=== PATIENT | male | born 1945 | race Caucasian/White ===

== ENCOUNTER → 2016-07-04 | Outpatient (CLI) | payer MEDICARE ==
[~2016-07-04] MED LIST: ACET325T PO; ASPI1TAB69 PO; CEPA5.4L2 BUCCAL; CLON0.1T PO; CLON0.5T PO; COLA100C3 PO; CYCL1TAB29 PO; DILA100C PO; DOCU100C PO; FENT50T T-DERMAL; FINA5TAB2 PO; GAVISUS PO; IPRASOL INH; LEVE500 PO; LORA2INJ2 IV; LYRI100C PO; MILKSUS PO; MORP1TAB24 PO; ONDA4INJ2 IV PUSH; OXYC-395 PO; OXYC1CAP8 PO; OXYC1TAB63 PO; OXYC5 PO; PANT40TA3 PO; PHEN100C PO; PHENO100 PO; POLY17S PO; SODI0.9I29 IV FLUSH; TERA10CA3 PO; TERA5CAP3 PO; TRAZ50TA12 PO; VENTAER INH; ZOLP5TAB3 PO
[2016-07-04 13:56] LABS: AUTOMATED NEUTROPHIL # 6.1 TH/MM3 (1.8-7.7); BASOPHIL % 0.4 % (0.0-2.0); EOSINOPHIL # 0.1 TH/MM3 (0-0.4); EOSINOPHIL % 1.1 % (0.0-4.0); HEMATOCRIT 39.9 % (39.0-51.0); HEMO FLAGS DIFF FINAL; LYMPH % 18.8 % (9.0-44.0); LYMPHOCYTE # 1.6 TH/MM3 (1.0-4.8); MEAN CELL VOLUME 90.5 FL (80.0-100.0); MEAN CORPUSCULAR HEMOGLOBIN 31.4 PG (27.0-34.0); MEAN CORPUSCULAR HGB CONC 34.7 % (32.0-36.0); MONO % 7.9 % (0.0-8.0); NEUT % 71.8 % (16.0-70.0); PLATELET COUNT 228 TH/MM3 (150-450); RED CELL DISTRIBUTION WIDTH 13.7 % (11.6-17.2); WHITE BLOOD COUNT 8.5 TH/MM3 (4.0-11.0)
[2016-07-04 14:05] LABS: PROTHROMBIN TIME - PATIENT 10.6 SEC (9.8-11.6)
[2016-07-04 14:10] LABS: BLOOD, URINE MOD (NEG); COMMENT (UR) CULT NOT INDICATED; CULTURE IF INDICATED CULT NOT INDICATED; GLUCOSE,URINE NEG (NEG); KETONE, URINE NEG (NEG); MUCUS URINE FEW /lpf (OCC); NITRITE,URINE NEG (NEG); SQUAMOUS EPITHELIAL CELL URINE <1 /hpf (0-5); URINE COLOR YELLOW (YELLW/STRAW)
[2016-07-04 14:20] LABS: ANION GAP 8 MEQ/L (5-15); AST (GOT) 24 U/L (15-37); BICARBONATE 27.4 MEQ/L (21.0-32.0); BLOOD UREA NITROGEN 16 MG/DL (7-18); CHLORIDE 109 MEQ/L (98-107); GLOMERULAR FILTRATION RATE 109 ML/MIN (>89); GLUCOSE,FASTING 94 MG/DL (74-99); POTASSIUM 4.6 MEQ/L (3.5-5.1); SODIUM (NA) 144 MEQ/L (136-145)
[2016-07-04 14:23] LABS: ALKALINE PHOSPHATASE 143 U/L (45-117); ALT (GPT) 29 U/L (12-78); TOTAL BILIRUBIN ADULT 0.8 MG/DL (0.2-1.0)
--- NOTE | 2016-07-04 14:41 | RADRPT ---
EXAM DATE/TIME: 07/04/2016 14:19 [facility] COMPARISON: No previous studies available for comparison. INDICATIONS : Evaluate pneumonia, pneumothorax, or communicable disease. Pre op back surgery MEDICAL HISTORY : None. SURGICAL HISTORY : None. ENCOUNTER: Initial ACUITY: 1 day PAIN SCORE: 0/10 LOCATION: Bilateral chest FINDINGS: The lungs are clear without infiltrate, nodule, or mass. There is no appreciable pleural effusion fo r technique. Heart and mediastinum are unremarkable. There are degenerative changes in the thoracic spine with hypertrophic changes. IMPRESSION: No acute cardiopulmonary disease. Kalen Leigh MD on July 04, 2016 at 14:38 Board Certified Radiologist. This report was verified electronically.
--- NOTE | 2016-07-04 15:57 | EKG ---
Date Performed: 07/04/2016 Time Performed: 13:17:24 PTAGE: 71 years EKG: BASELINE ARTIFACT PRESENT. SINUS BRADYCARDIA BORDERLINE ECG NO PREVIOUS TRACING DOCTOR: Jc Mclaughlin Interpretating Date/Time 07/04/2016 15:55:56
== END ==
LOC: CPRE 12:43
PROVIDERS: ATTEND Neurological Surgery
DX: Z01.810 Encounter for preprocedural cardiovascular examination (principal); Z01.812 Encounter for preprocedural laboratory examination; D42.9 Neoplasm of uncertain behavior of meninges, unspecified; M48.02 Spinal stenosis, cervical region; M50.30 Other cervical disc degeneration, unspecified cervical region; M25.552 Pain in left hip; M25.551 Pain in right hip; R00.1 Bradycardia, unspecified
CPT/HCPCS: 36415; 71020; 80053; 81001; 85025; 85610; 85730; 93005

== ENCOUNTER 2016-07-07 06:12 | Inpatient (IN) | payer MEDICARE ==
--- NOTE | 2016-07-06 13:03 | MH ---
cc: WON RUBIN M.D. DATE OF ADMISSION 07/07/2016 DATE OF 1945 ADMITTING DIAGNOSIS Cervical myelopathy HISTORY OF PRESENT ILLNESS This is a 71-year-old male who is known to our office. He has previously undergone an L4 kyphoplasty, L5 kyphoplasty and bilateral sacroplasty on 03/04/[address] Rubin. He has subsequently improved after surgery, although has chronic low back pain and he presented to our office on 02/17/2016 for an evaluation of low back pain, as well as signs and symptoms of cervical myelopathy. He states that his entire left leg more than right has pain. He states his feet are always cold. He gets spasms in his legs. If he stretches, his legs get numb. He has previously been referred to pain management for his lumbar spine. He also has chronic neck pain. He has numbness in his hands all of time. He has incoordination of his hands and cannot tie his shoes. He denies any radiculopathy in the upper extremities. He cannot get to the bathroom fast enough when he has the urge to have a bowel movement or urinate. He ambulates with a very kyphotic neck and lumbar posture. He has had physical therapy and also uses a wellness gym. He also complains of severe pain on the right side of his head and headaches across his forehead. He denies any nausea or vomiting. He also has decreased strength in his hands along with paresthesias and numbness in the upper extremities. He cannot extend his neck or maintained a neutral position with his neck. He has a previous history of a right frontal craniotomy for meningioma resection when he was in his 20s when he presented with seizures. He has also had an anterior and posterior cervical spine surgery with laminectomy from C3-C7, an anterior cervical C3/C4 and C4/C5 interbody fusion. He has also had a previous multilevel lumbar laminectomy undertaken by a different surgeon. He has had multiple followup visits with us to discuss his MRI scans of his brain, cervical and lumbar spine. He has also had follow-up evaluations with his brother present. The patient has postponed surgical intervention on his neck while he tried to coordinate a surgical date with his brother. An MRI scan of his brain from November 18, 2015 with contrast was reviewed which reveals a large area of right frontal encephalomalacia from his previous craniotomy with postoperative changes. He also has a 3.5 left posterior frontal parietal parafalcine mass which extends into the sagittal sinus wall and intensely enhances. We also reviewed an MRI of the cervical spine from November 18, 2015 which shows a kyphotic alignment with a C3/C4 and C4/C5 interbody fusion in the C3-C7 laminectomy with some myelomalacia and thinning of the spinal cord. There is also significant C1-C3 spinal stenosis with the spinal canal reduced down to 6 mm. MRI of the lumbar spine from January 15, 2016 shows kyphoplasty cement at the L4 and L5 and S1 levels with laminectomy from L3-S1 with no significant stenosis. There are multilevel degenerative changes noted. Again, the patient states that he is unsteady with ambulation and he is having weakness that is progressing in his arms and legs. PAST MEDICAL HISTORY Significant for: 1. Chronic low back pain 2. Seizures 3. Chronic anemia 4. Benign prostatic hypertrophy PAST SURGICAL HISTORY 1. Anterior and posterior cervical spine surgery with laminectomy from C3-C7 and anterior cervical fusion at the C3-C4 and C4-C5. 2. Multilevel lumbar laminectomy 3. L4-S1 kyphoplasty CURRENT MEDICATIONS He is takin. Keppra 1500 mg b.i.d. 2. Dilantin 100 mg b.i.d. 3. Terazosin 10 mg daily 4. Oxycodone 50 mg p.o. q.6 h p.r.n. pain. 5. Finasteride 5 mg p.o. daily PHYSICAL EXAMINATION HEAD: Normocephalic, atraumatic. He has a well-healed right craniotomy incision. NECK: Supple. No carotid bruits heard. LUNGS: Auscultation of the lungs, clear to auscultation bilaterally. HEART: Regular rate and rhythm, normal S1 and S2. ABDOMEN: Soft and nontender with positive bowel sounds. SKIN: Reveals no cyanosis or erythema. MUSCULOSKELETAL: The patient has a very kyphotic neck and lumbar posture. He ambulates with a walker. He has 2/5 hand intrinsic strength with hand atrophy bilaterally, 3/5 biceps, triceps and deltoid strength. He has 4-/5 EHL and dorsiflexion strength on the right and 4/5 on the left. He has 3/5 iliopsoas in knee extension bilaterally. NEUROLOGIC: He is awake, alert, and oriented. Cranial nerves appear grossly intact. His speech is fluent. Comprehension is good. He has a positive Fan's on the right side. Negative Babinski. He has decreased sensation in the right hand and foot on exam, although has subjective complaints of numbness in his upper extremities and lower extremities. IMPRESSION A 71-year-old male with a fairly complicated neurologic history followed by Dr. Escalona from neurology and was referred to us for evaluation of his meningioma and cervical stenosis with significant myelopathy. The patient has a history of seizures and right craniotomy for meningioma resection 40-50 years ago. He now has a left frontal parietal 3.5 cm meningioma involving the falx along with convexity and possibly the sagittal sinus lateral wall. He also has significant C1-C3 stenosis for progressive loss of lordosis and kyphosis and associated myelopathy. He has significant cervical myelopathy related to his significant C1-C3 stenosis and progressive loss of lordosis and kyphosis. He also has chronic low back pain with multilevel degenerative disk disease and no significant lumbar stenosis has been found. PLAN We have discussed in detail the findings of his cervical and brain MRI scans and discussed the treatment recommendation with the patient and his brother. We have recommended a posterior C1-C3 decompressive laminectomy and once he has recuperated from this, proceed with a left craniotomy for meningioma resection. The patient has elected to postpone surgical intervention for several months and has now decided to proceed with surgery although he continues to have progressive weakness from his myelopathy. We have discussed the procedure, as well as the risks, benefits, alternatives and recovery time in great detail. We have discussed the risks of surgery to include but not limited to bleeding, infection, muscle weakness, voice hoarseness, difficulty swallowing, heart attack, stroke blood clots, scar tissue formation among others. We have discussed with the patient the goal of surgery is to decompress the cervical canal at C1-C3 to help reduce the risk of paralysis that can result with a whiplash type motion especially given his unsteadiness. Given his progressive weakness and unsteady gait, the patient will likely need inpatient rehab after surgery. The patient understands the procedure, as well as the goals of surgery. He understands that he has had previous cervical myelopathy and some of his symptoms could be related to this and no guarantees were made to the patient as to the results of surgery or improvement in some of his chronic findings. The patient states that he understands this and the patient's brother who is with him also agrees and understands the goal of surgery is to decompress the spinal canal and he will subsequently require rehabilitation to see if she gets improvement in his strength which was been a chronic finding and he understands that this sometimes can take several months to even a year to see improvement if it does improve. The patient was therefore scheduled for surgery accordingly. Dictated by: Austen Mtz PA-C MD CELINE Talamantes/JULIANA /12:03 PM /12:36 PM
[~2016-07-07] VITALS: Ht 182.9 cm; Wt 80.6 kg
[~2016-07-07 06:12] MED LIST changes: -ACET325T PO; -ASPI1TAB69 PO; -CEPA5.4L2 BUCCAL; -CLON0.1T PO; -CLON0.5T PO; -COLA100C3 PO; -CYCL1TAB29 PO; -DOCU100C PO; -FENT50T T-DERMAL; -FINA5TAB2 PO; -GAVISUS PO; -IPRASOL INH; -LORA2INJ2 IV; -LYRI100C PO; -MILKSUS PO; -MORP1TAB24 PO; -ONDA4INJ2 IV PUSH; -OXYC1CAP8 PO; -OXYC1TAB63 PO; -OXYC5 PO; -PANT40TA3 PO; -PHEN100C PO; -PHENO100 PO; -POLY17S PO; -SODI0.9I29 IV FLUSH; -TERA10CA3 PO; -TERA5CAP3 PO; -TRAZ50TA12 PO; -VENTAER INH; -ZOLP5TAB3 PO
[2016-07-07] MEDS ORDERED: CHLORHEXIDINE GLUCONATE 2 % 1 PACK (2 CLOTHS) TOPICAL PRN (07:00)
[2016-07-07] MEDS ORDERED: VANCOMYCIN 1,000 MG/NS 250 ML IV SCH ×2 (07:00)
[2016-07-07] MEDS ORDERED: INSULIN HUMAN REGULAR 1,000 UNITS/10 ML VIAL SQ PRN (07:00)
[2016-07-07] MEDS ORDERED: LACTATED RINGER'S 1000 ML IV PRN (07:00)
[2016-07-07] MEDS ORDERED: METOPROLOL TARTRATE 25 MG TAB PO PRN (07:00)
[2016-07-07] MEDS ORDERED: SODIUM CHLORID 0.9% 500 ML IV PRN (07:00)
[2016-07-07] MEDS ORDERED: POVIDONE IODINE 5% (ANTISEPSIS KIT) 4 APPLICATIONS EACH NARE PRN (07:00)
[2016-07-07] MEDS ORDERED: FINA5TAB2 PO (07:07)
[2016-07-07] MEDS ORDERED: TERA10CA3 PO (07:07)
[2016-07-07] MEDS ORDERED: LIDOCAINE 1%/EPINEPHrine 1:100,000 SOLN 20 ML VIAL ONE (07:16)
[2016-07-07 07:23] VITALS: BP 104/56; PULSE 73; RESP 20; TEMP 97.6; O2SAT 95
[2016-07-07] MEDS ORDERED: THROMBIN (TOPICAL) 5,000 UNIT VIAL ONE (08:22)
[2016-07-07] MEDS ORDERED: BUPIVACAINE/EPINEPHRINE 0.5% PF 30 ML VIAL ONE (08:22)
[2016-07-07] MEDS ORDERED: VANCOMYCIN HCL 1000 MG VIAL ONE (08:22)
[2016-07-07] MEDS ORDERED: GELFOAM SIZE 100 ONE (08:22)
[2016-07-07] MEDS ORDERED: fentaNYL CITRATE 250 MCG/5 ML AMP ONE (08:43)
[2016-07-07] MEDS ORDERED: levETIRAcetam 500 MG/5 ML VIAL IV ONE (08:51)
[2016-07-07] MEDS ORDERED: DO NOT ADM ANY ANTICOAGULANT DRUGS PRN (12:00)
[2016-07-07] MEDS ORDERED: NEOSTIGMINE 3 MG/3 ML SYR IV ONE (12:00)
[2016-07-07] MEDS ORDERED: ONDANSETRON HCL 4 MG/2 ML VIAL IV PUSH ONE (12:00)
[2016-07-07] MEDS ORDERED: LACTATED RINGER'S 1000 ML INJ 2,000 ML IV ONE (12:00)
[2016-07-07] MEDS ORDERED: SODIUM CHLOR 0.9% 250 ML INJ 250 ML IV ONE (12:00)
[2016-07-07] MEDS ORDERED: ePHEDrine/NS 25 MG/5 ML SYR IV ONE ×2 (12:00→13:45)
[2016-07-07] MEDS ORDERED: PROPOFOL 200 MG/20 ML AMP IV ONE (12:00)
[2016-07-07] MEDS ORDERED: PHENYLEPH/NS 1000 MCG/10 ML SYR IV ONE (12:00)
--- NOTE | 2016-07-07 12:04 | RADRPT ---
EXAM DATE/TIME: 07/07/2016 09:06 [facility] COMPARISON: No previous studies available for comparison. INDICATIONS : C1-C2-C3 posterior laminectomies. Level localization. MEDICAL HISTORY : None. SURGICAL HISTORY : None. ENCOUNTER: Initial ACUITY: 1 day PAIN SCORE: Non-responsive. LOCATION: neck FINDINGS: Intraoperative examination demonstrates a localizing probe pointing towards C1 and the second one tow ards the inferior margin of C3 spinous process. CONCLUSION: Intraoperative changes as above. Kalen Leigh MD on July 07, 2016 at 12:01 Board Certified Radiologist. This report was verified electronically.
[2016-07-07] MEDS ORDERED: NS + KCL 20 MEQ INJ 1,000 ML IV SCH (12:14)
[2016-07-07] MEDS ORDERED: MENTHOL LOZENGE BUCCAL PRN (12:15)
[2016-07-07] MEDS ORDERED: MAGNESIUM HYDROXIDE SUSP 30 ML CUP PO PRN (12:15)
[2016-07-07] MEDS ORDERED: ONDANSETRON HCL 4 MG/2 ML VIAL IV PRN (12:15)
[2016-07-07] MEDS ORDERED: POTASSIUM CHLOR 20 MEQ PREMIX 100 ML IV PRN (12:15)
[2016-07-07] MEDS ORDERED: cloNIDine HCL 0.1 MG TAB PO PRN (12:15)
[2016-07-07] MEDS ORDERED: RESP: ALBUTEROL 2.5 MG/3 ML NEB (PRN) NEB (12:15)
[2016-07-07] MEDS ORDERED: oxyCODONE/ACETAMINOPHEN 10 MG/325 MG TAB PO PRN (12:15)
[2016-07-07] MEDS ORDERED: MAGNESIUM SULFATE INJ 2 GM in SODIUM CHLORIDE 0.9% INJ 100 ML IV PRN (12:15)
[2016-07-07] MEDS ORDERED: ALUMINUM/MAGNESIUM/SIMETH 30 ML CUP PO PRN (12:15)
[2016-07-07] MEDS ORDERED: LORazepam 2 MG/ML VIAL IVP PRN (12:15)
[2016-07-07] MEDS ORDERED: SODIUM CHLORIDE 0.9% FLUSH 10 ML FLUSH IV FLUSH PRN (12:15)
[2016-07-07] MEDS ORDERED: ACETAMINOPHEN 325 MG TAB PO PRN (12:15)
[2016-07-07] MEDS ORDERED: CALCIUM GLUCONATE INJ 1 GM in SODIUM CHLORIDE 0.9% INJ 100 ML IV PRN (12:15)
[2016-07-07] MEDS ORDERED: *morphine SULFATE 8 MG/ML PERIprocedure ONLY ONE (12:17)
--- NOTE | 2016-07-07 12:30 | PD.OP ---
cc: Peyman Escalona PhD MD; Evangelista Maldonado DO Operative Report Date of Surgery: Jul 07, 2016 Preoperative Diagnosis: Severe cervical myelopathy with C1, C2 and C3 stenosis and spinal cord compression Postoperative Diagnosis: Same Procedure: Posterior C1, C2 and C3 decompressive laminectomies; microsurgical technique Anesthesia: Gen. endotracheal by Rigoberto Carr Surgeon: Mayur Brasher M.D. Fire Lookout(s): Ruthie Curry Operation and Findings: Following administration of general endotracheal anesthesia with the neck maintained in neutral position in a Te-Moak J collar, patient had a Abdullahi catheter placed with sequential compression devices. A gram of vancomycin was administered intravenously along with 10 mg of Decadron and a gram of Keppra. He was then turned on a prone position on a Robert table and the head secured in a horseshoe headrest and all pressure points adequately padded. Posterior occipital cervical region was then shaved and prepped with Betadine solution and ChloraPrep. Sterile draping undertaken along with Ioban and a midline incision extending from the C1 to the C3 incorporating the previous incision site was then made after infiltrating the skin was 0.5% Marcaine with epinephrine solution. Intraoperative fluoroscopy used for level confirmation. Retractors were used for exposure after the fascia incised and the muscular attachments to the posterior arch of C1 and spinous process of C2 and C3 lamina remnant bilaterally. Further dissection was undertaken using microtechnique with microscope magnification. I drilled out the posterior arch of C1 to decompress the spinal canal which was significantly stenosed. There was also epidural adhesions at the C2-3 level adherent to the ligamentum flavum which were dissected out after C2 laminectomy undertaken as well as remnant of the C3 lamina as he also had a previous laminectomy at this level. canal. The ligamentum flavum were also resected with Kerrisons. The spinal canal was adequately decompressed at this point. The area was then copiously irrigated with antibody solution laminectomy edges and hemostasis achieved with bone wax along with Gelfoam and thrombin. Retractors removed and the muscle and fascia using 2-0 Vicryl interrupted sutures and 3-0 Vicryl subcuticular stitch also placed in an interrupted fashion and final skin closure was with sravanthi. A sterile dressing was applied and the neck immobilized in a Te-Moak J collar. He was then turned in supine position and extubated and taken to recovery room. There were no intraoperative complications and all sponge and needle count was correct at the end the procedure. Estimated blood loss about 100 cc. Patient did undergo intraoperative neurologic monitoring which remained stable throughout surgery. Mayur Brasher MD Jul 07, 2016 12:30
[2016-07-07] MEDS ORDERED: ceFAZolin INJ 1,000 MG VIAL ONE (12:39)
[2016-07-07] MEDS ORDERED: ePHEDrine/NS 25 MG/5 ML SYR ONE (12:46)
[2016-07-07] MEDS ORDERED: *RESP: ALBUTEROL 2.5 MG/3 ML NEB (PRN) PERIprocedural Use ONLY NEB ONE (12:48)
[2016-07-07 12:56] LABS: AUTOMATED NEUTROPHIL # 2.6 TH/MM3 (1.8-7.7); BASOPHIL % 0.2 % (0.0-2.0); EOSINOPHIL % 0.1 % (0.0-4.0); HEMATOCRIT 31.6 % (39.0-51.0); HEMO FLAGS DIFF FINAL; LYMPH % 13.1 % (9.0-44.0); LYMPHOCYTE # 0.4 TH/MM3 (1.0-4.8); MEAN CELL VOLUME 90.3 FL (80.0-100.0); MEAN CORPUSCULAR HEMOGLOBIN 31.3 PG (27.0-34.0); MEAN CORPUSCULAR HGB CONC 34.6 % (32.0-36.0); MONO % 2.1 % (0.0-8.0); NEUT % 84.5 % (16.0-70.0); PLATELET COUNT 164 TH/MM3 (150-450); RED CELL DISTRIBUTION WIDTH 13.5 % (11.6-17.2); WHITE BLOOD COUNT 3.1 TH/MM3 (4.0-11.0)
[2016-07-07] MEDS ORDERED: NOREPINEPHRINE 4 MG/4 ML AMP ONE (12:57)
[2016-07-07] MEDS ORDERED: PHENYTOIN INJ 250 MG/5 ML VIAL IV ONE (13:00)
[2016-07-07 13:31] LABS: BLOOD GAS BASE EXCESS -4.7 mmol/L (-2-2); BLOOD GAS CARBOXYHEMOGLOBIN 1.6 % (0-4); BLOOD GAS HCO3 20 mmol/L (22-26); BLOOD GAS METHEMOGLOBIN 1.3 % (0-2); BLOOD GAS O2 HGB SATURATION 95 % (90-100); BLOOD GAS OXYGEN CONTENT 15.1 Vol % (12.0-20.0); BLOOD GAS PCO2 38 mmHg (38-42); BLOOD GAS PO2 92 mmHg (61-120); BLOOD GAS TOTAL HGB 11.3 G/DL (12.0-16.0); CRITICAL VALUE NO; DRAW SITE ART LINE; LITER FLOW 9 L/M; OXYGEN DEVICE SIMPLE MASK; STAT YES; TEMP CORR TO 98.6
[2016-07-07 13:32] LABS: BICARBONATE 24.4 MEQ/L (21.0-32.0); MAGNESIUM 1.8 MG/DL (1.5-2.5); POTASSIUM 3.7 MEQ/L (3.5-5.1)
[2016-07-07] MEDS ORDERED: LACTATED RINGER'S 1000 ML INJ 1,000 ML IV ONE (13:45)
[2016-07-07] MEDS ORDERED: NOREPINEPHRINE 4 MG/D5W 250 ML IV SCH (13:45)
--- NOTE | 2016-07-07 13:45 | RADRPT ---
EXAM DATE/TIME: 07/07/2016 14:13 [facility] COMPARISON: CHEST SINGLE AP, April 12, 2014, 13:55. INDICATIONS : Shortness of breath. MEDICAL HISTORY : None. SURGICAL HISTORY : None. ENCOUNTER: Initial ACUITY: 1 day PAIN SCORE: Non-responsive. LOCATION: chest FINDINGS: The heart is stable. The pulmonary vascular pattern is normal. Minimal patchiness is noted within t he left lung base consistent with atelectasis and/or minimal developing infiltrate. CONCLUSION: 1. Minimal patchiness within the left lung base consistent with atelectasis and/or minimal developin g infiltrate. Clinical correlation is recommended. Brandon Strickland MD on July 07, 2016 at 13:39 Board Certified Radiologist. This report was verified electronically.
[2016-07-07] MEDS ORDERED: HYDROCORTISONE SOD SUCCINATE 100 MG VIAL ONE (14:04)
[2016-07-07] MEDS ORDERED: *diphenhydrAMINE HCL 50 MG/ML VIAL PERIprocedural Use ONLY ONE (14:10)
[2016-07-07 14:37] LABS: CREATINE KINASE 131 U/L (39-308)
[2016-07-07 14:50] LABS: CKMB 4.1 NG/ML (0.5-3.6)
[2016-07-07] MEDS: DEXAMETHASONE SOD PHOS 4 MG/ML VIAL IV SCH ×2 (15:00→20:49)
--- NOTE | 2016-07-07 15:20 | PD.CONS ---
[facility] Service Critical Care Medicine Consult Requested By Dr. Gore Reason for Consult Hypotension Primary Care Physician Evangelista Maldonado, DO History of Present Illness 71-year-old male with C1-C3 stenosis with myelopathy status post C1-C3 laminectomy under GETA by Dr. Brasher, EBL 100 cc, received 1500 cc crystalloid intraoperatively, was extubated postoperatively and transferred to PACU. He was hypotensive following extubation received 4 L of crystalloid and was started on Levophed for pressor support which is increased to 16 mics per minute. Patient is complaining of itching almost immediately on waking up from anesthesia. He had received Ancef 1 g around 1 PM and had received vancomycin just prior to starting the case. Critical care consult was requested by anesthesiology-Dr. Gore for hypotension. I evaluated the patient immediately on being notified of the consult in PACU. At the time of my evaluation he was laying in a stretcher complaining of itching all over however denied any chest pain or shortness of breath. Her O2 sats were borderline on nasal cannula and she was placed on a Ventimask 50% O2. EKG did not reveal any significant changes compared to his preop EKG. He did have a generalized maculopapular erythematous rash over his extremities and trunk as well as back which look like an allergic reaction. He was on Levophed at 16 mics per minute at the time of my evaluation having received 4 L of normal saline. I did order a stat dose of hydrocortisone 100 mg IV as well as Benadryl 25 mg IV stat. History was obtained by reviewing records and discussion with PACU nursing staff and Dr. Gore. Review of Systems ROS Limitations: Clinical Condition ROS Postanesthesia hence review of systems Limited. As per HPI. Past Family Social History Allergies: Coded Allergies: Ancef (Verified Allergy, Intermediate, Rash, 07/07/16) Past Medical History 1. Chronic low back pain 2. Seizures 3. Chronic anemia 4. Benign prostatic hypertrophy 5. CAD status post previous stenting 6. Cervical myelopathy 7. DVT following hip surgery in 2014 8. Depression 9. Meningioma left posterior frontal parietal parafalcine region Past Surgical History PAST SURGICAL HISTORY 1. Anterior and posterior cervical spine surgery with laminectomy from C3-C7 and anterior cervical fusion at the C3-C4 and C4-C5. 2. Multilevel lumbar laminectomy 3. L4-S1 kyphoplasty Reported Medications 1. Keppra 1500 mg b.i.d. 2. Dilantin 100 mg b.i.d. 3. Terazosin 10 mg daily 4. Oxycodone 50 mg p.o. q.6 h p.r.n. pain. 5. Finasteride 5 mg p.o. daily Active Ordered Medications Active Medications Acetaminophen (Tylenol) 650 mg Q4H PRN PO; Start 07/07/16 at 12:15 Al Hydrox/Mg Hydrox/Simethicone (Mag-Al Plus Susp Liq) 30 ml Q6H PRN PO; Start 07/07/16 at 12:15 Albuterol Sulfate (*ALBUTEROL NEB PERIprocedure ONLY) 2.5 mg STK-MED ONCE NEB; Start 07/07/16 at 12:48; Stop 07/07/16 at 12:49; Status DC Bupivacaine HCl/ Epinephrine Bitart (Sensorcaine-Epinephrine Pf 0.5% Inj) 30 ml STK-MED ONCE .ROUTE Last administered on 07/07/16t 09:59; Admin Dose 12 ML; Start 07/07/16 at 08:22; Stop 07/07/16 at 08:23; Status DC Calcium Gluconate 1 gm/Sodium Chloride 110 ml @ 110 mls/hr UNSCH PRN IV; Start 07/07/16 at 12:15 Cefazolin Sodium (Ancef Inj) 1,000 mg STK-MED ONCE .ROUTE; Start 07/07/16 at 12: 39; Stop 07/07/16 at 12:40; Status DC Cefazolin Sodium/ Sodium Chloride (Ancef Inj/NS Inj) 100 ml @ 200 mls/hr Q8H IV ; Start 07/07/16 at 13:00; Stop 07/07/16 at 14:22; Status DC Clonidine (Catapres) 0.1 mg Q6H PRN PO; Start 07/07/16 at 12:15 Cyclobenzaprine HCl (Flexeril) 10 mg Q8H PRN PO; Start 07/07/16 at 12:15 Dexamethasone Sodium Phosphate (Decadron Inj) 4 mg Q6H IV; Start 07/07/16 at 15: 00; Stop 07/08/16 at 03:01 Diphenhydramine HCl (*BENADRYL INJ PERIprocedural ONLY) 50 mg STK-MED ONCE .ROUTE; Start 07/07/16 at 14:10; Stop 07/07/16 at 14:11; Status DC Docusate Sodium (Colace) 100 mg BID PO; Start 07/07/16 at 21:00 Ephedrine Sulfate (ePHEDrine/NS 25 MG/5 ML SYR) 25 mg STK-MED ONCE .ROUTE; Start 07/07/16 at 12:46; Stop 07/07/16 at 12:47; Status DC Ephedrine Sulfate 20 mg 20 mg ONCE ONCE IV; Start 07/07/16 at 13:45; Stop 07/07 at 13:46; Status DC Fentanyl Citrate (fentaNYL INJ) 500 mcg STK-MED ONCE .ROUTE; Start 07/07/16 at 08:43; Stop 07/07/16 at 08:44; Status DC Finasteride (Proscar) 5 mg HS PO; Start 07/07/16 at 21:00 Gelatin (Gelfoam 100 Top) 1 foam STK-MED ONCE .ROUTE Last administered on 10:10; Admin Dose 1 FOAM; Start 07/07/16 at 08:22; Stop 07/07/16 at 08:23; Status DC Hydrocortisone Sodium Succinate (SoluCORTEF INJ) 100 mg STK-MED ONCE .ROUTE; Start 07/07/16 at 14:04; Stop 07/07/16 at 14:05; Status DC Lactated Ringer's 1,000 ml @ 30 mls/hr Q24H PRN IV Last administered on 07:10; Admin Dose 30 MLS/HR; Start 07/07/16 at 07:00; Stop 07/07/16 at 12: 38; Status DC Lactated Ringer's (Lr 1000 ml Inj) 1,000 ml @ 999 mls/hr ONCE ONCE IV; Start 07/07/16 at 13:45; Stop 07/07/16 at 14:45 Levetriacetam (Keppra Inj) 1,000 mg STK-MED ONCE IV Last administered on 09:50; Admin Dose 1,000 MG; Start 07/07/16 at 08:51; Stop 07/07/16 at 08:53 ; Status DC Levetriacetam (Keppra) 1,500 mg BID PO; Start 07/07/16 at 21:00 Lidocaine/ Epinephrine (Xylocaine-Epi 1%-1:100,000 Inj) 40 ml STK-MED ONCE .ROUTE; Start 07/07/16 at 07:16; Stop 07/07/16 at 07:17; Status DC Lorazepam (Ativan Inj) 1 mg Q1H PRN IVP; Start 07/07/16 at 12:15 Magnesium Hydroxide (Milk Of Magnesia Liq) 30 ml DAILY PRN PO; Start 07/07/16 at 12:15 Magnesium Sulfate/ Sodium Chloride (Magnesium Sulfate Inj/NS Inj) 104 ml @ 100 mls/hr UNSCH PRN IV; Start 07/07/16 at 12:15 Menthol ([place] Almita) 1 lozenge UNSCH PRN BUCCAL; Start 07/07/16 at 12:15 Miscellaneous Information ALL NURSING DEPARTME... UNSCH PRN .XX; Start at 12:00; Stop 07/08/16 at 11:59 Morphine Sulfate (Morphine Inj) 4 mg Q2H PRN IV; Start 07/07/16 at 12:15 Morphine Sulfate 8 mg 8 mg STK-MED ONCE .ROUTE; Start 07/07/16 at 12:17; Stop at 12:18; Status DC Norepinephrine Bitartrate (Levophed-Dextrose Drip) 250 ml @ 0 mls/hr TITRATE IV ; Start 07/07/16 at 13:45 Norepinephrine Bitartrate 4 mg 4 mg STK-MED ONCE .ROUTE; Start 07/07/16 at 12:57 ; Stop 07/07/16 at 12:58; Status DC Ondansetron HCl 4 mg 4 mg Q6H PRN IV; Start 07/07/16 at 12:15 Oxycodone/ Acetaminophen (Percocet 10-325 Mg) 1 tab Q4H PRN PO; Start 07/07/16 at 12:15 Oxycodone/ Acetaminophen (Percocet 10-325 Mg) 2 tab Q4H PRN PO; Start 07/07/16 at 12:15 Pantoprazole Sodium (Protonix) 40 mg DAILY PO; Start 07/08/16 at 09:00 Phenytoin (Dilantin) 200 mg BID PO; Start 07/07/16 at 21:00 Phenytoin Sodium (Dilantin Inj) 250 mg ONCE ONCE IV; Start 07/07/16 at 13:00; Stop 07/07/16 at 13:01; Status DC Polyethylene Glycol (Miralax) 17 gm DAILY PO; Start 07/08/16 at 09:00 Potassium Chloride/Sodium Chloride (NS + KCl 20 Meq Inj) 1,000 ml @ 80 mls/hr [id number] IV; Start 07/07/16 at 12:14; Stop 07/08/16 at 12:13 Potassium Chloride 100 ml @ 50 mls/hr UNSCH PRN IV; Start 07/07/16 at 12:15 Sodium Chloride (NS 500 ml Inj) 500 ml @ 30 mls/hr [id number] PRN IV; Start at 07:00; Stop 07/07/16 at 12:38; Status DC Sodium Chloride (NS Flush) 2 ml UNSCH PRN IV FLUSH; Start 07/07/16 at 12:15 Sodium Chloride 2 ml 2 ml BID IV FLUSH; Start 07/07/16 at 21:00 Terazosin HCl (Hytrin) 10 mg DAILY PO; Start 07/08/16 at 09:00 Thrombin (Thrombin Top Soln) 10,000 units STK-MED ONCE .ROUTE Last administered on 07/07/16 10:10; Admin Dose 10,000 UNITS; Start 07/07/16 at 08:22; Stop 07/07 at 08:23; Status DC Vancomycin HCl (Vancomycin Inj) 1,000 mg STK-MED ONCE .ROUTE Last administered on 07/07/16 10:28; Admin Dose 1,000 MG; Start 07/07/16 at 08:22; Stop 07/07/16 at 08:23; Status DC Zolpidem Tartrate (Ambien) 5 mg HS PRN PO; Start 07/07/16 at 12:15 Family History Noncontributory at this time Social History History of smoking 2 packs per day for 30 years Physical Exam Vital Signs Vital Signs Date Time Temp Pulse Resp B/P Pulse Ox O2 Delivery O2 Flow Rate FiO2 07/07/16 07:23 97.6 73 20 104/56 95 Physical Exam PHYSICAL EXAMINATION HEAD: Normocephalic, atraumatic. He has a well-healed right craniotomy incision. NECK: [place] J collar in place, dressing over surgical site LUNGS: Auscultation of the lungs, clear to auscultation bilaterally. No wheezing or crackles HEART: Regular rate and rhythm, normal S1 and S2. ABDOMEN: Soft and nontender with positive bowel sounds. SKIN: Diffuse erythematous rash noted over trunk and extremities including back MUSCULOSKELETAL: No edema peripherally. NEUROLOGIC: He is awake, alert, and oriented. Cranial nerves appear grossly intact. His speech is fluent. Comprehension is good. Moves all 4 extremities. Wasting of intrinsic hand muscles bilaterally with grade 3 power bilaterally in upper and lower extremities. Laboratory Laboratory Tests Test 07/07/16 07/07/16 12:39 13:15 White Blood Count 3.1 Red Blood Count 3.50 Hemoglobin 10.9 Hematocrit 31.6 Mean Corpuscular Volume 90.3 Mean Corpuscular Hemoglobin 31.3 Mean Corpuscular Hemoglobin 34.6 Concent Red Cell Distribution Width 13.5 Platelet Count 164 Mean Platelet Volume 7.4 Neutrophils (%) (Auto) 84.5 Lymphocytes (%) (Auto) 13.1 Monocytes (%) (Auto) 2.1 Eosinophils (%) (Auto) 0.1 Basophils (%) (Auto) 0.2 Neutrophils # (Auto) 2.6 Lymphocytes # (Auto) 0.4 Monocytes # (Auto) 0.1 Eosinophils # (Auto) 0.0 Basophils # (Auto) 0.0 CBC Comment DIFF FINAL Differential Comment Sodium Level 143 Potassium Level 3.7 Chloride Level 110 Carbon Dioxide Level 24.4 Anion Gap 9 Blood Urea Nitrogen 15 Creatinine 0.81 Estimat Glomerular Filtration 94 Rate Random Glucose 143 Calcium Level 8.1 Magnesium Level 1.8 Phenytoin (Dilantin) Level 17.2 Blood Gas Puncture Site ART LINE Blood Gas Patient Temperature 98.6 Blood Gas HCO3 20 Blood Gas Base Excess -4.7 Blood Gas Oxygen Saturation 95 Arterial Blood pH 7.35 Arterial Blood Partial 38 Pressure CO2 Arterial Blood Partial 92 Pressure O2 Arterial Blood Oxygen Content 15.1 Arterial Blood 1.6 Carboxyhemoglobin Arterial Blood Methemoglobin 1.3 Blood Gas Hemoglobin 11.3 Oxygen Delivery Device SIMPLE MASK Blood Gas Liter Flow 9 Result Diagram: 07/07/16 1239 07/07/16 1239 Imaging Last 24 hours Impressions Cervical Spine X-Ray 07/07/16 0000 Signed Impressions: Service Date/Time: June 09:06 - CONCLUSION: Intraoperative changes as above. Kalen Leigh MD Assessment and Plan Assessment and Plan 71-year-old male with: C1-C3 laminectomy Postop hypotension probably secondary to hypersensitivity reaction(suspect secondary to Ancef) Acute respiratory failure from early pulmonary edema Coronary artery disease Cervical myelopathy Meningioma History of seizures Plan: Neuro: Continue neuro checks. Status post cervical laminectomy, neurosurgery follow-up. [place] J collar in place. Continue decadron IV. Benadryl when necessary for rash. Received 1 dose of hydrocortisone 100 mg IV in PACU. Continue Keppra/ dilantin PO. Cardiovascular: Status post 4 L normal saline bolus. Off Levophed since this morning. Saline lock IV fluids. May require diuresis if respiratory status deteriorates for fluid overload. Suspect hypotension secondary to allergic reaction with rash and vasodilation. Should respond to steroids and Benadryl. EKG unchanged. Cardiac enzymes negative. Pulmonary: Continue supplemental O2 as needed. ABG satisfactory. Bronchodilators as needed. Currently on room air GI/liver: Continue by mouth diet Renal/: Status post multiple fluid boluses. Continue maintenance IV fluids. Strict intake output, monitor and replete electro lites, follow BUN/creatinine. May require diuresis if respiratory status worsens. ID: Received Ancef postoperatively which will be held as suspect allergic reaction due to Ancef. Did receive vancomycin and start of case. I have discussed with Dr. Brasher and he is okay with stopping Ancef at this time. Heme: Follow CBC Endocrine: Watch for hyperglycemia, SSI for glycemic control if needed Prophylaxis: Protonix, SCDs, subcutaneous heparin when okay with neurosurgery. Further recommendations per neurosurgery. May move out of ICU from critical care standpoint. Code Status full code Evans Griggs MD Jul 07, 2016 15:20 Code Status full code Evans Griggs MD Jul 07, 2016 15:20
[2016-07-07] MEDS ORDERED: RESP: ALBUTEROL 2.5 MG/IPRATROPIUM 0.5 MG NEB (PRN) NEB (15:30)
[2016-07-07 16:00] VITALS: BP 124/58; PULSE 91; PULSE 96; RESP 16; TEMP 97.7; O2SAT 97
[2016-07-07 18:00] VITALS: PULSE 87
[2016-07-07 20:00] VITALS: BP 94/50; PULSE 71; PULSE 75; RESP 12; TEMP 98.7; O2SAT 96
[2016-07-07] MEDS: RESP: ALBUTEROL 2.5 MG/IPRATROPIUM 0.5 MG NEB (SCH) NEB (20:00)
[2016-07-07] MEDS: PHENYTOIN SODIUM 100 MG CAP PO SCH (20:48)
[2016-07-07] MEDS: levETIRAcetam 500 MG TAB PO SCH (20:48)
[2016-07-07] MEDS: DOCUSATE SODIUM 100 MG CAP PO SCH (20:48)
[2016-07-07] MEDS: FINASTERIDE 5 MG TAB PO SCH (20:49)
[2016-07-07] MEDS: SODIUM CHLORIDE 0.9% FLUSH 10 ML FLUSH IV FLUSH SCH (20:50)
[2016-07-07 22:00] VITALS: PULSE 68
[2016-07-07] MEDS: oxyCODONE/ACETAMINOPHEN 10 MG/325 MG TAB PO PRN (22:31)
[2016-07-07] MEDS: CYCLOBENZAPRINE HCL 10 MG TAB PO PRN (22:31)
[2016-07-08] VITALS (12 sets, daily range): BP systolic 100–120; BP diastolic 56–71; PULSE 62–85; RESP 12–30; TEMP 97.3–98.7; O2SAT 92–97
[2016-07-08] MEDS: ZOLPIDEM TARTRATE 5 MG TAB PO PRN ×2 (01:04→23:36)
[2016-07-08] MEDS: MORPHINE SULFATE 4 MG/ML INJ IV PRN ×3 (03:26→13:11)
[2016-07-08] MEDS: DEXAMETHASONE SOD PHOS 4 MG/ML VIAL IV SCH (03:26)
[2016-07-08] MEDS: SODIUM CHLORIDE 0.9% FLUSH 10 ML FLUSH IV FLUSH SCH ×2 (07:42→20:57)
[2016-07-08] MEDS: RESP: ALBUTEROL 2.5 MG/IPRATROPIUM 0.5 MG NEB (SCH) NEB ×2 (08:14→19:44)
[2016-07-08] MEDS: DOCUSATE SODIUM 100 MG CAP PO SCH ×2 (08:24→20:57)
[2016-07-08] MEDS: POLYETHYLENE GLYCOL 17 GM PKG PO SCH (08:24)
[2016-07-08] MEDS: PHENYTOIN SODIUM 100 MG CAP PO SCH ×2 (08:24→20:58)
[2016-07-08] MEDS: CYCLOBENZAPRINE HCL 10 MG TAB PO PRN (08:24)
[2016-07-08] MEDS: TERAZOSIN HCL 5 MG CAP PO SCH (08:24)
[2016-07-08] MEDS: levETIRAcetam 500 MG TAB PO SCH ×2 (08:24→20:58)
[2016-07-08] MEDS: PANTOPRAZOLE SOD 40 MG DELAYED RELEASE TAB PO SCH (08:25)
--- NOTE | 2016-07-08 09:05 | HHI.NSPN ---
(Austen Mtz) History Chief Complaint: Neck discomfort s/p posterior cervical lami. (Austen Mtz) Interval History This is a 71-year-old male who is known to our office. He has previously undergone an L4 kyphoplasty, L5 kyphoplasty and bilateral sacroplasty on 03/04/[address] Brasher. He has subsequently improved after surgery, although has chronic low back pain and he presented to our office on 02/17/2016 for an evaluation of low back pain, as well as signs and symptoms of cervical myelopathy. He states that his entire left leg more than right has pain. He states his feet are always cold. He gets spasms in his legs. If he stretches, his legs get numb. He has previously been referred to pain management for his lumbar spine. He also has chronic neck pain. He has numbness in his hands all of time. He has incoordination of his hands and cannot tie his shoes. He denies any radiculopathy in the upper extremities. He cannot get to the bathroom fast enough when he has the urge to have a bowel movement or urinate. He ambulates with a very kyphotic neck and lumbar posture. He has had physical therapy and also uses a wellness gym. He also complains of severe pain on the right side of his head and headaches across his forehead. He denies any nausea or vomiting. He also has decreased strength in his hands along with paresthesias and numbness in the upper extremities. He cannot extend his neck or maintained a neutral position with his neck. He has a previous history of a right frontal craniotomy for meningioma resection when he was in his 20s when he presented with seizures. He has also had an anterior and posterior cervical spine surgery with laminectomy from C3-C7, an anterior cervical C3/C4 and C4/C5 interbody fusion. He has also had a previous multilevel lumbar laminectomy undertaken by a different surgeon. He has had multiple followup visits with us to discuss his MRI scans of his brain, cervical and lumbar spine. He has also had follow-up evaluations with his brother present. The patient has postponed surgical intervention on his neck while he tried to coordinate a surgical date with his brother. An MRI scan of his brain from November 18, 2015 with contrast was reviewed which reveals a large area of right frontal encephalomalacia from his previous craniotomy with postoperative changes. He also has a 3.5 left posterior frontal parietal parafalcine mass which extends into the sagittal sinus wall and intensely enhances. We also reviewed an MRI of the cervical spine from November 18, 2015 which shows a kyphotic alignment with a C3/C4 and C4/C5 interbody fusion in the C3-C7 laminectomy with some myelomalacia and thinning of the spinal cord. There is also significant C1-C3 spinal stenosis with the spinal canal reduced down to 6 mm. MRI of the lumbar spine from January 15, 2016 shows kyphoplasty cement at the L4 and L5 and S1 levels with laminectomy from L3-S1 with no significant stenosis. There are multilevel degenerative changes noted. Again, the patient states that he is unsteady with ambulation and he is having weakness that is progressing in his arms and legs. 07/08/16: Pt awake and alert. Complains of neck discomfort. He states his paresthesias in his hands feel better. No radiculopathy in UEs. (Austen Mtz) Review of Systems General: Negative for: fever, chills, insomnia Respiratory: Negative for: shortness of breath, cough, sputum Cardiovascular: Negative for: chest pain Gastrointestinal: Negative for: nausea, vomitting, diarrhea, constipation ( Austen Mtz SAmanda CARRENO) Exam Results Vital Signs Date Time Temp Pulse Resp B/P Pulse Ox O2 Delivery O2 Flow Rate FiO2 07/08/16 08:24 93 21 07/08/16 06:00 62 07/08/16 04:00 97.8 12 107/56 07/07/16 19:00 Nasal Cannula 3.00 Intake and Output 07/07/16 07/07/16 07/08/16 08:00 16:00 00:00 Intake Total 3698 ml 730 ml Output Total 700 ml 600 ml Balance 2998 ml 130 ml (Austen Mtz S. PA) Physical Examination Resp: CTA bilaterally Heart: NSR no murmurs Abd: Soft positive bs Skin: Incision clean and dry. [place] in place. New bandage placed. Muscle: Pt has 4/5 strength in UEs. He has hand intrinsic atrophy. He is sitting up in bed and PT is here and going to try to get pt oob. Neuro: Pt awake awake and alert. Follows commands well. Speech clear and appropriate. Pt states paresthesias in hands improving. (Austen Mtz) Lab, Micro, Other Results Laboratory Tests Test 07/07/16 07/07/16 07/07/16 12:39 13:15 16:00 White Blood Count 3.1 TH/MM3 Red Blood Count 3.50 MIL/MM3 Hemoglobin 10.9 GM/DL Hematocrit 31.6 % Mean Corpuscular Volume 90.3 FL Mean Corpuscular Hemoglobin 31.3 PG Mean Corpuscular Hemoglobin 34.6 % Concent Red Cell Distribution Width 13.5 % Platelet Count 164 TH/MM3 Mean Platelet Volume 7.4 FL Neutrophils (%) (Auto) 84.5 % Lymphocytes (%) (Auto) 13.1 % Monocytes (%) (Auto) 2.1 % Eosinophils (%) (Auto) 0.1 % Basophils (%) (Auto) 0.2 % Neutrophils # (Auto) 2.6 TH/MM3 Lymphocytes # (Auto) 0.4 TH/MM3 Monocytes # (Auto) 0.1 TH/MM3 Eosinophils # (Auto) 0.0 TH/MM3 Basophils # (Auto) 0.0 TH/MM3 CBC Comment DIFF FINAL Differential Comment Sodium Level 143 MEQ/L Potassium Level 3.7 MEQ/L Chloride Level 110 MEQ/L Carbon Dioxide Level 24.4 MEQ/L Anion Gap 9 MEQ/L Blood Urea Nitrogen 15 MG/DL Creatinine 0.81 MG/DL Estimat Glomerular Filtration 94 ML/MIN Rate Random Glucose 143 MG/DL Calcium Level 8.1 MG/DL Magnesium Level 1.8 MG/DL Total Creatine Kinase 131 U/L Creatine Kinase MB 4.1 NG/ML Troponin I LESS THAN 0.02 NG/ML Phenytoin (Dilantin) Level 17.2 MCG/ML Blood Gas Puncture Site ART LINE Blood Gas Patient Temperature 98.6 Blood Gas HCO3 20 mmol/L Blood Gas Base Excess -4.7 mmol/L Blood Gas Oxygen Saturation 95 % Arterial Blood pH 7.35 Arterial Blood Partial 38 mmHg Pressure CO2 Arterial Blood Partial 92 mmHg Pressure O2 Arterial Blood Oxygen Content 15.1 Vol % Arterial Blood 1.6 % Carboxyhemoglobin Arterial Blood Methemoglobin 1.3 % Blood Gas Hemoglobin 11.3 G/DL Oxygen Delivery Device SIMPLE MASK Blood Gas Liter Flow 9 L/M Nasal Screen MRSA (PCR) NEGATIVE 07/07/16 07/07/16 07/08/16 15:00 23:00 07:00 Intake Total 1000 ml 3428 ml 420 ml Output Total 250 ml 1050 ml 700 ml Balance 750 ml 2378 ml -280 ml Intake Oral 620 ml 420 ml IV Total 2808 ml Other 1000 ml Output Urine Total 150 ml 950 ml 700 ml Stool Total 0 ml 0 ml Estimated Blood Loss 100 ml 100 ml (Austen Mtz) Medical Decision Making Impression and Plan A: 71 y/o M s/p posterior C1-C3 laminectomy. P: Continue with PT Continue with current care (Austen Mtz) Attending Statement The exam, history, and the medical decision-making described in the above note were completed with the assistance of the mid-level provider. I reviewed and agree with the findings presented. I attest that I had a [id number] encounter with the patient on the same day, and personally performed and documented my assessment and findings in the medical record. Overall doing well postoperatively today. Complains of incisional pain will adjust his pain medications for better control. Plan on [place] inpatient rehabilitation placement tomorrow. (Mayur Brasher MD) Austen Mtz Jul 08, 2016 09:05 Mayur Brasher MD Jul 08, 2016 17:22
--- NOTE | 2016-07-08 12:00 | HHI.CCPN ---
Subjective Remarks/Hospital Course 07/07: 71-year-old male with C1-C3 stenosis with myelopathy status post C1-C3 laminectomy under GETA by Dr. Brasher, EBL 100 cc, received 1500 cc crystalloid intraoperatively, was extubated postoperatively and transferred to PACU. He was hypotensive following extubation received 4 L of crystalloid and was started on Levophed for pressor support which is increased to 16 mics per minute. Patient is complaining of itching almost immediately on waking up from anesthesia. He had received Ancef 1 g around 1 PM and had received vancomycin just prior to starting the case. Critical care consult was requested by anesthesiology-Dr. Gore for hypotension. I evaluated the patient immediately on being notified of the consult in PACU. At the time of my evaluation he was laying in a stretcher complaining of itching all over however denied any chest pain or shortness of breath. Her O2 sats were borderline on nasal cannula and she was placed on a Ventimask 50% O2. EKG did not reveal any significant changes compared to his preop EKG. He did have a generalized maculopapular erythematous rash over his extremities and trunk as well as back which look like an allergic reaction. He was on Levophed at 16 mics per minute at the time of my evaluation having received 4 L of normal saline. I did order a stat dose of hydrocortisone 100 mg IV as well as Benadryl 25 mg IV stat. History was obtained by reviewing records and discussion with PACU nursing staff and Dr. Gore. 07/08: Rash and itching resolved. O2 titrated off and currently on room air. Levophed titrated off this morning. Tolerating PO diet. Objective Vital Signs Date Time Temp Pulse Resp B/P Pulse Ox O2 Delivery O2 Flow Rate FiO2 07/08/16 10:00 80 07/08/16 08:24 93 21 07/08/16 08:00 98.7 30 112/60 07/08/16 07:00 Room Air 07/07/16 19:00 3.00 Intake and Output 07/07/16 07/07/16 07/08/16 08:00 16:00 00:00 Intake Total 3698 ml 730 ml Output Total 700 ml 600 ml Balance 2998 ml 130 ml Result Diagram: 07/07/16 1239 07/07/16 1239 Other Results Laboratory Tests Test 07/07/16 07/07/16 07/07/16 12:39 13:15 16:00 White Blood Count 3.1 TH/MM3 Red Blood Count 3.50 MIL/MM3 Hemoglobin 10.9 GM/DL Hematocrit 31.6 % Mean Corpuscular Volume 90.3 FL Mean Corpuscular Hemoglobin 31.3 PG Mean Corpuscular Hemoglobin 34.6 % Concent Red Cell Distribution Width 13.5 % Platelet Count 164 TH/MM3 Mean Platelet Volume 7.4 FL Neutrophils (%) (Auto) 84.5 % Lymphocytes (%) (Auto) 13.1 % Monocytes (%) (Auto) 2.1 % Eosinophils (%) (Auto) 0.1 % Basophils (%) (Auto) 0.2 % Neutrophils # (Auto) 2.6 TH/MM3 Lymphocytes # (Auto) 0.4 TH/MM3 Monocytes # (Auto) 0.1 TH/MM3 Eosinophils # (Auto) 0.0 TH/MM3 Basophils # (Auto) 0.0 TH/MM3 CBC Comment DIFF FINAL Differential Comment Sodium Level 143 MEQ/L Potassium Level 3.7 MEQ/L Chloride Level 110 MEQ/L Carbon Dioxide Level 24.4 MEQ/L Anion Gap 9 MEQ/L Blood Urea Nitrogen 15 MG/DL Creatinine 0.81 MG/DL Estimat Glomerular Filtration 94 ML/MIN Rate Random Glucose 143 MG/DL Calcium Level 8.1 MG/DL Magnesium Level 1.8 MG/DL Total Creatine Kinase 131 U/L Creatine Kinase MB 4.1 NG/ML Troponin I LESS THAN 0.02 NG/ML Phenytoin (Dilantin) Level 17.2 MCG/ML Blood Gas Puncture Site ART LINE Blood Gas Patient Temperature 98.6 Blood Gas HCO3 20 mmol/L Blood Gas Base Excess -4.7 mmol/L Blood Gas Oxygen Saturation 95 % Arterial Blood pH 7.35 Arterial Blood Partial 38 mmHg Pressure CO2 Arterial Blood Partial 92 mmHg Pressure O2 Arterial Blood Oxygen Content 15.1 Vol % Arterial Blood 1.6 % Carboxyhemoglobin Arterial Blood Methemoglobin 1.3 % Blood Gas Hemoglobin 11.3 G/DL Oxygen Delivery Device SIMPLE MASK Blood Gas Liter Flow 9 L/M Nasal Screen MRSA (PCR) NEGATIVE Imaging Last 24 hours Impressions Cervical Spine X-Ray 07/07/16 0000 Signed Impressions: Service Date/Time: June 09:06 - CONCLUSION: Intraoperative changes as above. Kalen Leigh MD Objective Remarks PHYSICAL EXAMINATION HEAD: Normocephalic, atraumatic. He has a well-healed right craniotomy incision. NECK: Dickson J collar in place, dressing over surgical site LUNGS: Auscultation of the lungs, clear to auscultation bilaterally. No wheezing or crackles HEART: Regular rate and rhythm, normal S1 and S2. ABDOMEN: Soft and nontender with positive bowel sounds. SKIN: Rash which was noted on 07/07 is currently completely resolved MUSCULOSKELETAL: No edema peripherally. NEUROLOGIC: He is awake, alert, and oriented. Cranial nerves appear grossly intact. His speech is fluent. Comprehension is good. Moves all 4 extremities. Wasting of intrinsic hand muscles bilaterally with grade 3 power bilaterally in upper and lower extremities. A/P Assessment and Plan 71-year-old male with: C1-C3 laminectomy Postop hypotension probably secondary to hypersensitivity reaction(suspect secondary to Ancef) Acute respiratory failure from early pulmonary edema Coronary artery disease Cervical myelopathy Meningioma History of seizures Plan: Neuro: Continue neuro checks. Status post cervical laminectomy, neurosurgery follow-up. Dickson J collar in place. Decadron IV per neurosurgery. Benadryl when necessary for rash. Received 1 dose of hydrocortisone 100 mg IV in PACU. Continue Keppra/ dilantin PO. Cardiovascular: Status post 4 L normal saline bolus in PACU. Off Levophed since this morning. Saline lock IV fluids. May require diuresis if respiratory status deteriorates for fluid overload. Suspect hypotension secondary to allergic reaction with rash and vasodilation. Should respond to steroids and Benadryl. EKG unchanged. Cardiac enzymes negative. Pulmonary: Continue supplemental O2 as needed. ABG satisfactory. Bronchodilators as needed. Currently on room air GI/liver: Continue by mouth diet Renal/: Status post multiple fluid boluses. Saline lock IV fluids. Strict intake output, monitor and replete electro lites, follow BUN/creatinine. May require diuresis if respiratory status worsens. ID: Received Ancef postoperatively which will be held as suspect allergic reaction due to Ancef. Did receive vancomycin and start of case. I have discussed with Dr. Brasher and he is okay with stopping Ancef at this time. Heme: Follow CBC Endocrine: Watch for hyperglycemia, SSI for glycemic control if needed Prophylaxis: Protonix, SCDs, subcutaneous heparin when okay with neurosurgery. Further recommendations per neurosurgery. May move out of ICU from critical care standpoint. Evans Griggs MD Jul 08, 2016 12:00
[2016-07-08] MEDS: oxyCODONE/ACETAMINOPHEN 10 MG/325 MG TAB PO PRN ×3 (12:10→23:36)
[2016-07-08] MEDS ORDERED: MORPHINE SULFATE 4 MG/ML INJ IV PUSH ONE (14:45)
[2016-07-08] MEDS ORDERED: OXYC-395 PO (16:51)
--- NOTE | 2016-07-08 19:11 | EKG ---
Date Performed: 07/07/2016 Time Performed: 14:12:58 PTAGE: 71 years EKG: Sinus rhythm Nonspecific ST abnormality new from the prior tracing BORDERLINE ECG PREVIOUS TRACING : 07/04/2016 13.17 DOCTOR: Yossi Caldwell Interpretating Date/Time 07/08/2016 19:09:26
[2016-07-08] MEDS: FINASTERIDE 5 MG TAB PO SCH (20:58)
[2016-07-09 01:04] VITALS: BP 145/71; PULSE 84; RESP 17; TEMP 97.7; O2SAT 96
[2016-07-09 04:58] VITALS: BP 140/76; PULSE 76; RESP 17; TEMP 97.6; O2SAT 96
[2016-07-09 08:04] VITALS: BP 136/72; PULSE 78; RESP 18; TEMP 98.7; O2SAT 94
[2016-07-09] MEDS: TERAZOSIN HCL 5 MG CAP PO SCH (08:04)
[2016-07-09] MEDS: oxyCODONE/ACETAMINOPHEN 10 MG/325 MG TAB PO PRN (08:04)
[2016-07-09] MEDS: PHENYTOIN SODIUM 100 MG CAP PO SCH (08:05)
[2016-07-09] MEDS: DOCUSATE SODIUM 100 MG CAP PO SCH (08:05)
[2016-07-09] MEDS: PANTOPRAZOLE SOD 40 MG DELAYED RELEASE TAB PO SCH (08:05)
[2016-07-09] MEDS: POLYETHYLENE GLYCOL 17 GM PKG PO SCH (08:05)
[2016-07-09] MEDS: levETIRAcetam 500 MG TAB PO SCH (08:05)
[2016-07-09] MEDS: SODIUM CHLORIDE 0.9% FLUSH 10 ML FLUSH IV FLUSH SCH (08:09)
[2016-07-09] MEDS ORDERED: DOCU100C PO (12:40)
[2016-07-09] MEDS ORDERED: CLON0.1T PO (12:41)
[2016-07-09] MEDS ORDERED: SODI0.9I29 IV FLUSH (12:41)
[2016-07-09] MEDS ORDERED: CYCL1TAB29 PO (12:41)
[2016-07-09] MEDS ORDERED: PANT40TA3 PO (12:41)
[2016-07-09] MEDS ORDERED: ZOLP5TAB3 PO (12:41)
[2016-07-09] MEDS ORDERED: POLY17S PO (12:41)
[2016-07-09] MEDS ORDERED: OXYC1CAP8 PO (12:41)
[2016-07-09] MEDS ORDERED: IPRASOL INH (12:41)
[2016-07-09] MEDS ORDERED: GAVISUS PO (12:41)
[2016-07-09] MEDS ORDERED: ACET325T PO (12:41)
[2016-07-09] MEDS ORDERED: MILKSUS PO (12:41)
[2016-07-09] MEDS ORDERED: ONDA4INJ2 IV PUSH (12:59)
[2016-07-09] MEDS ORDERED: CEPA5.4L2 BUCCAL (12:59)
[2016-07-09] MEDS ORDERED: OXYC1TAB63 PO (12:59)
[2016-07-09] MEDS ORDERED: LORA2INJ2 IV (12:59)
[2016-07-28] MEDS ORDERED: ZOLP5TAB3 PO (11:37)
[2016-07-28] MEDS ORDERED: DILA100C PO (11:37)
[2016-07-28] MEDS ORDERED: FINA5TAB2 PO (11:37)
[2016-07-28] MEDS ORDERED: TERA5CAP3 PO (11:37)
[2016-07-28] MEDS ORDERED: LEVE500 PO (11:37)
[2016-07-28] MEDS ORDERED: FENT50T T-DERMAL (11:37)
[2016-07-28] MEDS ORDERED: PANT40TA3 PO (11:37)
[2016-07-28] MEDS ORDERED: LYRI100C PO (11:38)
[2016-07-28] MEDS ORDERED: TRAZ50TA12 PO (11:38)
[2016-07-28] MEDS ORDERED: OXYC-395 PO (11:38)
[2016-08-18] MEDS ORDERED: LYRI100C PO (14:29)
== END 2016-07-09 11:58 | DRG 30 ==
LOC: HSDC 06:12 → N03A 12:21 → OBSVTOIN 16:53 → N05A 07-08 15:32
PROVIDERS: ADMIT Neurological Surgery; ATTEND Neurological Surgery
PROC: 00NW0ZZ Release Cervical Spinal Cord, Open Approach (ICD-10-PCS; principal; 2016-07-07 08:44)
DX: G95.29 Other cord compression (principal); G93.89 Other specified disorders of brain; R00.1 Bradycardia, unspecified; G40.909 Epilepsy, unspecified, not intractable, without status epilepticus; M48.02 Spinal stenosis, cervical region; G95.89 Other specified diseases of spinal cord; I95.81 Postprocedural hypotension; T36.1X5A Adverse effect of cephalosporins and other beta-lactam antibiotics, initial encounter; Y92.239 Unspecified place in hospital as the place of occurrence of the external cause; L27.0 Generalized skin eruption due to drugs and medicaments taken internally; G89.29 Other chronic pain; M54.5 Low back pain; N40.0 Benign prostatic hyperplasia without lower urinary tract symptoms; I25.10 Atherosclerotic heart disease of native coronary artery without angina pectoris; Z95.5 Presence of coronary angioplasty implant and graft; F32.9 Major depressive disorder, single episode, unspecified; Z86.011 Personal history of benign neoplasm of the brain; Z87.891 Personal history of nicotine dependence; R27.9 Unspecified lack of coordination; M25.552 Pain in left hip; M25.551 Pain in right hip
CPT/HCPCS: 36415; 71010; 71020; 72020; 76000; 80048; 80053; 80185; 81001; 82550; 82552; 82805; 83735; 84484; 85025; 85610; 85730; 87641; 93005; 94150; 94640; 94664; C1713; J0690; J1100; J1165; J1200; J1720; J1953; J2270; J2370; J2405; J2710; J3010; J3370; J3480; J7050; J7120; J7613

== ENCOUNTER 2016-10-10 17:48 | Inpatient (IN) | payer MEDICARE ==
[~2016-10-10] VITALS: Ht 182.9 cm; Wt 75.6 kg
[~2016-10-10 17:48] MED LIST changes: +ACET325T PO; +FENT50T T-DERMAL; +FINA5TAB2 PO; +GAVISUS PO; +LYRI100C PO; +PANT40TA3 PO; +TERA5CAP3 PO; +TRAZ50TA12 PO; +ZOLP5TAB3 PO
[2016-10-10 17:54] VITALS: BP 176/83; PULSE 62; RESP 14; TEMP 98.5; O2SAT 98
--- NOTE | 2016-10-10 17:55 | PD ---
HPI Chief Complaint: Seizure Time Seen by Provider: 17:55 Travel History International Travel<30 days: No Contact w/Intl Traveler<30days: No History of Present Illness HPI 71-year-old male with known brain tumor as of 2 weeks ago presents to emergency department with reported signs of seizure activity while being transported by [employer] to his neurologist Dr. Escalona. Patient is currently on Dilantin and Keppra for his seizures. Dr. Escalona requests the patient was transported to emergency department for further evaluation and treatment and probable admission. Patient currently does not recall any seizure, he only is complaining of headache which he has chronically, and states is a 4 out of 10. He denies any bodily injury at this time. Patient does have a history of chronic neck pain with cervical fusion in the past. He is allergic to Ancef. PFSH Past Medical History Arthritis: No Asthma: No Autoimmune Disease: No Anxiety: Yes Depression: Yes (Currently on medication ) Heart Rhythm Problems: No Cancer: Yes (basal skin on right eyelid removal, BRAIN TUMOR) Cardiovascular Problems: Yes (stent) High Cholesterol: No Chemotherapy: No Chest Pain: No Congestive Heart Failure: No COPD: No Cerebrovascular Accident: No Diabetes: No Endocrine: No Gastrointestinal Disorders: Yes (Irritable bowel syndrome ) GERD: Yes Genitourinary: Yes (Urgency ) Hepatitis: No Hiatal Hernia: No Immune Disorder: No Kidney Stones: No Musculoskeletal: Yes (neck pain and previous surgery) Neurologic: Yes (epilepsy, 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, NECK PAIN, SEIZURES, HEAD PAIN) Psychiatric: Yes (DEPRESSION) Reproductive: No Respiratory: No Immunizations Current: Yes Migraines: No Radiation Therapy: No Renal Failure: No Seizures: Yes (R/T BRAIN SURGERY) Sickle Cell Disease: No Sleep Apnea: No Thyroid Disease: No Ulcer: No Past Surgical History Abdominal Surgery: Yes (RIGHT TESTICLE DECENDING SURGERY) AICD: No Arteriovenous Shunt: No Body Medical Devices: CARDIAC STENT Cardiac Surgery: Yes (STENT) Ear Surgery: No Endocrine Surgery: No Eye Surgery: Yes (tumor removed from R eyelid) Genitourinary Surgery: No Gynecologic Surgery: No Insulin Pump: No Joint Replacement: No Neurologic Surgery: Yes (CARPAL TUNNEL SURGERY) Oral Surgery: Yes (for dentures) Pacemaker: No Thoracic Surgery: No Other Surgery: Yes (MENINGIOMA REMOVED WITH PIECE OF SKULL REMOVED) Social History Alcohol Use: Yes (WITH DINNER) Tobacco Use: No Substance Use: No Allergies-Medications (Allergen,Severity, Reaction): Coded Allergies: Ancef (Verified Allergy, Intermediate, Rash, 10/10/16) Reported Meds & Prescriptions Reported Meds & Active Scripts Active Lyrica (Pregabalin) 100 Mg Cap 150 Mg PO Q12HR 30 Days Trazodone (Trazodone HCl) 50 Mg Tab 200 Mg PO HS 30 Days Oxycodone (Oxycodone HCl) 10 Mg Tab 20 Mg PO Q6H PRN Oxycodone (Oxycodone HCl) 10 Mg Tab 10 Mg PO Q6H PRN Duragesic Patch 72 HR (Fentanyl) 50 Mcg/Hr Patch 1 Patch T-DERMAL Q3D Terazosin (Terazosin HCl) 5 Mg Cap 5 Mg PO HS Zolpidem (Zolpidem Tartrate) 5 Mg Tab 5 Mg PO HS PRN Pantoprazole (Pantoprazole Sodium) 40 Mg Tab 40 Mg PO DAILY Finasteride 5 Mg Tab 5 Mg PO HS Do not crush. Dilantin (Phenytoin Extended) 100 Mg Cap 200 Mg PO BID 30 Days Keppra (Levetiracetam) 500 Mg Tab 1,500 Mg PO BID 30 Days Reported Phenytoin Extended 100 Mg Cap 100 Mg PO BID Folic Acid 400 Mcg Tab 400 Mcg PO DAILY Fioricet (Ofcqubomau-Ozlcehtinzcxr-Zgszpdph) 50-300-40 Mg Cap 1 Cap PO Q4H PRN Alprazolam 0.5 Mg Tab 0.5 Mg PO Q6H PRN Mirtazapine 15 Mg Tab 15 Mg PO HS Gaviscon Liq (Aluminum Hydroxide-Mag Carb Liq) 95-358 Mg/15 Ml Susp 30 Ml PO Q6HR PRN Maximum 120 mL/24 hrs. Review of Systems Except as stated in HPI: all other systems reviewed are Neg General / Constitutional: No: Fever Eyes: No: Visual changes HENT: Positive: Headaches, Neck Stiffness, Neck Pain (chronic), No: Vertigo, Lightheadedness, Sore Throat, Rhinitis, Rhinorrhea Cardiovascular: No: Chest Pain or Discomfort Respiratory: No: Shortness of Breath Gastrointestinal: No: Nausea, Vomiting, Abdominal Pain Genitourinary: No: Dysuria Musculoskeletal: No: Pain Skin: No Rash Neurologic: Positive: Headache, Seizures (see history of present illness), No : Weakness, Dizziness, Syncope, Focal Abnormalities, Coordination Problem, Tremor, Ataxia, Change in Mentation, Slurred Speech, Paresthesia, Incontinence, Sensory Disturbance Psychiatric: No: Depression Endocrine: No: Polydipsia Hematologic/Lymphatic: No: Easy Bruising Physical Exam Narrative GENERAL: Patient appears in mild to moderate distress. SKIN: Warm and dry. Normal color. Normal turgor. Patient has multiple old hematomas without signs of acute injury. HEAD: Atraumatic. Normocephalic. Nontender with palpation. EYES: Pupils equal and round. No scleral icterus. No injection or drainage. ENT: No nasal bleeding or discharge. Mucous membranes pink and moist. Pharynx is clear. Airway is patent. NECK: Trachea midline. No JVD. Patient has chronic decreased range of motion secondary to cervical stenosis and fusion. Patient does not feel he is acutely different from his baseline. CARDIOVASCULAR: Regular rate and rhythm. RESPIRATORY: No accessory muscle use. Clear to auscultation. Breath sounds equal bilaterally. GASTROINTESTINAL: Abdomen soft, non-tender, nondistended. Hepatic and splenic margins not palpable. MUSCULOSKELETAL: Extremities without clubbing, cyanosis, or edema. No obvious deformities. NEUROLOGICAL: Awake and alert. No obvious cranial nerve deficits. Motor grossly within normal limits. Five out of 5 muscle strength in the arms and legs. Normal speech. PSYCHIATRIC: Appropriate mood and affect; insight and judgment normal. Data Data Last Documented VS Vital Signs Date Time Temp Pulse Resp B/P Pulse Ox O2 Delivery O2 Flow Rate FiO2 10/10/16 18:05 100 Room Air 10/10/16 17:54 98.5 62 14 176/83 Orders Complete Blood Count With Diff (10/10/16 17:59) Phenytoin (Dilantin) (10/10/16 17:59) Electrocardiogram (10/10/16 ) Blood Glucose (10/10/16 17:59) Ecg Monitoring (10/10/16 17:59) Iv Access Insert/Monitor (10/10/16 17:59) Oximetry (10/10/16 17:59) Comprehensive Metabolic Panel (10/10/16 17:59) Sodium Chloride 0.9% Flush (Ns Flush) (10/10/16 18:00) Lorazepam Inj (Ativan Inj) (10/10/16 18:00) Morphine Inj (Morphine Inj) (10/10/16 18:00) Mri Brain W&W/O Contrast (10/10/16 18:39) Dexamethasone Inj (Decadron Inj) (10/10/16 18:45) Fosphenytoin Inj (Cerebyx Inj) (10/10/16 20:00) Levetiracetam 1000 Mg Inj (Keppra 1000 M (10/10/16 22:00) ^ Seizure Precautions (10/10/16 19:06) Lorazepam Inj (Ativan Inj) (10/10/16 19:15) Phenytoin (Dilantin) (10/11/16 08:00) Eeg Study (10/10/16 ) Consult Neurosurgery (10/10/16 ) (Hub Use Only)Inp Phy Cons/Ref (10/10/16 ) Labs Laboratory Tests Test 10/10/16 18:15 White Blood Count 7.0 TH/MM3 Red Blood Count 4.10 MIL/MM3 Hemoglobin 13.0 GM/DL Hematocrit 36.0 % Mean Corpuscular Volume 87.8 FL Mean Corpuscular Hemoglobin 31.8 PG Mean Corpuscular Hemoglobin 36.2 % Concent Red Cell Distribution Width 13.9 % Platelet Count 220 TH/MM3 Mean Platelet Volume 7.0 FL Neutrophils (%) (Auto) 60.8 % Lymphocytes (%) (Auto) 27.0 % Monocytes (%) (Auto) 8.6 % Eosinophils (%) (Auto) 2.9 % Basophils (%) (Auto) 0.7 % Neutrophils # (Auto) 4.3 TH/MM3 Lymphocytes # (Auto) 1.9 TH/MM3 Monocytes # (Auto) 0.6 TH/MM3 Eosinophils # (Auto) 0.2 TH/MM3 Basophils # (Auto) 0.1 TH/MM3 CBC Comment AUTO DIFF Differential Comment AUTO DIFF CONFIRMED Platelet Estimate NORMAL Platelet Morphology Comment NORMAL Sodium Level 140 MEQ/L Potassium Level 3.5 MEQ/L Chloride Level 105 MEQ/L Carbon Dioxide Level 30.2 MEQ/L Anion Gap 5 MEQ/L Blood Urea Nitrogen 15 MG/DL Creatinine 0.68 MG/DL Estimat Glomerular Filtration 115 ML/MIN Rate Random Glucose 91 MG/DL Calcium Level 9.0 MG/DL Total Bilirubin 0.6 MG/DL Aspartate Amino Transf 11 U/L (AST/SGOT) Alanine Aminotransferase 13 U/L (ALT/SGPT) Alkaline Phosphatase 122 U/L Total Protein 6.4 GM/DL Albumin 3.4 GM/DL Phenytoin (Dilantin) Level 17.7 MCG/ML MDM Medical Decision Making Medical Screen Exam Complete: Yes Emergency Medical Condition: Yes Medical Record Reviewed: Yes Differential Diagnosis Headache. History of brain tumor. Seizure. Narrative Course Patient appears medically stable at time of exam. Call was placed to Dr. Escalona, the patient's neurologist to discuss the patient. IV access is obtained and labs are obtained including CBC, CMP, and Dilantin level. Patient is given 1 mg IV lorazepam as well as 2 mg morphine IV. EKG shows sinus bradycardia, this is unchanged from previous. Patient was discussed with Dr. Escalona who recommended MRI with and without contrast, 4 mg Decadron every 6 hours, and neurosurgery consult. He mentions that Dr. Brasher knows this patient from his previous cervical spine surgery. Patient was discussed with Dr. Caldwell who feels the patient could possibly be admitted prior to MRI results, as the brain tumor is known. Phenytoin level is 17.7. CBC shows no acute findings. 1934 hrs. call was placed to Dr. Maldonado, the patient's PCP for admission. 1944 hrs. patient was discussed with Dr. Maldonado, who agreed to admit the patient prior to MRI results. Diagnosis Primary Impression: Brain tumor Additional Impressions: Seizure disorder Head ache Qualified Code: R51 - Chronic nonintractable headache, unspecified headache type Admitting Information Admitting Physician Requests: Admit Condition: Stable Iván Garrett Oct 10, 2016 17:55
[2016-10-10] MEDS ORDERED: LORazepam 2 MG/ML VIAL IVS ONE (18:00)
[2016-10-10] MEDS ORDERED: MORPHINE SULFATE 4 MG/ML INJ IV PUSH ONE (18:00)
[2016-10-10] MEDS ORDERED: SODIUM CHLORIDE 0.9% FLUSH 10 ML FLUSH IVF PRN (18:00)
[2016-10-10 18:03] LABS: MEAN CORPUSCULAR HGB CONC 36.2 % (32.0-36.0)
[2016-10-10 18:05] VITALS: O2SAT 100
[2016-10-10 18:38] LABS: AUTOMATED NEUTROPHIL # 4.3 TH/MM3 (1.8-7.7); BASOPHIL # 0.1 TH/MM3 (0-0.2); BASOPHIL % 0.7 % (0.0-2.0); EOSINOPHIL # 0.2 TH/MM3 (0-0.4); EOSINOPHIL % 2.9 % (0.0-4.0); LYMPHOCYTE # 1.9 TH/MM3 (1.0-4.8); MEAN CELL VOLUME 87.8 FL (80.0-100.0); MEAN CORPUSCULAR HEMOGLOBIN 31.8 PG (27.0-34.0); MONO % 8.6 % (0.0-8.0); NEUT % 60.8 % (16.0-70.0); PLATELET COUNT 220 TH/MM3 (150-450); RED CELL DISTRIBUTION WIDTH 13.9 % (11.6-17.2)
[2016-10-10 18:43] LABS: HEMO FLAGS AUTO DIFF
[2016-10-10] MEDS ORDERED: FOLI400T PO (18:46)
[2016-10-10] MEDS ORDERED: PHEN100C PO (18:46)
[2016-10-10] MEDS ORDERED: MIRTA15 PO (18:46)
[2016-10-10] MEDS ORDERED: ALPR0.5T3 PO (18:46)
[2016-10-10] MEDS ORDERED: BUTA1CAP PO (18:46)
[2016-10-10] MEDS: DEXAMETHASONE SOD PHOS 4 MG/ML VIAL IV PUSH SCH (18:53)
[2016-10-10 19:05] LABS: ALT (GPT) 13 U/L (12-78); ANION GAP 5 MEQ/L (5-15); AST (GOT) 11 U/L (15-37); BICARBONATE 30.2 MEQ/L (21.0-32.0); BLOOD UREA NITROGEN 15 MG/DL (7-18); CHLORIDE 105 MEQ/L (98-107); GLOMERULAR FILTRATION RATE 115 ML/MIN (>89); POTASSIUM 3.5 MEQ/L (3.5-5.1); SODIUM (NA) 140 MEQ/L (136-145)
[2016-10-10 19:09] LABS: ALKALINE PHOSPHATASE 122 U/L (45-117); TOTAL BILIRUBIN ADULT 0.6 MG/DL (0.2-1.0)
[2016-10-10] MEDS ORDERED: LORazepam 2 MG/ML VIAL IV PUSH PRN (19:15)
[2016-10-10 19:28] LABS: SCAN/DIFF AUTO DIFF CONFIRMED
[2016-10-10 19:29] LABS: PLATELET ESTIMATE SMEAR NORMAL (NORMAL); PLATELET MORPHOLOGY NORMAL (NORMAL)
[2016-10-10] MEDS ORDERED: FOSPHENYTOIN SODIUM 100 MG PE/2 ML VIAL IV SCH (20:00)
[2016-10-10] MEDS ORDERED: LACTULOSE SYRUP 20 GM/30 ML CUP PO PRN (20:30)
[2016-10-10] MEDS ORDERED: ACETAMIN 325 MG/BUTALBITAL 50 MG/CAFFEINE 40 MG TAB PO PRN (20:30)
[2016-10-10] MEDS ORDERED: MAGNESIUM HYDROXIDE SUSP 30 ML CUP PO PRN (20:30)
[2016-10-10] MEDS ORDERED: ONDANSETRON HCL 4 MG/2 ML VIAL IVP PRN (20:30)
[2016-10-10] MEDS ORDERED: SENNOSIDES 8.6 MG TAB PO PRN (20:30)
[2016-10-10] MEDS ORDERED: ZOLPIDEM TARTRATE 5 MG TAB PO PRN (20:30)
[2016-10-10] MEDS ORDERED: NALOXONE HCL 0.4 MG/ML AMP IV PRN (20:30)
[2016-10-10] MEDS ORDERED: BISACODYL 10 MG SUPP RECTAL PRN (20:30)
[2016-10-10] MEDS ORDERED: ACETAMINOPHEN 325 MG TAB PO PRN (20:30)
[2016-10-10] MEDS ORDERED: SODIUM CHLORIDE 0.9% FLUSH 10 ML FLUSH IV FLUSH PRN (20:30)
[2016-10-10] MEDS ORDERED: ALUMINUM/MAGNESIUM/SIMETH 30 ML CUP PO PRN (20:30)
[2016-10-10] MEDS ORDERED: levETIRAcetam 500 MG TAB PO SCH (21:00)
[2016-10-10] MEDS ORDERED: PHENYTOIN SODIUM 100 MG CAP PO SCH ×2 (21:00)
[2016-10-10] MEDS ORDERED: FOSPHENYTOIN INJ 100 MGPE in SODIUM CHLORIDE 0.9% INJ 50 ML IV SCH (21:00)
[2016-10-10] MEDS ORDERED: GADODIAMIDE PF 287 MG/ML 5 ML VIAL (for RAD MRI) IV ONE (21:06)
[2016-10-10] MEDS ORDERED: levETIRAcetam 1000 MG INJ 100 ML IV SCH (22:00)
--- NOTE | 2016-10-10 22:01 | RADRPT ---
EXAM DATE/TIME: 10/10/2016 20:45 [facility] COMPARISON: No previous studies available for comparison. INDICATIONS : Mass. Seizures. CONTRAST: 15 cc Omniscan (gadodiamide) IV MEDICAL HISTORY : Seizures. SURGICAL HISTORY : Brain tumor resection. Right hip. Cardiac stent. ENCOUNTER: Initial ACUITY: 1 day PAIN SCORE: Nonresponsive. LOCATION: TECHNIQUE: Multiplanar, multisequence MRI of the brain was performed both prior to and following the administrat ion of paramagnetic contrast. FINDINGS: CEREBRUM: Large mass along the high convexity left parietal lobe in the extra-axial space extends in the parafa lcine region. There is some vasogenic edema and coaa-[id number] midline shift of 8 mm. This is likely a meningioma and enhances with contrast. This measures 5.7 x 3.6 x 4.4 cm. Large area of encephalomala hyun right frontal lobe likely old infarct. Scattered air is low attenuation throughout the white tavo er. The ventricles are normal for age. No evidence of hemorrhage or acute infarction. No extraaxial fluid collections are seen. The pituitary gland and suprasellar cistern are normal in configuration . WHITE MATTER: No significant signal abnormalities are seen in the white matter. POSTERIOR FOSSA: The cerebellum and brainstem are intact. The 4th ventricle is midline. The cerebellopontine angle is unremarkable. The cerebellar tonsils are normal in position. DIFFUSION IMAGING: No focal areas of restricted diffusion are seen. No evidence of acute infarction. EXTRACRANIAL: The visualized portions of the orbits and paranasal sinuses are unremarkable. CONCLUSION: 1. Large extra-axial mass along the high left parietal convexity in the extra-axial space measuring 5 .7 x 3.6 x 4.4 cm possibly representing a meningioma versus less likely metastatic disease. No old st udies for comparison. There is some minimal vasogenic edema in left parietal lobe. There is slight le ft to right midline shift of 8 mm. 2. 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 Austen Yates MD on October 10, 2016 at 21:55 Board Certified Radiologist. This report was verified electronically.
[2016-10-10] MEDS: MIRTAZAPINE 15 MG TAB PO SCH (22:13)
[2016-10-10] MEDS: TERAZOSIN HCL 5 MG CAP PO SCH (22:15)
[2016-10-10] MEDS: FINASTERIDE 5 MG TAB PO SCH (22:16)
[2016-10-10] MEDS: DOCUSATE SODIUM 50 MG/SENNA 8.6 MG TAB PO SCH (22:16)
[2016-10-10] MEDS: traZODone HCL 50 MG TAB PO SCH (22:17)
[2016-10-10] MEDS: PREGABALIN 100 MG CAP PO SCH (22:19)
[2016-10-10] MEDS: FOSPHENYTOIN INJ 100 MGPE in SODIUM CHLORIDE 0.9% INJ 50 ML IV SCH (22:24)
[2016-10-10 22:25] VITALS: BP 153/88; PULSE 58; RESP 12; O2SAT 100
[2016-10-10] MEDS: SODIUM CHLORIDE 0.9% FLUSH 10 ML FLUSH IV FLUSH SCH (22:25)
[2016-10-10] MEDS: levETIRAcetam 1000 MG INJ 100 ML IV SCH (23:40)
[2016-10-10] MEDS: fentaNYL 50 MCG/HR PATCH T-DERMAL SCH (23:56)
[2016-10-11] VITALS (15 sets, daily range): BP systolic 120–172; BP diastolic 60–69; PULSE 53–82; RESP 16–24; TEMP 97.7–99.2; O2SAT 96–99
[2016-10-11] MEDS: DEXAMETHASONE SOD PHOS 4 MG/ML VIAL IV PUSH SCH ×4 (01:17→17:04)
[2016-10-11] MEDS: FOSPHENYTOIN INJ 100 MGPE in SODIUM CHLORIDE 0.9% INJ 50 ML IV SCH ×5 (04:36→22:00)
[2016-10-11] MEDS: levETIRAcetam 1000 MG INJ 100 ML IV SCH ×3 (05:04→23:03)
[2016-10-11 05:20] LABS: AUTOMATED NEUTROPHIL # 3.1 TH/MM3 (1.8-7.7); BASOPHIL % 0.7 % (0.0-2.0); EOSINOPHIL # 0.1 TH/MM3 (0-0.4); EOSINOPHIL % 1.7 % (0.0-4.0); HEMO FLAGS DIFF FINAL; LYMPH % 34.5 % (9.0-44.0); MEAN CELL VOLUME 88.3 FL (80.0-100.0); MEAN CORPUSCULAR HEMOGLOBIN 30.5 PG (27.0-34.0); MEAN CORPUSCULAR HGB CONC 34.6 % (32.0-36.0); MONO % 8.1 % (0.0-8.0); PLATELET COUNT 218 TH/MM3 (150-450); RED BLOOD COUNT 4.41 MIL/MM3 (4.50-5.90); WHITE BLOOD COUNT 5.7 TH/MM3 (4.0-11.0)
[2016-10-11 05:37] LABS: ALT (GPT) 14 U/L (12-78); ANION GAP 8 MEQ/L (5-15); AST (GOT) 10 U/L (15-37); BICARBONATE 27.2 MEQ/L (21.0-32.0); BLOOD UREA NITROGEN 12 MG/DL (7-18); CHLORIDE 109 MEQ/L (98-107); GLOMERULAR FILTRATION RATE 125 ML/MIN (>89); SODIUM (NA) 144 MEQ/L (136-145)
[2016-10-11 05:39] LABS: ALKALINE PHOSPHATASE 118 U/L (45-117); TOTAL BILIRUBIN ADULT 0.6 MG/DL (0.2-1.0)
--- NOTE | 2016-10-11 08:05 | MB ---
cc: RODRIGO DOAN M.D. DATE OF CONSULTATION 10/10/2016 REASON FOR CONSULTATION Seizures HISTORY OF PRESENT ILLNESS Mr. Hazel is a 71-year-old man who has a history of a left hemisphere meningioma who now presents with frequent seizures. He states he has had several episodes where he loses consciousness. Her has jerking on the right side as well. He has a history of known left hemisphere meningioma. He was complaining of increasing right-sided weakness. He had an MRI of the brain done in August which revealed increased size of the left hemisphere meningioma with surrounding edema. He has a history about 20 years ago of a right hemisphere meningioma at that was resected PAST MEDICAL HISTORY 1. History of left history of meningioma as noted above. 2. History of right hemisphere meningioma resected 20 years ago. 3. History of cervical spondylosis with recent cervical spine surgery. MEDICATIONS He takes: 1. Dilantin 200 mg b.i.d. 2. He is on Keppra 1500 mg b.i.d. for his seizures. 3. He is on other medications as noted in the EMR. NEUROLOGIC EXAMINATION Blood pressure 176/83, pulse 62, respirations 14, temperature 98 degrees. Higher cortical function, he is alert and oriented. Speech is fluent. Cranial nerves intact. Motor exam, he is weak in the right arm rated at 3/5, right leg is 3/5 proximal and distal, left arm is 4/5, left leg 4/5. LABORATORY DATA White count is 7000, hemoglobin 13, hematocrit 36%, platelet count is 220,000. Sodium is pending. Electrolytes pending. Dilantin level pending. IMPRESSION 1. Left hemisphere meningioma now with increasing size. 2. Secondary seizures increasing RECOMMENDATIONS Follow-up on the phenytoin level. If this is in the low therapeutic range or subtherapeutic would recommend additional phenytoin. Continue Keppra. Also use Ativan p.r.n. seizures. Would recommend Decadron as well. Would repeat the MRI of the brain and also recommend neurosurgical consultation. MD SATYA Barba/JULIANA /7:10 PM /8:02 AM
--- NOTE | 2016-10-11 08:55 | PD.CONS ---
[facility] Service Neurosurg Consult Requested By Dr Escalona Reason for Consult Groing symptomatic brain mass Primary Care Physician Evangelista Maldonado, DO History of Present Illness Mr. Hazel is a 71-year-old male who has a history of a left hemisphere meningioma. Apparently the mass was small and asymotimatic but he now presents with frequent seizures and right side hemiplegia. He states he has had several episodes where he loses consciousness. Her has jerking on the right side as well. He denies tongue bitting. He denies incontinence of stool or urine. He has a history of known left hemisphere meningioma. He was complaining of increasing right-sided weakness. He had an MRI of the brain done in August which revealed increased size of the left hemisphere meningioma with surrounding edema. He has a history about 20 years ago of a right hemisphere meningioma at that was resected. He had severe cervical spinal stenosis and he underwent a cervical laminectomy with Dr Brasher. Neurosurgical consultation was requested. Review of Systems Constitutional: DENIES: Diaphoretic episodes, Fatigue, Fever, Weight gain, Weight loss, Chills, Dizziness, Change in appetite, Night Sweats Endocrine: DENIES: Heat/cold intolerance, Polydipsia, Polyuria, Polyphagia Eyes: COMPLAINS OF: Blurred vision, DENIES: Diplopia, Eye inflammation, Eye pain, Vision loss, Photosensitivity, Double Vision Ears, nose, mouth, throat: DENIES: Tinnitus, Hearing loss, Vertigo, Nasal discharge, Oral lesions, Throat pain, Hoarseness, Ear Pain, Running Nose, Epistaxis, Sinus Pain, Toothache, Odynophagia Respiratory: DENIES: Apneas, Cough, Snoring, Wheezing, Hemoptysis, Sputum production, Shortness of breath Cardiovascular: DENIES: Chest pain, Palpitations, Syncope, Dyspnea on Exertion , PND, Lower Extremity Edema, Orthopnea, Claudication Gastrointestinal: DENIES: Abdominal pain, Black stools, Bloody stools, Constipation, Diarrhea, Nausea, Vomiting, Difficulty Swallowing, Anorexia Genitourinary: DENIES: Sexual dysfunction, Urinary frequency, Urinary incontinence, Urgency, Hematuria, Dysuria, Nocturia, Penile Discharge, Testicular Pain, Testicular Swelling Musculoskeletal: DENIES: Joint pain, Muscle aches, Stiffness, Joint Swelling, Back pain, Neck pain Integumentary: DENIES: Abnormal pigmentation, Nail changes, Pruritus, Rash Hematologic/lymphatic: DENIES: Bruising, Lymphadenopathy Immunologic/allergic: DENIES: Eczema, Urticaria Neurologic: COMPLAINS OF: Abnormal gait, Headache, Localized weakness, Seizures , DENIES: Paresthesias, Speech Problems, Tremor, Poor Balance Psychiatric: DENIES: Anxiety, Confusion, Mood changes, Depression, Hallucinations, Agitation, Suicidal Ideation, Homicidal Ideation, Delusions Past Family Social History Allergies: Coded Allergies: Ancef (Verified Allergy, Intermediate, Rash, 10/10/16) Past Medical History History of left history of meningioma Coronary artery disease Seizures Past Surgical History History of right hemisphere meningioma resected 20 years ago. History of cervical spondylosis with recent cervical laminectomy Coronary artery stent Reported Medications Reviewed in EMR Active Ordered Medications Current Medications Sodium Chloride (NS Flush) 2 ml UNSCH PRN IVF FLUSH AFTER USING IV ACCESS; Start 10/10/16 at 18:00; Stop 10/10/16 at 21:15; Status DC Lorazepam (Ativan Inj) 1 mg ONCE ONCE IVS Last administered on 10/10/16t 18:54 ; Start 10/10/16 at 18:00; Stop 10/10/16 at 18:04; Status DC Morphine Sulfate (Morphine Inj) 2 mg ONCE ONCE IV PUSH ; Start 10/10/16 at 18: 00; Stop 10/10/16 at 18:04; Status DC Dexamethasone Sodium Phosphate (Decadron Inj) 4 mg Q6HR IV PUSH Last administered on 10/11/16t 11:41; Start 10/10/16 at 18:45 Fosphenytoin Sodium 100 mgpe 100 mgpe Q6H IV ; Start 10/10/16 at 20:00; Stop at 21:08; Status DC Levetriacetam (Keppra 1000 Mg Inj) 100 ml @ 400 mls/hr Q8HR IV ; Start at 22:00; Stop 10/10/16 at 22:00; Status DC Lorazepam (Ativan Inj) 1 mg Q4H PRN IV PUSH SEIZURES; Start 10/10/16 at 19:15 Sodium Chloride (NS Flush) 2 ml UNSCH PRN IV FLUSH FLUSH AFTER USING IV ACCESS ; Start 10/10/16 at 20:30 Sodium Chloride (NS Flush) 2 ml BID IV FLUSH Last administered on 10/11/16 09: 34; Start 10/10/16 at 21:00 Acetaminophen (Tylenol) 650 mg Q4H PRN PO TEMP > 100.4; Start 10/10/16 at 20:30 Ondansetron HCl (Zofran Inj) 4 mg Q6H PRN IVP NAUSEA OR VOMITING; Start at 20:30 Naloxone HCl (Narcan Inj) 0.4 mg UNSCH PRN IV SEE LABEL COMMENTS; Start at 20:30 Senna/Docusate Sodium (Janie-Colace) 1 tab BID PO Last administered on 09:24; Start 10/10/16 at 21:00 Magnesium Hydroxide (Milk Of Magnesia Liq) 30 ml Q12H PRN PO MILD - MODERATE CONSTIPATION; Start 10/10/16 at 20:30 Sennosides (Senokot) 17.2 mg Q12H PRN PO MODERATE - SEVERE CONSTIPATION Last administered on 10/11/16 04:44; Start 10/10/16 at 20:30 Bisacodyl (Dulcolax Supp) 10 mg DAILY PRN RECTAL SEVERE CONSITIPATION; Start at 20:30 Lactulose (Lactulose Liq) 30 ml DAILY PRN PO SEVERE CONSITIPATION; Start at 20:30 Alprazolam (Xanax) 0.5 mg Q6H PRN PO ANXIETY; Start 10/10/16 at 20:30 Fentanyl (Duragesic 50 Mcg Patch.72 Hr) 1 patch Q3D T-DERMAL Last administered on 10/10/16 23:56; Start 10/10/16 at 22:00 Finasteride (Proscar) 5 mg HS PO Last administered on 10/10/16 22:16; Start at 21:00 Folic Acid (Folate) 0.4 mg DAILY PO Last administered on 10/11/16 09:24; Start 10/11/16 at 09:00 Levetriacetam (Keppra) 1,500 mg BID PO ; Start 10/10/16 at 21:00; Stop 10/10/16 at 21:41; Status DC Mirtazapine (Remeron) 15 mg HS PO Last administered on 10/10/16 22:13; Start 10/10/16 at 21:00 Oxycodone HCl (Roxicodone) 10 mg Q6H PRN PO Pain 1-6; Start 10/10/16 at 20:30 Oxycodone HCl (Roxicodone) 20 mg Q6H PRN PO PAIN SCALE 7 TO 10; Start 10/10/16 at 20:30 Pantoprazole Sodium (Protonix) 40 mg DAILY PO Last administered on 10/11/16 09 :24; Start 10/11/16 at 09:00 Phenytoin (Dilantin) 100 mg BID PO ; Start 10/10/16 at 21:00; Stop 10/10/16 at 21:41; Status DC Phenytoin (Dilantin) 200 mg BID PO ; Start 10/10/16 at 21:00; Stop 10/10/16 at 21:41; Status DC Pregabalin (Lyrica) 150 mg Q12HR PO Last administered on 10/11/16 11:40; Start 10/10/16 at 21:00 Terazosin HCl (Hytrin) 5 mg HS PO Last administered on 10/10/16 22:15; Start 10/10/16 at 21:00 Trazodone HCl (Desyrel) 200 mg HS PO Last administered on 10/10/16 22:17; Start 10/10/16 at 21:00 Zolpidem Tartrate (Ambien) 5 mg HS PRN PO INSOMNIA; Start 10/10/16 at 20:30 Al Hydrox/Mg Hydrox/Simethicone (Mag-Al Plus Susp Liq) 30 ml Q6HR PRN PO HEARTBURN; Start 10/10/16 at 20:30 Acetaminophen/ Butalbital/ Caffeine 1 tab 1 tab Q4H PRN PO HEADACHE; Start at 20:30 Fosphenytoin Sodium/Sodium Chloride (Cerebyx Inj/NS Inj) 52 ml @ 208 mls/hr Q6H IV ; Start 10/10/16 at 21:00; Stop 10/10/16 at 21:15; Status DC Gadodiamide 15 ml 15 ml STK-MED ONCE IV Last administered on 10/10/16 21:06; Start 10/10/16 at 21:06; Stop 10/10/16 at 21:07; Status DC Fosphenytoin Sodium 100 mgpe/ Sodium Chloride 52 ml @ 208 mls/hr Q6H IV Last administered on 10/11/16 04:36; Start 10/10/16 at 22:00 Levetriacetam (Keppra 1000 Mg Inj) 100 ml @ 400 mls/hr Q8H IV Last administered on 10/11/16 05:04; Start 10/10/16 at 23:00 Family History Non contributory Social History No tobbacco, alcohol or illicit drug abuse Physical Exam Vital Signs Vital Signs Date Time Temp Pulse Resp B/P Pulse Ox O2 Delivery O2 Flow Rate FiO2 10/11/16 08:13 96 Nasal Cannula 2.00 10/11/16 08:00 57 10/11/16 07:00 98 Nasal Cannula 2.00 10/11/16 06:00 53 10/11/16 05:00 98 Nasal Cannula 2.00 10/11/16 04:00 97.7 63 22 172/63 96 10/11/16 01:51 58 16 154/69 98 Room Air 10/11/16 01:39 57 16 97 Room Air 10/10/16 22:25 58 12 153/88 100 Room Air 10/10/16 18:05 100 Room Air 10/10/16 17:54 98.5 62 14 176/83 98 Physical Exam The patient is alert, awake and oriented to time, place and person. Speech is fluent. Cranial nerve examination: pupils to be equal, round and reactive to light. Extra-ocular movements are intact. Right supranuclear facial drop. and sensory function are normal and symmetrical. Gross hearing appears intact. Sternocleidomastoid and trapezius muscles are symmetrical. Other cranial nerves are intact. Neck is soft and supple with a good range of motion without pain. Muscle strength is normal in all muscle groups of left upper and lower extremities with 1/5 on the right. Sensory examination is intact to light touch and pin prick in both left upper and lower extremities and decreased on the right. Deep tendon reflexes are trace in both upper and lower extremities. There is a left plantar flexion response, right Babinsky reflex. Cerebellar examination is unremarkable on the left side, unable to assess on the right. Laboratory Laboratory Tests Test 10/10/16 10/11/16 10/11/16 18:15 04:45 05:08 White Blood Count 7.0 5.7 Red Blood Count 4.10 4.41 Hemoglobin 13.0 13.5 Hematocrit 36.0 39.0 Mean Corpuscular Volume 87.8 88.3 Mean Corpuscular Hemoglobin 31.8 30.5 Mean Corpuscular Hemoglobin 36.2 34.6 Concent Red Cell Distribution Width 13.9 14.0 Platelet Count 220 218 Mean Platelet Volume 7.0 6.7 Neutrophils (%) (Auto) 60.8 55.0 Lymphocytes (%) (Auto) 27.0 34.5 Monocytes (%) (Auto) 8.6 8.1 Eosinophils (%) (Auto) 2.9 1.7 Basophils (%) (Auto) 0.7 0.7 Neutrophils # (Auto) 4.3 3.1 Lymphocytes # (Auto) 1.9 2.0 Monocytes # (Auto) 0.6 0.5 Eosinophils # (Auto) 0.2 0.1 Basophils # (Auto) 0.1 0.0 CBC Comment AUTO DIFF DIFF FINAL Differential Comment AUTO DIFF CONFIRMED Platelet Estimate NORMAL Platelet Morphology Comment NORMAL Sodium Level 140 144 Potassium Level 3.5 4.0 Chloride Level 105 109 Carbon Dioxide Level 30.2 27.2 Anion Gap 5 8 Blood Urea Nitrogen 15 12 Creatinine 0.68 0.63 Estimat Glomerular Filtration 115 125 Rate Random Glucose 91 89 Calcium Level 9.0 9.1 Total Bilirubin 0.6 0.6 Aspartate Amino Transf 11 10 (AST/SGOT) Alanine Aminotransferase 13 14 (ALT/SGPT) Alkaline Phosphatase 122 118 Total Protein 6.4 6.5 Albumin 3.4 3.3 Phenytoin (Dilantin) Level 17.7 27.7 Nasal Screen MRSA (PCR) MRSA NOT DETECTED Result Diagram: 10/11/16 0508 10/11/16 0508 Imaging Last Impressions Brain MRI 10/10/16 1839 Signed Impressions: Service Date/Time: Monday, October 10, 2016 20:45 - CONCLUSION: 1. Large extra-axial mass along the high left parietal convexity in the extra-axial space measuring 5.7 x 3.6 x 4.4 cm possibly representing a meningioma versus less likely metastatic disease. No old studies for comparison. There is some minimal vasogenic edema in left parietal lobe. There is slight left to right midline shift of 8 mm. 2. 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 Austen Yates MD Attending Statement Neuro. neuro checks in a serial fashion. Discussed with him alternatives of treatment. The mass is groing and severe mass effect, edema and midline shift Recommend consideration to a surgical decompression. I have discussed the details including the [id number] details of the surgical procedure, its indications, alternatives, risks, and potential complications. Risks and potential complications include, but are not limited to, infection, blood loss, CSF leak, partial or complete loss of sight in one or both eyes, paresis, paralysis, permanent pain or difficulty swallowing, loss of bowel or bladder function, complications from anesthesia, blood clot, stroke, myocardial infarction, or even . Pulmonary. aggressive pulmonary toilette, nasotracheal suction, and breathing treatments with nebulizers. PT and OT evaluation Nutrition. Oral diet Renal. monitor closely urine output, BUN and creatinine Endocrine. Monitor serial Acu checks and SSI as needed in detail ID monitor for signs of infection Protonix for stress ulcer prophylaxis Patrick vazquez and SCD's for DVT prophylaxis En Damico MD Oct 11, 2016 08:55
[2016-10-11] MEDS: DOCUSATE SODIUM 50 MG/SENNA 8.6 MG TAB PO SCH ×2 (09:24→21:00)
[2016-10-11] MEDS: FOLIC ACID 1 MG TAB PO SCH (09:24)
[2016-10-11] MEDS: PANTOPRAZOLE SOD 40 MG DELAYED RELEASE TAB PO SCH (09:24)
[2016-10-11] MEDS: SODIUM CHLORIDE 0.9% FLUSH 10 ML FLUSH IV FLUSH SCH ×2 (09:34→21:00)
--- NOTE | 2016-10-11 10:10 | HHI.HP ---
History of Present Illness Service Family medicine Primary Care Physician Evangelista Maldonado, DO Admission Diagnosis Brain Tumor/Seizure/[facility]BRIDE Diagnoses: (1) Brain tumor Diagnosis: Principal (2) Seizure disorder Diagnosis: Principal (3) GERD (gastroesophageal reflux disease) Diagnosis: Secondary (4) DVT prophylaxis Diagnosis: Secondary (5) Chronic pain Diagnosis: Principal History of Present Illness Mr. Hazel is a 71-year-old male who presented to the Emergency room with reported seizure activity while being transported by [facility]. Patient neurologist is Dr. Escalona. On Sylvester and Gino. He has a history of known left hemisphere meningioma. Per notes MRI of brain done in August which revealed increased size with surrounding edema. He is also found to have right weakness with edema present in right lower extremity. US ordered with results pending. He has been patient of [facility]. Patient has history of chronic pain with recent cervical fusion, IBS, GERD, anxiety, and depression. Review of Systems Constitutional: COMPLAINS OF: Fatigue Respiratory: DENIES: Sputum production, Shortness of breath Cardiovascular: COMPLAINS OF: Lower Extremity Edema, DENIES: Chest pain, Palpitations Gastrointestinal: DENIES: Abdominal pain, Constipation, Diarrhea Musculoskeletal: COMPLAINS OF: Neck pain Neurologic: COMPLAINS OF: Headache, Localized weakness, Seizures, Speech Problems, Poor Balance Psychiatric: COMPLAINS OF: Anxiety, Depression Past Family Social History Allergies: Coded Allergies: Ancef (Verified Allergy, Intermediate, Rash, 10/10/16) Past Medical History Anxiety Depression basal skin on right eyelid CAD IBS GERD seizures meningioma Past Surgical History cardiac stent eye surgery carpal tunnel surgery meningioma removed Cervical fusion Active Ordered Medications Current Medications Medications (Trade) Dose Ordered Sig/Hussein Route Start Time Stop Time Status Last Admin (Decadron Inj) 4 mg Q6HR IV PUSH 10/10/16 18:45 10/11/16 11:41 (Ativan Inj) 1 mg Q4H PRN IV PUSH 10/10/16 19:15 (NS Flush) 2 ml UNSCH PRN IV FLUSH 10/10/16 20:30 (NS Flush) 2 ml BID IV FLUSH 10/10/16 21:00 10/11/16 09:34 (Tylenol) 650 mg Q4H PRN PO 10/10/16 20:30 (Zofran Inj) 4 mg Q6H PRN IVP 10/10/16 20:30 (Narcan Inj) 0.4 mg UNSCH PRN IV 10/10/16 20:30 (Janie-Colace) 1 tab BID PO 10/10/16 21:00 10/11/16 09:24 (Milk Of Magnesia Liq) 30 ml Q12H PRN PO 10/10/16 20:30 (Senokot) 17.2 mg Q12H PRN PO 10/10/16 20:30 10/11/16 04:44 (Dulcolax Supp) 10 mg DAILY PRN RECTAL 10/10/16 20:30 (Lactulose Liq) 30 ml DAILY PRN PO 10/10/16 20:30 (Xanax) 0.5 mg Q6H PRN PO 10/10/16 20:30 (Duragesic 50 Mcg Patch.72 Hr) 1 patch Q3D T-DERMAL 10/10/16 22:00 10/10/16 23:56 (Proscar) 5 mg HS PO 10/10/16 21:00 10/10/16 22:16 (Folate) 0.4 mg DAILY PO 10/11/16 09:00 10/11/16 09:24 (Remeron) 15 mg HS PO 10/10/16 21:00 10/10/16 22:13 (Roxicodone) 10 mg Q6H PRN PO 10/10/16 20:30 (Roxicodone) 20 mg Q6H PRN PO 10/10/16 20:30 (Protonix) 40 mg DAILY PO 10/11/16 09:00 10/11/16 09:24 (Hytrin) 5 mg HS PO 10/10/16 21:00 10/10/16 22:15 (Desyrel) 200 mg HS PO 10/10/16 21:00 10/10/16 22:17 (Ambien) 5 mg HS PRN PO 10/10/16 20:30 (Mag-Al Plus Susp Liq) 30 ml Q6HR PRN PO 10/10/16 20:30 Acetaminophen/ Butalbital/ Caffeine 1 tab 1 tab Q4H PRN PO 10/10/16 20:30 Fosphenytoin Sodium 100 mgpe/ Sodium Chloride 52 ml @ 208 mls/hr Q6H IV 10/10/16 22:00 10/11/16 04:36 (Keppra 1000 Mg Inj) 100 ml @ 400 mls/hr Q8H IV 10/10/16 23:00 10/11/16 14:20 (Lyrica) 150 mg Q12HR PO 10/11/16 21:00 Social History Current resident of [facility] No tobacco or ETOH use Physical Exam Vital Signs Vital Signs Date Time Temp Pulse Resp B/P Pulse Ox O2 Delivery O2 Flow Rate FiO2 10/11/16 08:13 96 Nasal Cannula 2.00 10/11/16 08:00 57 10/11/16 07:00 98 Nasal Cannula 2.00 10/11/16 06:00 53 10/11/16 05:00 98 Nasal Cannula 2.00 10/11/16 04:00 97.7 63 22 172/63 96 10/11/16 01:51 58 16 154/69 98 Room Air 10/11/16 01:39 57 16 97 Room Air 10/10/16 22:25 58 12 153/88 100 Room Air 10/10/16 18:05 100 Room Air 10/10/16 17:54 98.5 62 14 176/83 98 Physical Exam GENERAL: Patient alert and cooperative SKIN: Warm and dry. Normal color. Normal turgor. HEAD: Atraumatic. Normocephalic. Nontender with palpation. EYES: Pupils equal and round. No scleral icterus. No injection or drainage. CARDIOVASCULAR: Regular rate and rhythm. Edema in right lower extremity RESPIRATORY: No accessory muscle use. Clear to auscultation. Breath sounds equal bilaterally. GASTROINTESTINAL: Abdomen soft, non-tender, nondistended. MUSCULOSKELETAL: Extremities without clubbing, cyanosis, or edema. No obvious deformities. NEUROLOGICAL: Awake and alert. Right sided weakness noted. Speech delays PSYCHIATRIC: Appropriate mood and affect; insight and judgment normal. Laboratory Laboratory Tests Test 10/10/16 10/11/16 10/11/16 18:15 04:45 05:08 White Blood Count 7.0 5.7 Red Blood Count 4.10 4.41 Hemoglobin 13.0 13.5 Hematocrit 36.0 39.0 Mean Corpuscular Volume 87.8 88.3 Mean Corpuscular Hemoglobin 31.8 30.5 Mean Corpuscular Hemoglobin 36.2 34.6 Concent Red Cell Distribution Width 13.9 14.0 Platelet Count 220 218 Mean Platelet Volume 7.0 6.7 Neutrophils (%) (Auto) 60.8 55.0 Lymphocytes (%) (Auto) 27.0 34.5 Monocytes (%) (Auto) 8.6 8.1 Eosinophils (%) (Auto) 2.9 1.7 Basophils (%) (Auto) 0.7 0.7 Neutrophils # (Auto) 4.3 3.1 Lymphocytes # (Auto) 1.9 2.0 Monocytes # (Auto) 0.6 0.5 Eosinophils # (Auto) 0.2 0.1 Basophils # (Auto) 0.1 0.0 CBC Comment AUTO DIFF DIFF FINAL Differential Comment AUTO DIFF CONFIRMED Platelet Estimate NORMAL Platelet Morphology Comment NORMAL Sodium Level 140 144 Potassium Level 3.5 4.0 Chloride Level 105 109 Carbon Dioxide Level 30.2 27.2 Anion Gap 5 8 Blood Urea Nitrogen 15 12 Creatinine 0.68 0.63 Estimat Glomerular Filtration 115 125 Rate Random Glucose 91 89 Calcium Level 9.0 9.1 Total Bilirubin 0.6 0.6 Aspartate Amino Transf 11 10 (AST/SGOT) Alanine Aminotransferase 13 14 (ALT/SGPT) Alkaline Phosphatase 122 118 Total Protein 6.4 6.5 Albumin 3.4 3.3 Phenytoin (Dilantin) Level 17.7 27.7 Nasal Screen MRSA (PCR) MRSA NOT DETECTED Result Diagram: 10/11/16 0508 10/11/16 0508 Imaging Last 72 hours Impressions Brain MRI 10/10/16 1839 Signed Impressions: Service Date/Time: Monday, October 10, 2016 20:45 - CONCLUSION: 1. Large extra-axial mass along the high left parietal convexity in the extra-axial space measuring 5.7 x 3.6 x 4.4 cm possibly representing a meningioma versus less likely metastatic disease. No old studies for comparison. There is some minimal vasogenic edema in left parietal lobe. There is slight left to right midline shift of 8 mm. 2. 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 Austen Yates MD Assessment and Plan Problem List: (1) Seizure disorder Status: Acute Plan: Neurology consulted and managing. EEG ordered. On fosphenytoin and Keppra. (2) Brain tumor Status: Acute Plan: Neurosurgeon consulted. On Decadron. PT and OT consulted. Right sided weakness noted ECHO done (3) GERD (gastroesophageal reflux disease) Status: Acute Plan: Continue PPI patient is asymptomatic (4) Chronic pain Status: Chronic Plan: Continue current regimen pain well controlled (5) Leg edema, right Status: Acute Plan: US ordered. History of non occlusive DVT in 2014. Assessment and Plan Assessment and plan discussed with Dr. Erica BUCKNER Discussed Condition With Nursing Discharge Planning [facility] Physician Attestation I and the [employer] INTERN have both examined this patient and reviewed this note and I agree with these findings and plan of care. Estelle Rincon. [facility] Oct 11, 2016 10:10
[2016-10-11] MEDS: PREGABALIN 100 MG CAP PO SCH (11:40)
--- NOTE | 2016-10-11 13:52 | EKG ---
Date Performed: 10/10/2016 Time Performed: 18:15:25 PTAGE: 71 years EKG: SINUS BRADYCARDIA Nondiagnostic Q waves inferior leads ST abnormalities have resolved since prior tracing BORDERLINE ECG PREVIOUS TRACING : 07/07/2016 14.12 DOCTOR: Yossi Caldwell Interpretating Date/Time 10/11/2016 13:51:50
--- NOTE | 2016-10-11 14:07 | ECHRPT ---
Indication: EF CHF CONCLUSIONS Normal left ventricular size. Wall thickness is normal. The left ventricular systolic function is normal with an estimated ejection fraction in the range of 55-60%. Doppler parameters are consistent with impaired left ventricular relaxtion (grade 1 diastolic dysfun ction). BP: / HR: Rhythm: MEASUREMENTS (Male / Female) Normal Values Technical Quality:Fair 2D ECHO LV Diastolic Diameter PLAX 4.0 cm 4.2 - 5.9 / 3.9 - 5.3 cm LV Systolic Diameter PLAX 3.1 cm IVS Diastolic Thickness 0.8 cm 0.6 - 1.0 / 0.6 - 0.9 cm LVPW Diastolic Thickness 0.8 cm 0.6 - 1.0 / 0.6 - 0.9 cm LV Relative Wall Thickness 0.4 RV Internal Dim ED PLAX 1.9 cm LA Systolic Diameter LX 3.1 cm 3.0 - 4.0 / 2.7 - 3.8 cm DOPPLER Mitral E Point Velocity 50.3 cm/s Mitral A Point Velocity 65.6 cm/s Mitral E to A Ratio 0.8 TR Peak Velocity 134.0 cm/s TR Peak Gradient 7.2 mmHg FINDINGS LEFT VENTRICLE Normal left ventricular size. Wall thickness is normal. The left ventricular systolic function is normal with an estimated ejection fraction in the range of 55-60%. Doppler parameters are consistent with impaired left ventricular relaxtion (grade 1 diastolic dysfun ction). RIGHT VENTRICLE Normal right ventricular size and systolic function. LEFT ATRIUM The left atrial size is normal. RIGHT ATRIUM The right atrial size is normal. ATRIAL SEPTUM Normal atrial septal thickness without atrial level shunting by limited color doppler interrogation. AORTA The aortic root and proximal ascending aorta are normal in size on limited imaging. MITRAL VALVE Structurally normal mitral valve. No mitral valve stenosis or regurgitation. AORTIC VALVE Trileaflet aortic valve. No aortic valve stenosis or regurgitation. TRICUSPID VALVE Structurally normal tricuspid valve. No tricuspid valve stenosis or regurgitation. PULMONARY VALVE The pulmonary valve is not well visualized. VESSELS The inferior vena cava is normal in size. PERICARDIUM No pericardial effusion. Bonifacio Donaldson MD, FACC (Electronically Signed) Final Date:11 October 2016 14:07
--- NOTE | 2016-10-11 15:31 | RADRPT ---
EXAM DATE/TIME: 10/11/2016 14:13 [place] COMPARISON: No previous studies available for comparison. INDICATIONS : Bilateral leg swelling. MEDICAL HISTORY : Epilepsy. 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 Numbness, bilateral hands. GERD. Basal cell carcinoma. Chornic back pain . Depression. Anxiety. SURGICAL HISTORY : Right eyelid tumor removal. Brain surgery, benign tumor removal. Cardiac stent. Right testicle decend ing surgery. Left carpel tunnel release. Right hip fracture repair. Meningioma removed with piece of skull removed. Cervical and lumbar surgeries. ENCOUNTER: Initial ACUITY: 1 day PAIN SCORE: 0/10 LOCATION: Bilateral leg. TECHNIQUE: Venous ultrasound of the left and right leg was performed from the inguinal ligament to the proximal calf. Real-time, color Doppler and spectral tracing, compression and augmentation techniques were us ed. FINDINGS: RIGHT LEG: There is normal compressibility of the deep venous system from the inguinal region to the proximal ca lf. No echogenic clot is seen in the lumen of the common femoral, femoral, popliteal, and posterior tibial veins. There is a normal response of the venous system to proximal and distal augmentation an d respiration. LEFT LEG: There is normal compressibility of the deep venous system from the inguinal region to the proximal ca lf. No echogenic clot is seen in the lumen of the common femoral, femoral, popliteal, and posterior tibial veins. There is a normal response of the venous system to proximal and distal augmentation an d respiration. CONCLUSION: Negative exam. No sonographic or Doppler findings of deep venous thrombosis bilaterally. Pola Jones MD on October 11, 2016 at 15:28 Board Certified Radiologist. This report was verified electronically.
--- NOTE | 2016-10-11 20:08 | HHI.PR ---
Review/Management Diagnosis left hemisphere tumor focal sz. highphenytoin level Plan hold cerebyx and recheck level in am will review eeg continue thomas and ethan Diagnosis/Plan: Subjective Subjective Comments Pt states he has ad 2 or 3 "seizures" where he repeats words but there is no loc , no tonic clonic activity. He had one during EEG and EEG reading is pending Active Medications Current Medications Medications (Trade) Dose Ordered Sig/Hussein Route Start Time Stop Time Status Last Admin (Decadron Inj) 4 mg Q6HR IV PUSH 10/10/16 18:45 10/11/16 17:04 (Ativan Inj) 1 mg Q4H PRN IV PUSH 10/10/16 19:15 (NS Flush) 2 ml UNSCH PRN IV FLUSH 10/10/16 20:30 (NS Flush) 2 ml BID IV FLUSH 10/10/16 21:00 10/11/16 09:34 (Tylenol) 650 mg Q4H PRN PO 10/10/16 20:30 (Zofran Inj) 4 mg Q6H PRN IVP 10/10/16 20:30 (Narcan Inj) 0.4 mg UNSCH PRN IV 10/10/16 20:30 (Janie-Colace) 1 tab BID PO 10/10/16 21:00 10/11/16 09:24 (Milk Of Magnesia Liq) 30 ml Q12H PRN PO 10/10/16 20:30 (Senokot) 17.2 mg Q12H PRN PO 10/10/16 20:30 10/11/16 04:44 (Dulcolax Supp) 10 mg DAILY PRN RECTAL 10/10/16 20:30 (Lactulose Liq) 30 ml DAILY PRN PO 10/10/16 20:30 (Xanax) 0.5 mg Q6H PRN PO 10/10/16 20:30 (Duragesic 50 Mcg Patch.72 Hr) 1 patch Q3D T-DERMAL 10/10/16 22:00 10/10/16 23:56 (Proscar) 5 mg HS PO 10/10/16 21:00 10/10/16 22:16 (Folate) 0.4 mg DAILY PO 10/11/16 09:00 10/11/16 09:24 (Remeron) 15 mg HS PO 10/10/16 21:00 10/10/16 22:13 (Roxicodone) 10 mg Q6H PRN PO 10/10/16 20:30 (Roxicodone) 20 mg Q6H PRN PO 10/10/16 20:30 (Protonix) 40 mg DAILY PO 10/11/16 09:00 10/11/16 09:24 (Hytrin) 5 mg HS PO 10/10/16 21:00 10/10/16 22:15 (Desyrel) 200 mg HS PO 10/10/16 21:00 10/10/16 22:17 (Ambien) 5 mg HS PRN PO 10/10/16 20:30 (Mag-Al Plus Susp Liq) 30 ml Q6HR PRN PO 10/10/16 20:30 Acetaminophen/ Butalbital/ Caffeine 1 tab 1 tab Q4H PRN PO 10/10/16 20:30 Fosphenytoin Sodium 100 mgpe/ Sodium Chloride 52 ml @ 208 mls/hr Q6H IV 10/10/16 22:00 10/11/16 04:36 (Keppra 1000 Mg Inj) 100 ml @ 400 mls/hr Q8H IV 10/10/16 23:00 10/11/16 14:20 (Lyrica) 150 mg Q12HR PO 10/11/16 21:00 Allergies Allergies Coded Allergies Ancef (Verified Allergy, Intermediate, Rash, 10/10/16) Exam I&O / VS 10/10/16 10/10/16 10/11/16 15:00 23:00 07:00 Intake Total 225 ml Output Total 400 ml Balance -175 ml Intake Oral 60 ml IV Total 165 ml Output Urine Total 400 ml # Voids 1 Vital Signs Date Time Temp Pulse Resp B/P Pulse Ox O2 Delivery O2 Flow Rate FiO2 10/11/16 18:00 71 10/11/16 16:00 67 10/11/16 16:00 98.8 67 24 133/65 98 10/11/16 14:00 67 10/11/16 12:00 68 10/11/16 12:00 98.0 68 22 120/64 99 10/11/16 11:34 98 Nasal Cannula 2.00 10/11/16 10:00 72 10/11/16 08:13 96 Nasal Cannula 2.00 10/11/16 08:00 98.0 82 20 121/60 99 10/11/16 08:00 82 10/11/16 07:00 98 Nasal Cannula 2.00 10/11/16 06:00 53 10/11/16 05:00 98 Nasal Cannula 2.00 10/11/16 04:00 97.7 63 22 172/63 96 10/11/16 01:51 58 16 154/69 98 Room Air 10/11/16 01:39 57 16 97 Room Air 10/10/16 22:25 58 12 153/88 100 Room Air Respiratory: Lungs CTA, Non-labored respirations Cardiology: Normal rate Musculoskeletal: Other Exam Comments alert, speech is normal CN normal MOTOR 3/5 RUE and 2/5 RLE 5/5 LUE and LLE Objective Radiology Results MRI brain --large tumor left hemisphere with edema and mass effect. Micro and Labs Laboratory Tests Test 10/11/16 10/11/16 04:45 05:08 Nasal Screen MRSA (PCR) MRSA NOT DETECTED White Blood Count 5.7 Red Blood Count 4.41 Hemoglobin 13.5 Hematocrit 39.0 Mean Corpuscular Volume 88.3 Mean Corpuscular Hemoglobin 30.5 Mean Corpuscular Hemoglobin 34.6 Concent Red Cell Distribution Width 14.0 Platelet Count 218 Mean Platelet Volume 6.7 Neutrophils (%) (Auto) 55.0 Lymphocytes (%) (Auto) 34.5 Monocytes (%) (Auto) 8.1 Eosinophils (%) (Auto) 1.7 Basophils (%) (Auto) 0.7 Neutrophils # (Auto) 3.1 Lymphocytes # (Auto) 2.0 Monocytes # (Auto) 0.5 Eosinophils # (Auto) 0.1 Basophils # (Auto) 0.0 CBC Comment DIFF FINAL Differential Comment Sodium Level 144 Potassium Level 4.0 Chloride Level 109 Carbon Dioxide Level 27.2 Anion Gap 8 Blood Urea Nitrogen 12 Creatinine 0.63 Estimat Glomerular Filtration 125 Rate Random Glucose 89 Calcium Level 9.1 Total Bilirubin 0.6 Aspartate Amino Transf 10 (AST/SGOT) Alanine Aminotransferase 14 (ALT/SGPT) Alkaline Phosphatase 118 Total Protein 6.5 Albumin 3.3 Phenytoin (Dilantin) Level 27.7 Diagnostic Tests EEG--report pending Peyman Escalona PhD Oct 11, 2016 20:08
[2016-10-11] MEDS: MIRTAZAPINE 15 MG TAB PO SCH (21:23)
[2016-10-11] MEDS: FINASTERIDE 5 MG TAB PO SCH (21:23)
[2016-10-11] MEDS: TERAZOSIN HCL 5 MG CAP PO SCH (21:23)
[2016-10-11] MEDS: PREGABALIN 75 MG CAP PO SCH (21:23)
[2016-10-11] MEDS: traZODone HCL 50 MG TAB PO SCH (22:28)
[2016-10-12] VITALS (14 sets, daily range): BP systolic 104–134; BP diastolic 56–99; PULSE 56–82; RESP 10–21; TEMP 97.2–98.8; O2SAT 93–99
[2016-10-12] MEDS: DEXAMETHASONE SOD PHOS 4 MG/ML VIAL IV PUSH SCH ×5 (00:55→23:11)
[2016-10-12] MEDS: fentaNYL 50 MCG/HR PATCH T-DERMAL SCH (04:17)
[2016-10-12 05:39] LABS: AUTOMATED NEUTROPHIL # 6.1 TH/MM3 (1.8-7.7); BASOPHIL % 0.3 % (0.0-2.0); EOSINOPHIL % 0.3 % (0.0-4.0); HEMATOCRIT 39.2 % (39.0-51.0); HEMO FLAGS DIFF FINAL; LYMPH % 15.9 % (9.0-44.0); LYMPHOCYTE # 1.2 TH/MM3 (1.0-4.8); MEAN CELL VOLUME 88.5 FL (80.0-100.0); MEAN CORPUSCULAR HEMOGLOBIN 30.5 PG (27.0-34.0); MEAN CORPUSCULAR HGB CONC 34.4 % (32.0-36.0); MONO % 4.2 % (0.0-8.0); NEUT % 79.3 % (16.0-70.0); PLATELET COUNT 229 TH/MM3 (150-450); RED BLOOD COUNT 4.43 MIL/MM3 (4.50-5.90); RED CELL DISTRIBUTION WIDTH 13.7 % (11.6-17.2); WHITE BLOOD COUNT 7.7 TH/MM3 (4.0-11.0)
[2016-10-12 05:52] LABS: BICARBONATE 29.4 MEQ/L (21.0-32.0); POTASSIUM 4.1 MEQ/L (3.5-5.1)
[2016-10-12] MEDS: FOSPHENYTOIN INJ 100 MGPE in SODIUM CHLORIDE 0.9% INJ 50 ML IV SCH ×4 (06:08→20:45)
[2016-10-12] MEDS: levETIRAcetam 1000 MG INJ 100 ML IV SCH ×3 (06:41→23:11)
--- NOTE | 2016-10-12 08:13 | MG ---
cc: JUSTYNA MANN MD Lab No: [id number] Date: 10/11/2016 Age: 78 Sex: M Race: ___ DATE OF 1945 INDICATIONS History of jerking type movements. DESCRIPTION 4-6 Hz posterior rhythm, 20-40 microvolts with frontal theta and delta frequencies having mild tremor followed by jerking with a lot of fast frequency artifact in the frontal channels. Posterior rhythm continued to show theta and delta frequencies. At epoch 58 had some leg shaking and body twitching without any clear epileptic correlation, persistent delta theta frequencies. At epoch 85 the tech asked the patient how many seizures did he have and the patient responded two. Reduced driving with photic stimulation. Right arm movements, slow eye movement artifact noted as well. Single EKG showing sinus rhythm. INTERPRETATION Mild encephalopathy, episodes of jerking in the various extremities. Did not appear to have any clear electrographic seizure, although at one portion had a lot of frontal EEG artifact, however, the posterior rhythm with unchanged. Overall moderate not very convincing for true electrographic seizures, however, can consider repeat EEG or extended EEG if clinically indicated. MD JOSE Brown/JULIANA /7:39 AM /8:04 AM
[2016-10-12] MEDS: SODIUM CHLORIDE 0.9% FLUSH 10 ML FLUSH IV FLUSH SCH ×2 (09:00→20:44)
--- NOTE | 2016-10-12 09:27 | HHI.NSPN ---
(Destini Otero) Note Status Status: Progress Note (Destini Otero) Interval History Interval History Mr. Hazel is a 71-year-old male who has a history of a left hemisphere meningioma. Apparently the mass was small and asymotimatic but he now presents with frequent seizures and right side hemiplegia. He states he has had several episodes where he loses consciousness. Her has jerking on the right side as well. He denies tongue bitting. He denies incontinence of stool or urine. He has a history of known left hemisphere meningioma. He was complaining of increasing right-sided weakness. He had an MRI of the brain done in August which revealed increased size of the left hemisphere meningioma with surrounding edema. He has a history about 20 years ago of a right hemisphere meningioma at that was resected. He had severe cervical spinal stenosis and he underwent a cervical laminectomy with Dr Brasher. Neurosurgical consultation was requested. 10/12: doing well, no new complaints, neuro sx unchanged. (Destini Otero) Labs, Micro, & Vital Signs Results Date Time Temp Pulse Resp B/P Pulse Ox O2 Delivery O2 Flow Rate FiO2 10/12/16 07:41 96 Nasal Cannula 1.00 10/12/16 06:00 60 10/12/16 05:17 18 10/12/16 04:00 97.2 56 13 133/99 99 10/12/16 04:00 56 10/12/16 02:42 15 10/12/16 02:00 56 10/12/16 00:00 58 10/12/16 00:00 97.9 58 11 107/58 98 10/11/16 23:16 98 Nasal Cannula 1.00 10/11/16 22:28 13 10/11/16 22:00 60 10/11/16 20:00 99.2 61 17 124/62 98 10/11/16 20:00 61 10/11/16 19:00 99 Nasal Cannula 2.00 10/11/16 18:00 71 10/11/16 18:00 99 Nasal Cannula 2.00 10/11/16 16:00 67 10/11/16 16:00 98.8 67 24 133/65 98 10/11/16 14:00 67 10/11/16 12:00 68 10/11/16 12:00 98.0 68 22 120/64 99 10/11/16 11:34 98 Nasal Cannula 2.00 10/11/16 10:00 72 10/12/16 06:59 Intake Total 2064 ml Output Total 2180 ml Balance -116 ml Constitutional Vital Signs Date Time Temp Pulse Resp B/P Pulse Ox O2 Delivery O2 Flow Rate FiO2 10/12/16 07:41 96 Nasal Cannula 1.00 10/12/16 06:00 60 10/12/16 05:17 18 10/12/16 04:00 97.2 56 13 133/99 99 10/12/16 04:00 56 10/12/16 02:42 15 10/12/16 02:00 56 10/12/16 00:00 58 10/12/16 00:00 97.9 58 11 107/58 98 10/11/16 23:16 98 Nasal Cannula 1.00 10/11/16 22:28 13 10/11/16 22:00 60 10/11/16 20:00 99.2 61 17 124/62 98 10/11/16 20:00 61 10/11/16 19:00 99 Nasal Cannula 2.00 10/11/16 18:00 71 10/11/16 18:00 99 Nasal Cannula 2.00 10/11/16 16:00 67 10/11/16 16:00 98.8 67 24 133/65 98 10/11/16 14:00 67 10/11/16 12:00 68 10/11/16 12:00 98.0 68 22 120/64 99 10/11/16 11:34 98 Nasal Cannula 2.00 10/11/16 10:00 72 10/12/16 06:59 Intake Total 2064 ml Output Total 2180 ml Balance -116 ml (Destini Otero) Review of Systems/Exam Exam Mr. Hazel is awake and oriented to time, place and person. Speech is fluent. Follows commands well. Cranial nerve examination: pupils to be equal, round, and reactive to light. EOMs are intact. Mild decrease right NLF Neck: limited range of motion due to chronic degenerative spondylosis Motor: generalized weakness, 4/5 left upper and left lower extremity, 3/5 right hemiparesis Generalized edema, right worse than left in LE's Sensory examination reports intact to light touch x 4 Bilateral Babinski response Cerebellar examination grossly intact to left finger to nose, difficulty with right due to focal weakness (Destini Otero) Exam Mr. Hazel is awake and oriented to time, place and person. Speech is fluent. Right hemiparesis improved Cranial nerve examination: pupils to be equal, round, and reactive to light. EOMs are intact. Mild decrease right NLF Neck: limited range of motion due to chronic degenerative spondylosis Motor: generalized weakness, 4/5 left upper and left lower extremity, 3/5 right hemiparesis Generalized edema, right worse than left in LE's Sensory examination reports intact to light touch x 4 Bilateral Babinski response Cerebellar examination grossly intact to left finger to nose, difficulty with right due to focal weakness (En Damico MD) Medications Current Medications Current Medications Medications (Trade) Dose Ordered Sig/Hussein Route PRN Reason Start Time Stop Time Status Last Admin Dose Admin Dexamethasone Sodium Phosphate (Decadron Inj) 4 mg Q6HR IV PUSH 10/10/16 18:45 10/12/16 05:12 Lorazepam (Ativan Inj) 1 mg Q4H PRN IV PUSH SEIZURES 10/10/16 19:15 Sodium Chloride (NS Flush) 2 ml UNSCH PRN IV FLUSH FLUSH AFTER USING IV ACCESS 10/10/16 20:30 Sodium Chloride (NS Flush) 2 ml BID IV FLUSH 10/10/16 21:00 10/11/16 21:00 Acetaminophen (Tylenol) 650 mg Q4H PRN PO TEMP > 100.4 10/10/16 20:30 Ondansetron HCl (Zofran Inj) 4 mg Q6H PRN IVP NAUSEA OR VOMITING 10/10/16 20:30 Naloxone HCl (Narcan Inj) 0.4 mg UNSCH PRN IV SEE LABEL COMMENTS 10/10/16 20:30 Senna/Docusate Sodium (Janie-Colace) 1 tab BID PO 10/10/16 21:00 10/11/16 09:24 Magnesium Hydroxide (Milk Of Magnesia Liq) 30 ml Q12H PRN PO MILD - MODERATE CONSTIPATION 10/10/16 20:30 Sennosides (Senokot) 17.2 mg Q12H PRN PO MODERATE - SEVERE CONSTIPATION 10/10/16 20:30 10/11/16 04:44 Bisacodyl (Dulcolax Supp) 10 mg DAILY PRN RECTAL SEVERE CONSITIPATION 10/10/16 20:30 Lactulose (Lactulose Liq) 30 ml DAILY PRN PO SEVERE CONSITIPATION 10/10/16 20:30 Alprazolam (Xanax) 0.5 mg Q6H PRN PO ANXIETY 10/10/16 20:30 Fentanyl (Duragesic 50 Mcg Patch.72 Hr) 1 patch Q3D T-DERMAL 10/10/16 22:00 10/12/16 04:17 Finasteride (Proscar) 5 mg HS PO 10/10/16 21:00 10/11/16 21:23 Folic Acid (Folate) 0.4 mg DAILY PO 10/11/16 09:00 10/11/16 09:24 Mirtazapine (Remeron) 15 mg HS PO 10/10/16 21:00 10/11/16 21:23 Oxycodone HCl (Roxicodone) 10 mg Q6H PRN PO Pain 1-6 10/10/16 20:30 10/12/16 01:42 Oxycodone HCl (Roxicodone) 20 mg Q6H PRN PO PAIN SCALE 7 TO 10 10/10/16 20:30 Pantoprazole Sodium (Protonix) 40 mg DAILY PO 10/11/16 09:00 10/11/16 09:24 Terazosin HCl (Hytrin) 5 mg HS PO 10/10/16 21:00 10/11/16 21:23 Trazodone HCl (Desyrel) 200 mg HS PO 10/10/16 21:00 10/11/16 22:28 Zolpidem Tartrate (Ambien) 5 mg HS PRN PO INSOMNIA 10/10/16 20:30 Al Hydrox/Mg Hydrox/Simethicone (Mag-Al Plus Susp Liq) 30 ml Q6HR PRN PO HEARTBURN 10/10/16 20:30 Acetaminophen/ Butalbital/ Caffeine 1 tab 1 tab Q4H PRN PO HEADACHE 10/10/16 20:30 Fosphenytoin Sodium 100 mgpe/ Sodium Chloride 52 ml @ 208 mls/hr Q6H IV 10/10/16 22:00 10/12/16 06:08 Levetriacetam (Keppra 1000 Mg Inj) 100 ml @ 400 mls/hr Q8H IV 10/10/16 23:00 10/12/16 06:41 Pregabalin (Lyrica) 150 mg Q12HR PO 10/11/16 21:00 10/11/16 21:23 (Destini Otero) Medical Decision Making MDM Remarks 71 y/o male with enlarging left frontal parietal meningioma causing significant mass effect with right hemiparesis and recurrent seizures history of previous resection of right meningioma b/l LE swelling, negative for DVTs on u/s (Destini Otero) Plan Plan Remarks plan for resection of meningoma this monday, recommend clearance with Cardiology due to history of CAD, f/u PFTs dw patient in detail, requests for us to also dw his Brother cont neuro checks in [facility], PT, OT, ST cont AEDs, Dr. Escalona following for mgt of seizures (Destini Otero) Attending Statement Improved on IV steroids. Continue neuro checks. He is at high surgical risk. Discussed with dr Escalona. recommend a surgical resection as his tumor is growing. I discussed with him and his brother the details including the step-by- step details of the surgical procedure, its indications, alternatives, risks, and potential complications. Risks and potential complications include, but are not limited to, infection, blood loss, CSF leak, partial or complete loss of sight in one or both eyes, paresis, paralysis, permanent pain or difficulty swallowing, loss of bowel or bladder function, complications from anesthesia, blood clot, stroke, myocardial infarction, or even . Pulmonary. aggressive pulmonary toilette, nasotracheal suction, and breathing treatments with nebulizers. Daily PT and OT Nutrition. Oral diet Renal. monitor closely urine output, BUN and creatinine Endocrine. Monitor serial Acu checks and SSI as needed in detail ID monitor for signs of infection Protonix for stress ulcer prophylaxis Patrick hose and SCD's for DVT prophylaxis The exam, history, and the medical decision-making described in the above note were completed with the assistance of the mid-level provider. I reviewed and agree with the findings presented. I attest that I had a [id number] encounter with the patient on the same day, and personally performed and documented my assessment and findings in the medical record. (En Damico MD) Destini Otero Oct 12, 2016 09:27 En Damico MD Oct 12, 2016 15:46
[2016-10-12] MEDS: DOCUSATE SODIUM 50 MG/SENNA 8.6 MG TAB PO SCH ×2 (09:38→20:44)
[2016-10-12] MEDS: FOLIC ACID 1 MG TAB PO SCH (09:39)
[2016-10-12] MEDS: PREGABALIN 75 MG CAP PO SCH ×2 (09:39→20:44)
[2016-10-12] MEDS: PANTOPRAZOLE SOD 40 MG DELAYED RELEASE TAB PO SCH (09:39)
--- NOTE | 2016-10-12 09:51 | HHI.PR ---
Subjective Remarks Patient seen at bedside. Denies any CP or SOB. Neurosurgical plan for surgery for Monday Objective Vital Signs Date Time Temp Pulse Resp B/P Pulse Ox O2 Delivery O2 Flow Rate FiO2 10/12/16 07:41 96 Nasal Cannula 1.00 10/12/16 06:00 60 10/12/16 05:17 18 10/12/16 04:00 97.2 56 13 133/99 99 10/12/16 04:00 56 10/12/16 02:42 15 10/12/16 02:00 56 10/12/16 00:00 58 10/12/16 00:00 97.9 58 11 107/58 98 10/11/16 23:16 98 Nasal Cannula 1.00 10/11/16 22:28 13 10/11/16 22:00 60 10/11/16 20:00 99.2 61 17 124/62 98 10/11/16 20:00 61 10/11/16 19:00 99 Nasal Cannula 2.00 10/11/16 18:00 71 10/11/16 18:00 99 Nasal Cannula 2.00 10/11/16 16:00 67 10/11/16 16:00 98.8 67 24 133/65 98 10/11/16 14:00 67 10/11/16 12:00 68 10/11/16 12:00 98.0 68 22 120/64 99 10/11/16 11:34 98 Nasal Cannula 2.00 10/11/16 10:00 72 I/O 10/11/16 10/11/16 10/11/16 10/12/16 10/12/16 10/12/16 07:00 15:00 23:00 07:00 15:00 23:00 Intake Total 225 ml 801 ml 597 ml 666 ml Output Total 400 ml 450 ml 450 ml 1280 ml Balance -175 ml 351 ml 147 ml -614 ml Intake Oral 60 ml 720 ml 480 ml 540 ml IV Total 165 ml 81 ml 117 ml 126 ml Output Urine Total 400 ml 450 ml 450 ml 1280 ml # Voids 1 # Bowel Movements 1 Result Diagram: 10/12/16 0458 10/12/16 0458 Imaging Last 72 hours Impressions Chest X-Ray 10/12/16 0000 Signed Impressions: Service Date/Time: Wednesday, October 12, 2016 11:01 - CONCLUSION: No acute disease. Ricardo G. Miles, MD FACR Lower Extremity Ultrasound 10/11/16 0000 Signed Impressions: Service Date/Time: Tuesday, October 11, 2016 14:13 - CONCLUSION: Negative exam. No sonographic or Doppler findings of deep venous thrombosis bilaterally. Pola Jones MD Brain MRI 10/10/16 1839 Signed Impressions: Service Date/Time: Monday, October 10, 2016 20:45 - CONCLUSION: 1. Large extra-axial mass along the high left parietal convexity in the extra-axial space measuring 5.7 x 3.6 x 4.4 cm possibly representing a meningioma versus less likely metastatic disease. No old studies for comparison. There is some minimal vasogenic edema in left parietal lobe. There is slight left to right midline shift of 8 mm. 2. 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 Austen Yates MD Objective Remarks GENERAL: Alert and cooperative. Right sided weakness SKIN: Warm and dry. HEAD: Normocephalic. EYES: No scleral icterus. No injection or drainage. NECK: Supple, trachea midline. No JVD or lymphadenopathy. CARDIOVASCULAR: Regular rate and rhythm without murmurs, gallops, or rubs. Right lower leg edema RESPIRATORY: Breath sounds equal bilaterally. No accessory muscle use. GASTROINTESTINAL: Abdomen soft, non-tender, nondistended. MUSCULOSKELETAL: No cyanosis, or edema. BACK: Nontender without obvious deformity. No CVA tenderness. Medications and IVs Current Medications Medications (Trade) Dose Ordered Sig/Hussein Route Start Time Stop Time Status Last Admin (Decadron Inj) 4 mg Q6HR IV PUSH 10/10/16 18:45 10/12/16 12:13 (Ativan Inj) 1 mg Q4H PRN IV PUSH 10/10/16 19:15 (NS Flush) 2 ml UNSCH PRN IV FLUSH 10/10/16 20:30 (NS Flush) 2 ml BID IV FLUSH 10/10/16 21:00 10/12/16 09:00 (Tylenol) 650 mg Q4H PRN PO 10/10/16 20:30 (Zofran Inj) 4 mg Q6H PRN IVP 10/10/16 20:30 (Narcan Inj) 0.4 mg UNSCH PRN IV 10/10/16 20:30 (Janie-Colace) 1 tab BID PO 10/10/16 21:00 10/12/16 09:38 (Milk Of Magnesia Liq) 30 ml Q12H PRN PO 10/10/16 20:30 (Senokot) 17.2 mg Q12H PRN PO 10/10/16 20:30 10/11/16 04:44 (Dulcolax Supp) 10 mg DAILY PRN RECTAL 10/10/16 20:30 (Lactulose Liq) 30 ml DAILY PRN PO 10/10/16 20:30 (Xanax) 0.5 mg Q6H PRN PO 10/10/16 20:30 (Duragesic 50 Mcg Patch.72 Hr) 1 patch Q3D T-DERMAL 10/10/16 22:00 10/12/16 04:17 (Proscar) 5 mg HS PO 10/10/16 21:00 10/11/16 21:23 (Folate) 0.4 mg DAILY PO 10/11/16 09:00 10/12/16 09:39 (Remeron) 15 mg HS PO 10/10/16 21:00 10/11/16 21:23 (Roxicodone) 10 mg Q6H PRN PO 10/10/16 20:30 10/12/16 01:42 (Roxicodone) 20 mg Q6H PRN PO 10/10/16 20:30 (Protonix) 40 mg DAILY PO 10/11/16 09:00 10/12/16 09:39 (Hytrin) 5 mg HS PO 10/10/16 21:00 10/11/16 21:23 (Desyrel) 200 mg HS PO 10/10/16 21:00 10/11/16 22:28 (Ambien) 5 mg HS PRN PO 10/10/16 20:30 (Mag-Al Plus Susp Liq) 30 ml Q6HR PRN PO 10/10/16 20:30 Acetaminophen/ Butalbital/ Caffeine 1 tab 1 tab Q4H PRN PO 10/10/16 20:30 Fosphenytoin Sodium 100 mgpe/ Sodium Chloride 52 ml @ 208 mls/hr Q6H IV 10/10/16 22:00 10/12/16 09:37 (Keppra 1000 Mg Inj) 100 ml @ 400 mls/hr Q8H IV 10/10/16 23:00 10/12/16 06:41 (Lyrica) 150 mg Q12HR PO 10/11/16 21:00 10/12/16 09:39 Assessment and Plan Problem List: (1) Seizure disorder Status: Acute Plan: Neurology consulted and managing. EEG ordered. On fosphenytoin and Keppra. Reported 3-4 seizures yesterday lasting up to 15 minutes (2) Brain tumor Status: Acute Plan: Neurosurgeon consulted. On Decadron. PT and OT consulted. Right sided weakness noted ECHO done Surgery planned for Monday Cardiology consulted for surgery clearance Chest Xray and EKG ordered. (3) GERD (gastroesophageal reflux disease) Status: Acute Plan: Continue PPI patient is asymptomatic (4) Chronic pain Status: Chronic Plan: Continue current regimen pain well controlled (5) Leg edema, right Status: Acute Plan: US ordered negative for DVT. History of non occlusive DVT in 2014. Assessment and Plan Assessment and plan discussed with Dr. Erica BUCKNER Discussed Condition With Nursing Discharge Planning [facility] Physician Attestation I and the PHYSICAL THERAPIST TECHNICIAN have both examined the patient and reviewed this note and I agree with these findings and plan of care. Estelle Rincon. PHYSICAL THERAPIST TECHNICIAN Oct 12, 2016 09:51
--- NOTE | 2016-10-12 11:39 | RADRPT ---
EXAM DATE/TIME: 10/12/2016 11:01 [place] COMPARISON: CHEST PA & LAT, July 04, 2016, 14:19. INDICATIONS : Patient has been short of breath since this morning. MEDICAL HISTORY : Seizures. SURGICAL HISTORY : Brain tumor resection. Right hip. Cardiac stent ENCOUNTER: Subsequent ACUITY: 2 days PAIN SCORE: 0/10 LOCATION: Bilateral chest FINDINGS: PA and lateral views of the chest demonstrate the lungs to be symmetrically aerated without evidence of mass, infiltrate or effusion. The cardiomediastinal contours are unremarkable. Osseous structure s are intact. CONCLUSION: No acute disease. Ricardo Fishman MD FACR on October 12, 2016 at 11:38 Board Certified Radiologist. This report was verified electronically.
[2016-10-12] MEDS: FINASTERIDE 5 MG TAB PO SCH (20:44)
[2016-10-12] MEDS: traZODone HCL 50 MG TAB PO SCH (20:44)
[2016-10-12] MEDS: TERAZOSIN HCL 5 MG CAP PO SCH (20:44)
[2016-10-12] MEDS: MIRTAZAPINE 15 MG TAB PO SCH (20:44)
--- NOTE | 2016-10-12 22:53 | MB ---
cc: MADELAINE GEE DATE OF CONSULTATION 10/12/16 HISTORY OF PRESENT ILLNESS Mr. Hazel is a very pleasant 71-year-old white male with history of left hemisphere meningioma. He has had a right lower extremity weakness. He scheduled for resection of the meningioma in the near future. He has not had any chest pain or shortness of breath. He has previous history of cardiac stent at the [place]. He had angina prior to the stent placement. PAST MEDICAL HISTORY Positive for coronary artery disease, coronary stenting at the [place]. Anxiety, depression, right eyelid surgery, IBS, gastroesophageal reflux disease, seizures. Meningioma causing right hemiparesis. Laminectomy, cervical fusion, carpal tunnel surgery, eye surgery. MEDICATIONS Medications include 1. Lyrica. 2. Folate. 3. Protonix. 4. Levetiracetam. 5. Fentanyl. 6. Fosphenytoin. 7. Janie-Colace. 8. Proscar. 9. Remeron. 10. Hytrin. 11. Desyrel. 12. Dexamethasone. ALLERGIES ANCEF. SOCIAL HISTORY The patient does not smoke. He does not drink alcohol. He lives at [facility]. FAMILY HISTORY Negative for heart disease. REVIEW OF SYSTEMS The review of systems otherwise negative. PHYSICAL EXAMINATION VITAL SIGNS: Blood pressure 104/61, pulse 82 and regular. HEENT: Negative. 2+ carotid upstrokes. No bruits. LUNGS: Clear. HEART: Regular with no murmur, gallop or rub. ABDOMEN: Soft. No bruits. EXTREMITIES: 1-2+ distal pulses. NEURO: Mild right hemiparesis. CARDIOLOGY STUDIES EKG was reviewed and showed normal sinus rhythm with small inferior Q-waves and normal axis and intervals, no acute changes. Echocardiogram showed preserved left ventricular systolic function with an ejection fraction of 55-60% with no segmental wall motion abnormalities. LABORATORY DATA Hemoglobin 13.5, potassium 4.1, creatinine 0.6. AST and ALT normal. DIAGNOSIS 1. Left hemisphere meningioma resulting in right hemiparesis. 2. Coronary artery disease, history of coronary stenting. 3. Gastroesophageal reflux disease. 4. Anxiety and depression. DISPOSITION Mr. Hazel has had no recent angina or heart failure symptoms. His echocardiogram showed well-preserved left ventricular systolic function. His risk of cardiac complications with planned surgery is not significantly increased. I recommend to proceed with his meningioma resection as planned. I will follow him for cardiology during his hospitalization. MD WILL Arias /7:09 PM /10:30 PM [facility]
[2016-10-13] VITALS (14 sets, daily range): BP systolic 117–142; BP diastolic 57–95; PULSE 58–90; RESP 10–20; TEMP 97.6–98.7; O2SAT 95–98
[2016-10-13] MEDS: FOSPHENYTOIN INJ 100 MGPE in SODIUM CHLORIDE 0.9% INJ 50 ML IV SCH ×4 (04:34→21:33)
[2016-10-13 04:57] LABS: AUTOMATED NEUTROPHIL # 5.2 TH/MM3 (1.8-7.7); BASOPHIL % 0.2 % (0.0-2.0); EOSINOPHIL % 0.2 % (0.0-4.0); HEMATOCRIT 37.7 % (39.0-51.0); HEMO FLAGS DIFF FINAL; LYMPH % 20.1 % (9.0-44.0); LYMPHOCYTE # 1.4 TH/MM3 (1.0-4.8); MEAN CELL VOLUME 88.5 FL (80.0-100.0); MONO % 5.7 % (0.0-8.0); NEUT % 73.8 % (16.0-70.0); PLATELET COUNT 248 TH/MM3 (150-450); RED BLOOD COUNT 4.26 MIL/MM3 (4.50-5.90); RED CELL DISTRIBUTION WIDTH 14.3 % (11.6-17.2)
[2016-10-13 05:11] LABS: POTASSIUM 4.4 MEQ/L (3.5-5.1)
[2016-10-13] MEDS: DEXAMETHASONE SOD PHOS 4 MG/ML VIAL IV PUSH SCH ×3 (05:12→17:36)
[2016-10-13] MEDS: levETIRAcetam 1000 MG INJ 100 ML IV SCH ×2 (05:26→15:22)
[2016-10-13] MEDS: SODIUM CHLORIDE 0.9% FLUSH 10 ML FLUSH IV FLUSH SCH ×2 (09:00→21:34)
[2016-10-13] MEDS: PANTOPRAZOLE SOD 40 MG DELAYED RELEASE TAB PO SCH (09:00)
[2016-10-13] MEDS: DOCUSATE SODIUM 50 MG/SENNA 8.6 MG TAB PO SCH ×2 (09:00→21:34)
[2016-10-13] MEDS: FOLIC ACID 1 MG TAB PO SCH (09:00)
[2016-10-13] MEDS: PREGABALIN 75 MG CAP PO SCH ×2 (09:00→21:33)
--- NOTE | 2016-10-13 09:04 | HHI.PR ---
Subjective Remarks Denies any CP or SOB. Patient reports he had several seizures yesterday. Neurosurgical plan for surgery for Monday Objective Vital Signs Date Time Temp Pulse Resp B/P Pulse Ox O2 Delivery O2 Flow Rate FiO2 10/13/16 07:53 98 10/13/16 06:00 59 10/13/16 04:00 62 10/13/16 04:00 98.7 62 10 117/57 97 10/13/16 02:00 74 10/13/16 00:00 67 10/13/16 00:00 98.7 62 10 132/63 97 10/12/16 22:00 61 10/12/16 20:00 98.4 68 18 113/57 96 10/12/16 20:00 68 10/12/16 19:00 95 Room Air 10/12/16 18:00 82 10/12/16 16:18 96 Nasal Cannula 1.00 10/12/16 16:00 71 10/12/16 16:00 98.8 68 10 104/61 99 10/12/16 14:00 71 10/12/16 12:00 98.8 80 21 134/56 93 10/12/16 12:00 76 10/12/16 10:00 76 I/O 10/12/16 10/12/16 10/12/16 10/13/16 10/13/16 10/13/16 06:59 14:59 22:59 06:59 14:59 22:59 Intake Total 666 ml 1044 ml 849 ml 703 ml Output Total 1280 ml 600 ml 400 ml 1000 ml Balance -614 ml 444 ml 449 ml -297 ml Intake Oral 540 ml 850 ml 480 ml 240 ml IV Total 126 ml 194 ml 369 ml 463 ml Output Urine Total 1280 ml 600 ml 400 ml 1000 ml # Bowel Movements 0 1 Result Diagram: 10/13/16 0406 10/13/16 0406 Imaging Last 72 hours Impressions Chest X-Ray 10/12/16 0000 Signed Impressions: Service Date/Time: Wednesday, October 12, 2016 11:01 - CONCLUSION: No acute disease. Ricardo Fishman MD FACR Lower Extremity Ultrasound 10/11/16 0000 Signed Impressions: Service Date/Time: Tuesday, October 11, 2016 14:13 - CONCLUSION: Negative exam. No sonographic or Doppler findings of deep venous thrombosis bilaterally. Pola Jones MD Brain MRI 10/10/16 8875 Signed Impressions: Service Date/Time: Monday, October 10, 2016 20:45 - CONCLUSION: 1. Large extra-axial mass along the high left parietal convexity in the extra-axial space measuring 5.7 x 3.6 x 4.4 cm possibly representing a meningioma versus less likely metastatic disease. No old studies for comparison. There is some minimal vasogenic edema in left parietal lobe. There is slight left to right midline shift of 8 mm. 2. 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 Austen Yates MD Objective Remarks GENERAL: Alert and cooperative. Right sided weakness SKIN: Warm and dry. HEAD: Normocephalic. EYES: No scleral icterus. No injection or drainage. NECK: Supple, trachea midline. No JVD or lymphadenopathy. CARDIOVASCULAR: Regular rate and rhythm without murmurs, gallops, or rubs. Right lower leg edema RESPIRATORY: Breath sounds equal bilaterally. No accessory muscle use. GASTROINTESTINAL: Abdomen soft, non-tender, nondistended. MUSCULOSKELETAL: No cyanosis, or edema. BACK: Nontender without obvious deformity. No CVA tenderness. Medications and IVs Current Medications Medications (Trade) Dose Ordered Sig/Hussein Route Start Time Stop Time Status Last Admin (Decadron Inj) 4 mg Q6HR IV PUSH 10/10/16 18:45 10/13/16 05:12 (Ativan Inj) 1 mg Q4H PRN IV PUSH 10/10/16 19:15 (NS Flush) 2 ml UNSCH PRN IV FLUSH 10/10/16 20:30 (NS Flush) 2 ml BID IV FLUSH 10/10/16 21:00 10/12/16 20:44 (Tylenol) 650 mg Q4H PRN PO 10/10/16 20:30 (Zofran Inj) 4 mg Q6H PRN IVP 10/10/16 20:30 (Narcan Inj) 0.4 mg UNSCH PRN IV 10/10/16 20:30 (Janie-Colace) 1 tab BID PO 10/10/16 21:00 10/12/16 20:44 (Milk Of Magnesia Liq) 30 ml Q12H PRN PO 10/10/16 20:30 (Senokot) 17.2 mg Q12H PRN PO 10/10/16 20:30 10/11/16 04:44 (Dulcolax Supp) 10 mg DAILY PRN RECTAL 10/10/16 20:30 (Lactulose Liq) 30 ml DAILY PRN PO 10/10/16 20:30 (Xanax) 0.5 mg Q6H PRN PO 10/10/16 20:30 (Duragesic 50 Mcg Patch.72 Hr) 1 patch Q3D T-DERMAL 10/10/16 22:00 10/12/16 04:17 (Proscar) 5 mg HS PO 10/10/16 21:00 10/12/16 20:44 (Folate) 0.4 mg DAILY PO 10/11/16 09:00 10/13/16 09:00 (Remeron) 15 mg HS PO 10/10/16 21:00 10/12/16 20:44 (Roxicodone) 10 mg Q6H PRN PO 10/10/16 20:30 10/13/16 00:16 (Roxicodone) 20 mg Q6H PRN PO 10/10/16 20:30 (Protonix) 40 mg DAILY PO 10/11/16 09:00 10/13/16 09:00 (Hytrin) 5 mg HS PO 10/10/16 21:00 10/12/16 20:44 (Desyrel) 200 mg HS PO 10/10/16 21:00 10/12/16 20:44 (Ambien) 5 mg HS PRN PO 10/10/16 20:30 (Mag-Al Plus Susp Liq) 30 ml Q6HR PRN PO 10/10/16 20:30 Acetaminophen/ Butalbital/ Caffeine 1 tab 1 tab Q4H PRN PO 10/10/16 20:30 Fosphenytoin Sodium 100 mgpe/ Sodium Chloride 52 ml @ 208 mls/hr Q6H IV 10/10/16 22:00 10/13/16 09:01 (Keppra 1000 Mg Inj) 100 ml @ 400 mls/hr Q8H IV 10/10/16 23:00 10/13/16 05:26 (Lyrica) 150 mg Q12HR PO 10/11/16 21:00 10/13/16 09:00 Assessment and Plan Problem List: (1) Seizure disorder Status: Acute Plan: Neurology consulted and managing. EEG ordered. On fosphenytoin and Keppra. Reported seizures yesterday (2) Brain tumor Status: Acute Plan: Neurosurgeon consulted and managing. On Decadron. PT and OT consulted. Right sided weakness noted ECHO done Surgery planned for Monday Cardiology consulted for surgery clearance- cleared Chest Xray with no acute findings (3) GERD (gastroesophageal reflux disease) Status: Acute Plan: Continue PPI patient is asymptomatic (4) Chronic pain Status: Chronic Plan: Continue current regimen pain well controlled (5) Leg edema, right Status: Acute Plan: US ordered negative for DVT. History of non occlusive DVT in 2015. Assessment and Plan Assessment and plan discussed with Dr. Erica BUCKNER Discussed Condition With Nursing Discharge Planning SNF Physician Attestation I and the RECEIVABLE MANAGER have both examined this patient and reviewed this note and I agree with these findings and plan of care. Estelle Rincon [facility] Oct 13, 2016 09:04
--- NOTE | 2016-10-13 13:01 | EKG ---
Date Performed: 10/12/2016 Time Performed: 13:28:56 PTAGE: 71 years EKG: Sinus rhythm POSSIBLE INFERIOR MYOCARDIAL INFARCTION , PROBABLY OLD WITH POSTERIOR EXTENSION BORDERLINE ECG PREVIOUS TRACING : 10/10/2016 18.15 DOCTOR: Mateo Steel Interpretating Date/Time 10/13/2016 12:54:32
[2016-10-13] MEDS: ALPRAZolam 0.5 MG TAB PO PRN (15:39)
--- NOTE | 2016-10-13 15:48 | HHI.NSPN ---
Note Status Status: Progress Note Interval History Interval History Mr. Hazel is a 71-year-old male who has a history of a left hemisphere meningioma. Apparently the mass was small and asymotimatic but he now presents with frequent seizures and right side hemiplegia. He states he has had several episodes where he loses consciousness. Her has jerking on the right side as well. He denies tongue bitting. He denies incontinence of stool or urine. He has a history of known left hemisphere meningioma. He was complaining of increasing right-sided weakness. He had an MRI of the brain done in August which revealed increased size of the left hemisphere meningioma with surrounding edema. He has a history about 20 years ago of a right hemisphere meningioma at that was resected. He had severe cervical spinal stenosis and he underwent a cervical laminectomy with Dr Brasher. Neurosurgical consultation was requested. 10/12: doing well, no new complaints, neuro sx unchanged. 10/13: stable overnight, to OR tomorrow for mass resection Labs, Micro, & Vital Signs Results Date Time Temp Pulse Resp B/P Pulse Ox O2 Delivery O2 Flow Rate FiO2 10/13/16 12:00 74 10/13/16 12:00 98.4 74 14 120/69 95 10/13/16 11:20 97 10/13/16 10:00 87 10/13/16 08:00 97.6 58 11 142/95 96 10/13/16 08:00 58 10/13/16 07:53 98 10/13/16 07:00 96 Room Air 10/13/16 06:00 59 10/13/16 04:00 62 10/13/16 04:00 98.7 62 10 117/57 97 10/13/16 02:00 74 10/13/16 00:00 67 10/13/16 00:00 98.7 62 10 132/63 97 10/12/16 22:00 61 10/12/16 20:00 98.4 68 18 113/57 96 10/12/16 20:00 68 10/12/16 19:00 95 Room Air 10/12/16 18:00 82 10/12/16 16:18 96 Nasal Cannula 1.00 10/12/16 16:00 71 10/12/16 16:00 98.8 68 10 104/61 99 10/13/16 07:00 Intake Total 2596 ml Output Total 2000 ml Balance 596 ml Constitutional Vital Signs Date Time Temp Pulse Resp B/P Pulse Ox O2 Delivery O2 Flow Rate FiO2 10/13/16 12:00 74 10/13/16 12:00 98.4 74 14 120/69 95 10/13/16 11:20 97 10/13/16 10:00 87 10/13/16 08:00 97.6 58 11 142/95 96 10/13/16 08:00 58 10/13/16 07:53 98 10/13/16 07:00 96 Room Air 10/13/16 06:00 59 10/13/16 04:00 62 10/13/16 04:00 98.7 62 10 117/57 97 10/13/16 02:00 74 10/13/16 00:00 67 10/13/16 00:00 98.7 62 10 132/63 97 10/12/16 22:00 61 10/12/16 20:00 98.4 68 18 113/57 96 10/12/16 20:00 68 10/12/16 19:00 95 Room Air 10/12/16 18:00 82 10/12/16 16:18 96 Nasal Cannula 1.00 10/12/16 16:00 71 10/12/16 16:00 98.8 68 10 104/61 99 10/13/16 07:00 Intake Total 2596 ml Output Total 2000 ml Balance 596 ml Review of Systems/Exam Exam Mr. Hazel is awake and oriented to time, place and person. Speech is fluent. Follows commands well. Cranial nerve examination: pupils to be equal, round, and reactive to light. EOMs are intact. Mild decrease right NLF Neck: limited range of motion due to chronic degenerative spondylosis Motor: generalized weakness, 4/5 Left upper and lower extremity, right 3/5 hemiparesis Generalized edema, right worse than left in LE's Sensory examination reports intact to light touch x 4 Bilateral Babinski response Cerebellar examination grossly intact to left finger to nose, difficulty with right due to focal weakness Medications Current Medications Current Medications Medications (Trade) Dose Ordered Sig/Hussein Route PRN Reason Start Time Stop Time Status Last Admin Dose Admin Dexamethasone Sodium Phosphate (Decadron Inj) 4 mg Q6HR IV PUSH 10/10/16 18:45 10/13/16 11:40 Lorazepam (Ativan Inj) 1 mg Q4H PRN IV PUSH SEIZURES 10/10/16 19:15 Sodium Chloride (NS Flush) 2 ml UNSCH PRN IV FLUSH FLUSH AFTER USING IV ACCESS 10/10/16 20:30 Sodium Chloride (NS Flush) 2 ml BID IV FLUSH 10/10/16 21:00 10/13/16 09:00 Acetaminophen (Tylenol) 650 mg Q4H PRN PO TEMP > 100.4 10/10/16 20:30 Ondansetron HCl (Zofran Inj) 4 mg Q6H PRN IVP NAUSEA OR VOMITING 10/10/16 20:30 Naloxone HCl (Narcan Inj) 0.4 mg UNSCH PRN IV SEE LABEL COMMENTS 10/10/16 20:30 Senna/Docusate Sodium (Janie-Colace) 1 tab BID PO 10/10/16 21:00 10/12/16 20:44 Magnesium Hydroxide (Milk Of Magnesia Liq) 30 ml Q12H PRN PO MILD - MODERATE CONSTIPATION 10/10/16 20:30 Sennosides (Senokot) 17.2 mg Q12H PRN PO MODERATE - SEVERE CONSTIPATION 10/10/16 20:30 10/11/16 04:44 Bisacodyl (Dulcolax Supp) 10 mg DAILY PRN RECTAL SEVERE CONSITIPATION 10/10/16 20:30 Lactulose (Lactulose Liq) 30 ml DAILY PRN PO SEVERE CONSITIPATION 10/10/16 20:30 Alprazolam (Xanax) 0.5 mg Q6H PRN PO ANXIETY 10/10/16 20:30 Fentanyl (Duragesic 50 Mcg Patch.72 Hr) 1 patch Q3D T-DERMAL 10/10/16 22:00 10/12/16 04:17 Finasteride (Proscar) 5 mg HS PO 10/10/16 21:00 10/12/16 20:44 Folic Acid (Folate) 0.4 mg DAILY PO 10/11/16 09:00 10/13/16 09:00 Mirtazapine (Remeron) 15 mg HS PO 10/10/16 21:00 10/12/16 20:44 Oxycodone HCl (Roxicodone) 10 mg Q6H PRN PO Pain 1-6 10/10/16 20:30 10/13/16 00:16 Oxycodone HCl (Roxicodone) 20 mg Q6H PRN PO PAIN SCALE 7 TO 10 10/10/16 20:30 Pantoprazole Sodium (Protonix) 40 mg DAILY PO 10/11/16 09:00 10/13/16 09:00 Terazosin HCl (Hytrin) 5 mg HS PO 10/10/16 21:00 10/12/16 20:44 Trazodone HCl (Desyrel) 200 mg HS PO 10/10/16 21:00 10/12/16 20:44 Zolpidem Tartrate (Ambien) 5 mg HS PRN PO INSOMNIA 10/10/16 20:30 Al Hydrox/Mg Hydrox/Simethicone (Mag-Al Plus Susp Liq) 30 ml Q6HR PRN PO HEARTBURN 10/10/16 20:30 Acetaminophen/ Butalbital/ Caffeine 1 tab 1 tab Q4H PRN PO HEADACHE 10/10/16 20:30 Fosphenytoin Sodium 100 mgpe/ Sodium Chloride 52 ml @ 208 mls/hr Q6H IV 10/10/16 22:00 10/13/16 15:22 Levetriacetam (Keppra 1000 Mg Inj) 100 ml @ 400 mls/hr Q8H IV 10/10/16 23:00 10/13/16 15:22 Pregabalin (Lyrica) 150 mg Q12HR PO 10/11/16 21:00 10/13/16 09:00 Medical Decision Making MDM Remarks 71 y/o male with enlarging left frontal parietal meningioma causing significant mass effect with right hemiparesis and recurrent seizures history of previous resection of right meningioma b/l LE swelling, negative for DVTs on u/s Plan Plan Remarks OR tomorrow for left craniotomy for resection of meningioma NPO after midnight cont neuro checks in [facility], PT, OT, ST cont AEDs, Dr. Escalona following for mgt of seizures Destini Otero Oct 13, 2016 15:48 Destini Otero Oct 13, 2016 15:48
[2016-10-13] MEDS ORDERED: ceFAZolin 2 GM PREMIX 50 ML IV ONE (17:15)
[2016-10-13] MEDS ORDERED: VANCOMYCIN INJ 1,000 MG in SODIUM CHLOR 0.9% 250 ML INJ 250 ML IV ONE (17:15)
--- NOTE | 2016-10-13 18:44 | PD.CARD.PN ---
Subjective Subjective Remarks No CP or SOB, feels fine Objective Medications Current Medications Medications (Trade) Dose Ordered Sig/Hussein Route Start Time Stop Time Status Last Admin (Decadron Inj) 4 mg Q6HR IV PUSH 10/10/16 18:45 10/13/16 17:36 (Ativan Inj) 1 mg Q4H PRN IV PUSH 10/10/16 19:15 (NS Flush) 2 ml UNSCH PRN IV FLUSH 10/10/16 20:30 (NS Flush) 2 ml BID IV FLUSH 10/10/16 21:00 10/13/16 09:00 (Tylenol) 650 mg Q4H PRN PO 10/10/16 20:30 (Zofran Inj) 4 mg Q6H PRN IVP 10/10/16 20:30 (Narcan Inj) 0.4 mg UNSCH PRN IV 10/10/16 20:30 (Janie-Colace) 1 tab BID PO 10/10/16 21:00 10/12/16 20:44 (Milk Of Magnesia Liq) 30 ml Q12H PRN PO 10/10/16 20:30 (Senokot) 17.2 mg Q12H PRN PO 10/10/16 20:30 10/11/16 04:44 (Dulcolax Supp) 10 mg DAILY PRN RECTAL 10/10/16 20:30 (Lactulose Liq) 30 ml DAILY PRN PO 10/10/16 20:30 (Xanax) 0.5 mg Q6H PRN PO 10/10/16 20:30 10/13/16 15:39 (Duragesic 50 Mcg Patch.72 Hr) 1 patch Q3D T-DERMAL 10/10/16 22:00 10/12/16 04:17 (Proscar) 5 mg HS PO 10/10/16 21:00 10/12/16 20:44 (Folate) 0.4 mg DAILY PO 10/11/16 09:00 10/13/16 09:00 (Remeron) 15 mg HS PO 10/10/16 21:00 10/12/16 20:44 (Roxicodone) 10 mg Q6H PRN PO 10/10/16 20:30 10/13/16 15:39 (Roxicodone) 20 mg Q6H PRN PO 10/10/16 20:30 (Protonix) 40 mg DAILY PO 10/11/16 09:00 10/13/16 09:00 (Hytrin) 5 mg HS PO 10/10/16 21:00 10/12/16 20:44 (Desyrel) 200 mg HS PO 10/10/16 21:00 10/12/16 20:44 (Ambien) 5 mg HS PRN PO 10/10/16 20:30 (Mag-Al Plus Susp Liq) 30 ml Q6HR PRN PO 10/10/16 20:30 Acetaminophen/ Butalbital/ Caffeine 1 tab 1 tab Q4H PRN PO 10/10/16 20:30 Fosphenytoin Sodium 100 mgpe/ Sodium Chloride 52 ml @ 208 mls/hr Q6H IV 10/10/16 22:00 10/13/16 15:22 (Keppra 1000 Mg Inj) 100 ml @ 400 mls/hr Q8H IV 10/10/16 23:00 10/13/16 15:22 Pregabalin 150 mg 150 mg Q12HR PO 10/11/16 21:00 10/13/16 09:00 (NS 1000 ml Inj) 1,000 ml @ 100 mls/hr Q10H IV 10/13/16 17:01 (Hibiclens 4% Top Soln) 1 applic HS TOP 10/13/16 21:00 10/14/16 21:01 Vital Signs / I&O Vital Signs Date Time Temp Pulse Resp B/P Pulse Ox O2 Delivery O2 Flow Rate FiO2 10/13/16 18:00 74 10/13/16 16:00 97.7 74 14 123/59 97 10/13/16 16:00 74 10/13/16 14:00 72 10/13/16 12:00 74 10/13/16 12:00 98.4 74 14 120/69 95 10/13/16 11:20 97 10/13/16 10:00 87 10/13/16 08:00 97.6 58 11 142/95 96 10/13/16 08:00 58 10/13/16 07:53 98 10/13/16 07:00 96 Room Air 10/13/16 06:00 59 10/13/16 04:00 62 10/13/16 04:00 98.7 62 10 117/57 97 10/13/16 02:00 74 10/13/16 00:00 67 10/13/16 00:00 98.7 62 10 132/63 97 10/12/16 22:00 61 10/12/16 20:00 98.4 68 18 113/57 96 10/12/16 20:00 68 10/12/16 19:00 95 Room Air I/O 10/12/16 10/12/16 10/12/16 10/13/16 10/13/16 10/13/16 06:59 14:59 22:59 06:59 14:59 22:59 Intake Total 666 ml 1044 ml 849 ml 703 ml 1204 ml Output Total 1280 ml 600 ml 400 ml 1000 ml 1000 ml Balance -614 ml 444 ml 449 ml -297 ml 204 ml Intake Oral 540 ml 850 ml 480 ml 240 ml 800 ml IV Total 126 ml 194 ml 369 ml 463 ml 404 ml Output Urine Total 1280 ml 600 ml 400 ml 1000 ml 1000 ml # Bowel Movements 0 1 0 Physical Exam GENERAL: In NAD SKIN: Warm and dry. HEAD: Normocephalic. EYES: No scleral icterus. No injection or drainage. NECK: Supple, trachea midline. No JVD or lymphadenopathy. CARDIOVASCULAR: Regular rate and rhythm without murmurs, gallops, or rubs. RESPIRATORY: Breath sounds equal bilaterally. No accessory muscle use. GASTROINTESTINAL: Abdomen soft, non-tender, nondistended. MUSCULOSKELETAL: No cyanosis, or edema. Laboratory Laboratory Tests Test 10/13/16 04:06 White Blood Count 7.0 TH/MM3 Red Blood Count 4.26 MIL/MM3 Hemoglobin 13.2 GM/DL Hematocrit 37.7 % Mean Corpuscular Volume 88.5 FL Mean Corpuscular Hemoglobin 31.0 PG Mean Corpuscular Hemoglobin 35.0 % Concent Red Cell Distribution Width 14.3 % Platelet Count 248 TH/MM3 Mean Platelet Volume 6.8 FL Neutrophils (%) (Auto) 73.8 % Lymphocytes (%) (Auto) 20.1 % Monocytes (%) (Auto) 5.7 % Eosinophils (%) (Auto) 0.2 % Basophils (%) (Auto) 0.2 % Neutrophils # (Auto) 5.2 TH/MM3 Lymphocytes # (Auto) 1.4 TH/MM3 Monocytes # (Auto) 0.4 TH/MM3 Eosinophils # (Auto) 0.0 TH/MM3 Basophils # (Auto) 0.0 TH/MM3 CBC Comment DIFF FINAL Differential Comment Sodium Level 141 MEQ/L Potassium Level 4.4 MEQ/L Chloride Level 107 MEQ/L Carbon Dioxide Level 28.0 MEQ/L Anion Gap 6 MEQ/L Blood Urea Nitrogen 16 MG/DL Creatinine 0.71 MG/DL Estimat Glomerular Filtration 109 ML/MIN Rate Random Glucose 105 MG/DL Calcium Level 8.9 MG/DL Imaging Last Impressions Chest X-Ray 10/12/16 0000 Signed Impressions: Service Date/Time: Wednesday, October 12, 2016 11:01 - CONCLUSION: No acute disease. Ricardo Fishman MD FACR Lower Extremity Ultrasound 10/11/16 0000 Signed Impressions: Service Date/Time: Tuesday, October 11, 2016 14:13 - CONCLUSION: Negative exam. No sonographic or Doppler findings of deep venous thrombosis bilaterally. Pola Jones MD Brain MRI 10/10/16 1839 Signed Impressions: Service Date/Time: Monday, October 10, 2016 20:45 - CONCLUSION: 1. Large extra-axial mass along the high left parietal convexity in the extra-axial space measuring 5.7 x 3.6 x 4.4 cm possibly representing a meningioma versus less likely metastatic disease. No old studies for comparison. There is some minimal vasogenic edema in left parietal lobe. There is slight left to right midline shift of 8 mm. 2. 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 Austen Yates MD Assessment and Plan Problem List: (1) Meningioma (2) CAD (coronary artery disease) (3) Preoperative cardiovascular examination Assessment and Plan No angina or CHF symptoms. The patient remains stable from cardiac standpoint. Proceed with surgery as planned. The risk of cardiac perioperative complications is not significantly elevated. Jaqui Stanton MD Oct 13, 2016 18:44
[2016-10-13] MEDS: MIRTAZAPINE 15 MG TAB PO SCH (21:33)
[2016-10-13] MEDS: FINASTERIDE 5 MG TAB PO SCH (21:33)
[2016-10-13] MEDS: TERAZOSIN HCL 5 MG CAP PO SCH (21:33)
[2016-10-13] MEDS: traZODone HCL 50 MG TAB PO SCH (21:33)
[2016-10-13] MEDS: fentaNYL 50 MCG/HR PATCH T-DERMAL SCH (21:35)
[2016-10-14] VITALS (12 sets, daily range): BP systolic 113–146; BP diastolic 48–71; PULSE 60–88; RESP 12–17; TEMP 98.2–98.7; O2SAT 92–100
[2016-10-14] MEDS: CHLORHEXIDINE GLUCONATE 4% SOLN 120 ML BTL TOP SCH ×2 (00:19→20:28)
[2016-10-14] MEDS: SODIUM CHLOR 0.9% 1000 ML INJ 1,000 ML IV SCH ×2 (00:19→03:01)
[2016-10-14] MEDS: levETIRAcetam 1000 MG INJ 100 ML IV SCH ×4 (00:20→23:45)
[2016-10-14] MEDS: DEXAMETHASONE SOD PHOS 4 MG/ML VIAL IV PUSH SCH ×5 (00:20→23:45)
[2016-10-14 04:44] LABS: AUTOMATED NEUTROPHIL # 7.2 TH/MM3 (1.8-7.7); BASOPHIL % 0.2 % (0.0-2.0); EOSINOPHIL % 0.3 % (0.0-4.0); HEMATOCRIT 36.7 % (39.0-51.0); HEMO FLAGS DIFF FINAL; LYMPHOCYTE # 1.2 TH/MM3 (1.0-4.8); MEAN CELL VOLUME 89.6 FL (80.0-100.0); MEAN CORPUSCULAR HEMOGLOBIN 30.7 PG (27.0-34.0); MEAN CORPUSCULAR HGB CONC 34.3 % (32.0-36.0); MONO % 5.7 % (0.0-8.0); NEUT % 80.8 % (16.0-70.0); PLATELET COUNT 221 TH/MM3 (150-450); RED CELL DISTRIBUTION WIDTH 14.2 % (11.6-17.2); WHITE BLOOD COUNT 8.9 TH/MM3 (4.0-11.0)
[2016-10-14 04:56] LABS: INTERNATIONAL NORMALIZED RATIO 0.9 RATIO; PROTHROMBIN TIME - PATIENT 10.4 SEC (9.8-11.6)
[2016-10-14 05:03] LABS: BICARBONATE 25.4 MEQ/L (21.0-32.0); POTASSIUM 4.1 MEQ/L (3.5-5.1)
[2016-10-14] MEDS: FOSPHENYTOIN INJ 100 MGPE in SODIUM CHLORIDE 0.9% INJ 50 ML IV SCH ×4 (05:06→23:45)
[2016-10-14] MEDS: ALPRAZolam 0.5 MG TAB PO PRN (06:34)
[2016-10-14] MEDS ORDERED: VANCOMYCIN INJ 1,000 MG in SODIUM CHLOR 0.9% 250 ML INJ 250 ML IV ONE (08:30)
[2016-10-14] MEDS ORDERED: MICROFIBRILLAR COLLAGEN HEMOSTAT 70 X 35 MM BANDAGE ONE (08:55)
[2016-10-14] MEDS ORDERED: THROMBIN (TOPICAL) 5,000 UNIT VIAL ONE (08:55)
[2016-10-14] MEDS ORDERED: GELFOAM SIZE 100 ONE (08:55)
[2016-10-14] MEDS ORDERED: BACITRACIN OPHT OINT 3.5 GM TUBO ONE (08:55)
[2016-10-14] MEDS ORDERED: MANNITOL INJ 50 ML ONE (08:56)
[2016-10-14] MEDS ORDERED: FUROSEMIDE 40 MG/4 ML VIAL ONE (08:56)
[2016-10-14] MEDS ORDERED: GENTAMICIN SULFATE 80 MG/2 ML VIAL ONE (08:56)
[2016-10-14] MEDS ORDERED: LIDOCAINE 1%/EPINEPHrine 1:100,000 SOLN 20 ML VIAL ONE (08:56)
[2016-10-14] MEDS ORDERED: levETIRAcetam 500 MG/5 ML VIAL IV ONE (08:56)
[2016-10-14] MEDS ORDERED: BACITRACIN TOP OINT 15 GM TUBE ONE (08:58)
[2016-10-14] MEDS: PANTOPRAZOLE SOD 40 MG DELAYED RELEASE TAB PO SCH (09:00)
[2016-10-14] MEDS: PREGABALIN 75 MG CAP PO SCH ×2 (09:00→20:29)
[2016-10-14] MEDS: FOLIC ACID 1 MG TAB PO SCH (09:00)
[2016-10-14] MEDS: SODIUM CHLORIDE 0.9% FLUSH 10 ML FLUSH IV FLUSH SCH (09:00)
[2016-10-14] MEDS: DOCUSATE SODIUM 50 MG/SENNA 8.6 MG TAB PO SCH (09:00)
[2016-10-14] MEDS ORDERED: MIDAZOLAM HCL 2 MG/2 ML VIAL ONE ×2 (09:18→16:23)
[2016-10-14] MEDS ORDERED: ACETAMINOPHEN 1000 MG/100 ML VIAL IV ONE (09:18)
[2016-10-14] MEDS ORDERED: fentaNYL CITRATE 250 MCG/5 ML AMP ONE (09:18)
[2016-10-14] MEDS ORDERED: FAMOTIDINE 20 MG/2 ML VIAL ONE (09:19)
--- NOTE | 2016-10-14 10:02 | HHI.PR ---
Subjective Remarks Denies any CP or SOB. Very emotional about surgery scheduled for today Objective Vital Signs Date Time Temp Pulse Resp B/P Pulse Ox O2 Delivery O2 Flow Rate FiO2 10/14/16 08:00 98.4 69 15 146/69 96 10/14/16 08:00 74 10/14/16 07:49 93 10/14/16 07:00 96 Room Air 10/14/16 06:00 62 10/14/16 04:00 69 10/14/16 04:00 98.7 69 17 136/71 92 10/14/16 02:00 60 10/14/16 00:00 64 10/14/16 00:00 98.4 64 12 113/55 94 10/13/16 22:00 86 10/13/16 20:00 97.8 78 20 130/67 96 10/13/16 20:00 90 10/13/16 19:00 96 Room Air 10/13/16 18:00 74 10/13/16 16:00 97.7 74 14 123/59 97 10/13/16 16:00 74 10/13/16 14:00 72 10/13/16 12:00 74 10/13/16 12:00 98.4 74 14 120/69 95 10/13/16 11:20 97 10/13/16 10:00 87 I/O 10/13/16 10/13/16 10/13/16 10/14/16 10/14/16 10/14/16 07:00 15:00 23:00 07:00 15:00 23:00 Intake Total 703 ml 1204 ml 838 ml 759 ml Output Total 1000 ml 1000 ml 500 ml 1350 ml Balance -297 ml 204 ml 338 ml -591 ml Intake Oral 240 ml 800 ml 480 ml 20 ml IV Total 463 ml 404 ml 358 ml 739 ml Output Urine Total 1000 ml 1000 ml 500 ml 1350 ml # Bowel Movements 1 0 0 0 Result Diagram: 10/14/16 0359 10/14/16 0359 Imaging Last 72 hours Impressions Chest X-Ray 10/12/16 0000 Signed Impressions: Service Date/Time: Wednesday, October 12, 2016 11:01 - CONCLUSION: No acute disease. Ricardo Fishman MD FACR Objective Remarks GENERAL: Alert and cooperative. Right sided weakness SKIN: Warm and dry. HEAD: Normocephalic. EYES: No scleral icterus. No injection or drainage. NECK: Supple, trachea midline. No JVD or lymphadenopathy. CARDIOVASCULAR: Regular rate and rhythm without murmurs, gallops, or rubs. Right lower leg edema RESPIRATORY: Breath sounds equal bilaterally. No accessory muscle use. GASTROINTESTINAL: Abdomen soft, non-tender, nondistended. MUSCULOSKELETAL: No cyanosis, or edema. BACK: Nontender without obvious deformity. No CVA tenderness. Medications and IVs Current Medications Medications (Trade) Dose Ordered Sig/Hussein Route Start Time Stop Time Status Last Admin (Decadron Inj) 4 mg Q6HR IV PUSH 10/10/16 18:45 10/14/16 05:06 (Ativan Inj) 1 mg Q4H PRN IV PUSH 10/10/16 19:15 (NS Flush) 2 ml UNSCH PRN IV FLUSH 10/10/16 20:30 (NS Flush) 2 ml BID IV FLUSH 10/10/16 21:00 10/13/16 21:34 (Tylenol) 650 mg Q4H PRN PO 10/10/16 20:30 (Zofran Inj) 4 mg Q6H PRN IVP 10/10/16 20:30 (Narcan Inj) 0.4 mg UNSCH PRN IV 10/10/16 20:30 (Janie-Colace) 1 tab BID PO 10/10/16 21:00 10/13/16 21:34 (Milk Of Magnesia Liq) 30 ml Q12H PRN PO 10/10/16 20:30 (Senokot) 17.2 mg Q12H PRN PO 10/10/16 20:30 10/11/16 04:44 (Dulcolax Supp) 10 mg DAILY PRN RECTAL 10/10/16 20:30 (Lactulose Liq) 30 ml DAILY PRN PO 10/10/16 20:30 (Xanax) 0.5 mg Q6H PRN PO 10/10/16 20:30 10/14/16 06:34 (Duragesic 50 Mcg Patch.72 Hr) 1 patch Q3D T-DERMAL 10/10/16 22:00 10/12/16 04:17 (Proscar) 5 mg HS PO 10/10/16 21:00 10/13/16 21:33 (Folate) 0.4 mg DAILY PO 10/11/16 09:00 10/13/16 09:00 (Remeron) 15 mg HS PO 10/10/16 21:00 10/13/16 21:33 (Roxicodone) 10 mg Q6H PRN PO 10/10/16 20:30 10/13/16 15:39 (Roxicodone) 20 mg Q6H PRN PO 10/10/16 20:30 (Protonix) 40 mg DAILY PO 10/11/16 09:00 10/13/16 09:00 (Hytrin) 5 mg HS PO 10/10/16 21:00 10/13/16 21:33 (Desyrel) 200 mg HS PO 10/10/16 21:00 10/13/16 21:33 (Ambien) 5 mg HS PRN PO 10/10/16 20:30 (Mag-Al Plus Susp Liq) 30 ml Q6HR PRN PO 10/10/16 20:30 Acetaminophen/ Butalbital/ Caffeine 1 tab 1 tab Q4H PRN PO 10/10/16 20:30 Fosphenytoin Sodium 100 mgpe/ Sodium Chloride 52 ml @ 208 mls/hr Q6H IV 10/10/16 22:00 10/14/16 05:06 (Keppra 1000 Mg Inj) 100 ml @ 400 mls/hr Q8H IV 10/10/16 23:00 10/14/16 06:34 Pregabalin 150 mg 150 mg Q12HR PO 10/11/16 21:00 10/13/16 21:33 (NS 1000 ml Inj) 1,000 ml @ 100 mls/hr Q10H IV 10/13/16 17:01 10/14/16 00:19 (Hibiclens 4% Top Soln) 1 applic HS TOP 10/13/16 21:00 10/14/16 21:01 10/14/16 00:19 Assessment and Plan Problem List: (1) Seizure disorder Status: Acute Plan: Neurology consulted and managing. On fosphenytoin and Keppra. (2) Brain tumor Status: Acute Plan: Neurosurgeon consulted and managing. On Decadron. PT and OT consulted. Right sided weakness noted ECHO done Surgery planned for today Cardiology consulted for surgery clearance- cleared Chest Xray with no acute findings (3) GERD (gastroesophageal reflux disease) Status: Acute Plan: Continue PPI patient is asymptomatic (4) Chronic pain Status: Chronic Plan: Continue current regimen pain well controlled (5) Leg edema, right Status: Acute Plan: US ordered negative for DVT. History of non occlusive DVT in 2014. Assessment and Plan Assessment and plan discussed with Dr. Erica BUCKNER Discharge Planning [facility] Physician Attestation I and the FLANGE TURNER have both examined this patient and reviewed this note and I agree with these findings and plan of care. Estelle Rincon. [facility] Oct 14, 2016 10:02
[2016-10-14] MEDS ORDERED: PROPOFOL 200 MG/20 ML AMP IV ONE (12:00)
[2016-10-14] MEDS ORDERED: NORMOSOL R INJ 1,000 ML IV ONE (12:00)
[2016-10-14] MEDS ORDERED: LACTATED RINGER'S 1000 ML INJ 1,000 ML IV ONE (12:00)
[2016-10-14] MEDS ORDERED: ePHEDrine/NS 25 MG/5 ML SYR IV ONE (12:00)
[2016-10-14] MEDS ORDERED: ONDANSETRON HCL 4 MG/2 ML VIAL IV PUSH ONE (12:00)
[2016-10-14] MEDS ORDERED: PHENYLEPH/NS 1000 MCG/10 ML SYR IV ONE (12:00)
[2016-10-14] MEDS ORDERED: SODIUM CHLORID 0.9% 500 ML INJ 500 ML IV ONE (12:00)
[2016-10-14] MEDS ORDERED: FOSPHENYTOIN INJ 400 MGPE in SODIUM CHLORIDE 0.9% INJ 50 ML IV STA (15:22)
[2016-10-14] MEDS ORDERED: PROPOFOL 1000 MG/100 ML INJ 100 ML ONE (15:22)
[2016-10-14] MEDS ORDERED: levETIRAcetam INJ 500 MG in SODIUM CHLORIDE 0.9% INJ 100 ML IV SCH (16:00)
[2016-10-14] MEDS ORDERED: MORPHINE SULFATE 4 MG/ML INJ IV PUSH PRN ×2 (16:00)
[2016-10-14] MEDS ORDERED: POTASSIUM CHLOR 20 MEQ PREMIX 100 ML IV PRN ×3 (16:00→16:45)
[2016-10-14] MEDS ORDERED: CALCIUM GLUCONATE 10% 1 GM/10 ML VIAL IV PRN (16:00)
[2016-10-14] MEDS ORDERED: MAGNESIUM SULFATE INJ 4 GM in SODIUM CHLORIDE 0.9% INJ 100 ML IV PRN (16:00)
[2016-10-14] MEDS ORDERED: ACETAMINOPHEN 325 MG TAB PO PRN (16:00)
[2016-10-14] MEDS ORDERED: SODIUM CHLORIDE 0.9% FLUSH 5 ML FLUSH IVF PRN (16:00)
[2016-10-14] MEDS ORDERED: ONDANSETRON HCL 4 MG/2 ML VIAL IV PRN (16:00)
[2016-10-14] MEDS ORDERED: ACETAMINOPHEN/HYDROcodone 325 MG/10 MG TAB PO PRN ×2 (16:00)
[2016-10-14] MEDS ORDERED: BISACODYL 10 MG SUPP RECTAL PRN (16:00)
--- NOTE | 2016-10-14 16:10 | PD.OP ---
Operative Report Date of Surgery: Oct 14, 2016 Preoperative Diagnosis: Left hemispheric mass Postoperative Diagnosis: Left fontoparietal neoplsam Procedure: Stereotactic image guided left frontal parietal craniotomy with microsurgical resection of meningioma. Anesthesia: general Surgeon: En Damico Butadiene Converter Utility Operator(s): Maria G Blandon Operation and Findings: INDICATIONS Mr Hazel is a 71-year-old male who presented with altered mental status recurrent seizures and right sided progressive weakness. he was found to have a large dural base frontal mass with suspicion for a meningioma. This was causing mass effect on the underlying brain. It has grown since his prior study. A surgical resection was indicated. I have discussed the [id number] details of the procedure, its indications, alternatives, risks and potential complications with the patient and his brother , including but not limited to the risk of infection, hemorrhage, paralysis, stroke, heart attack, even vegetative state or even the possibility of . The patient fully understands. All his questions were answered. No guarantees were given. He voiced requesting the procedure and provided informed consent. He has been offered the alternative of not having operative management. DETAILS OF THE SURGICAL PROCEDURE Prior to the surgery the patient underwent MRI of the brain according to the stereotactic protocol. The information was transferred to the workstation located in the operative suite. Preoperative registration was performed. The patient was then transferred to the operating room. After induction of general anesthesia, endotracheal intubation was done. A Abdullahi catheter, bilateral SERGEY hose, sequential compression devices were placed and kept throughout the procedure. The patient was positioned supine on a 30/80 table over gel rolls with her head in a flexed and rigid fixation using the [place] tunnel heading supervisor. All pressure points were carefully padded with egg crate mattress. The eyes were tapped shut after ointment was applied by the anesthesiologist to prevent corneal abrasion. A Wily hugger was placed over the exposed lower body to maintain control of the core body temperature. The electrophysiological team placed the needles and electrodes in their proper location and baseline SSEP's evoked potentials were registered. The rigid reference body was attached to the tunnel heading supervisor and intraoperative registration was performed with a laser. The left frontotemporal parietal area was shaved, prepped and draped in the usual sterile fashion. A standard pterional incision was outlined on the scalp and infiltrated with 1% lidocaine with epinephrine. The skin incision was made with a #10 blade down to the level of the periosteum in the frontoparietal region and to the temporalis fascia in the temporal region. Cami clips were applied to the scalp. Using a Bovie, the temporalis fascia and muscle were incised and a subperiosteal dissection was performed reflecting the scalp flap anteriorly. The scalp was covered with a moist sponge and held in position using fish hooks. The TPS drill was brought to the field and a bur hole was made in the fontotemporal region using the craniotome attachment. Then, using the footplate attachment, a left frontal parietal craniotomy flap was elevated. The dura was then from the calvarium with a Stewart and a contralateral craniotomy flap was then elevated. The dura was bulging, with obvious mass effect due to the underlying tumor. The tumor was identified with the brainlab, and the dura was opened with a 15 blade and metzembaun sissors and retracted with 4-0 Neurolon sutures attached to the fascia. A large dural based mass was identified. At this point of the procedure the operative microscope was draped in the usual sterile fashion and brought to the field. The rest of the surgical procedure was performed using microdissection technique with the exception of the closure. Under the operative microscope the mass was ressected using microsurgical dissection technique, with the micro-bipolar forceps, microscissors, micro- suction, and gentle irrigation, preserving the tumor-arachnoid interface intact. The specimen was sent to the lab for histological analysis. Gross total resection was achieved. It appeared attached to the sagital sinus. Appropriate hemostasis was then secured using the bipolar manufacturing lead. Then the incision was irrigated with saline solution. The dural edges were tacked to the bone. The craniotomy flap was then repositioned and secured in place using Striker plates and screws. A 7 millimeter Robert-Lynch drain was then left in the subgaleal space and externalized through a separate stab incision. The incision was then closed in layers. 0 Vicryl in interrupted sutures were used to close the temporalis fascia. The galea was closed with interrupted 3- 0 Vicryl. Mansoor were applied to the skin. The drain was secured with a 3-0 nylon. At the end of the procedure, the sponge, needle and instrument counts were all correct. Estimated blood loss was less than 200 cc. No blood transfusion was given. No intraoperative complications occurred. The patient received prophylactic antibiotics. The patient was then transferred to the recovery room in stable condition. COMPLICATIONS None En Damico MD Oct 14, 2016 16:10
[2016-10-14] MEDS ORDERED: POTASSIUM CHLORIDE 25 MEQ EFFERVESCENT TAB PO PRN (16:45)
[2016-10-14] MEDS ORDERED: MAGNESIUM OXIDE 400 MG TAB PO PRN (16:45)
[2016-10-14] MEDS ORDERED: POTASSIUM PHOSPHATE MONOBASIC 500 MG TAB PO PRN (16:45)
[2016-10-14] MEDS ORDERED: MAGNESIUM SULFATE INJ 2 GM in SODIUM CHLORIDE 0.9% INJ 96 ML IV PRN (16:45)
[2016-10-14] MEDS ORDERED: SODIUM PHOSPHATE INJ 30 MMOL in SODIUM CHLOR 0.9% 250 ML INJ 240 ML IV PRN (16:45)
[2016-10-14] MEDS ORDERED: POTASSIUM PHOSPHATE MONOBASIC 500 MG TAB PO/TUBE PRN (16:45)
[2016-10-14] MEDS ORDERED: POTASSIUM PHOSPHATE INJ 30 MMOL in SODIUM CHLOR 0.9% 250 ML INJ 250 ML IV PRN (16:45)
[2016-10-14] MEDS ORDERED: POTASSIUM CHLOR 40 MEQ PREMIX 100 ML IV PRN ×2 (16:45)
[2016-10-14] MEDS ORDERED: MAGNESIUM SULFATE INJ 4 GM in SODIUM CHLORIDE 0.9% INJ 92 ML IV PRN (16:45)
--- NOTE | 2016-10-14 17:08 | PD.CONS ---
[facility] Service Critical Care Medicine Consult Requested By Dr. Damico Reason for Consult s/p Stereotactic image guided left frontal parietal craniotomy with resection of meningioma. Respiratory failure Hypotension Primary Care Physician Evangelista Maldonado, History of Present Illness Mr. Hazel is a 71-year-old male with history of meningioma, chronic pain, recent cervical fusion, IBS, GERD, anxiety, and depression who presented to the ER with reported seizure activity while being transported by EMS. He has a history of known left hemisphere meningioma, and seizure disorder. On Keppra and Dilantin (neurology Dr. Escalona). MRI of the brain showed large left parietal extra-axial mass which is most likely meningioma. Patient has a history of meningioma resection 20 years ago, an MRI in August had revealed a large left sided meningioma. Patient was admitted to Dr. Maldonado and neurosurgery was consulted. Patient was placed on Dilantin, Keppra and also Decadron by Dr. Escalona. He had underwent left frontal parietal craniotomy with resection of meningioma today by Dr. Damico. EBL was 200 ML. Post surgery patient was left intubated and critical care consult was requested for medical management and vent management. I evaluated the patient in PACU he sedated with propofol. Postop labs had been ordered and ABG ordered. He does move all extremities on lightening sedation. A postop CT is pending at this time Review of Systems ROS Limitations: Intubated Past Family Social History Allergies: Coded Allergies: Ancef (Verified Allergy, Intermediate, Rash, 10/10/16) Past Medical History Coronary artery disease Anxiety Depression Basal skin on right eyelid IBS GERD seizures meningioma resection 20 years ago Past Surgical History Cardiac stent Eye surgery Carpal tunnel surgery Meningioma resection Cervical fusion Reported Medications Lyrica (Pregabalin) 100 Mg Cap 150 Mg PO Q12HR 30 Days Trazodone (Trazodone HCl) 50 Mg Tab 200 Mg PO HS 30 Days Oxycodone (Oxycodone HCl) 10 Mg Tab 20 Mg PO Q6H PRN Oxycodone (Oxycodone HCl) 10 Mg Tab 10 Mg PO Q6H PRN Duragesic Patch 72 HR (Fentanyl) 50 Mcg/Hr Patch 1 Patch T-DERMAL Q3D Terazosin (Terazosin HCl) 5 Mg Cap 5 Mg PO HS Zolpidem (Zolpidem Tartrate) 5 Mg Tab 5 Mg PO HS PRN Pantoprazole (Pantoprazole Sodium) 40 Mg Tab 40 Mg PO DAILY Finasteride 5 Mg Tab 5 Mg PO HS Dilantin (Phenytoin Extended) 100 Mg Cap 200 Mg PO BID 30 Days Keppra (Levetiracetam) 500 Mg Tab 1,500 Mg PO BID 30 Days Folic Acid 400 Mcg Tab 400 Mcg PO DAILY Fioricet (Ugdxexfzez-Wjvpykiklwulc-Fnoocmpi) 50-300-40 Mg Cap 1 Cap PO Q4H PRN Alprazolam 0.5 Mg Tab 0.5 Mg PO Q6H PRN Mirtazapine 15 Mg Tab 15 Mg PO HS Gaviscon Liq (Aluminum Hydroxide-Mag Carb Liq) 95-358 Mg/15 Ml Susp 30 Ml PO Q6HR PRN Active Ordered Medications Reviewed Family History Unable to obtain as patient is intubated Social History No alcohol or tobacco use Counts Include 234 Beds At [facility] resident Physical Exam Vital Signs Vital Signs Date Time Temp Pulse Resp B/P Pulse Ox O2 Delivery O2 Flow Rate FiO2 10/14/16 11:30 88 20 172/88 95 10/14/16 11:00 69 22 154/78 97 10/14/16 08:00 98.4 69 15 146/69 96 10/14/16 08:00 74 10/14/16 07:49 93 10/14/16 07:00 96 Room Air 10/14/16 06:00 62 10/14/16 04:00 69 10/14/16 04:00 98.7 69 17 136/71 92 10/14/16 02:00 60 10/14/16 00:00 64 10/14/16 00:00 98.4 64 12 113/55 94 10/13/16 22:00 86 10/13/16 20:00 97.8 78 20 130/67 96 10/13/16 20:00 90 10/13/16 19:00 96 Room Air 10/13/16 18:00 74 Physical Exam GENERAL: 71-year-old male intubated sedated with propofol SKIN: Warm and dry. Normal turgor. HEAD: Circumferential craniectomy dressing. FRANKIE drains 2 with bloody output EYES: Pupils equal and round. No scleral icterus. No injection or drainage. ENT: Orotracheally intubated NECK: Trachea midline. No JVD. Well-healed scar from cervical fusion CARDIOVASCULAR: Regular rate and rhythm. Hypotensive on Christiano-Synephrine RESPIRATORY: Clear to auscultation. Breath sounds equal bilaterally. GASTROINTESTINAL: Abdomen soft, non-tender, nondistended. Hepatic and splenic margins not palpable. MUSCULOSKELETAL: Extremities with 1+ edema. NEUROLOGICAL: pupils equal. Intubated sedated. On lightening sedation most all extremities equally Laboratory Laboratory Tests Test 10/14/16 10/14/16 10/14/16 10/14/16 03:59 05:00 11:25 13:07 White Blood Count 8.9 Red Blood Count 4.10 Hemoglobin 12.6 Hematocrit 36.7 Mean Corpuscular Volume 89.6 Mean Corpuscular Hemoglobin 30.7 Mean Corpuscular Hemoglobin 34.3 Concent Red Cell Distribution Width 14.2 Platelet Count 221 Mean Platelet Volume 6.8 Neutrophils (%) (Auto) 80.8 Lymphocytes (%) (Auto) 13.0 Monocytes (%) (Auto) 5.7 Eosinophils (%) (Auto) 0.3 Basophils (%) (Auto) 0.2 Neutrophils # (Auto) 7.2 Lymphocytes # (Auto) 1.2 Monocytes # (Auto) 0.5 Eosinophils # (Auto) 0.0 Basophils # (Auto) 0.0 CBC Comment DIFF FINAL Differential Comment Prothrombin Time 10.4 Prothromb Time International 0.9 Ratio Sodium Level 141 Potassium Level 4.1 Chloride Level 108 Carbon Dioxide Level 25.4 Anion Gap 8 Blood Urea Nitrogen 28 Creatinine 0.82 Estimat Glomerular Filtration 92 Rate Random Glucose 102 Calcium Level 8.4 Blood Type B NEGATIVE B NEGATIVE Antibody Screen NEGATIVE Crossmatch Leukocyte-Reduced Leukocyte-Reduced Red Blood Red Blood Cells Cells Blood Bank Comment Result Diagram: 10/14/16 0359 10/14/16 0359 Imaging MRI of the brain 10/10/16 showed large left parietal extra-axial meningioma Assessment and Plan Assessment and Plan NEURO: Status post left frontal parietal craniotomy for meningioma resection Seizure disorder Chronic neck pain status post cervical fusion - Propofol and fentanyl for sedation and vent synchrony and pain control - Continue IV Keppra and IV Cerebyx - Continue Decadron - EEG negative for seizure - Neurosurgery Dr. Damico, neurology Dr. Escalona - Postop CT of the head pending RESP: Acute respiratory failure - ACV. Vent bundle - SBT after cleared by neurosurgery - DuoNeb every 6 hours when necessary CV: Hypotension - Normal saline IV fluids 100 ml per hour - Currently on Christiano-Synephrine at 100 mcg/m. Wean to DC as tolerated. use Levophed if needed - Give 1 L bolus of normal saline GI: - Nothing by mouth, Protonix : - Monitor renal function closely. Abdullahi catheter. ID: - Perioperative antibiotics per Dr. Damico HEME: - Monitor CBC, CMP, INR ENDO: - Electrolyte replacement per protocol PROPH: - Bilateral lower extremity SCDs. Avoid chemical DVT prophylaxis, continue Protonix CC time 37 min Code Status Full Axel Norman MD Oct 14, 2016 17:08
--- NOTE | 2016-10-14 17:08 | RADRPT ---
EXAM DATE/TIME: 10/14/2016 16:33 [facility] COMPARISON: CHEST PA & LAT, October 12, 2016, 11:01. INDICATIONS : Evaluate for ET tube and central line placement. MEDICAL HISTORY : Seizures. SURGICAL HISTORY : None. ENCOUNTER: Subsequent ACUITY: 1 day PAIN SCORE: Non-responsive. LOCATION: chest FINDINGS: Endotracheal tube is present in satisfactory position with tip 6 cm above the zac. A right neck ce ntral line descends in the SVC. A mild hazy basilar parenchymal opacity. Cardiac contours are grossly satisfactory for technique and projection. CONCLUSION: Satisfactory ET tube and central line positioning. No evidence of complication. Hazy basilar parenchy mal opacities. Eemrson Rebolledo MD on October 14, 2016 at 17:06 Board Certified Radiologist. This report was verified electronically.
[2016-10-14] MEDS ORDERED: fentaNYL DRIP 250 ML IV SCH (17:15)
[2016-10-14] MEDS ORDERED: TERBUTALINE INJ 1 MG/ML AMP SQ PRN ×2 (17:45→18:00)
[2016-10-14] MEDS ORDERED: RESP: ALBUTEROL 2.5 MG/IPRATROPIUM 0.5 MG NEB (PRN) NEB (17:45)
--- NOTE | 2016-10-14 17:47 | RADRPT ---
EXAM DATE/TIME: 10/14/2016 17:14 [facility] COMPARISON: MRI BRAIN W & W/O CONTRAST, October 10, 2016, 20:45. INDICATIONS : Seizure, post op brain tumor. RADIATION DOSE: 46.56 CTDIvol (mGy) MEDICAL HISTORY : Cardiovascular disease. Seizures. SURGICAL HISTORY : Craniotomy, Right testicular, cervical and lumbar,basal cell rt eye lid. ENCOUNTER: Initial ACUITY: 2 days PAIN SCALE: Non-responsive LOCATION: cranial TECHNIQUE: Multiple contiguous axial images were obtained of the head. Using automated exposure control and adj ustment of the mA and/or kV according to patient size, radiation dose was kept as low as reasonably a chievable to obtain optimal diagnostic quality images. DICOM format image data is available electro nically for review and comparison. FINDINGS: Frontoparietal craniotomy with surgical drain extending to the mid left frontal inner hemispheric reg ion. There is a left subdural collection of air and blood products measuring up to 1 cm. There is sli ght subfalcine shift to the right measuring approximately 4 mm. Large inflammation defect in the righ t frontal mid to high convexities. Ventricle size is stable. No significant ventricular blood product s. Basilar cisterns are maintained. No significant intra-axial hemorrhage. Cerebellum and brainstem a re grossly unremarkable. Remainder the exam is unchanged. CONCLUSION: 1. Post surgical features of frontoparietal craniotomy with surgical drain in place. Left subdural co llection of air and blood products measuring up to 1 cm with slight subfalcine shift to the right wit hout significant transtentorial herniation. 2. Lateral ventricles are stable in size. Juan M Samson MD on October 14, 2016 at 17:29 Board Certified Radiologist. This report was verified electronically.
[2016-10-14] MEDS ORDERED: DO NOT ADM ANY ANTICOAGULANT DRUGS PRN (18:00)
[2016-10-14] MEDS: SODIUM CHLOR 0.9% 1000 ML INJ 1,000 ML IV ONE (18:00)
--- NOTE | 2016-10-14 18:02 | PD.CARD.PN ---
Subjective Subjective Remarks Intubated, on the vent, on pressors, VSS Objective Medications Current Medications Medications (Trade) Dose Ordered Sig/Hussein Route Start Time Stop Time Status Last Admin (Decadron Inj) 4 mg Q6HR IV PUSH 10/10/16 18:45 10/14/16 05:06 (Ativan Inj) 1 mg Q4H PRN IV PUSH 10/10/16 19:15 (Narcan Inj) 0.4 mg UNSCH PRN IV 10/10/16 20:30 (Milk Of Magnesia Liq) 30 ml Q12H PRN PO 10/10/16 20:30 (Senokot) 17.2 mg Q12H PRN PO 10/10/16 20:30 10/11/16 04:44 (Dulcolax Supp) 10 mg DAILY PRN RECTAL 10/10/16 20:30 (Lactulose Liq) 30 ml DAILY PRN PO 10/10/16 20:30 (Xanax) 0.5 mg Q6H PRN PO 10/10/16 20:30 10/14/16 06:34 (Duragesic 50 Mcg Patch.72 Hr) 1 patch Q3D T-DERMAL 10/10/16 22:00 Hold 10/12/16 04:17 (Proscar) 5 mg HS PO 10/10/16 21:00 10/13/16 21:33 (Folate) 0.4 mg DAILY PO 10/11/16 09:00 10/13/16 09:00 (Remeron) 15 mg HS PO 10/10/16 21:00 Hold 10/13/16 21:33 (Hytrin) 5 mg HS PO 10/10/16 21:00 10/13/16 21:33 (Desyrel) 200 mg HS PO 10/10/16 21:00 Hold 10/13/16 21:33 (Ambien) 5 mg HS PRN PO 10/10/16 20:30 (Mag-Al Plus Susp Liq) 30 ml Q6HR PRN PO 10/10/16 20:30 Acetaminophen/ Butalbital/ Caffeine 1 tab 1 tab Q4H PRN PO 10/10/16 20:30 Fosphenytoin Sodium 100 mgpe/ Sodium Chloride 52 ml @ 208 mls/hr Q6H IV 10/10/16 22:00 10/14/16 05:06 (Keppra 1000 Mg Inj) 100 ml @ 400 mls/hr Q8H IV 10/10/16 23:00 10/14/16 06:34 (Lyrica) 150 mg Q12HR PO 10/11/16 21:00 10/13/16 21:33 Chlorhexidine Gluconate 1 applic 1 applic HS TOP 10/13/16 21:00 10/14/16 21:01 10/14/16 00:19 (NS + KCl 20 Meq Inj) 1,000 ml @ 100 mls/hr Q10H IV 10/14/16 15:53 (NS Flush) 2 ml UNSCH PRN IVF 10/14/16 16:00 (NS Flush) 2 ml BID IVF 10/14/16 21:00 (Colace) 100 mg BID PO 10/14/16 21:00 (Protonix) 40 mg DAILY PO 10/15/16 09:00 (Protonix Inj) 40 mg DAILY IVP 10/15/16 09:00 (Zofran Inj) 4 mg Q6H PRN IV 10/14/16 16:00 Calcium Gluconate 1 gm 1 gm UNSCH PRN IV 10/14/16 16:00 (Magnesium Sulfate Inj/NS Inj) 108 ml @ 108 mls/hr UNSCH PRN IV 10/14/16 16:00 (Seanor 10-325 Mg) 1 tab Q4H PRN PO 10/14/16 16:00 (Seanor 10-325 Mg) 2 tab Q4H PRN PO 10/14/16 16:00 (Morphine Inj) 2 mg Q2H PRN IV PUSH 10/14/16 16:00 (Morphine Inj) 4 mg Q2H PRN IV PUSH 10/14/16 16:00 (Tylenol) 650 mg Q4H PRN PO 10/14/16 16:00 (Mannitol Inj) 25 gm Q6HR IV 10/14/16 18:00 Chlorhexidine Gluconate 15 ml 15 ml BID@08,20 MT 10/14/16 20:00 Propofol 100 ml @ 0 mls/hr TITRATE IV 10/14/16 16:45 Potassium Chloride 100 ml @ 50 mls/hr Q2H PRN IV 10/14/16 16:45 (KCl 20 Meq Premix Inj) 100 ml @ 50 mls/hr Q2H PRN IV 10/14/16 16:45 Potassium Bicarb/ Potassium Chloride 50 meq 50 meq UNSCH PRN PO 10/14/16 16:45 Potassium Chloride 100 ml @ 25 mls/hr UNSCH PRN IV 10/14/16 16:45 Potassium Chloride 100 ml @ 50 mls/hr Q2H PRN IV 10/14/16 16:45 (Magnesium Sulfate Inj/NS Inj) 100 ml @ 50 mls/hr UNSCH PRN IV 10/14/16 16:45 Magnesium Oxide 800 mg 800 mg UNSCH PRN PO 10/14/16 16:45 (Magnesium Sulfate Inj/NS Inj) 100 ml @ 50 mls/hr UNSCH PRN IV 10/14/16 16:45 Potassium Phosphate 2000 mg 2,000 mg Q4H PRN PO 10/14/16 16:45 (Sodium Phosphate Inj/NS 250 ml Inj) 250 ml @ 42 mls/hr UNSCH PRN IV 10/14/16 16:45 Potassium Phosphate 2000 mg 2,000 mg UNSCH PRN PO/TUBE 10/14/16 16:45 Potassium Phosphate 30 mmol/ Sodium Chloride 260 ml @ 42 mls/hr UNSCH PRN IV 10/14/16 16:45 Fentanyl Citrate 250 ml @ 0 mls/hr TITRATE IV 10/14/16 17:15 Sodium Chloride 1,000 ml @ 999 mls/hr BOLUS ONCE IV 10/14/16 18:00 10/14/16 19:00 (Levophed-Dextrose Drip) 250 ml @ 0 mls/hr TITRATE IV 10/14/16 17:45 Terbutaline Sulfate 1 mg 1 mg UNSCH PRN SQ 10/14/16 17:45 (Neosynephrine Inj/D5W 500 ml Inj) 500 ml @ 0 mls/hr TITRATE IV 10/14/16 18:00 (Brethine Inj) 1 mg UNSCH PRN SQ 10/14/16 18:00 Miscellaneous Information ALL NURSING DEPARTME... UNSCH PRN .XX 10/14/16 18:00 10/15/16 17:59 Vital Signs / I&O Vital Signs Date Time Temp Pulse Resp B/P Pulse Ox O2 Delivery O2 Flow Rate FiO2 10/14/16 17:47 100 100 10/14/16 17:00 96 15 119/64 100 Mechanical Ventilator 50 10/14/16 16:45 102 15 113/59 100 Mechanical Ventilator 50 10/14/16 16:30 102 15 120/60 100 Mechanical Ventilator 50 10/14/16 16:15 90 15 134/69 100 Mechanical Ventilator 50 10/14/16 16:06 97.9 79 20 137/65 100 Mechanical Ventilator 50 10/14/16 11:30 88 20 172/88 95 10/14/16 11:00 69 22 154/78 97 10/14/16 08:00 98.4 69 15 146/69 96 10/14/16 08:00 74 10/14/16 07:49 93 10/14/16 07:00 96 Room Air 10/14/16 06:00 62 10/14/16 04:00 69 10/14/16 04:00 98.7 69 17 136/71 92 10/14/16 02:00 60 10/14/16 00:00 64 10/14/16 00:00 98.4 64 12 113/55 94 10/13/16 22:00 86 10/13/16 20:00 97.8 78 20 130/67 96 10/13/16 20:00 90 10/13/16 19:00 96 Room Air I/O 10/13/16 10/13/16 10/13/16 10/14/16 10/14/16 10/14/16 07:00 15:00 23:00 07:00 15:00 23:00 Intake Total 703 ml 1204 ml 838 ml 759 ml 2196 ml Output Total 1000 ml 1000 ml 500 ml 1350 ml 1000 ml 1255 ml Balance -297 ml 204 ml 338 ml -591 ml -1000 ml 941 ml Intake Oral 240 ml 800 ml 480 ml 20 ml IV Total 463 ml 404 ml 358 ml 739 ml 96 ml Other 2100 ml Output Urine Total 1000 ml 1000 ml 500 ml 1350 ml 1000 ml 1000 ml Drainage Total 55 ml Estimated Blood Loss 200 ml Bladder Scan Volume Amount 0 ml 0 ml # Bowel Movements 1 0 0 0 1 Physical Exam GENERAL: Intubated, sedated SKIN: Warm and dry. HEAD: Normocephalic. EYES: No scleral icterus. No injection or drainage. NECK: Supple, trachea midline. No JVD or lymphadenopathy. CARDIOVASCULAR: Regular rate and rhythm without murmurs, gallops, or rubs. RESPIRATORY: Breath sounds equal bilaterally. No accessory muscle use. GASTROINTESTINAL: Abdomen soft, non-tender, nondistended. MUSCULOSKELETAL: No cyanosis, or edema. Laboratory Laboratory Tests Test 10/14/16 10/14/16 10/14/16 10/14/16 03:59 05:00 11:25 13:07 White Blood Count 8.9 TH/MM3 Red Blood Count 4.10 MIL/MM3 Hemoglobin 12.6 GM/DL Hematocrit 36.7 % Mean Corpuscular Volume 89.6 FL Mean Corpuscular Hemoglobin 30.7 PG Mean Corpuscular Hemoglobin 34.3 % Concent Red Cell Distribution Width 14.2 % Platelet Count 221 TH/MM3 Mean Platelet Volume 6.8 FL Neutrophils (%) (Auto) 80.8 % Lymphocytes (%) (Auto) 13.0 % Monocytes (%) (Auto) 5.7 % Eosinophils (%) (Auto) 0.3 % Basophils (%) (Auto) 0.2 % Neutrophils # (Auto) 7.2 TH/MM3 Lymphocytes # (Auto) 1.2 TH/MM3 Monocytes # (Auto) 0.5 TH/MM3 Eosinophils # (Auto) 0.0 TH/MM3 Basophils # (Auto) 0.0 TH/MM3 CBC Comment DIFF FINAL Differential Comment Prothrombin Time 10.4 SEC Prothromb Time International 0.9 RATIO Ratio Sodium Level 141 MEQ/L Potassium Level 4.1 MEQ/L Chloride Level 108 MEQ/L Carbon Dioxide Level 25.4 MEQ/L Anion Gap 8 MEQ/L Blood Urea Nitrogen 28 MG/DL Creatinine 0.82 MG/DL Estimat Glomerular Filtration 92 ML/MIN Rate Random Glucose 102 MG/DL Calcium Level 8.4 MG/DL Blood Type B NEGATIVE B NEGATIVE Antibody Screen NEGATIVE Crossmatch Leukocyte-Reduced Leukocyte-Reduced Red Blood Red Blood Cells Cells Blood Bank Comment Imaging Last Impressions Head CT 10/14/16 0000 Signed Impressions: Service Date/Time: Friday, October 14, 2016 17:14 - CONCLUSION: 1. Post surgical features of frontoparietal craniotomy with surgical drain in place. Left subdural collection of air and blood products measuring up to 1 cm with slight subfalcine shift to the right without significant transtentorial herniation. 2. Lateral ventricles are stable in size. Juan M Samson MD Chest X-Ray 10/14/16 0000 Signed Impressions: Service Date/Time: Friday, October 14, 2016 16:33 - CONCLUSION: Satisfactory ET tube and central line positioning. No evidence of complication. Hazy basilar parenchymal opacities. Emerson Rebolledo MD Lower Extremity Ultrasound 10/11/16 0000 Signed Impressions: Service Date/Time: Tuesday, October 11, 2016 14:13 - CONCLUSION: Negative exam. No sonographic or Doppler findings of deep venous thrombosis bilaterally. Pola Jones MD Brain MRI 10/10/16 1839 Signed Impressions: Service Date/Time: Monday, October 10, 2016 20:45 - CONCLUSION: 1. Large extra-axial mass along the high left parietal convexity in the extra-axial space measuring 5.7 x 3.6 x 4.4 cm possibly representing a meningioma versus less likely metastatic disease. No old studies for comparison. There is some minimal vasogenic edema in left parietal lobe. There is slight left to right midline shift of 8 mm. 2. 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 Austen Yates MD Assessment and Plan Problem List: (1) Meningioma (2) CAD (coronary artery disease) (3) Preoperative cardiovascular examination Assessment and Plan Tolerated surgery well. Stable from cardiac standpoint. Wean pressors. Wean vent as tolerated. No new cardiac issues. Jaqui Stanton MD Oct 14, 2016 18:02
[2016-10-14] MEDS: MANNITOL 12.5 GM/50 ML VIAL IV SCH (18:14)
[2016-10-14] MEDS: PROPOFOL 1000 MG/100 ML INJ 100 ML IV SCH (18:14)
[2016-10-14] MEDS: PHENYLEPHRINE 40 MG/D5W 496 ML ADMIX IV SCH ×4 (18:15→23:13)
--- NOTE | 2016-10-14 18:18 | HHI.PR ---
Review/Management Diagnosis left hemisphere tumor focal sz. highphenytoin level Plan resume cerebyx continue keppra and lyrica Diagnosis/Plan: Subjective Subjective Comments s/p craniotomy for large tumor Active Medications Current Medications Medications (Trade) Dose Ordered Sig/Hussein Route Start Time Stop Time Status Last Admin (Decadron Inj) 4 mg Q6HR IV PUSH 10/10/16 18:45 10/14/16 18:14 (Ativan Inj) 1 mg Q4H PRN IV PUSH 10/10/16 19:15 (Narcan Inj) 0.4 mg UNSCH PRN IV 10/10/16 20:30 (Milk Of Magnesia Liq) 30 ml Q12H PRN PO 10/10/16 20:30 (Senokot) 17.2 mg Q12H PRN PO 10/10/16 20:30 10/11/16 04:44 (Dulcolax Supp) 10 mg DAILY PRN RECTAL 10/10/16 20:30 (Lactulose Liq) 30 ml DAILY PRN PO 10/10/16 20:30 (Xanax) 0.5 mg Q6H PRN PO 10/10/16 20:30 10/14/16 06:34 (Duragesic 50 Mcg Patch.72 Hr) 1 patch Q3D T-DERMAL 10/10/16 22:00 Hold 10/12/16 04:17 (Proscar) 5 mg HS PO 10/10/16 21:00 10/13/16 21:33 (Folate) 0.4 mg DAILY PO 10/11/16 09:00 10/13/16 09:00 (Remeron) 15 mg HS PO 10/10/16 21:00 Hold 10/13/16 21:33 (Hytrin) 5 mg HS PO 10/10/16 21:00 10/13/16 21:33 (Desyrel) 200 mg HS PO 10/10/16 21:00 Hold 10/13/16 21:33 (Ambien) 5 mg HS PRN PO 10/10/16 20:30 (Mag-Al Plus Susp Liq) 30 ml Q6HR PRN PO 10/10/16 20:30 Acetaminophen/ Butalbital/ Caffeine 1 tab 1 tab Q4H PRN PO 10/10/16 20:30 Fosphenytoin Sodium 100 mgpe/ Sodium Chloride 52 ml @ 208 mls/hr Q6H IV 10/10/16 22:00 10/14/16 05:06 (Keppra 1000 Mg Inj) 100 ml @ 400 mls/hr Q8H IV 10/10/16 23:00 10/14/16 06:34 (Lyrica) 150 mg Q12HR PO 10/11/16 21:00 10/13/16 21:33 Chlorhexidine Gluconate 1 applic 1 applic HS TOP 10/13/16 21:00 10/14/16 21:01 10/14/16 00:19 (NS + KCl 20 Meq Inj) 1,000 ml @ 100 mls/hr Q10H IV 10/14/16 15:53 (NS Flush) 2 ml UNSCH PRN IVF 10/14/16 16:00 (NS Flush) 2 ml BID IVF 10/14/16 21:00 (Colace) 100 mg BID PO 10/14/16 21:00 (Protonix) 40 mg DAILY PO 10/15/16 09:00 (Protonix Inj) 40 mg DAILY IVP 10/15/16 09:00 (Zofran Inj) 4 mg Q6H PRN IV 10/14/16 16:00 Calcium Gluconate 1 gm 1 gm UNSCH PRN IV 10/14/16 16:00 (Magnesium Sulfate Inj/NS Inj) 108 ml @ 108 mls/hr UNSCH PRN IV 10/14/16 16:00 (Kensett 10-325 Mg) 1 tab Q4H PRN PO 10/14/16 16:00 (Kensett 10-325 Mg) 2 tab Q4H PRN PO 10/14/16 16:00 (Morphine Inj) 2 mg Q2H PRN IV PUSH 10/14/16 16:00 (Morphine Inj) 4 mg Q2H PRN IV PUSH 10/14/16 16:00 (Tylenol) 650 mg Q4H PRN PO 10/14/16 16:00 (Mannitol Inj) 25 gm Q6HR IV 10/14/16 18:00 10/14/16 18:14 Chlorhexidine Gluconate 15 ml 15 ml BID@08,20 MT 10/14/16 20:00 Propofol 100 ml @ 0 mls/hr TITRATE IV 10/14/16 16:45 10/14/16 18:14 Potassium Chloride 100 ml @ 50 mls/hr Q2H PRN IV 10/14/16 16:45 (KCl 20 Meq Premix Inj) 100 ml @ 50 mls/hr Q2H PRN IV 10/14/16 16:45 Potassium Bicarb/ Potassium Chloride 50 meq 50 meq UNSCH PRN PO 10/14/16 16:45 Potassium Chloride 100 ml @ 25 mls/hr UNSCH PRN IV 10/14/16 16:45 Potassium Chloride 100 ml @ 50 mls/hr Q2H PRN IV 10/14/16 16:45 (Magnesium Sulfate Inj/NS Inj) 100 ml @ 50 mls/hr UNSCH PRN IV 10/14/16 16:45 Magnesium Oxide 800 mg 800 mg UNSCH PRN PO 10/14/16 16:45 (Magnesium Sulfate Inj/NS Inj) 100 ml @ 50 mls/hr UNSCH PRN IV 10/14/16 16:45 Potassium Phosphate 2000 mg 2,000 mg Q4H PRN PO 10/14/16 16:45 (Sodium Phosphate Inj/NS 250 ml Inj) 250 ml @ 42 mls/hr UNSCH PRN IV 10/14/16 16:45 Potassium Phosphate 2000 mg 2,000 mg UNSCH PRN PO/TUBE 10/14/16 16:45 Potassium Phosphate 30 mmol/ Sodium Chloride 260 ml @ 42 mls/hr UNSCH PRN IV 10/14/16 16:45 Fentanyl Citrate 250 ml @ 0 mls/hr TITRATE IV 10/14/16 17:15 10/14/16 18:14 Sodium Chloride 1,000 ml @ 999 mls/hr BOLUS ONCE IV 10/14/16 18:00 10/14/16 19:00 (Levophed-Dextrose Drip) 250 ml @ 0 mls/hr TITRATE IV 10/14/16 17:45 Terbutaline Sulfate 1 mg 1 mg UNSCH PRN SQ 10/14/16 17:45 (Neosynephrine Inj/D5W 500 ml Inj) 500 ml @ 0 mls/hr TITRATE IV 10/14/16 18:00 10/14/16 18:15 (Brethine Inj) 1 mg UNSCH PRN SQ 10/14/16 18:00 Miscellaneous Information ALL NURSING DEPARTME... UNSCH PRN .XX 10/14/16 18:00 10/15/16 17:59 Allergies Allergies Coded Allergies Ancef (Verified Allergy, Intermediate, Rash, 10/10/16) Exam I&O / VS 10/13/16 10/13/16 10/14/16 15:00 23:00 07:00 Intake Total 1204 ml 838 ml 759 ml Output Total 1000 ml 500 ml 1350 ml Balance 204 ml 338 ml -591 ml Intake Oral 800 ml 480 ml 20 ml IV Total 404 ml 358 ml 739 ml Output Urine Total 1000 ml 500 ml 1350 ml # Bowel Movements 0 0 0 Vital Signs Date Time Temp Pulse Resp B/P Pulse Ox O2 Delivery O2 Flow Rate FiO2 10/14/16 17:47 100 100 10/14/16 17:00 96 15 119/64 100 Mechanical Ventilator 50 10/14/16 16:45 102 15 113/59 100 Mechanical Ventilator 50 10/14/16 16:30 102 15 120/60 100 Mechanical Ventilator 50 10/14/16 16:15 90 15 134/69 100 Mechanical Ventilator 50 10/14/16 16:06 97.9 79 20 137/65 100 Mechanical Ventilator 50 10/14/16 11:30 88 20 172/88 95 10/14/16 11:00 69 22 154/78 97 10/14/16 08:00 98.4 69 15 146/69 96 10/14/16 08:00 74 10/14/16 07:49 93 10/14/16 07:00 96 Room Air 10/14/16 06:00 62 10/14/16 04:00 69 10/14/16 04:00 98.7 69 17 136/71 92 10/14/16 02:00 60 10/14/16 00:00 64 10/14/16 00:00 98.4 64 12 113/55 94 10/13/16 22:00 86 10/13/16 20:00 97.8 78 20 130/67 96 10/13/16 20:00 90 10/13/16 19:00 96 Room Air Respiratory: Lungs CTA, Non-labored respirations Cardiology: Normal rate Musculoskeletal: Other Exam Comments sedated on ventilator PERRL No spontaneous limb movment Objective Micro and Labs Laboratory Tests Test 10/14/16 10/14/16 10/14/16 10/14/16 03:59 05:00 11:25 13:07 White Blood Count 8.9 Red Blood Count 4.10 Hemoglobin 12.6 Hematocrit 36.7 Mean Corpuscular Volume 89.6 Mean Corpuscular Hemoglobin 30.7 Mean Corpuscular Hemoglobin 34.3 Concent Red Cell Distribution Width 14.2 Platelet Count 221 Mean Platelet Volume 6.8 Neutrophils (%) (Auto) 80.8 Lymphocytes (%) (Auto) 13.0 Monocytes (%) (Auto) 5.7 Eosinophils (%) (Auto) 0.3 Basophils (%) (Auto) 0.2 Neutrophils # (Auto) 7.2 Lymphocytes # (Auto) 1.2 Monocytes # (Auto) 0.5 Eosinophils # (Auto) 0.0 Basophils # (Auto) 0.0 CBC Comment DIFF FINAL Differential Comment Prothrombin Time 10.4 Prothromb Time International 0.9 Ratio Sodium Level 141 Potassium Level 4.1 Chloride Level 108 Carbon Dioxide Level 25.4 Anion Gap 8 Blood Urea Nitrogen 28 Creatinine 0.82 Estimat Glomerular Filtration 92 Rate Random Glucose 102 Calcium Level 8.4 Blood Type B NEGATIVE B NEGATIVE Antibody Screen NEGATIVE Crossmatch Leukocyte-Reduced Leukocyte-Reduced Red Blood Red Blood Cells Cells Blood Bank Comment Peyman Escalona PhD Oct 14, 2016 18:18
[2016-10-14 18:20] LABS: BLOOD GAS CARBOXYHEMOGLOBIN 1.1 % (0-4); BLOOD GAS HCO3 20 mmol/L (22-26); BLOOD GAS METHEMOGLOBIN 1.1 % (0-2); BLOOD GAS O2 HGB SATURATION 97 % (90-100); BLOOD GAS OXYGEN CONTENT 15.6 Vol % (12.0-20.0); BLOOD GAS PCO2 35 mmHg (38-42); BLOOD GAS PO2 195 mmHg (61-120); BLOOD GAS TOTAL HGB 11.1 G/DL (12.0-16.0); TEMP CORR TO 98.6
[2016-10-14 18:21] LABS: CRITICAL VALUE NO; DRAW SITE ART LINE; FIO2 50 %; OXYGEN DEVICE VENTILATOR; STAT NO; ULNAR PULSE PRESENT; VENT SETTINGS AC14/550/PEEP5
[2016-10-14 18:27] LABS: AUTOMATED NEUTROPHIL # 17.5 TH/MM3 (1.8-7.7); BASOPHIL % 0.1 % (0.0-2.0); HEMATOCRIT 33.5 % (39.0-51.0); HEMO FLAGS DIFF FINAL; LYMPH % 7.6 % (9.0-44.0); LYMPHOCYTE # 1.6 TH/MM3 (1.0-4.8); MEAN CORPUSCULAR HEMOGLOBIN 30.8 PG (27.0-34.0); MONO % 8.2 % (0.0-8.0); NEUT % 84.1 % (16.0-70.0); PLATELET COUNT 327 TH/MM3 (150-450); RED CELL DISTRIBUTION WIDTH 13.9 % (11.6-17.2); WHITE BLOOD COUNT 20.8 TH/MM3 (4.0-11.0)
[2016-10-14 18:36] LABS: PROTHROMBIN TIME - PATIENT 10.7 SEC (9.8-11.6)
[2016-10-14 18:50] LABS: ANION GAP 9 MEQ/L (5-15); AST (GOT) 19 U/L (15-37); BICARBONATE 23.3 MEQ/L (21.0-32.0); BLOOD UREA NITROGEN 20 MG/DL (7-18); CHLORIDE 107 MEQ/L (98-107); GLOMERULAR FILTRATION RATE 87 ML/MIN (>89); MAGNESIUM 1.9 MG/DL (1.5-2.5); POTASSIUM 3.8 MEQ/L (3.5-5.1); SODIUM (NA) 139 MEQ/L (136-145)
[2016-10-14 18:54] LABS: ALKALINE PHOSPHATASE 97 U/L (45-117); ALT (GPT) 29 U/L (12-78); TOTAL BILIRUBIN ADULT 0.3 MG/DL (0.2-1.0)
[2016-10-14] MEDS: NS + KCL 20 MEQ INJ 1,000 ML IV SCH (20:27)
[2016-10-14] MEDS: CHLORHEXIDINE 0.12% (ORAL KIT) 15 ML CUP MT SCH (20:28)
[2016-10-14] MEDS: SODIUM CHLORIDE 0.9% FLUSH 5 ML FLUSH IVF SCH (20:29)
[2016-10-14] MEDS: FINASTERIDE 5 MG TAB PO SCH (20:29)
[2016-10-14] MEDS: DOCUSATE SODIUM 100 MG CAP PO SCH (20:29)
[2016-10-14] MEDS: TERAZOSIN HCL 5 MG CAP PO SCH (20:29)
[2016-10-15] VITALS (17 sets, daily range): BP systolic 100–140; BP diastolic 46–59; PULSE 58–116; RESP 15–18; TEMP 97.9–100.8; O2SAT 96–100
[2016-10-15] MEDS: MANNITOL 12.5 GM/50 ML VIAL IV SCH ×5 (00:51→21:52)
[2016-10-15] MEDS: PROPOFOL 1000 MG/100 ML INJ 100 ML IV SCH (00:51)
[2016-10-15] MEDS: NS + KCL 20 MEQ INJ 1,000 ML IV SCH ×3 (02:28→21:52)
[2016-10-15] MEDS: SODIUM CHLOR 0.9% 1000 ML INJ 1,000 ML IV ONE (03:56)
[2016-10-15] MEDS: FOSPHENYTOIN INJ 100 MGPE in SODIUM CHLORIDE 0.9% INJ 50 ML IV SCH ×4 (04:49→22:48)
[2016-10-15 05:45] LABS: BICARBONATE 24.6 MEQ/L (21.0-32.0); POTASSIUM 4.2 MEQ/L (3.5-5.1)
[2016-10-15 06:05] LABS: AUTOMATED NEUTROPHIL # 15.2 TH/MM3 (1.8-7.7); BASOPHIL % 0.2 % (0.0-2.0); HEMO FLAGS DIFF FINAL; LYMPH % 6.7 % (9.0-44.0); LYMPHOCYTE # 1.2 TH/MM3 (1.0-4.8); MEAN CELL VOLUME 88.5 FL (80.0-100.0); MEAN CORPUSCULAR HEMOGLOBIN 31.2 PG (27.0-34.0); MEAN CORPUSCULAR HGB CONC 35.3 % (32.0-36.0); NEUT % 84.1 % (16.0-70.0); PLATELET COUNT 298 TH/MM3 (150-450); RED BLOOD COUNT 3.28 MIL/MM3 (4.50-5.90); WHITE BLOOD COUNT 18.1 TH/MM3 (4.0-11.0)
[2016-10-15] MEDS: levETIRAcetam 1000 MG INJ 100 ML IV SCH ×3 (06:30→23:26)
[2016-10-15] MEDS: DEXAMETHASONE SOD PHOS 4 MG/ML VIAL IV PUSH SCH ×3 (06:30→17:51)
--- NOTE | 2016-10-15 06:30 | HHI.NSPN ---
History Interval History Mr. Hazel is a 71-year-old male who has a history of a left hemisphere meningioma. Apparently the mass was small and asymotimatic but he now presents with frequent seizures and right side hemiplegia. He states he has had several episodes where he loses consciousness. Her has jerking on the right side as well. He denies tongue bitting. He denies incontinence of stool or urine. He has a history of known left hemisphere meningioma. He was complaining of increasing right-sided weakness. He had an MRI of the brain done in August which revealed increased size of the left hemisphere meningioma with surrounding edema. He has a history about 20 years ago of a right hemisphere meningioma at that was resected. He had severe cervical spinal stenosis and he underwent a cervical laminectomy with Dr Brasher. Neurosurgical consultation was requested. 10/12: doing well, no new complaints, neuro sx unchanged. 10/13: stable overnight, to OR tomorrow for mass resection 10/15: Patient postop day 1 craniotomy for excision of h left hemisphere meningioma. Remains intubated at this time and on sedation. Exam Results Vital Signs Date Time Temp Pulse Resp B/P Pulse Ox O2 Delivery O2 Flow Rate FiO2 10/15/16 04:21 100 50 10/15/16 02:00 59 10/15/16 00:00 98.1 15 100/58 10/14/16 17:00 Mechanical Ventilator 10/12/16 16:18 1.00 Intake and Output 10/14/16 10/14/16 10/14/16 07:59 15:59 23:59 Intake Total 759 ml 3769 ml Output Total 1350 ml 1000 ml 3045 ml Balance -591 ml -1000 ml 724 ml Physical Examination Patient remains intubated. Off sedation He will follow commands and move all 4 extremities with a right hemiparesis. Surgical dressing dry and intact. Lab, Micro, Other Results Laboratory Tests Test 10/14/16 10/14/16 10/14/16 10/14/16 11:25 13:07 18:00 18:07 Blood Type B NEGATIVE Crossmatch Leukocyte-Reduced Red Blood Cells Blood Bank Comment White Blood Count 20.8 Red Blood Count 3.80 Hemoglobin 11.7 Hematocrit 33.5 Mean Corpuscular Volume 88.0 Mean Corpuscular Hemoglobin 30.8 Mean Corpuscular Hemoglobin 35.0 Concent Red Cell Distribution Width 13.9 Platelet Count 327 Mean Platelet Volume 7.0 Neutrophils (%) (Auto) 84.1 Lymphocytes (%) (Auto) 7.6 Monocytes (%) (Auto) 8.2 Eosinophils (%) (Auto) 0.0 Basophils (%) (Auto) 0.1 Neutrophils # (Auto) 17.5 Lymphocytes # (Auto) 1.6 Monocytes # (Auto) 1.7 Eosinophils # (Auto) 0.0 Basophils # (Auto) 0.0 CBC Comment DIFF FINAL Differential Comment Prothrombin Time 10.7 Prothromb Time International 1.0 Ratio Sodium Level 139 Potassium Level 3.8 Chloride Level 107 Carbon Dioxide Level 23.3 Anion Gap 9 Blood Urea Nitrogen 20 Creatinine 0.86 Estimat Glomerular Filtration 87 Rate Random Glucose 126 Serum Osmolality 302 Calcium Level 8.2 Phosphorus Level 3.5 Magnesium Level 1.9 Total Bilirubin 0.3 Aspartate Amino Transf 19 (AST/SGOT) Alanine Aminotransferase 29 (ALT/SGPT) Alkaline Phosphatase 97 Total Protein 5.3 Albumin 2.8 Blood Gas Puncture Site ART LINE Blood Gas Patient Temperature 98.6 Blood Gas HCO3 20 Blood Gas Base Excess -4.0 Blood Gas Oxygen Saturation 97 Arterial Blood pH 7.38 Arterial Blood Partial 35 Pressure CO2 Arterial Blood Partial 195 Pressure O2 Arterial Blood Oxygen Content 15.6 Arterial Blood 1.1 Carboxyhemoglobin Arterial Blood Methemoglobin 1.1 Blood Gas Hemoglobin 11.1 Oxygen Delivery Device VENTILATOR Blood Gas Ventilator Setting AC14/550/PEEP5 Blood Gas Inspired Oxygen 50 Test 10/14/16 10/15/16 23:00 05:09 Serum Osmolality 300 299 White Blood Count 18.1 Red Blood Count 3.28 Hemoglobin 10.2 Hematocrit 29.0 Mean Corpuscular Volume 88.5 Mean Corpuscular Hemoglobin 31.2 Mean Corpuscular Hemoglobin 35.3 Concent Red Cell Distribution Width 14.0 Platelet Count 298 Mean Platelet Volume 7.2 Neutrophils (%) (Auto) 84.1 Lymphocytes (%) (Auto) 6.7 Monocytes (%) (Auto) 9.0 Eosinophils (%) (Auto) 0.0 Basophils (%) (Auto) 0.2 Neutrophils # (Auto) 15.2 Lymphocytes # (Auto) 1.2 Monocytes # (Auto) 1.6 Eosinophils # (Auto) 0.0 Basophils # (Auto) 0.0 CBC Comment DIFF FINAL Differential Comment Sodium Level 142 Potassium Level 4.2 Chloride Level 110 Carbon Dioxide Level 24.6 Anion Gap 7 Blood Urea Nitrogen 13 Creatinine 0.57 Estimat Glomerular Filtration 141 Rate Random Glucose 137 Calcium Level 7.8 Phenytoin (Dilantin) Level 20.4 Medical Decision Making Impression and Plan Status post craniotomy for excision of left hemisphere meningioma. Stable neurological exam. Plan: Continue ventilator weaning and extubate as tolerated. Peyman Shin MD Oct 15, 2016 06:30
[2016-10-15] MEDS: CHLORHEXIDINE 0.12% (ORAL KIT) 15 ML CUP MT SCH ×2 (08:00→20:34)
[2016-10-15 08:36] LABS: CALCIUM-PROTEIN CORRECTED 9.1 MG/DL (8.5-10.1)
[2016-10-15] MEDS: PANTOPRAZOLE SOD 40 MG DELAYED RELEASE TAB PO SCH (08:49)
[2016-10-15] MEDS: FOLIC ACID 1 MG TAB PO SCH (09:31)
[2016-10-15] MEDS: DOCUSATE SODIUM 100 MG CAP PO SCH ×2 (09:31→21:00)
[2016-10-15] MEDS: PREGABALIN 75 MG CAP PO SCH ×2 (09:31→21:13)
[2016-10-15] MEDS: SODIUM CHLORIDE 0.9% FLUSH 5 ML FLUSH IVF SCH ×2 (09:32→21:14)
[2016-10-15] MEDS: PANTOPRAZOLE SODIUM 40 MG VIAL IVP SCH (09:32)
--- NOTE | 2016-10-15 09:55 | HHI.CCPN ---
Subjective Remarks/Hospital Course Mr. Hazel is a 71-year-old male with history of meningioma, chronic pain, recent cervical fusion, IBS, GERD, anxiety, and depression who presented to the ER with reported seizure activity while being transported by EMS. He has a history of known left hemisphere meningioma, and seizure disorder. On Keppra and Dilantin (neurology Dr. Escalona). MRI of the brain showed large left parietal extra-axial mass which is most likely meningioma. Patient has a history of meningioma resection 20 years ago, an MRI in August had revealed a large left sided meningioma. Patient was admitted to Dr. Maldonado and neurosurgery was consulted. Patient was placed on Dilantin, Keppra and also Decadron by Dr. Escalona. He had underwent left frontal parietal craniotomy with resection of meningioma today by Dr. Damico. EBL was 200 ML. Post surgery patient was left intubated and critical care consult was requested for medical management and vent management. I evaluated the patient in PACU he sedated with propofol. Postop labs had been ordered and ABG ordered. He does move all extremities on lightening sedation. A postop CT is pending at this time SUBJ: 10/15: Remains intubated sedated with propofol and fentanyl. Christiano- Synephrine to maintain blood pressure. CT of the head yesterday postop showed expected postoperative changes with left craniotomy and some subdural blood and air Objective Vital Signs Date Time Temp Pulse Resp B/P Pulse Ox O2 Delivery O2 Flow Rate FiO2 10/15/16 08:02 100 40 10/15/16 08:00 97.9 59 15 116/47 10/14/16 17:00 Mechanical Ventilator 10/12/16 16:18 1.00 Intake and Output 10/14/16 10/14/16 10/15/16 08:00 16:00 00:00 Intake Total 759 ml 3769 ml Output Total 1350 ml 1000 ml 3045 ml Balance -591 ml -1000 ml 724 ml Result Diagram: 10/15/16 0509 10/15/16 0509 Other Results Laboratory Tests Test 10/14/16 18:07 Blood Gas Puncture Site ART LINE Blood Gas Patient Temperature 98.6 Blood Gas HCO3 20 mmol/L (22-26) Blood Gas Base Excess -4.0 mmol/L (-2-2) Blood Gas Oxygen Saturation 97 % (90-100) Arterial Blood pH 7.38 (7.380-7.420) Arterial Blood Partial 35 mmHg (38-42) Pressure CO2 Arterial Blood Partial 195 mmHg Pressure O2 (61-120) Arterial Blood Oxygen Content 15.6 Vol % (12.0-20.0) Arterial Blood 1.1 % (0-4) Carboxyhemoglobin Arterial Blood Methemoglobin 1.1 % (0-2) Blood Gas Hemoglobin 11.1 G/DL (12.0-16.0) Oxygen Delivery Device VENTILATOR Blood Gas Ventilator Setting AC14/550/PEEP5 Blood Gas Inspired Oxygen 50 % Imaging MRI of the brain 10/10/16 showed large left parietal extra-axial meningioma Objective Remarks GENERAL: 71-year-old male intubated sedated with propofol, fentanyl SKIN: Warm and dry. HEAD: Circumferential craniectomy dressing. FRANKIE drains 2 with bloody output EYES: Pupils equal and round. No scleral icterus. No injection or drainage. ENT: Orotracheally intubated NECK: Trachea midline. No JVD. Well-healed scar from cervical fusion CARDIOVASCULAR: Regular rate and rhythm. Hypotensive on Christiano-Synephrine RESPIRATORY: Clear to auscultation. Breath sounds equal bilaterally. GASTROINTESTINAL: Abdomen soft, non-tender, nondistended. Hepatic and splenic margins not palpable. MUSCULOSKELETAL: Extremities with 1+ edema. NEUROLOGICAL: pupils equal. Intubated sedated. On lightening sedation most extremities. Follows commands weakly. Appears to be weaker on right side A/P Assessment and Plan NEURO: Status post left frontal parietal craniotomy for meningioma resection Seizure disorder Chronic neck pain status post cervical fusion - Propofol and fentanyl for sedation and vent synchrony and pain control - Hold sedation to initiate spontaneous breathing trials - Appears to have right hemiparesis, detailed exam possible only after extubation - Continue IV Keppra and IV Cerebyx - Continue Decadron - EEG negative for seizure - Neurosurgery Dr. Damico, neurology Dr. Escalona - Postop CT of the head -short expected postop changes, left subdural air and blood 1 cm in size RESP: Acute respiratory failure - ACV. Vent bundle - SBT and evaluate for extubation - DuoNeb every 6 hours when necessary CV: Hypotension - Normal saline IV fluids 100 ml per hour - Currently on Christiano-Synephrine at 100 mcg/m. Wean to DC as tolerated. - s/p 1 L bolus of normal saline GI: - Nothing by mouth, Protonix - Start tube feeds today if not extubated, bowel regimen : - Monitor renal function closely. Abdullahi catheter. ID: - Perioperative antibiotics per Dr. Damico HEME: - Monitor CBC, CMP, INR ENDO: - Electrolyte replacement per protocol PROPH: - Bilateral lower extremity SCDs. Avoid chemical DVT prophylaxis, continue Protonix CC time 30 min Axel Norman MD Oct 15, 2016 09:55
--- NOTE | 2016-10-15 11:32 | HHI.PR ---
Subjective Remarks post op day 1 crainotomy Objective Vital Signs Date Time Temp Pulse Resp B/P Pulse Ox O2 Delivery O2 Flow Rate FiO2 10/15/16 10:10 40 10/15/16 10:00 110 10/15/16 08:02 100 40 10/15/16 08:00 97.9 59 15 116/47 100 10/15/16 08:00 59 10/15/16 08:00 50 10/15/16 06:00 60 10/15/16 04:21 100 50 10/15/16 04:00 50 10/15/16 04:00 98.3 78 15 140/58 100 10/15/16 04:00 78 10/15/16 02:30 100 50 10/15/16 02:00 59 10/15/16 00:00 58 10/15/16 00:00 98.1 58 15 100/58 100 10/15/16 00:00 50 10/14/16 22:00 64 10/14/16 20:41 100 50 10/14/16 20:00 50 10/14/16 20:00 77 10/14/16 20:00 98.2 66 15 138/48 100 Automatic Cuff 10/14/16 19:22 50 10/14/16 18:00 88 10/14/16 17:47 100 100 10/14/16 17:00 96 15 119/64 100 Mechanical Ventilator 50 10/14/16 16:45 102 15 113/59 100 Mechanical Ventilator 50 10/14/16 16:30 102 15 120/60 100 Mechanical Ventilator 50 10/14/16 16:15 90 15 134/69 100 Mechanical Ventilator 50 10/14/16 16:06 97.9 79 20 137/65 100 Mechanical Ventilator 50 10/14/16 16:05 100 50 10/14/16 11:30 88 20 172/88 95 I/O 10/14/16 10/14/16 10/14/16 10/15/16 10/15/16 10/15/16 06:59 14:59 22:59 06:59 14:59 22:59 Intake Total 759 ml 3769 ml 2795 ml Output Total 1350 ml 1000 ml 3045 ml 1650 ml Balance -591 ml -1000 ml 724 ml 1145 ml Intake Oral 20 ml IV Total 739 ml 1669 ml 2795 ml Other 2100 ml Output Urine Total 1350 ml 1000 ml 2550 ml 1600 ml Drainage Total 295 ml 50 ml Estimated Blood Loss 200 ml Bladder Scan Volume Amount 0 ml 0 ml # Bowel Movements 0 1 0 0 Result Diagram: 10/15/16 0509 10/15/16 0509 Imaging Last [address] 10/14/16 0000 Signed Impressions: Service Date/Time: Friday, October 14, 2016 17:14 - CONCLUSION: 1. Post surgical features of frontoparietal craniotomy with surgical drain in place. Left subdural collection of air and blood products measuring up to 1 cm with slight subfalcine shift to the right without significant transtentorial herniation. 2. Lateral ventricles are stable in size. Juan M Samson MD Chest X-Ray 10/14/16 0000 Signed Impressions: Service Date/Time: Friday, October 14, 2016 16:33 - CONCLUSION: Satisfactory ET tube and central line positioning. No evidence of complication. Hazy basilar parenchymal opacities. Emerson Rebolledo MD Procedures recent crainotomy Objective Remarks GENERAL: Well-nourished, well-developed patient.intubated minimally responsive SKIN: Warm and dry. HEAD: Normocephalic. EYES: No scleral icterus. No injection or drainage. NECK: Supple, trachea midline. No JVD or lymphadenopathy. CARDIOVASCULAR: Regular rate and rhythm without murmurs, gallops, or rubs. RESPIRATORY: Breath sounds equal bilaterally. No accessory muscle use. GASTROINTESTINAL: Abdomen soft, non-tender, nondistended. EXTREMITIES: No cyanosis, or edema. NEUROLOGICAL:minimally responsive upper extremities more responsive than lower Medications and IVs Inpatient Medications Acetaminophen (Tylenol) 650 mg Q4H PRN PO TEMPERATURE > 101.5 F; Start at 16:00 Acetaminophen/ Butalbital/ Caffeine 1 tab 1 tab Q4H PRN PO HEADACHE; Start at 20:30 Acetaminophen/ Hydrocodone Bitart ([place] 10-325 Mg) 2 tab Q4H PRN PO PAIN SCALE 6 TO 10; Start 10/14/16 at 16:00 Al Hydrox/Mg Hydrox/Simethicone (Mag-Al Plus Susp Liq) 30 ml Q6HR PRN PO HEARTBURN; Start 10/10/16 at 20:30 Albuterol/ Ipratropium 1 ampule 1 ampule Q6HR NEB PRN NEB SHORTNESS OF BREATH; Start 10/14/16 at 17:45 Alprazolam (Xanax) 0.5 mg Q6H PRN PO ANXIETY Last administered on 10/14/16 06: 34; Start 10/10/16 at 20:30 Bisacodyl (Dulcolax Supp) 10 mg DAILY PRN RECTAL CONSTIPATION; Start 10/14/16 at 16:00; Stop 10/14/16 at 17:31; Status DC Calcium Gluconate (Calcium Gluconate Inj) 1 gm UNSCH PRN IV SEE LABEL COMMENTS ; Start 10/14/16 at 16:00 Cefazolin Sodium/ Dextrose 50 ml @ 150 mls/hr ONCE ONCE IV ; Start 10/13/16 at 17:15; Stop 10/13/16 at 18:24; Status DC Chlorhexidine Gluconate 1 applic 1 applic HS TOP Last administered on 00:19; Start 10/13/16 at 21:00; Stop 10/14/16 at 21:01; Status DC Chlorhexidine Gluconate 15 ml 15 ml BID@08,20 MT Last administered on 08:00; Start 10/14/16 at 20:00 Dexamethasone Sodium Phosphate (Decadron Inj) 4 mg Q6HR IV PUSH Last administered on 10/15/16 06:30; Start 10/10/16 at 18:45 Docusate Sodium (Colace) 100 mg BID PO Last administered on 10/15/16 09:31; Start 10/14/16 at 21:00 Fentanyl (Duragesic 50 Mcg Patch.72 Hr) 1 patch Q3D T-DERMAL Last administered on 10/12/16 04:17; Start 10/10/16 at 22:00; Status Hold Fentanyl Citrate 250 ml @ 0 mls/hr TITRATE IV Last administered on 10/14/16 18 :14; Start 10/14/16 at 17:15 Finasteride (Proscar) 5 mg HS PO Last administered on 10/13/16 21:33; Start at 21:00 Folic Acid (Folate) 0.4 mg DAILY PO Last administered on 10/15/16 09:31; Start 10/11/16 at 09:00 Fosphenytoin Sodium (Cerebyx Inj) 100 mgpe Q6H IV ; Start 10/10/16 at 20:00; Stop 10/10/16 at 21:08; Status DC Fosphenytoin Sodium 100 mgpe/ Sodium Chloride 52 ml @ 208 mls/hr Q6H IV Last administered on 10/15/16 09:30; Start 10/10/16 at 22:00 Fosphenytoin Sodium 400 mgpe/ Sodium Chloride 58 ml @ 232 mls/hr STAT STAT IV ; Start 10/14/16 at 15:22; Stop 10/14/16 at 15:36; Status DC IV Flush (NS Flush) 2 ml UNSCH PRN IVF FLUSH AFTER USING IV ACCESS; Start 10/14 at 16:00 IV Flush 2 ml 2 ml BID IVF Last administered on 10/15/16 09:32; Start at 21:00 Lactulose (Lactulose Liq) 30 ml DAILY PRN PO SEVERE CONSITIPATION; Start at 20:30 Levetriacetam (Keppra 1000 Mg Inj) 100 ml @ 400 mls/hr Q8H IV Last administered on 10/15/16 06:30; Start 10/10/16 at 23:00 Levetriacetam (Keppra) 1,500 mg BID PO ; Start 10/10/16 at 21:00; Stop 10/10/16 at 21:41; Status DC Levetriacetam/ Sodium Chloride (Keppra Inj/NS Inj) 105 ml @ 400 mls/hr Q12H IV ; Start 10/14/16 at 16:00; Stop 10/14/16 at 17:32; Status DC Lorazepam (Ativan Inj) 1 mg Q4H PRN IV PUSH SEIZURES; Start 10/10/16 at 19:15 Magnesium Hydroxide (Milk Of Magnesia Liq) 30 ml Q12H PRN PO MILD - MODERATE CONSTIPATION; Start 10/10/16 at 20:30 Magnesium Oxide 800 mg 800 mg UNSCH PRN PO For Magnesium 1.2 - 1.6 mg/dL; Start 10/14/16 at 16:45 Magnesium Sulfate 2 gm/Sodium Chloride 100 ml @ 50 mls/hr UNSCH PRN IV For Magnesium 1.2 - 1.6 mg/dL; Start 10/14/16 at 16:45 Magnesium Sulfate/ Sodium Chloride (Magnesium Sulfate Inj/NS Inj) 100 ml @ 50 mls/hr UNSCH PRN IV For Magnesium 0.9 - 1.1 mg/dL; Start 10/14/16 at 16:45 Mannitol (Mannitol Inj) 25 gm Q6HR IV Last administered on 10/15/16 06:29; Start 10/14/16 at 18:00 Mirtazapine (Remeron) 15 mg HS PO Last administered on 10/13/16 21:33; Start 10/10/16 at 21:00; Status Hold Miscellaneous Information ALL NURSING DEPARTME... UNSCH PRN .XX SEE LABEL COMMENTS; Start 10/14/16 at 18:00; Stop 10/15/16 at 17:59 Morphine Sulfate (Morphine Inj) 4 mg Q2H PRN IV PUSH PAIN SCALE 7 TO 10; Start 10/14/16 at 16:00 Naloxone HCl (Narcan Inj) 0.4 mg UNSCH PRN IV SEE LABEL COMMENTS; Start at 20:30 Norepinephrine Bitartrate (Levophed-Dextrose Drip) 250 ml @ 0 mls/hr TITRATE IV ; Start 10/14/16 at 17:45 Ondansetron HCl (Zofran Inj) 4 mg Q6H PRN IV NAUSEA OR VOMITING; Start at 16:00 Oxycodone HCl (Roxicodone) 20 mg Q6H PRN PO PAIN SCALE 7 TO 10; Start 10/10/16 at 20:30; Stop 10/14/16 at 17:31; Status DC Pantoprazole Sodium (Protonix Inj) 40 mg DAILY IVP Last administered on 09:32; Start 10/15/16 at 09:00 Pantoprazole Sodium (Protonix) 40 mg DAILY PO ; Start 10/15/16 at 09:00 Phenylephrine HCl/ Dextrose (Neosynephrine Inj/D5W 500 ml Inj) 500 ml @ 0 mls/ hr TITRATE IV Last administered on 10/14/16 23:13; Start 10/14/16 at 18:00 Phenytoin (Dilantin) 200 mg BID PO ; Start 10/10/16 at 21:00; Stop 10/10/16 at 21:41; Status DC Potassium Chloride/Sodium Chloride (NS + KCl 20 Meq Inj) 1,000 ml @ 100 mls/hr Q10H IV Last administered on 10/15/16 02:28; Start 10/14/16 at 15:53 Potassium Phosphate 2000 mg 2,000 mg UNSCH PRN PO/TUBE SEE LABEL COMMENTS; Start 10/14/16 at 16:45 Potassium Phosphate 30 mmol/ Sodium Chloride 260 ml @ 42 mls/hr UNSCH PRN IV SEE LABEL COMMENTS; Start 10/14/16 at 16:45 Potassium Bicarb/ Potassium Chloride 50 meq 50 meq UNSCH PRN PO For Potassium 3.3 - 3.5 mEq/L; Start 10/14/16 at 16:45 Potassium Chloride 100 ml @ 50 mls/hr Q2H PRN IV For Potassium 3.3 - 3.5 mEq/L ; Start 10/14/16 at 16:45 Potassium Chloride (KCl 20 Meq Premix Inj) 100 ml @ 50 mls/hr Q2H PRN IV For Potassium 2.8 - 3.2 mEq/L; Start 10/14/16 at 16:45 Pregabalin (Lyrica) 150 mg Q12HR PO Last administered on 10/11/16 11:40; Start 10/10/16 at 21:00; Stop 10/11/16 at 12:22; Status DC Pregabalin 150 mg 150 mg Q12HR PO Last administered on 10/15/16 09:31; Start 10/11/16 at 21:00 Propofol 100 ml @ 0 mls/hr TITRATE IV Last administered on 10/15/16 00:51; Start 10/14/16 at 16:45 Senna/Docusate Sodium (Janie-Colace) 1 tab BID PO Last administered on 21:34; Start 10/10/16 at 21:00; Stop 10/14/16 at 17:31; Status DC Sennosides (Senokot) 17.2 mg Q12H PRN PO MODERATE - SEVERE CONSTIPATION Last administered on 10/11/16 04:44; Start 10/10/16 at 20:30 Sodium Chloride 1,000 ml @ 999 mls/hr BOLUS ONCE IV Last administered on 10/15 03:56; Start 10/14/16 at 18:00; Stop 10/14/16 at 19:00; Status DC Sodium Chloride (NS Flush) 2 ml BID IV FLUSH Last administered on 10/13/16 21: 34; Start 10/10/16 at 21:00; Stop 10/14/16 at 17:31; Status DC Sodium Phosphate/ Sodium Chloride (Sodium Phosphate Inj/NS 250 ml Inj) 250 ml @ 42 mls/hr UNSCH PRN IV For Phosphorus < 2.5 mg/dL; Start 10/14/16 at 16:45 Terazosin HCl (Hytrin) 5 mg HS PO Last administered on 10/13/16 21:33; Start 10/10/16 at 21:00 Terbutaline Sulfate (Brethine Inj) 1 mg UNSCH PRN SQ FOR EXTRAVASATION PROTOCOL ; Start 10/14/16 at 18:00 Trazodone HCl (Desyrel) 200 mg HS PO Last administered on 10/13/16 21:33; Start 10/10/16 at 21:00; Status Hold Vancomycin HCl 1000 mg/Sodium Chloride 250 ml @ 250 mls/hr ONCE ONCE IV Last administered on 10/14/16 08:30; Start 10/14/16 at 08:30; Stop 10/14/16 at 09:29 ; Status DC Vancomycin HCl/ Sodium Chloride (Vancomycin Inj/ NS 250 ml Inj) 250 ml @ 250 mls/hr ONCE ONCE IV Last administered on 10/13/16 09:03; Start 10/13/16 at 17 :15; Stop 10/13/16 at 18:23; Status DC Zolpidem Tartrate (Ambien) 5 mg HS PRN PO INSOMNIA; Start 10/10/16 at 20:30 Assessment and Plan Problem List: (1) Meningioma, multiple Status: Acute Plan: sp crainotomy (2) COPD (chronic obstructive pulmonary disease) Status: Chronic Plan: wean vent Evangelista Maldonado DO Oct 15, 2016 11:32
--- NOTE | 2016-10-15 13:17 | RADRPT ---
EXAM DATE/TIME: 10/15/2016 12:46 [facility] COMPARISON: CHEST SINGLE AP, October 14, 2016, 16:33. INDICATIONS : Shortness of breath. MEDICAL HISTORY : Seizures. SURGICAL HISTORY : Brain tumor resection. Right hip. Cardiac stent. ENCOUNTER: Subsequent ACUITY: 1 week PAIN SCORE: Non-responsive. LOCATION: Bilateral chest FINDINGS: Support apparatus in good position. The lungs are clear. The heart and pulmonary vascularity are nor mal. The portion of the bony skeleton visualized is unremarkable. CONCLUSION: Support apparatus in good position. Ricardo Fishman MD FACR on October 15, 2016 at 13:07 Board Certified Radiologist. This report was verified electronically.
[2016-10-15] MEDS: FINASTERIDE 5 MG TAB PO SCH (20:35)
[2016-10-15] MEDS: TERAZOSIN HCL 5 MG CAP PO SCH (21:13)
[2016-10-15] MEDS: ALPRAZolam 0.5 MG TAB PO PRN (21:13)
[2016-10-15] MEDS: NOREPINEPHRINE-DEXTROSE DRIP 250 ML IV SCH ×2 (21:41→23:30)
[2016-10-15] MEDS: PHENYLEPHRINE 40 MG/D5W 496 ML ADMIX IV SCH ×2 (23:16)
[2016-10-16] VITALS (16 sets, daily range): BP systolic 122–134; BP diastolic 43–55; PULSE 12–112; RESP 15–28; TEMP 98.2–100.1; O2SAT 93–100
[2016-10-16] MEDS: DEXAMETHASONE SOD PHOS 4 MG/ML VIAL IV PUSH SCH ×5 (00:18→23:11)
[2016-10-16] MEDS: MANNITOL 12.5 GM/50 ML VIAL IV SCH ×4 (03:10→21:21)
[2016-10-16] MEDS: FOSPHENYTOIN INJ 100 MGPE in SODIUM CHLORIDE 0.9% INJ 50 ML IV SCH ×4 (03:11→21:39)
--- NOTE | 2016-10-16 05:21 | RADRPT ---
EXAM DATE/TIME: 10/16/2016 04:09 [facility] COMPARISON: CHEST SINGLE AP, October 15, 2016, 12:46. INDICATIONS : Respiratory Disease. MEDICAL HISTORY : Cardiovascular disease. Seizures. SURGICAL HISTORY : Craniotomy, Right testicular, cervical and lumbar,basal cell rt eye lid. ENCOUNTER: Initial ACUITY: 3 days PAIN SCORE: Non-responsive. LOCATION: Bilateral chest FINDINGS: A single view of the chest demonstrates the endotracheal tube, nasogastric tube, right IJ central noble e are all in good position. Mild diffuse atelectasis both lung bases The cardiomediastinal contours a re unremarkable. Osseous structures are intact. CONCLUSION: Tubes and catheters in good position. Mild bibasilar atelectasis. Bonifacio Mata MD on October 16, 2016 at 5:18 Board Certified Radiologist. This report was verified electronically.
[2016-10-16] MEDS: levETIRAcetam 1000 MG INJ 100 ML IV SCH ×3 (06:20→22:02)
[2016-10-16 07:29] LABS: ANION GAP 8 MEQ/L (5-15); AST (GOT) 23 U/L (15-37); BICARBONATE 25.7 MEQ/L (21.0-32.0); BLOOD UREA NITROGEN 12 MG/DL (7-18); CHLORIDE 108 MEQ/L (98-107); GLOMERULAR FILTRATION RATE 150 ML/MIN (>89); MAGNESIUM 1.9 MG/DL (1.5-2.5); POTASSIUM 4.3 MEQ/L (3.5-5.1); SODIUM (NA) 142 MEQ/L (136-145)
[2016-10-16 07:36] LABS: ALKALINE PHOSPHATASE 88 U/L (45-117); ALT (GPT) 20 U/L (12-78); TOTAL BILIRUBIN ADULT 0.5 MG/DL (0.2-1.0)
[2016-10-16] MEDS: CHLORHEXIDINE 0.12% (ORAL KIT) 15 ML CUP MT SCH ×2 (08:09→20:20)
[2016-10-16] MEDS: NS + KCL 20 MEQ INJ 1,000 ML IV SCH ×2 (08:40→17:53)
[2016-10-16] MEDS: SODIUM CHLORIDE 0.9% FLUSH 5 ML FLUSH IVF SCH ×2 (08:40→21:21)
[2016-10-16] MEDS: PANTOPRAZOLE SODIUM 40 MG VIAL IVP SCH (08:40)
[2016-10-16] MEDS: FOLIC ACID 1 MG TAB PO SCH (08:41)
[2016-10-16] MEDS: PREGABALIN 75 MG CAP PO SCH ×2 (08:41→21:38)
[2016-10-16] MEDS: PANTOPRAZOLE SOD 40 MG DELAYED RELEASE TAB PO SCH (08:41)
[2016-10-16] MEDS: DOCUSATE SODIUM 100 MG CAP PO SCH ×2 (08:41→20:30)
--- NOTE | 2016-10-16 10:45 | HHI.NSPN ---
History Interval History Mr. Hazel is a 71-year-old male who has a history of a left hemisphere meningioma. Apparently the mass was small and asymotimatic but he now presents with frequent seizures and right side hemiplegia. He states he has had several episodes where he loses consciousness. Her has jerking on the right side as well. He denies tongue bitting. He denies incontinence of stool or urine. He has a history of known left hemisphere meningioma. He was complaining of increasing right-sided weakness. He had an MRI of the brain done in August which revealed increased size of the left hemisphere meningioma with surrounding edema. He has a history about 20 years ago of a right hemisphere meningioma at that was resected. He had severe cervical spinal stenosis and he underwent a cervical laminectomy with Dr Brasher. Neurosurgical consultation was requested. 10/12: doing well, no new complaints, neuro sx unchanged. 10/13: stable overnight, to OR tomorrow for mass resection 10/15: Patient postop day 1 craniotomy for excision of h left hemisphere meningioma. Remains intubated at this time and on sedation. 10/16: Postop day 2. Patient remains intubated and off sedation. He is lethargic but arouses to tactile stimulation. Exam Results Vital Signs Date Time Temp Pulse Resp B/P Pulse Ox O2 Delivery O2 Flow Rate FiO2 10/16/16 10:00 99 10/16/16 08:43 40 10/16/16 08:39 100 10/16/16 08:00 98.2 23 130/52 10/14/16 17:00 Mechanical Ventilator 10/12/16 16:18 1.00 Intake and Output 10/15/16 10/15/16 10/16/16 08:00 16:00 00:00 Intake Total 2795 ml 1247 ml 900 ml Output Total 1650 ml 1420 ml 1500 ml Balance 1145 ml -173 ml -600 ml Physical Examination Patient is intubated but will open eyes to tactile stimulation. Will follow commands bilaterally and moves all 4 extremities. Surgical incision is intact with FRANKIE drains putting out serosanguineous fluid. Lab, Micro, Other Results Laboratory Tests Test 10/15/16 10/15/16 10/16/16 10/16/16 13:14 20:00 02:00 06:45 Serum Osmolality 294 298 296 292 Sodium Level 142 Potassium Level 4.3 Chloride Level 108 Carbon Dioxide Level 25.7 Anion Gap 8 Blood Urea Nitrogen 12 Creatinine 0.54 Estimat Glomerular Filtration 150 Rate Random Glucose 109 Calcium Level 8.2 Magnesium Level 1.9 Total Bilirubin 0.5 Aspartate Amino Transf 23 (AST/SGOT) Alanine Aminotransferase 20 (ALT/SGPT) Alkaline Phosphatase 88 Total Protein 5.0 Albumin 2.7 Date/Time Procedure Status Source Growth 10/16/16 09:37 Gram Stain Received Sputum Endotracheal Pending 10/16/16 09:37 Sputum Culture Received Sputum Endotracheal Pending Medical Decision Making Impression and Plan Status post craniotomy for excision of left hemisphere meningioma. Stable neurological exam. Plan: Continue ventilator weaning and extubate as tolerated. Peyman Shin MD Oct 16, 2016 10:44
[2016-10-16 11:16] LABS: AUTOMATED NEUTROPHIL # 11.7 TH/MM3 (1.8-7.7); BASOPHIL % 0.2 % (0.0-2.0); EOSINOPHIL # 0.2 TH/MM3 (0-0.4); EOSINOPHIL % 1.3 % (0.0-4.0); HEMATOCRIT 25.8 % (39.0-51.0); HEMO FLAGS DIFF FINAL; LYMPH % 10.3 % (9.0-44.0); LYMPHOCYTE # 1.5 TH/MM3 (1.0-4.8); MEAN CELL VOLUME 87.9 FL (80.0-100.0); MEAN CORPUSCULAR HEMOGLOBIN 31.5 PG (27.0-34.0); MEAN CORPUSCULAR HGB CONC 35.8 % (32.0-36.0); MONO % 6.7 % (0.0-8.0); NEUT % 81.5 % (16.0-70.0); PLATELET COUNT 197 TH/MM3 (150-450); RED BLOOD COUNT 2.94 MIL/MM3 (4.50-5.90); RED CELL DISTRIBUTION WIDTH 14.1 % (11.6-17.2); WHITE BLOOD COUNT 14.4 TH/MM3 (4.0-11.0)
--- NOTE | 2016-10-16 13:22 | HHI.PR ---
Subjective Remarks post op day 2 crainotomy a bit more alert b ut not yet ready to dc vent Objective Vital Signs Date Time Temp Pulse Resp B/P Pulse Ox O2 Delivery O2 Flow Rate FiO2 10/16/16 12:00 99.0 98 15 128/49 98 10/16/16 12:00 98 10/16/16 12:00 40 10/16/16 11:37 98 40 10/16/16 10:00 99 10/16/16 08:43 40 10/16/16 08:39 100 40 10/16/16 08:00 92 10/16/16 08:00 40 10/16/16 08:00 98.2 92 23 130/52 100 10/16/16 06:00 105 10/16/16 04:00 40 10/16/16 04:00 87 10/16/16 04:00 99.4 87 18 127/51 100 10/16/16 02:00 100 10/16/16 01:35 98 50 10/16/16 00:00 112 10/16/16 00:00 40 10/16/16 00:00 99.4 112 16 122/53 100 10/15/16 22:00 93 10/15/16 22:00 100 40 10/15/16 20:00 40 10/15/16 20:00 100.8 93 18 137/59 96 10/15/16 20:00 116 10/15/16 18:00 113 10/15/16 16:00 50 10/15/16 16:00 99.1 111 15 138/56 99 10/15/16 16:00 111 10/15/16 15:33 100 40 10/15/16 14:00 83 I/O 10/15/16 10/15/16 10/15/16 10/16/16 10/16/16 10/16/16 07:00 15:00 23:00 07:00 15:00 23:00 Intake Total 2795 ml 1247 ml 900 ml 1610 ml Output Total 1650 ml 1420 ml 1500 ml 1535 ml Balance 1145 ml -173 ml -600 ml 75 ml IV Total 2795 ml 1147 ml 900 ml 1550 ml Other 100 ml 60 ml Output Urine Total 1600 ml 1350 ml 1450 ml 1500 ml Drainage Total 50 ml 70 ml 50 ml 35 ml # Bowel Movements 0 1 1 1 Result Diagram: 10/16/16 1055 10/16/16 0645 Imaging Last 24 hours Impressions Chest X-Ray 10/16/16 0600 Signed Impressions: Service Date/Time: Sunday, October 16, 2016 04:09 - CONCLUSION: Tubes and catheters in good position. Mild bibasilar atelectasis. Bonifacio Mata MD Procedures recent crainotomy Objective Remarks GENERAL: Well-nourished, well-developed patient.intubated minimally responsive SKIN: Warm and dry. HEAD: Normocephalic. EYES: No scleral icterus. No injection or drainage. NECK: Supple, trachea midline. No JVD or lymphadenopathy. CARDIOVASCULAR: Regular rate and rhythm without murmurs, gallops, or rubs. RESPIRATORY: Breath sounds equal bilaterally. No accessory muscle use. GASTROINTESTINAL: Abdomen soft, non-tender, nondistended. EXTREMITIES: No cyanosis, or edema. NEUROLOGICAL:minimally responsive upper extremities more responsive than lower Medications and IVs Inpatient Medications Acetaminophen (Tylenol) 650 mg Q4H PRN PO TEMPERATURE > 101.5 F; Start at 16:00 Acetaminophen/ Butalbital/ Caffeine 1 tab 1 tab Q4H PRN PO HEADACHE Last administered on 10/15/16 21:13; Start 10/10/16 at 20:30 Acetaminophen/ Hydrocodone Bitart ([place] 10-325 Mg) 2 tab Q4H PRN PO PAIN SCALE 6 TO 10; Start 10/14/16 at 16:00 Al Hydrox/Mg Hydrox/Simethicone (Mag-Al Plus Susp Liq) 30 ml Q6HR PRN PO HEARTBURN; Start 10/10/16 at 20:30 Albuterol/ Ipratropium 1 ampule 1 ampule Q6HR NEB PRN NEB SHORTNESS OF BREATH; Start 10/14/16 at 17:45 Alprazolam (Xanax) 0.5 mg Q6H PRN PO ANXIETY Last administered on 10/15/16 21: 13; Start 10/10/16 at 20:30 Bisacodyl (Dulcolax Supp) 10 mg DAILY PRN RECTAL CONSTIPATION; Start 10/14/16 at 16:00; Stop 10/14/16 at 17:31; Status DC Calcium Gluconate (Calcium Gluconate Inj) 1 gm UNSCH PRN IV SEE LABEL COMMENTS ; Start 10/14/16 at 16:00 Cefazolin Sodium/ Dextrose 50 ml @ 150 mls/hr ONCE ONCE IV ; Start 10/13/16 at 17:15; Stop 10/13/16 at 18:24; Status DC Chlorhexidine Gluconate 1 applic 1 applic HS TOP Last administered on 00:19; Start 10/13/16 at 21:00; Stop 10/14/16 at 21:01; Status DC Chlorhexidine Gluconate 15 ml 15 ml BID@08,20 MT Last administered on 08:09; Start 10/14/16 at 20:00 Dexamethasone Sodium Phosphate (Decadron Inj) 4 mg Q6HR IV PUSH Last administered on 10/16/16 11:42; Start 10/10/16 at 18:45 Docusate Sodium (Colace) 100 mg BID PO Last administered on 10/15/16 09:31; Start 10/14/16 at 21:00 Fentanyl (Duragesic 50 Mcg Patch.72 Hr) 1 patch Q3D T-DERMAL Last administered on 10/12/16 04:17; Start 10/10/16 at 22:00; Status Hold Fentanyl Citrate 250 ml @ 0 mls/hr TITRATE IV Last administered on 10/14/16 18 :14; Start 10/14/16 at 17:15 Finasteride (Proscar) 5 mg HS PO Last administered on 10/13/16 21:33; Start at 21:00 Folic Acid (Folate) 0.4 mg DAILY PO Last administered on 10/16/16 08:41; Start 10/11/16 at 09:00 Fosphenytoin Sodium (Cerebyx Inj) 100 mgpe Q6H IV ; Start 10/10/16 at 20:00; Stop 10/10/16 at 21:08; Status DC Fosphenytoin Sodium 100 mgpe/ Sodium Chloride 52 ml @ 208 mls/hr Q6H IV Last administered on 10/16/16 08:41; Start 10/10/16 at 22:00 Fosphenytoin Sodium 400 mgpe/ Sodium Chloride 58 ml @ 232 mls/hr STAT STAT IV ; Start 10/14/16 at 15:22; Stop 10/14/16 at 15:36; Status DC IV Flush (NS Flush) 2 ml UNSCH PRN IVF FLUSH AFTER USING IV ACCESS; Start 10/14 at 16:00 IV Flush 2 ml 2 ml BID IVF Last administered on 10/16/16 08:40; Start at 21:00 Lactulose (Lactulose Liq) 30 ml DAILY PRN PO SEVERE CONSITIPATION; Start at 20:30 Levetriacetam (Keppra 1000 Mg Inj) 100 ml @ 400 mls/hr Q8H IV Last administered on 10/16/16 06:20; Start 10/10/16 at 23:00 Levetriacetam (Keppra) 1,500 mg BID PO ; Start 10/10/16 at 21:00; Stop 10/10/16 at 21:41; Status DC Levetriacetam/ Sodium Chloride (Keppra Inj/NS Inj) 105 ml @ 400 mls/hr Q12H IV ; Start 10/14/16 at 16:00; Stop 10/14/16 at 17:32; Status DC Lorazepam (Ativan Inj) 1 mg Q4H PRN IV PUSH SEIZURES; Start 10/10/16 at 19:15 Magnesium Hydroxide (Milk Of Magnesia Liq) 30 ml Q12H PRN PO MILD - MODERATE CONSTIPATION; Start 10/10/16 at 20:30 Magnesium Oxide 800 mg 800 mg UNSCH PRN PO For Magnesium 1.2 - 1.6 mg/dL; Start 10/14/16 at 16:45 Magnesium Sulfate 2 gm/Sodium Chloride 100 ml @ 50 mls/hr UNSCH PRN IV For Magnesium 1.2 - 1.6 mg/dL; Start 10/14/16 at 16:45 Magnesium Sulfate/ Sodium Chloride (Magnesium Sulfate Inj/NS Inj) 100 ml @ 50 mls/hr UNSCH PRN IV For Magnesium 0.9 - 1.1 mg/dL; Start 10/14/16 at 16:45 Mannitol (Mannitol Inj) 25 gm Q6H IV Last administered on 10/16/16 08:40; Start 10/15/16 at 21:00 Mirtazapine (Remeron) 15 mg HS PO Last administered on 10/13/16 21:33; Start 10/10/16 at 21:00; Status Hold Miscellaneous Information ALL NURSING DEPARTME... UNSCH PRN .XX SEE LABEL COMMENTS; Start 10/14/16 at 18:00; Stop 10/15/16 at 17:59; Status DC Morphine Sulfate (Morphine Inj) 4 mg Q2H PRN IV PUSH PAIN SCALE 7 TO 10; Start 10/14/16 at 16:00 Naloxone HCl (Narcan Inj) 0.4 mg UNSCH PRN IV SEE LABEL COMMENTS; Start at 20:30 Norepinephrine Bitartrate (Levophed-Dextrose Drip) 250 ml @ 0 mls/hr TITRATE IV Last administered on 10/15/16 23:30; Start 10/14/16 at 17:45 Ondansetron HCl (Zofran Inj) 4 mg Q6H PRN IV NAUSEA OR VOMITING; Start at 16:00 Oxycodone HCl (Roxicodone) 20 mg Q6H PRN PO PAIN SCALE 7 TO 10; Start 10/10/16 at 20:30; Stop 10/14/16 at 17:31; Status DC Pantoprazole Sodium (Protonix Inj) 40 mg DAILY IVP Last administered on 08:40; Start 10/15/16 at 09:00 Pantoprazole Sodium (Protonix) 40 mg DAILY PO ; Start 10/15/16 at 09:00 Phenylephrine HCl/ Dextrose (Neosynephrine Inj/D5W 500 ml Inj) 500 ml @ 0 mls/ hr TITRATE IV Last administered on 10/15/16 23:16; Start 10/14/16 at 18:00 Phenytoin (Dilantin) 200 mg BID PO ; Start 10/10/16 at 21:00; Stop 10/10/16 at 21:41; Status DC Potassium Chloride/Sodium Chloride (NS + KCl 20 Meq Inj) 1,000 ml @ 100 mls/hr Q10H IV Last administered on 10/16/16 08:40; Start 10/14/16 at 15:53 Potassium Phosphate 2000 mg 2,000 mg UNSCH PRN PO/TUBE SEE LABEL COMMENTS; Start 10/14/16 at 16:45 Potassium Phosphate 30 mmol/ Sodium Chloride 260 ml @ 42 mls/hr UNSCH PRN IV SEE LABEL COMMENTS; Start 10/14/16 at 16:45 Potassium Bicarb/ Potassium Chloride 50 meq 50 meq UNSCH PRN PO For Potassium 3.3 - 3.5 mEq/L; Start 10/14/16 at 16:45 Potassium Chloride 100 ml @ 50 mls/hr Q2H PRN IV For Potassium 3.3 - 3.5 mEq/L ; Start 10/14/16 at 16:45 Potassium Chloride (KCl 20 Meq Premix Inj) 100 ml @ 50 mls/hr Q2H PRN IV For Potassium 2.8 - 3.2 mEq/L; Start 10/14/16 at 16:45 Pregabalin (Lyrica) 150 mg Q12HR PO Last administered on 10/11/16 11:40; Start 10/10/16 at 21:00; Stop 10/11/16 at 12:22; Status DC Pregabalin 150 mg 150 mg Q12HR PO Last administered on 10/16/16 08:41; Start 10/11/16 at 21:00 Propofol 100 ml @ 0 mls/hr TITRATE IV Last administered on 10/15/16 00:51; Start 10/14/16 at 16:45 Senna/Docusate Sodium (Janie-Colace) 1 tab BID PO Last administered on 21:34; Start 10/10/16 at 21:00; Stop 10/14/16 at 17:31; Status DC Sennosides (Senokot) 17.2 mg Q12H PRN PO MODERATE - SEVERE CONSTIPATION Last administered on 10/11/16 04:44; Start 10/10/16 at 20:30 Sodium Chloride 1,000 ml @ 999 mls/hr BOLUS ONCE IV Last administered on 10/15 03:56; Start 10/14/16 at 18:00; Stop 10/14/16 at 19:00; Status DC Sodium Chloride (NS Flush) 2 ml BID IV FLUSH Last administered on 10/13/16 21: 34; Start 10/10/16 at 21:00; Stop 10/14/16 at 17:31; Status DC Sodium Phosphate/ Sodium Chloride (Sodium Phosphate Inj/NS 250 ml Inj) 250 ml @ 42 mls/hr UNSCH PRN IV For Phosphorus < 2.5 mg/dL; Start 10/14/16 at 16:45 Terazosin HCl (Hytrin) 5 mg HS PO Last administered on 10/15/16 21:13; Start 10/10/16 at 21:00 Terbutaline Sulfate (Brethine Inj) 1 mg UNSCH PRN SQ FOR EXTRAVASATION PROTOCOL ; Start 10/14/16 at 18:00 Trazodone HCl (Desyrel) 200 mg HS PO Last administered on 10/13/16 21:33; Start 10/10/16 at 21:00; Status Hold Vancomycin HCl 1000 mg/Sodium Chloride 250 ml @ 250 mls/hr ONCE ONCE IV Last administered on 10/14/16 08:30; Start 10/14/16 at 08:30; Stop 10/14/16 at 09:29 ; Status DC Vancomycin HCl/ Sodium Chloride (Vancomycin Inj/ NS 250 ml Inj) 250 ml @ 250 mls/hr ONCE ONCE IV Last administered on 10/13/16 09:03; Start 10/13/16 at 17 :15; Stop 10/13/16 at 18:23; Status DC Zolpidem Tartrate (Ambien) 5 mg HS PRN PO INSOMNIA; Start 10/10/16 at 20:30 Assessment and Plan Problem List: (1) Meningioma, multiple Status: Acute Plan: sp crainotomy (2) COPD (chronic obstructive pulmonary disease) Status: Chronic Plan: wean vent Assessment and Plan has had dark sputum culture pending Evangelista Maldonado DO Oct 16, 2016 13:22
--- NOTE | 2016-10-16 14:13 | HHI.CCPN ---
Subjective Remarks/Hospital Course Mr. Hazel is a 71-year-old male with history of meningioma, chronic pain, recent cervical fusion, IBS, GERD, anxiety, and depression who presented to the ER with reported seizure activity while being transported by EMS. He has a history of known left hemisphere meningioma, and seizure disorder. On Keppra and Dilantin (neurology Dr. Escalona). MRI of the brain showed large left parietal extra-axial mass which is most likely meningioma. Patient has a history of meningioma resection 20 years ago, an MRI in August had revealed a large left sided meningioma. Patient was admitted to Dr. Maldonado and neurosurgery was consulted. Patient was placed on Dilantin, Keppra and also Decadron by Dr. Escalona. He had underwent left frontal parietal craniotomy with resection of meningioma today by Dr. Damico. EBL was 200 ML. Post surgery patient was left intubated and critical care consult was requested for medical management and vent management. I evaluated the patient in PACU he sedated with propofol. Postop labs had been ordered and ABG ordered. He does move all extremities on lightening sedation. A postop CT is pending at this time SUBJ: 10/15: Remains intubated sedated with propofol and fentanyl. Christiano- Synephrine to maintain blood pressure. CT of the head yesterday postop showed expected postoperative changes with left craniotomy and some subdural blood and air 10/16: Remains intubated off sedation. But he remains lethargic and airway protection is questionable. I will leave him intubated because of this reason Objective Vital Signs Date Time Temp Pulse Resp B/P Pulse Ox O2 Delivery O2 Flow Rate FiO2 10/16/16 12:00 99.0 98 15 128/49 98 10/16/16 12:00 40 10/14/16 17:00 Mechanical Ventilator 10/12/16 16:18 1.00 Intake and Output 10/15/16 10/15/16 10/15/16 07:59 15:59 23:59 Intake Total 2795 ml 1247 ml 900 ml Output Total 1650 ml 1420 ml 1500 ml Balance 1145 ml -173 ml -600 ml Result Diagram: 10/16/16 1055 10/16/16 0645 Imaging MRI of the brain 10/10/16 showed large left parietal extra-axial meningioma Objective Remarks GENERAL: 71-year-old male intubated sedated with, fentanyl SKIN: Warm and dry. HEAD: Circumferential craniectomy dressing. FRANKIE drains 2 with bloody output EYES: Pupils equal and round. No scleral icterus. No injection or drainage. ENT: Orotracheally intubated NECK: Trachea midline. No JVD. Well-healed scar from cervical fusion CARDIOVASCULAR: Regular rate and rhythm. RESPIRATORY: Clear to auscultation. Breath sounds equal bilaterally. GASTROINTESTINAL: Abdomen soft, non-tender, nondistended. Hepatic and splenic margins not palpable. MUSCULOSKELETAL: Extremities with 1+ edema. NEUROLOGICAL: Lethargic, pupils equal. Off sedation most extremities. Follows commands weakly. Appears to be weaker on right side A/P Assessment and Plan NEURO: Status post left frontal parietal craniotomy for meningioma resection Seizure disorder Chronic neck pain status post cervical fusion - Fentanyl for sedation and vent synchrony and pain control - Appears to have right hemiparesis, detailed exam possible only after extubation - Continue IV Keppra and IV Cerebyx - Continue Decadron - EEG negative for seizure - Neurosurgery Dr. Damico, neurology Dr. Escalona - Postop CT of the head -short expected postop changes, left subdural air and blood 1 cm in size RESP: Acute respiratory failure - ACV. Vent bundle - Patient remains lethargic, airway protection questionable - Leave intubated until more awake and following commands - DuoNeb every 6 hours when necessary CV: Hypotension - Normal saline IV fluids 100 ml per hour - Christiano-Synephrine to keep MAP >60 - s/p 1 L bolus of normal saline GI: - Start tube feeds today with Jevity, bowel regimen : - Monitor renal function closely. Abdullahi catheter. ID: - Perioperative antibiotics per Dr. Damico HEME: - Monitor CBC, CMP, INR ENDO: - Electrolyte replacement per protocol PROPH: - Bilateral lower extremity SCDs. Avoid chemical DVT prophylaxis, continue Protonix Level 3 Axel Norman MD Oct 16, 2016 14:13
[2016-10-16] MEDS: FINASTERIDE 5 MG TAB PO SCH (20:31)
[2016-10-16] MEDS: TERAZOSIN HCL 5 MG CAP PO SCH (21:00)
[2016-10-17] VITALS (16 sets, daily range): BP systolic 107–143; BP diastolic 46–60; PULSE 77–101; RESP 16–25; TEMP 98.3–99.5; O2SAT 94–100
[2016-10-17] MEDS: MANNITOL 12.5 GM/50 ML VIAL IV SCH ×4 (02:37→21:38)
[2016-10-17] MEDS: FOSPHENYTOIN INJ 100 MGPE in SODIUM CHLORIDE 0.9% INJ 50 ML IV SCH ×4 (03:51→22:12)
[2016-10-17] MEDS: NS + KCL 20 MEQ INJ 1,000 ML IV SCH ×2 (03:51→13:03)
[2016-10-17] MEDS: DEXAMETHASONE SOD PHOS 4 MG/ML VIAL IV PUSH SCH ×3 (06:01→16:59)
[2016-10-17] MEDS: levETIRAcetam 1000 MG INJ 100 ML IV SCH ×3 (06:29→22:47)
[2016-10-17 07:09] LABS: AUTOMATED NEUTROPHIL # 10.2 TH/MM3 (1.8-7.7); BASOPHIL % 0.2 % (0.0-2.0); EOSINOPHIL # 0.3 TH/MM3 (0-0.4); EOSINOPHIL % 2.3 % (0.0-4.0); HEMATOCRIT 22.8 % (39.0-51.0); HEMO FLAGS DIFF FINAL; LYMPH % 12.8 % (9.0-44.0); LYMPHOCYTE # 1.7 TH/MM3 (1.0-4.8); MEAN CORPUSCULAR HEMOGLOBIN 31.4 PG (27.0-34.0); MEAN CORPUSCULAR HGB CONC 35.6 % (32.0-36.0); MONO % 7.1 % (0.0-8.0); NEUT % 77.6 % (16.0-70.0); PLATELET COUNT 198 TH/MM3 (150-450); RED BLOOD COUNT 2.59 MIL/MM3 (4.50-5.90); RED CELL DISTRIBUTION WIDTH 13.8 % (11.6-17.2); WHITE BLOOD COUNT 13.1 TH/MM3 (4.0-11.0)
[2016-10-17 07:31] LABS: BICARBONATE 25.8 MEQ/L (21.0-32.0); MAGNESIUM 1.9 MG/DL (1.5-2.5)
[2016-10-17] MEDS: CHLORHEXIDINE 0.12% (ORAL KIT) 15 ML CUP MT SCH ×2 (08:00→20:00)
[2016-10-17] MEDS: PREGABALIN 75 MG CAP PO SCH ×2 (08:46→21:00)
[2016-10-17] MEDS: FOLIC ACID 1 MG TAB PO SCH (08:46)
[2016-10-17] MEDS: PANTOPRAZOLE SOD 40 MG DELAYED RELEASE TAB PO SCH (08:46)
[2016-10-17] MEDS: PANTOPRAZOLE SODIUM 40 MG VIAL IVP SCH (08:46)
[2016-10-17] MEDS: SODIUM CHLORIDE 0.9% FLUSH 5 ML FLUSH IVF SCH ×2 (08:47→21:38)
[2016-10-17] MEDS: DOCUSATE SODIUM 100 MG CAP PO SCH ×2 (08:47→21:00)
--- NOTE | 2016-10-17 10:31 | HHI.PR ---
Subjective Remarks Patient on ventilator. Tolerating well. On no sedation. Objective Vital Signs Date Time Temp Pulse Resp B/P Pulse Ox O2 Delivery O2 Flow Rate FiO2 10/17/16 10:00 82 10/17/16 09:58 40 10/17/16 09:58 100 40 10/17/16 08:00 87 10/17/16 08:00 99.5 87 18 107/57 100 10/17/16 08:00 40 10/17/16 06:00 92 10/17/16 04:00 40 10/17/16 04:00 99.2 94 21 121/50 100 10/17/16 04:00 94 10/17/16 03:30 95 50 10/17/16 02:00 94 10/17/16 00:00 98.6 101 24 122/46 96 10/17/16 00:00 40 10/17/16 00:00 101 10/16/16 22:00 99 40 10/16/16 22:00 103 10/16/16 20:00 40 10/16/16 20:00 99.6 97 23 134/43 93 10/16/16 20:00 97 10/16/16 18:00 105 10/16/16 16:00 100.1 101 28 131/55 100 10/16/16 16:00 40 10/16/16 16:00 101 10/16/16 15:56 98 40 10/16/16 14:00 106 10/16/16 12:00 99.0 98 15 128/49 98 10/16/16 12:00 98 10/16/16 12:00 40 10/16/16 11:37 98 40 I/O 10/16/16 10/16/16 10/16/16 10/17/16 10/17/16 10/17/16 07:00 15:00 23:00 07:00 15:00 23:00 Intake Total 1610 ml 1150 ml 1340 ml 1460 ml Output Total 1535 ml 2120 ml 1020 ml 1250 ml Balance 75 ml -970 ml 320 ml 210 ml IV Total 1550 ml 1050 ml 1000 ml 1000 ml Tube Feeding 240 ml 400 ml Other 60 ml 100 ml 100 ml 60 ml Output Urine Total 1500 ml 2050 ml 1000 ml 1250 ml Drainage Total 35 ml 70 ml 20 ml # Bowel Movements 1 3 1 1 Result Diagram: 10/17/1640 10/17/16 0640 Procedures recent crainotomy Objective Remarks GENERAL: Alert SKIN: Warm and dry. Staple incision on head HEAD: Normocephalic. EYES: No scleral icterus. No injection or drainage. NECK: Supple, trachea midline. No JVD or lymphadenopathy. CARDIOVASCULAR: Regular rate and rhythm without murmurs, gallops, or rubs. Right lower leg edema RESPIRATORY: Breath sounds equal bilaterally. No accessory muscle use. GASTROINTESTINAL: Abdomen soft, non-tender, nondistended. MUSCULOSKELETAL: No cyanosis, or edema. BACK: Nontender without obvious deformity. No CVA tenderness. Medications and IVs Current Medications Medications (Trade) Dose Ordered Sig/Hussein Route Start Time Stop Time Status Last Admin (Decadron Inj) 4 mg Q6HR IV PUSH 10/10/16 18:45 10/17/16 06:01 (Ativan Inj) 1 mg Q4H PRN IV PUSH 10/10/16 19:15 (Narcan Inj) 0.4 mg UNSCH PRN IV 10/10/16 20:30 (Milk Of Magnesia Liq) 30 ml Q12H PRN PO 10/10/16 20:30 (Senokot) 17.2 mg Q12H PRN PO 10/10/16 20:30 10/11/16 04:44 (Dulcolax Supp) 10 mg DAILY PRN RECTAL 10/10/16 20:30 (Lactulose Liq) 30 ml DAILY PRN PO 10/10/16 20:30 (Xanax) 0.5 mg Q6H PRN PO 10/10/16 20:30 10/15/16 21:13 (Duragesic 50 Mcg Patch.72 Hr) 1 patch Q3D T-DERMAL 10/10/16 22:00 Hold 10/12/16 04:17 (Proscar) 5 mg HS PO 10/10/16 21:00 10/13/16 21:33 (Folate) 0.4 mg DAILY PO 10/11/16 09:00 10/17/16 08:46 (Remeron) 15 mg HS PO 10/10/16 21:00 Hold 10/13/16 21:33 (Hytrin) 5 mg HS PO 10/10/16 21:00 10/15/16 21:13 (Desyrel) 200 mg HS PO 10/10/16 21:00 Hold 10/13/16 21:33 (Ambien) 5 mg HS PRN PO 10/10/16 20:30 (Mag-Al Plus Susp Liq) 30 ml Q6HR PRN PO 10/10/16 20:30 Acetaminophen/ Butalbital/ Caffeine 1 tab 1 tab Q4H PRN PO 10/10/16 20:30 10/15/16 21:13 Fosphenytoin Sodium 100 mgpe/ Sodium Chloride 52 ml @ 208 mls/hr Q6H IV 10/10/16 22:00 10/17/16 08:46 (Keppra 1000 Mg Inj) 100 ml @ 400 mls/hr Q8H IV 10/10/16 23:00 10/17/16 06:29 Pregabalin 150 mg 150 mg Q12HR PO 10/11/16 21:00 10/17/16 08:46 (NS + KCl 20 Meq Inj) 1,000 ml @ 100 mls/hr Q10H IV 10/14/16 15:53 10/17/16 03:51 (NS Flush) 2 ml UNSCH PRN IVF 10/14/16 16:00 (NS Flush) 2 ml BID IVF 10/14/16 21:00 10/17/16 08:47 (Colace) 100 mg BID PO 10/14/16 21:00 10/15/16 09:31 (Protonix) 40 mg DAILY PO 10/15/16 09:00 (Protonix Inj) 40 mg DAILY IVP 10/15/16 09:00 10/17/16 08:46 (Zofran Inj) 4 mg Q6H PRN IV 10/14/16 16:00 Calcium Gluconate 1 gm 1 gm UNSCH PRN IV 10/14/16 16:00 (Magnesium Sulfate Inj/NS Inj) 108 ml @ 108 mls/hr UNSCH PRN IV 10/14/16 16:00 ([place] 10-325 Mg) 1 tab Q4H PRN PO 10/14/16 16:00 ([place] 10-325 Mg) 2 tab Q4H PRN PO 10/14/16 16:00 (Morphine Inj) 2 mg Q2H PRN IV PUSH 10/14/16 16:00 (Morphine Inj) 4 mg Q2H PRN IV PUSH 10/14/16 16:00 (Tylenol) 650 mg Q4H PRN PO 10/14/16 16:00 Chlorhexidine Gluconate 15 ml 15 ml BID@08,20 MT 10/14/16 20:00 10/17/16 08:00 Propofol 100 ml @ 0 mls/hr TITRATE IV 10/14/16 16:45 10/15/16 00:51 Potassium Chloride 100 ml @ 50 mls/hr Q2H PRN IV 10/14/16 16:45 (KCl 20 Meq Premix Inj) 100 ml @ 50 mls/hr Q2H PRN IV 10/14/16 16:45 Potassium Bicarb/ Potassium Chloride 50 meq 50 meq UNSCH PRN PO 10/14/16 16:45 Potassium Chloride 100 ml @ 25 mls/hr UNSCH PRN IV 10/14/16 16:45 Potassium Chloride 100 ml @ 50 mls/hr Q2H PRN IV 10/14/16 16:45 (Magnesium Sulfate Inj/NS Inj) 100 ml @ 50 mls/hr UNSCH PRN IV 10/14/16 16:45 Magnesium Oxide 800 mg 800 mg UNSCH PRN PO 10/14/16 16:45 (Magnesium Sulfate Inj/NS Inj) 100 ml @ 50 mls/hr UNSCH PRN IV 10/14/16 16:45 Potassium Phosphate 2000 mg 2,000 mg Q4H PRN PO 10/14/16 16:45 (Sodium Phosphate Inj/NS 250 ml Inj) 250 ml @ 42 mls/hr UNSCH PRN IV 10/14/16 16:45 Potassium Phosphate 2000 mg 2,000 mg UNSCH PRN PO/TUBE 10/14/16 16:45 Potassium Phosphate 30 mmol/ Sodium Chloride 260 ml @ 42 mls/hr UNSCH PRN IV 10/14/16 16:45 Fentanyl Citrate 250 ml @ 0 mls/hr TITRATE IV 10/14/16 17:15 10/14/16 18:14 (Levophed-Dextrose Drip) 250 ml @ 0 mls/hr TITRATE IV 10/14/16 17:45 10/15/16 23:30 Terbutaline Sulfate 1 mg 1 mg UNSCH PRN SQ 10/14/16 17:45 (Neosynephrine Inj/D5W 500 ml Inj) 500 ml @ 0 mls/hr TITRATE IV 10/14/16 18:00 10/15/16 23:16 (Brethine Inj) 1 mg UNSCH PRN SQ 10/14/16 18:00 (Mannitol Inj) 25 gm Q6H IV 10/15/16 21:00 10/17/16 08:46 Assessment and Plan Problem List: (1) Seizure disorder Status: Acute Plan: Neurology consulted and managing. On fosphenytoin and Keppra. (2) Brain tumor Status: Acute Plan: Neurosurgeon consulted and managing. On Decadron. PT and OT consulted. Craniotomy done on the (3) GERD (gastroesophageal reflux disease) Status: Acute Plan: Continue PPI patient is asymptomatic (4) Chronic pain Status: Chronic Plan: Continue current regimen pain well controlled (5) Leg edema, right Status: Acute Plan: US ordered negative for DVT. History of non occlusive DVT in 2014. (6) Anemia Status: Acute Plan: HGB 8.1 Will monitor and recheck in AM Assessment and Plan Assessment and plan discussed with Dr. Erica BUCKNER Discussed Condition With Nursing. Discharge Planning SNF Physician Attestation I and the EQUIPMENT INSTALLER have both examined this patient and reviewed this note and i agree with these findings and plan of care. Estelle Rincon. EQUIPMENT INSTALLER Oct 17, 2016 10:31
--- NOTE | 2016-10-17 10:31 | HHI.CCPN ---
Subjective Remarks/Hospital Course Mr. Hazel is a 71-year-old male with history of meningioma, chronic pain, recent cervical fusion, IBS, GERD, anxiety, and depression who presented to the ER with reported seizure activity while being transported by EMS. He has a history of known left hemisphere meningioma, and seizure disorder. On Keppra and Dilantin (neurology Dr. Escalona). MRI of the brain showed large left parietal extra-axial mass which is most likely meningioma. Patient has a history of meningioma resection 20 years ago, an MRI in August had revealed a large left sided meningioma. Patient was admitted to Dr. Maldonado and neurosurgery was consulted. Patient was placed on Dilantin, Keppra and also Decadron by Dr. Escalona. He had underwent left frontal parietal craniotomy with resection of meningioma today by Dr. Damico. EBL was 200 ML. Post surgery patient was left intubated and critical care consult was requested for medical management and vent management. I evaluated the patient in PACU he sedated with propofol. Postop labs had been ordered and ABG ordered. He does move all extremities on lightening sedation. A postop CT is pending at this time SUBJ: 10/15: Remains intubated sedated with propofol and fentanyl. Christiano- Synephrine to maintain blood pressure. CT of the head yesterday postop showed expected postoperative changes with left craniotomy and some subdural blood and air 10/16: Remains intubated off sedation. But he remains lethargic and airway protection is questionable. I will leave him intubated because of this reason 10/17: More awake today. Follows commands on left upper extremity. Will proceed with CPAP trial for possible extubation. Discussed with Dr. aDmico Objective Vital Signs Date Time Temp Pulse Resp B/P Pulse Ox O2 Delivery O2 Flow Rate FiO2 10/17/16 10:00 82 10/17/16 09:58 40 10/17/16 09:58 100 10/17/16 08:00 99.5 18 107/57 10/14/16 17:00 Mechanical Ventilator Intake and Output 10/16/16 10/16/16 10/17/16 08:00 16:00 00:00 Intake Total 1610 ml 1150 ml 1340 ml Output Total 1535 ml 2120 ml 1020 ml Balance 75 ml -970 ml 320 ml Result Diagram: 10/17/16 0640 10/17/16 0640 Imaging MRI of the brain 10/10/16 showed large left parietal extra-axial meningioma Objective Remarks GENERAL: 71-year-old male intubated sedated off all sedation SKIN: Warm and dry. HEAD: Circumferential craniectomy dressing in place. FRANKIE drains 2 with bloody output EYES: Pupils equal and round. No scleral icterus. No injection or drainage. ENT: Orotracheally intubated NECK: Trachea midline. No JVD. Well-healed scar from cervical fusion CARDIOVASCULAR: Regular rate and rhythm. RESPIRATORY: Clear to auscultation. Breath sounds equal bilaterally. GASTROINTESTINAL: Abdomen soft, non-tender, nondistended. Hepatic and splenic margins not palpable. MUSCULOSKELETAL: Extremities with 1+ edema. NEUROLOGICAL: Pupils equal. Off sedation moves extremities. Follows commands weakly on LE. Appears to be weaker on right side Urinary Catheter: Yes Assessment to: Continue Vascular Central Line Catheter: Yes Assessment to: Continue A/P Assessment and Plan NEURO: Status post left frontal parietal craniotomy for meningioma resection Seizure disorder Chronic neck pain status post cervical fusion - Fentanyl for sedation and pain control - Appears to have right hemiparesis, detailed exam possible only after extubation - Continue IV Keppra and IV Cerebyx - Continue Decadron - EEG negative for seizure - Neurosurgery Dr. Damico, neurology Dr. Escalona - Postop CT of the head -short expected postop changes, left subdural air and blood 1 cm in size RESP: Acute respiratory failure - ACV. Vent bundle. Mentation has improved, proceed with weaning trial for possible extubation - DuoNeb every 6 hours when necessary CV: Hypotension - Normal saline IV fluids 100 ml per hour-reduce to kvo - Christiano-Synephrine to keep MAP >60 GI: - Tube feeds today with Jevity, bowel regimen : - Monitor renal function closely. Abdullahi catheter. ID: - Perioperative antibiotics per Dr. Damico HEME: - Monitor CBC, CMP, INR ENDO: - Electrolyte replacement per protocol PROPH: - Bilateral lower extremity SCDs. Avoid chemical DVT prophylaxis until cleared by neurosurgery, continue Protonix Level 3 Axel Norman MD Oct 17, 2016 10:31
--- NOTE | 2016-10-17 11:29 | RSPPFT ---
DATE OF PROCEDURE: 10/12/16 COMMENTS: Spirometry with FVC of 2.3, FEV1 of 1.7, FEV1/FVC ratio at 72%. A positive response to acutely inhaled bronchodilator noted, however, this is not significant. IMPRESSION: 1. Moderately severe airways obstruction. 2. Positive but non-significant response to acutely inhaled bronchodilator.
--- NOTE | 2016-10-17 13:36 | PD.CARD.PN ---
Subjective Subjective Remarks No CP or SOB, extubated and stable Objective Medications Current Medications Medications (Trade) Dose Ordered Sig/Hussein Route Start Time Stop Time Status Last Admin (Decadron Inj) 4 mg Q6HR IV PUSH 10/10/16 18:45 10/17/16 13:03 (Ativan Inj) 1 mg Q4H PRN IV PUSH 10/10/16 19:15 (Narcan Inj) 0.4 mg UNSCH PRN IV 10/10/16 20:30 (Milk Of Magnesia Liq) 30 ml Q12H PRN PO 10/10/16 20:30 (Senokot) 17.2 mg Q12H PRN PO 10/10/16 20:30 10/11/16 04:44 (Dulcolax Supp) 10 mg DAILY PRN RECTAL 10/10/16 20:30 (Lactulose Liq) 30 ml DAILY PRN PO 10/10/16 20:30 (Xanax) 0.5 mg Q6H PRN PO 10/10/16 20:30 10/15/16 21:13 (Duragesic 50 Mcg Patch.72 Hr) 1 patch Q3D T-DERMAL 10/10/16 22:00 Hold 10/12/16 04:17 (Proscar) 5 mg HS PO 10/10/16 21:00 10/13/16 21:33 (Folate) 0.4 mg DAILY PO 10/11/16 09:00 10/17/16 08:46 (Remeron) 15 mg HS PO 10/10/16 21:00 Hold 10/13/16 21:33 (Hytrin) 5 mg HS PO 10/10/16 21:00 10/15/16 21:13 (Desyrel) 200 mg HS PO 10/10/16 21:00 Hold 10/13/16 21:33 (Ambien) 5 mg HS PRN PO 10/10/16 20:30 (Mag-Al Plus Susp Liq) 30 ml Q6HR PRN PO 10/10/16 20:30 Acetaminophen/ Butalbital/ Caffeine 1 tab 1 tab Q4H PRN PO 10/10/16 20:30 10/15/16 21:13 Fosphenytoin Sodium 100 mgpe/ Sodium Chloride 52 ml @ 208 mls/hr Q6H IV 10/10/16 22:00 10/17/16 08:46 (Keppra 1000 Mg Inj) 100 ml @ 400 mls/hr Q8H IV 10/10/16 23:00 10/17/16 06:29 Pregabalin 150 mg 150 mg Q12HR PO 10/11/16 21:00 10/17/16 08:46 (NS + KCl 20 Meq Inj) 1,000 ml @ 100 mls/hr Q10H IV 10/14/16 15:53 10/17/16 13:03 (NS Flush) 2 ml UNSCH PRN IVF 10/14/16 16:00 (NS Flush) 2 ml BID IVF 10/14/16 21:00 10/17/16 08:47 (Colace) 100 mg BID PO 10/14/16 21:00 10/15/16 09:31 (Protonix) 40 mg DAILY PO 10/15/16 09:00 (Protonix Inj) 40 mg DAILY IVP 10/15/16 09:00 10/17/16 08:46 (Zofran Inj) 4 mg Q6H PRN IV 10/14/16 16:00 Calcium Gluconate 1 gm 1 gm UNSCH PRN IV 10/14/16 16:00 (Magnesium Sulfate Inj/NS Inj) 108 ml @ 108 mls/hr UNSCH PRN IV 10/14/16 16:00 ([place] 10-325 Mg) 1 tab Q4H PRN PO 10/14/16 16:00 ([place] 10-325 Mg) 2 tab Q4H PRN PO 10/14/16 16:00 (Morphine Inj) 2 mg Q2H PRN IV PUSH 10/14/16 16:00 (Morphine Inj) 4 mg Q2H PRN IV PUSH 10/14/16 16:00 (Tylenol) 650 mg Q4H PRN PO 10/14/16 16:00 Chlorhexidine Gluconate 15 ml 15 ml BID@08,20 MT 10/14/16 20:00 10/17/16 08:00 Propofol 100 ml @ 0 mls/hr TITRATE IV 10/14/16 16:45 10/15/16 00:51 Potassium Chloride 100 ml @ 50 mls/hr Q2H PRN IV 10/14/16 16:45 (KCl 20 Meq Premix Inj) 100 ml @ 50 mls/hr Q2H PRN IV 10/14/16 16:45 Potassium Bicarb/ Potassium Chloride 50 meq 50 meq UNSCH PRN PO 10/14/16 16:45 Potassium Chloride 100 ml @ 25 mls/hr UNSCH PRN IV 10/14/16 16:45 Potassium Chloride 100 ml @ 50 mls/hr Q2H PRN IV 10/14/16 16:45 (Magnesium Sulfate Inj/NS Inj) 100 ml @ 50 mls/hr UNSCH PRN IV 10/14/16 16:45 Magnesium Oxide 800 mg 800 mg UNSCH PRN PO 10/14/16 16:45 (Magnesium Sulfate Inj/NS Inj) 100 ml @ 50 mls/hr UNSCH PRN IV 10/14/16 16:45 Potassium Phosphate 2000 mg 2,000 mg Q4H PRN PO 10/14/16 16:45 (Sodium Phosphate Inj/NS 250 ml Inj) 250 ml @ 42 mls/hr UNSCH PRN IV 10/14/16 16:45 Potassium Phosphate 2000 mg 2,000 mg UNSCH PRN PO/TUBE 10/14/16 16:45 Potassium Phosphate 30 mmol/ Sodium Chloride 260 ml @ 42 mls/hr UNSCH PRN IV 10/14/16 16:45 Fentanyl Citrate 250 ml @ 0 mls/hr TITRATE IV 10/14/16 17:15 10/14/16 18:14 (Levophed-Dextrose Drip) 250 ml @ 0 mls/hr TITRATE IV 10/14/16 17:45 10/15/16 23:30 Terbutaline Sulfate 1 mg 1 mg UNSCH PRN SQ 10/14/16 17:45 (Neosynephrine Inj/D5W 500 ml Inj) 500 ml @ 0 mls/hr TITRATE IV 10/14/16 18:00 10/15/16 23:16 (Brethine Inj) 1 mg UNSCH PRN SQ 10/14/16 18:00 (Mannitol Inj) 25 gm Q6H IV 10/15/16 21:00 10/17/16 08:46 Vital Signs / I&O Vital Signs Date Time Temp Pulse Resp B/P Pulse Ox O2 Delivery O2 Flow Rate FiO2 10/17/16 12:00 78 10/17/16 12:00 98.3 78 19 143/56 97 10/17/16 11:20 100 Nasal Cannula 2 10/17/16 10:00 82 10/17/16 09:58 40 10/17/16 09:58 100 40 10/17/16 08:00 87 10/17/16 08:00 99.5 87 18 107/57 100 10/17/16 08:00 40 10/17/16 06:00 92 10/17/16 04:00 40 10/17/16 04:00 99.2 94 21 121/50 100 10/17/16 04:00 94 10/17/16 03:30 95 50 10/17/16 02:00 94 10/17/16 00:00 98.6 101 24 122/46 96 10/17/16 00:00 40 10/17/16 00:00 101 10/16/16 22:00 99 40 10/16/16 22:00 103 10/16/16 20:00 40 10/16/16 20:00 99.6 97 23 134/43 93 10/16/16 20:00 97 10/16/16 18:00 105 10/16/16 16:00 100.1 101 28 131/55 100 10/16/16 16:00 40 10/16/16 16:00 101 10/16/16 15:56 98 40 10/16/16 14:00 106 I/O 10/16/16 10/16/16 10/16/16 10/17/16 10/17/16 10/17/16 07:00 15:00 23:00 07:00 15:00 23:00 Intake Total 1610 ml 1150 ml 1340 ml 1460 ml Output Total 1535 ml 2120 ml 1020 ml 1250 ml Balance 75 ml -970 ml 320 ml 210 ml IV Total 1550 ml 1050 ml 1000 ml 1000 ml Tube Feeding 240 ml 400 ml Other 60 ml 100 ml 100 ml 60 ml Output Urine Total 1500 ml 2050 ml 1000 ml 1250 ml Drainage Total 35 ml 70 ml 20 ml # Bowel Movements 1 3 1 1 Physical Exam GENERAL: In NAD SKIN: Warm and dry. HEAD: Normocephalic. EYES: No scleral icterus. No injection or drainage. NECK: Supple, trachea midline. No JVD or lymphadenopathy. CARDIOVASCULAR: Regular rate and rhythm without murmurs, gallops, or rubs. RESPIRATORY: Breath sounds equal bilaterally. No accessory muscle use. GASTROINTESTINAL: Abdomen soft, non-tender, nondistended. MUSCULOSKELETAL: No cyanosis, or edema. Laboratory Laboratory Tests Test 10/16/16 10/16/16 10/17/16 10/17/16 14:14 20:00 02:00 06:40 Serum Osmolality 294 MOSM/KG 298 MOSM/KG 297 MOSM/KG 294 MOSM/KG White Blood Count 13.1 TH/MM3 Red Blood Count 2.59 MIL/MM3 Hemoglobin 8.1 GM/DL Hematocrit 22.8 % Mean Corpuscular Volume 88.0 FL Mean Corpuscular Hemoglobin 31.4 PG Mean Corpuscular Hemoglobin 35.6 % Concent Red Cell Distribution Width 13.8 % Platelet Count 198 TH/MM3 Mean Platelet Volume 7.7 FL Neutrophils (%) (Auto) 77.6 % Lymphocytes (%) (Auto) 12.8 % Monocytes (%) (Auto) 7.1 % Eosinophils (%) (Auto) 2.3 % Basophils (%) (Auto) 0.2 % Neutrophils # (Auto) 10.2 TH/MM3 Lymphocytes # (Auto) 1.7 TH/MM3 Monocytes # (Auto) 0.9 TH/MM3 Eosinophils # (Auto) 0.3 TH/MM3 Basophils # (Auto) 0.0 TH/MM3 CBC Comment DIFF FINAL Differential Comment Sodium Level 141 MEQ/L Potassium Level 4.0 MEQ/L Chloride Level 107 MEQ/L Carbon Dioxide Level 25.8 MEQ/L Anion Gap 8 MEQ/L Blood Urea Nitrogen 13 MG/DL Creatinine 0.49 MG/DL Estimat Glomerular Filtration 167 ML/MIN Rate Random Glucose 129 MG/DL Calcium Level 7.7 MG/DL Phosphorus Level 2.2 MG/DL Magnesium Level 1.9 MG/DL Imaging Last Impressions Chest X-Ray 10/16/16 0600 Signed Impressions: Service Date/Time: Sunday, October 16, 2016 04:09 - CONCLUSION: Tubes and catheters in good position. Mild bibasilar atelectasis. Bonifacio Mata MD Head CT 10/14/16 0000 Signed Impressions: Service Date/Time: Friday, October 14, 2016 17:14 - CONCLUSION: 1. Post surgical features of frontoparietal craniotomy with surgical drain in place. Left subdural collection of air and blood products measuring up to 1 cm with slight subfalcine shift to the right without significant transtentorial herniation. 2. Lateral ventricles are stable in size. Juan M Samson MD Lower Extremity Ultrasound 10/11/16 0000 Signed Impressions: Service Date/Time: Tuesday, October 11, 2016 14:13 - CONCLUSION: Negative exam. No sonographic or Doppler findings of deep venous thrombosis bilaterally. Pola Jones MD Brain MRI 10/10/16 1839 Signed Impressions: Service Date/Time: Monday, October 10, 2016 20:45 - CONCLUSION: 1. Large extra-axial mass along the high left parietal convexity in the extra-axial space measuring 5.7 x 3.6 x 4.4 cm possibly representing a meningioma versus less likely metastatic disease. No old studies for comparison. There is some minimal vasogenic edema in left parietal lobe. There is slight left to right midline shift of 8 mm. 2. 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 Austen Yates MD Assessment and Plan Problem List: (1) Meningioma (2) CAD (coronary artery disease) (3) Preoperative cardiovascular examination Assessment and Plan Weaned and extubated, no cardiac issues. Stable from cardiac standpoint. Continue current program. Increase activity. Jaqui Stanton MD Oct 17, 2016 13:36
--- NOTE | 2016-10-17 15:43 | HHI.NSPN ---
(Destini Otero) Note Status Status: Progress Note (Destini Otero) Interval History Interval History Mr. Hazel is a 71-year-old male who has a history of a left hemisphere meningioma. Apparently the mass was small and asymotimatic but he now presents with frequent seizures and right side hemiplegia. He states he has had several episodes where he loses consciousness. Her has jerking on the right side as well. He denies tongue bitting. He denies incontinence of stool or urine. He has a history of known left hemisphere meningioma. He was complaining of increasing right-sided weakness. He had an MRI of the brain done in August which revealed increased size of the left hemisphere meningioma with surrounding edema. He has a history about 20 years ago of a right hemisphere meningioma at that was resected. He had severe cervical spinal stenosis and he underwent a cervical laminectomy with Dr Brasher. Neurosurgical consultation was requested. 10/12: doing well, no new complaints, neuro sx unchanged. 10/13: stable overnight, to OR tomorrow for mass resection 10/17: s/p left craniotomy for resection of meningioma 10/14/16. remains intubated, minimal eye opening. (Destini Otero) Labs, Micro, & Vital Signs Results Date Time Temp Pulse Resp B/P Pulse Ox O2 Delivery O2 Flow Rate FiO2 10/17/16 14:00 82 10/17/16 12:00 78 10/17/16 12:00 98.3 78 19 143/56 97 10/17/16 11:20 100 Nasal Cannula 2 10/17/16 10:00 82 10/17/16 09:58 40 10/17/16 09:58 100 40 10/17/16 08:00 87 10/17/16 08:00 99.5 87 18 107/57 100 10/17/16 08:00 40 10/17/16 06:00 92 10/17/16 04:00 40 10/17/16 04:00 99.2 94 21 121/50 100 10/17/16 04:00 94 10/17/16 03:30 95 50 10/17/16 02:00 94 10/17/16 00:00 98.6 101 24 122/46 96 10/17/16 00:00 40 10/17/16 00:00 101 10/16/16 22:00 99 40 10/16/16 22:00 103 10/16/16 20:00 40 10/16/16 20:00 99.6 97 23 134/43 93 10/16/16 20:00 97 10/16/16 18:00 105 10/16/16 16:00 100.1 101 28 131/55 100 10/16/16 16:00 40 10/16/16 16:00 101 10/16/16 15:56 98 40 10/17/16 06:59 Intake Total 3950 ml Output Total 4390 ml Balance -440 ml Constitutional Vital Signs Date Time Temp Pulse Resp B/P Pulse Ox O2 Delivery O2 Flow Rate FiO2 10/17/16 14:00 82 10/17/16 12:00 78 10/17/16 12:00 98.3 78 19 143/56 97 10/17/16 11:20 100 Nasal Cannula 2 10/17/16 10:00 82 10/17/16 09:58 40 10/17/16 09:58 100 40 10/17/16 08:00 87 10/17/16 08:00 99.5 87 18 107/57 100 10/17/16 08:00 40 10/17/16 06:00 92 10/17/16 04:00 40 10/17/16 04:00 99.2 94 21 121/50 100 10/17/16 04:00 94 10/17/16 03:30 95 50 10/17/16 02:00 94 10/17/16 00:00 98.6 101 24 122/46 96 10/17/16 00:00 40 10/17/16 00:00 101 10/16/16 22:00 99 40 10/16/16 22:00 103 10/16/16 20:00 40 10/16/16 20:00 99.6 97 23 134/43 93 10/16/16 20:00 97 10/16/16 18:00 105 10/16/16 16:00 100.1 101 28 131/55 100 10/16/16 16:00 40 10/16/16 16:00 101 10/16/16 15:56 98 40 10/17/16 06:59 Intake Total 3950 ml Output Total 4390 ml Balance -440 ml (Destini Otero) Review of Systems/Exam Exam Mr. Hazel is intubated, sedated on Precedex. mildly opens eyes. Currently not following commands. Left wound clean with dressing in place. FRANKIE drain in place. CN: pupils equal (Destini Otero) Medications Current Medications Current Medications Medications (Trade) Dose Ordered Sig/Hussein Route PRN Reason Start Time Stop Time Status Last Admin Dose Admin Dexamethasone Sodium Phosphate (Decadron Inj) 4 mg Q6HR IV PUSH 10/10/16 18:45 10/17/16 13:03 Lorazepam (Ativan Inj) 1 mg Q4H PRN IV PUSH SEIZURES 10/10/16 19:15 Naloxone HCl (Narcan Inj) 0.4 mg UNSCH PRN IV SEE LABEL COMMENTS 10/10/16 20:30 Magnesium Hydroxide (Milk Of Magnesia Liq) 30 ml Q12H PRN PO MILD - MODERATE CONSTIPATION 10/10/16 20:30 Sennosides (Senokot) 17.2 mg Q12H PRN PO MODERATE - SEVERE CONSTIPATION 10/10/16 20:30 10/11/16 04:44 Bisacodyl (Dulcolax Supp) 10 mg DAILY PRN RECTAL SEVERE CONSITIPATION 10/10/16 20:30 Lactulose (Lactulose Liq) 30 ml DAILY PRN PO SEVERE CONSITIPATION 10/10/16 20:30 Alprazolam (Xanax) 0.5 mg Q6H PRN PO ANXIETY 10/10/16 20:30 10/15/16 21:13 Fentanyl (Duragesic 50 Mcg Patch.72 Hr) 1 patch Q3D T-DERMAL 10/10/16 22:00 Hold 10/12/16 04:17 Finasteride (Proscar) 5 mg HS PO 10/10/16 21:00 10/13/16 21:33 Folic Acid (Folate) 0.4 mg DAILY PO 10/11/16 09:00 10/17/16 08:46 Mirtazapine (Remeron) 15 mg HS PO 10/10/16 21:00 Hold 10/13/16 21:33 Terazosin HCl (Hytrin) 5 mg HS PO 10/10/16 21:00 10/15/16 21:13 Trazodone HCl (Desyrel) 200 mg HS PO 10/10/16 21:00 Hold 10/13/16 21:33 Zolpidem Tartrate (Ambien) 5 mg HS PRN PO INSOMNIA 10/10/16 20:30 Al Hydrox/Mg Hydrox/Simethicone (Mag-Al Plus Susp Liq) 30 ml Q6HR PRN PO HEARTBURN 10/10/16 20:30 Acetaminophen/ Butalbital/ Caffeine 1 tab 1 tab Q4H PRN PO HEADACHE 10/10/16 20:30 10/15/16 21:13 Fosphenytoin Sodium 100 mgpe/ Sodium Chloride 52 ml @ 208 mls/hr Q6H IV 10/10/16 22:00 10/17/16 08:46 Levetriacetam (Keppra 1000 Mg Inj) 100 ml @ 400 mls/hr Q8H IV 10/10/16 23:00 10/17/16 06:29 Pregabalin 150 mg 150 mg Q12HR PO 10/11/16 21:00 10/17/16 08:46 Potassium Chloride/Sodium Chloride (NS + KCl 20 Meq Inj) 1,000 ml @ 100 mls/hr Q10H IV 10/14/16 15:53 10/17/16 13:03 IV Flush (NS Flush) 2 ml UNSCH PRN IVF FLUSH AFTER USING IV ACCESS 10/14/16 16:00 IV Flush (NS Flush) 2 ml BID IVF 10/14/16 21:00 10/17/16 08:47 Docusate Sodium (Colace) 100 mg BID PO 10/14/16 21:00 10/15/16 09:31 Pantoprazole Sodium (Protonix) 40 mg DAILY PO 10/15/16 09:00 Pantoprazole Sodium (Protonix Inj) 40 mg DAILY IVP 10/15/16 09:00 10/17/16 08:46 Ondansetron HCl (Zofran Inj) 4 mg Q6H PRN IV NAUSEA OR VOMITING 10/14/16 16:00 Calcium Gluconate 1 gm 1 gm UNSCH PRN IV SEE LABEL COMMENTS 10/14/16 16:00 Magnesium Sulfate/ Sodium Chloride (Magnesium Sulfate Inj/NS Inj) 108 ml @ 108 mls/hr UNSCH PRN IV MAGNESIUM LESS THAN 2 10/14/16 16:00 Acetaminophen/ Hydrocodone Bitart ([place] 10-325 Mg) 1 tab Q4H PRN PO PAIN SCALE 1 TO 5 10/14/16 16:00 Acetaminophen/ Hydrocodone Bitart ([place] 10-325 Mg) 2 tab Q4H PRN PO PAIN SCALE 6 TO 10 10/14/16 16:00 Morphine Sulfate (Morphine Inj) 2 mg Q2H PRN IV PUSH PAIN SCALE 1 TO 6 10/14/16 16:00 Morphine Sulfate (Morphine Inj) 4 mg Q2H PRN IV PUSH PAIN SCALE 7 TO 10 10/14/16 16:00 Acetaminophen (Tylenol) 650 mg Q4H PRN PO TEMPERATURE > 101.5 F 10/14/16 16:00 Chlorhexidine Gluconate 15 ml 15 ml BID@08,20 MT 10/14/16 20:00 10/17/16 08:00 Propofol 100 ml @ 0 mls/hr TITRATE IV 10/14/16 16:45 10/15/16 00:51 Potassium Chloride 100 ml @ 50 mls/hr Q2H PRN IV For Potassium 2.8 - 3.2 mEq/L 10/14/16 16:45 Potassium Chloride (KCl 20 Meq Premix Inj) 100 ml @ 50 mls/hr Q2H PRN IV For Potassium 2.8 - 3.2 mEq/L 10/14/16 16:45 Potassium Bicarb/ Potassium Chloride 50 meq 50 meq UNSCH PRN PO For Potassium 3.3 - 3.5 mEq/L 10/14/16 16:45 Potassium Chloride 100 ml @ 25 mls/hr UNSCH PRN IV For Potassium 3.3 - 3.5 mEq/L 10/14/16 16:45 Potassium Chloride 100 ml @ 50 mls/hr Q2H PRN IV For Potassium 3.3 - 3.5 mEq/L 10/14/16 16:45 Magnesium Sulfate/ Sodium Chloride (Magnesium Sulfate Inj/NS Inj) 100 ml @ 50 mls/hr UNSCH PRN IV For Magnesium 0.9 - 1.1 mg/dL 10/14/16 16:45 Magnesium Oxide 800 mg 800 mg UNSCH PRN PO For Magnesium 1.2 - 1.6 mg/dL 10/14/16 16:45 Magnesium Sulfate/ Sodium Chloride (Magnesium Sulfate Inj/NS Inj) 100 ml @ 50 mls/hr UNSCH PRN IV For Magnesium 1.2 - 1.6 mg/dL 10/14/16 16:45 Potassium Phosphate 2000 mg 2,000 mg Q4H PRN PO For Phosphorus < 2.5 mg/dL 10/14/16 16:45 Sodium Phosphate/ Sodium Chloride (Sodium Phosphate Inj/NS 250 ml Inj) 250 ml @ 42 mls/hr UNSCH PRN IV For Phosphorus < 2.5 mg/dL 10/14/16 16:45 Potassium Phosphate 2000 mg 2,000 mg UNSCH PRN PO/TUBE SEE LABEL COMMENTS 10/14/16 16:45 Potassium Phosphate 30 mmol/ Sodium Chloride 260 ml @ 42 mls/hr UNSCH PRN IV SEE LABEL COMMENTS 10/14/16 16:45 Fentanyl Citrate 250 ml @ 0 mls/hr TITRATE IV 10/14/16 17:15 10/14/16 18:14 Norepinephrine Bitartrate (Levophed-Dextrose Drip) 250 ml @ 0 mls/hr TITRATE IV 10/14/16 17:45 10/15/16 23:30 Terbutaline Sulfate 1 mg 1 mg UNSCH PRN SQ For Extravasation 10/14/16 17:45 Phenylephrine HCl/ Dextrose (Neosynephrine Inj/D5W 500 ml Inj) 500 ml @ 0 mls/hr TITRATE IV 10/14/16 18:00 10/15/16 23:16 Terbutaline Sulfate (Brethine Inj) 1 mg UNSCH PRN SQ FOR EXTRAVASATION PROTOCOL 10/14/16 18:00 Mannitol (Mannitol Inj) 25 gm Q6H IV 10/15/16 21:00 10/17/16 08:46 (Destini Otero) Medical Decision Making MDM Remarks 71 y/o male with enlarging left frontal parietal meningioma causing significant mass effect with right hemiparesis and recurrent seizures s/p left craniotomy for resection of meningioma 10/14/16, history of previous resection of right meningioma (Destini Otero) Plan Plan Remarks cont vent weaning and extubate as tolerated, per critical care cleared to extubated from NRS standpoint cont serial neuro checks, dc FRANKIE drains tomorrow am, Dr. Damico dw Dr. Norman grain elevator clerk (Hill,Destini A. PA) Attending Statement The exam, history, and the medical decision-making described in the above note were completed with the assistance of the mid-level provider. I reviewed and agree with the findings presented. I attest that I had a [id number] encounter with the patient on the same day, and personally performed and documented my assessment and findings in the medical record. (En Damico MD) Destini Otero Oct 17, 2016 15:43 En Damico MD Oct 23, 2016 18:22
--- NOTE | 2016-10-17 20:55 | PD.CONS ---
[facility] Service Rehabilitation Medicine Consult Requested By Peyman Escalona M.D. Reason for Consult Comprehensive rehabilitation evaluation. Primary Care Physician Evangelista Maldonado DO History of Present Illness Toni Hazel is a 71-year-old male in [facility] 10/10/16 with history of left hemisphere meningioma who developed increasing right sided weakness. Brain MRI August 2015 showed increasing size of meningioma with surrounding edema. On 10/14/16 he underwent left frontoparietal craniotomy with resection of meningioma. Seizure medications have been adjusted. Patient is currently intubated and CPAP trials are in process working toward extubation. Review of Systems ROS Limitations: Clinical Condition, Intubated (Sedated) Past Family Social History Allergies: Coded Allergies: Ancef (Verified Allergy, Intermediate, Rash, 10/10/16) Past Medical History Cervical spondylosis Coronary artery disease Seizure disorder Chronic pain GERD Past Surgical History Resection of meningioma 1997 Cervical spine surgery Current Medications Current Medications Medications (Trade) Dose Ordered Sig/Hussein Route Start Time Stop Time Status Last Admin (Decadron Inj) 4 mg Q6HR IV PUSH 10/10/16 18:45 10/17/16 16:59 (Ativan Inj) 1 mg Q4H PRN IV PUSH 10/10/16 19:15 (Narcan Inj) 0.4 mg UNSCH PRN IV 10/10/16 20:30 (Milk Of Magnesia Liq) 30 ml Q12H PRN PO 10/10/16 20:30 (Senokot) 17.2 mg Q12H PRN PO 10/10/16 20:30 10/11/16 04:44 (Dulcolax Supp) 10 mg DAILY PRN RECTAL 10/10/16 20:30 (Lactulose Liq) 30 ml DAILY PRN PO 10/10/16 20:30 (Xanax) 0.5 mg Q6H PRN PO 10/10/16 20:30 10/15/16 21:13 (Duragesic 50 Mcg Patch.72 Hr) 1 patch Q3D T-DERMAL 10/10/16 22:00 Hold 10/12/16 04:17 (Proscar) 5 mg HS PO 10/10/16 21:00 10/13/16 21:33 (Folate) 0.4 mg DAILY PO 10/11/16 09:00 10/17/16 08:46 (Remeron) 15 mg HS PO 10/10/16 21:00 Hold 10/13/16 21:33 (Hytrin) 5 mg HS PO 10/10/16 21:00 10/15/16 21:13 (Desyrel) 200 mg HS PO 10/10/16 21:00 Hold 10/13/16 21:33 (Ambien) 5 mg HS PRN PO 10/10/16 20:30 (Mag-Al Plus Susp Liq) 30 ml Q6HR PRN PO 10/10/16 20:30 Acetaminophen/ Butalbital/ Caffeine 1 tab 1 tab Q4H PRN PO 10/10/16 20:30 10/15/16 21:13 Fosphenytoin Sodium 100 mgpe/ Sodium Chloride 52 ml @ 208 mls/hr Q6H IV 10/10/16 22:00 10/17/16 16:58 (Keppra 1000 Mg Inj) 100 ml @ 400 mls/hr Q8H IV 10/10/16 23:00 10/17/16 16:58 Pregabalin 150 mg 150 mg Q12HR PO 10/11/16 21:00 10/17/16 08:46 (NS + KCl 20 Meq Inj) 1,000 ml @ 100 mls/hr Q10H IV 10/14/16 15:53 10/17/16 13:03 (NS Flush) 2 ml UNSCH PRN IVF 10/14/16 16:00 (NS Flush) 2 ml BID IVF 10/14/16 21:00 10/17/16 08:47 (Colace) 100 mg BID PO 10/14/16 21:00 10/15/16 09:31 (Protonix) 40 mg DAILY PO 10/15/16 09:00 (Protonix Inj) 40 mg DAILY IVP 10/15/16 09:00 10/17/16 08:46 (Zofran Inj) 4 mg Q6H PRN IV 10/14/16 16:00 Calcium Gluconate 1 gm 1 gm UNSCH PRN IV 10/14/16 16:00 (Magnesium Sulfate Inj/NS Inj) 108 ml @ 108 mls/hr UNSCH PRN IV 10/14/16 16:00 ([place] 10-325 Mg) 1 tab Q4H PRN PO 10/14/16 16:00 ([place] 10-325 Mg) 2 tab Q4H PRN PO 10/14/16 16:00 (Morphine Inj) 2 mg Q2H PRN IV PUSH 10/14/16 16:00 (Morphine Inj) 4 mg Q2H PRN IV PUSH 10/14/16 16:00 (Tylenol) 650 mg Q4H PRN PO 10/14/16 16:00 Chlorhexidine Gluconate 15 ml 15 ml BID@08,20 MT 10/14/16 20:00 10/17/16 08:00 Propofol 100 ml @ 0 mls/hr TITRATE IV 10/14/16 16:45 10/15/16 00:51 Potassium Chloride 100 ml @ 50 mls/hr Q2H PRN IV 10/14/16 16:45 (KCl 20 Meq Premix Inj) 100 ml @ 50 mls/hr Q2H PRN IV 10/14/16 16:45 Potassium Bicarb/ Potassium Chloride 50 meq 50 meq UNSCH PRN PO 10/14/16 16:45 Potassium Chloride 100 ml @ 25 mls/hr UNSCH PRN IV 10/14/16 16:45 Potassium Chloride 100 ml @ 50 mls/hr Q2H PRN IV 10/14/16 16:45 (Magnesium Sulfate Inj/NS Inj) 100 ml @ 50 mls/hr UNSCH PRN IV 10/14/16 16:45 Magnesium Oxide 800 mg 800 mg UNSCH PRN PO 10/14/16 16:45 (Magnesium Sulfate Inj/NS Inj) 100 ml @ 50 mls/hr UNSCH PRN IV 10/14/16 16:45 Potassium Phosphate 2000 mg 2,000 mg Q4H PRN PO 10/14/16 16:45 (Sodium Phosphate Inj/NS 250 ml Inj) 250 ml @ 42 mls/hr UNSCH PRN IV 10/14/16 16:45 Potassium Phosphate 2000 mg 2,000 mg UNSCH PRN PO/TUBE 10/14/16 16:45 Potassium Phosphate 30 mmol/ Sodium Chloride 260 ml @ 42 mls/hr UNSCH PRN IV 10/14/16 16:45 Fentanyl Citrate 250 ml @ 0 mls/hr TITRATE IV 10/14/16 17:15 10/14/16 18:14 (Levophed-Dextrose Drip) 250 ml @ 0 mls/hr TITRATE IV 10/14/16 17:45 10/15/16 23:30 Terbutaline Sulfate 1 mg 1 mg UNSCH PRN SQ 10/14/16 17:45 (Neosynephrine Inj/D5W 500 ml Inj) 500 ml @ 0 mls/hr TITRATE IV 10/14/16 18:00 10/15/16 23:16 (Brethine Inj) 1 mg UNSCH PRN SQ 10/14/16 18:00 (Mannitol Inj) 25 gm Q6H IV 10/15/16 21:00 10/17/16 16:58 Family History Unable to obtain Social History Prior to admission [facility] Exam I&O / VS 10/16/16 10/16/16 10/17/16 14:59 22:59 06:59 Intake Total 1150 ml 1340 ml 1460 ml Output Total 2120 ml 1020 ml 1250 ml Balance -970 ml 320 ml 210 ml IV Total 1050 ml 1000 ml 1000 ml Tube Feeding 240 ml 400 ml Other 100 ml 100 ml 60 ml Output Urine Total 2050 ml 1000 ml 1250 ml Drainage Total 70 ml 20 ml # Bowel Movements 3 1 1 Vital Signs Date Time Temp Pulse Resp B/P Pulse Ox O2 Delivery O2 Flow Rate FiO2 10/17/16 18:00 83 10/17/16 16:00 88 10/17/16 16:00 99.5 93 25 143/60 99 10/17/16 15:48 94 Nasal Cannula 2.00 10/17/16 14:00 82 10/17/16 12:00 78 10/17/16 12:00 98.3 78 19 143/56 97 10/17/16 11:20 100 Nasal Cannula 2 10/17/16 10:00 82 10/17/16 09:58 40 10/17/16 09:58 100 40 10/17/16 08:00 87 10/17/16 08:00 99.5 87 18 107/57 100 10/17/16 08:00 40 10/17/16 06:00 92 10/17/16 04:00 40 10/17/16 04:00 99.2 94 21 121/50 100 10/17/16 04:00 94 10/17/16 03:30 95 50 10/17/16 02:00 94 10/17/16 00:00 98.6 101 24 122/46 96 10/17/16 00:00 40 10/17/16 00:00 101 10/16/16 22:00 99 40 10/16/16 22:00 103 General: Intubated, Sedated Respiratory: Lungs CTA, Non-labored respirations, BS equal Gastrointestinal: Positive Bowel Sounds, Non-Distended Cardiovascular: Normal rate, Regular Rhythm Skin: Incision (intact; FRANKIE drain in place) Musculoskeletal: ROM (Grossly within normal limits), Other Orientation: unable to asses Self, unable to asses Place, unable to asses Time , unable to asses Situation Neurologic: Pupils (PERRLA), EOM (not focusing to voice but briefly opens eyes to tactile stem) Clonus: Negative Exam Comments SCDs in place Abdullahi in place Assessment and Plan Diagnosis: (1) Meningioma Assessment 1. Left hemisphere meningioma status post left frontal parietal craniectomy with resection 2. Seizure disorder 3. Cervical spondylosis status post surgery 4. Coronary artery disease 5. GERD 6. Chronic pain Plan 1. Physical therapy is mobilizing in now mod to max assist for bed mobility and transfers. Continue to mobilize as medical and neurological status allows 2. Occupational therapy is addressing ADLs and now mod assist for grooming 3. Speech therapy for swallow soft cognitive eval 4. Anticipate the patient will need ongoing rehabilitation at discharge. Will follow in conjunction with case management for level of care 5. SCDs are in place for DVT prophylaxis 6. Continue to reposition every 2 hours to protect skin 7. Will follow hospitalized and at discharge Thank you for this consult Flor Tirado MD Oct 17, 2016 20:55
[2016-10-17] MEDS: FINASTERIDE 5 MG TAB PO SCH (21:00)
[2016-10-17] MEDS: TERAZOSIN HCL 5 MG CAP PO SCH (21:00)
[2016-10-18] VITALS (14 sets, daily range): BP systolic 125–150; BP diastolic 46–62; PULSE 62–90; RESP 16–20; TEMP 98.5–100.2; O2SAT 94–100
[2016-10-18] MEDS: NS + KCL 20 MEQ INJ 1,000 ML IV SCH ×2 (00:10→08:07)
[2016-10-18] MEDS: DEXAMETHASONE SOD PHOS 4 MG/ML VIAL IV PUSH SCH ×5 (00:11→23:50)
[2016-10-18] MEDS: FOSPHENYTOIN INJ 100 MGPE in SODIUM CHLORIDE 0.9% INJ 50 ML IV SCH ×4 (04:08→21:27)
[2016-10-18] MEDS: MANNITOL 12.5 GM/50 ML VIAL IV SCH ×4 (04:08→23:56)
[2016-10-18 05:28] LABS: BICARBONATE 24.9 MEQ/L (21.0-32.0); POTASSIUM 4.3 MEQ/L (3.5-5.1)
[2016-10-18 05:41] LABS: BASOPHIL % 0.2 % (0.0-2.0); EOSINOPHIL # 0.1 TH/MM3 (0-0.4); EOSINOPHIL % 0.8 % (0.0-4.0); HEMATOCRIT 23.3 % (39.0-51.0); HEMO FLAGS DIFF FINAL; LYMPH % 10.4 % (9.0-44.0); LYMPHOCYTE # 1.3 TH/MM3 (1.0-4.8); MEAN CELL VOLUME 89.1 FL (80.0-100.0); MEAN CORPUSCULAR HEMOGLOBIN 30.1 PG (27.0-34.0); MEAN CORPUSCULAR HGB CONC 33.8 % (32.0-36.0); MONO % 5.6 % (0.0-8.0); PLATELET COUNT 234 TH/MM3 (150-450); RED BLOOD COUNT 2.61 MIL/MM3 (4.50-5.90)
[2016-10-18] MEDS: levETIRAcetam 1000 MG INJ 100 ML IV SCH ×3 (06:17→22:47)
[2016-10-18] MEDS: CHLORHEXIDINE 0.12% (ORAL KIT) 15 ML CUP MT SCH ×2 (08:00→20:00)
[2016-10-18] MEDS: SODIUM CHLORIDE 0.9% FLUSH 5 ML FLUSH IVF SCH ×2 (08:06→21:00)
[2016-10-18] MEDS: PANTOPRAZOLE SODIUM 40 MG VIAL IVP SCH (08:07)
[2016-10-18] MEDS: PANTOPRAZOLE SOD 40 MG DELAYED RELEASE TAB PO SCH (08:58)
[2016-10-18] MEDS: DOCUSATE SODIUM 100 MG CAP PO SCH ×2 (08:59→21:26)
[2016-10-18] MEDS: FOLIC ACID 1 MG TAB PO SCH (08:59)
[2016-10-18] MEDS: PREGABALIN 75 MG CAP PO SCH ×2 (08:59→21:26)
--- NOTE | 2016-10-18 09:42 | HHI.PR ---
Subjective Remarks Patient extubated yesterday tolerated well. Speech evaluation ordered today to start diet Objective Vital Signs Date Time Temp Pulse Resp B/P Pulse Ox O2 Delivery O2 Flow Rate FiO2 10/18/16 08:25 94 Nasal Cannula 2.00 10/18/16 08:00 74 10/18/16 06:00 62 10/18/16 04:00 98.8 68 16 150/59 100 10/18/16 04:00 63 10/18/16 02:00 78 10/18/16 00:00 99.8 79 16 125/46 97 10/18/16 00:00 79 10/17/16 22:00 79 10/17/16 20:00 99.5 81 16 125/52 100 10/17/16 20:00 77 10/17/16 18:00 83 10/17/16 16:00 88 10/17/16 16:00 99.5 93 25 143/60 99 10/17/16 15:48 94 Nasal Cannula 2.00 10/17/16 14:00 82 10/17/16 12:00 78 10/17/16 12:00 98.3 78 19 143/56 97 10/17/16 11:20 100 Nasal Cannula 2 10/17/16 10:00 82 10/17/16 09:58 40 10/17/16 09:58 100 40 I/O 10/17/16 10/17/16 10/17/16 10/18/16 10/18/16 10/18/16 07:00 15:00 23:00 07:00 15:00 23:00 Intake Total 1460 ml 1393 ml 1000 ml 500 ml Output Total 1250 ml 2120 ml 1705 ml 1205 ml Balance 210 ml -727 ml -705 ml -705 ml Intake Oral 0 ml 0 ml IV Total 1000 ml 1008 ml 1000 ml 500 ml Tube Feeding 400 ml 285 ml Other 60 ml 100 ml Output Urine Total 1250 ml 2100 ml 1700 ml 1200 ml Drainage Total 20 ml 5 ml 5 ml # Bowel Movements 1 1 0 0 Result Diagram: 10/18/1642910/18/16 0430 Procedures recent crainotomy Objective Remarks GENERAL: Alert SKIN: Warm and dry. Staple incision on head HEAD: Normocephalic. EYES: No scleral icterus. No injection or drainage. NECK: Supple, trachea midline. No JVD or lymphadenopathy. CARDIOVASCULAR: Regular rate and rhythm without murmurs, gallops, or rubs. Right lower leg edema RESPIRATORY: Breath sounds equal bilaterally. No accessory muscle use. GASTROINTESTINAL: Abdomen soft, non-tender, nondistended. MUSCULOSKELETAL: No cyanosis, or edema. BACK: Nontender without obvious deformity. No CVA tenderness. Medications and IVs Current Medications Medications (Trade) Dose Ordered Sig/Hussein Route Start Time Stop Time Status Last Admin (Decadron Inj) 4 mg Q6HR IV PUSH 10/10/16 18:45 10/18/16 05:50 (Ativan Inj) 1 mg Q4H PRN IV PUSH 10/10/16 19:15 (Narcan Inj) 0.4 mg UNSCH PRN IV 10/10/16 20:30 (Milk Of Magnesia Liq) 30 ml Q12H PRN PO 10/10/16 20:30 (Senokot) 17.2 mg Q12H PRN PO 10/10/16 20:30 10/11/16 04:44 (Dulcolax Supp) 10 mg DAILY PRN RECTAL 10/10/16 20:30 (Lactulose Liq) 30 ml DAILY PRN PO 10/10/16 20:30 (Xanax) 0.5 mg Q6H PRN PO 10/10/16 20:30 10/15/16 21:13 (Duragesic 50 Mcg Patch.72 Hr) 1 patch Q3D T-DERMAL 10/10/16 22:00 Hold 10/12/16 04:17 (Proscar) 5 mg HS PO 10/10/16 21:00 10/13/16 21:33 (Folate) 0.4 mg DAILY PO 10/11/16 09:00 10/18/16 08:59 (Remeron) 15 mg HS PO 10/10/16 21:00 Hold 10/13/16 21:33 (Hytrin) 5 mg HS PO 10/10/16 21:00 10/15/16 21:13 (Desyrel) 200 mg HS PO 10/10/16 21:00 Hold 10/13/16 21:33 (Ambien) 5 mg HS PRN PO 10/10/16 20:30 (Mag-Al Plus Susp Liq) 30 ml Q6HR PRN PO 10/10/16 20:30 Acetaminophen/ Butalbital/ Caffeine 1 tab 1 tab Q4H PRN PO 10/10/16 20:30 10/15/16 21:13 Fosphenytoin Sodium 100 mgpe/ Sodium Chloride 52 ml @ 208 mls/hr Q6H IV 10/10/16 22:00 10/18/16 08:11 (Keppra 1000 Mg Inj) 100 ml @ 400 mls/hr Q8H IV 10/10/16 23:00 10/18/16 06:17 Pregabalin 150 mg 150 mg Q12HR PO 10/11/16 21:00 10/18/16 08:59 (NS + KCl 20 Meq Inj) 1,000 ml @ 100 mls/hr Q10H IV 10/14/16 15:53 10/18/16 08:07 (NS Flush) 2 ml UNSCH PRN IVF 10/14/16 16:00 (NS Flush) 2 ml BID IVF 10/14/16 21:00 10/18/16 08:06 (Colace) 100 mg BID PO 10/14/16 21:00 10/18/16 08:59 (Protonix) 40 mg DAILY PO 10/15/16 09:00 10/18/16 08:58 (Protonix Inj) 40 mg DAILY IVP 10/15/16 09:00 10/18/16 08:07 (Zofran Inj) 4 mg Q6H PRN IV 10/14/16 16:00 Calcium Gluconate 1 gm 1 gm UNSCH PRN IV 10/14/16 16:00 (Magnesium Sulfate Inj/NS Inj) 108 ml @ 108 mls/hr UNSCH PRN IV 10/14/16 16:00 ([place] 10-325 Mg) 1 tab Q4H PRN PO 10/14/16 16:00 ([place] 10-325 Mg) 2 tab Q4H PRN PO 10/14/16 16:00 (Morphine Inj) 2 mg Q2H PRN IV PUSH 10/14/16 16:00 (Morphine Inj) 4 mg Q2H PRN IV PUSH 10/14/16 16:00 (Tylenol) 650 mg Q4H PRN PO 10/14/16 16:00 Chlorhexidine Gluconate 15 ml 15 ml BID@08,20 MT 10/14/16 20:00 10/17/16 08:00 Propofol 100 ml @ 0 mls/hr TITRATE IV 10/14/16 16:45 10/15/16 00:51 Potassium Chloride 100 ml @ 50 mls/hr Q2H PRN IV 10/14/16 16:45 (KCl 20 Meq Premix Inj) 100 ml @ 50 mls/hr Q2H PRN IV 10/14/16 16:45 Potassium Bicarb/ Potassium Chloride 50 meq 50 meq UNSCH PRN PO 10/14/16 16:45 Potassium Chloride 100 ml @ 25 mls/hr UNSCH PRN IV 10/14/16 16:45 Potassium Chloride 100 ml @ 50 mls/hr Q2H PRN IV 10/14/16 16:45 (Magnesium Sulfate Inj/NS Inj) 100 ml @ 50 mls/hr UNSCH PRN IV 10/14/16 16:45 Magnesium Oxide 800 mg 800 mg UNSCH PRN PO 10/14/16 16:45 (Magnesium Sulfate Inj/NS Inj) 100 ml @ 50 mls/hr UNSCH PRN IV 10/14/16 16:45 Potassium Phosphate 2000 mg 2,000 mg Q4H PRN PO 10/14/16 16:45 (Sodium Phosphate Inj/NS 250 ml Inj) 250 ml @ 42 mls/hr UNSCH PRN IV 10/14/16 16:45 Potassium Phosphate 2000 mg 2,000 mg UNSCH PRN PO/TUBE 10/14/16 16:45 Potassium Phosphate 30 mmol/ Sodium Chloride 260 ml @ 42 mls/hr UNSCH PRN IV 10/14/16 16:45 Fentanyl Citrate 250 ml @ 0 mls/hr TITRATE IV 10/14/16 17:15 10/14/16 18:14 (Levophed-Dextrose Drip) 250 ml @ 0 mls/hr TITRATE IV 10/14/16 17:45 10/15/16 23:30 Terbutaline Sulfate 1 mg 1 mg UNSCH PRN SQ 10/14/16 17:45 (Neosynephrine Inj/D5W 500 ml Inj) 500 ml @ 0 mls/hr TITRATE IV 10/14/16 18:00 10/15/16 23:16 (Brethine Inj) 1 mg UNSCH PRN SQ 10/14/16 18:00 (Mannitol Inj) 25 gm Q6H IV 10/15/16 21:00 10/18/16 04:08 Assessment and Plan Problem List: (1) Seizure disorder Status: Acute Plan: Neurology consulted and managing. On fosphenytoin and Keppra. (2) Brain tumor Status: Acute Plan: Neurosurgeon consulted and managing. On Decadron. PT and OT reconsulted Craniotomy done on the . Drains in place with minimal drainage. Mansoor intact (3) GERD (gastroesophageal reflux disease) Status: Acute Plan: Continue PPI patient is asymptomatic (4) Chronic pain Status: Chronic Plan: Continue current regimen pain well controlled (5) Leg edema, right Status: Acute Plan: US ordered negative for DVT. History of non occlusive DVT in 2015. (6) Anemia Status: Acute Plan: HGB 7.9. Trending slightly lower will monitor and recheck in AM. No active signs of bleeding Assessment and Plan Assessment and plan discussed with Dr. Erica BUCKNER Discussed Condition With Nursing Discharge Planning Eli or SNF Physician Attestation I and the [employer] have both examined this patient and reviewed this note and I agree with these findings and plan of care. Estelle Rincon. [facility] Oct 18, 2016 09:41
--- NOTE | 2016-10-18 13:06 | HHI.NSPN ---
(Destini Otero) Note Status Status: Progress Note (Destini Otero) Interval History Interval History Mr. Hazel is a 71-year-old male who has a history of a left hemisphere meningioma. Apparently the mass was small and asymotimatic but he now presents with frequent seizures and right side hemiplegia. He states he has had several episodes where he loses consciousness. Her has jerking on the right side as well. He denies tongue bitting. He denies incontinence of stool or urine. He has a history of known left hemisphere meningioma. He was complaining of increasing right-sided weakness. He had an MRI of the brain done in August which revealed increased size of the left hemisphere meningioma with surrounding edema. He has a history about 20 years ago of a right hemisphere meningioma at that was resected. He had severe cervical spinal stenosis and he underwent a cervical laminectomy with Dr Brasher. Neurosurgical consultation was requested. 10/12: doing well, no new complaints, neuro sx unchanged. 10/13: stable overnight, to OR tomorrow for mass resection 10/17: s/p left craniotomy for resection of meningioma 10/14/16. remains intubated, minimal eye opening. 10/18: extubated, smiling. oriented to name and place. (Destini Otero) Labs, Micro, & Vital Signs Results Date Time Temp Pulse Resp B/P Pulse Ox O2 Delivery O2 Flow Rate FiO2 10/18/16 12:00 80 10/18/16 12:00 99.5 80 16 141/52 99 10/18/16 10:00 74 10/18/16 08:25 94 Nasal Cannula 2.00 10/18/16 08:00 74 10/18/16 08:00 98.5 70 19 130/46 98 10/18/16 06:00 62 10/18/16 04:00 98.8 68 16 150/59 100 10/18/16 04:00 63 10/18/16 02:00 78 10/18/16 00:00 99.8 79 16 125/46 97 10/18/16 00:00 79 10/17/16 22:00 79 10/17/16 20:00 99.5 81 16 125/52 100 10/17/16 20:00 77 10/17/16 18:00 83 10/17/16 16:00 88 10/17/16 16:00 99.5 93 25 143/60 99 10/17/16 15:48 94 Nasal Cannula 2.00 10/17/16 14:00 82 10/18/16 07:00 Intake Total 2893 ml Output Total 5030 ml Balance -2137 ml Constitutional Vital Signs Date Time Temp Pulse Resp B/P Pulse Ox O2 Delivery O2 Flow Rate FiO2 10/18/16 12:00 80 10/18/16 12:00 99.5 80 16 141/52 99 10/18/16 10:00 74 10/18/16 08:25 94 Nasal Cannula 2.00 10/18/16 08:00 74 10/18/16 08:00 98.5 70 19 130/46 98 10/18/16 06:00 62 10/18/16 04:00 98.8 68 16 150/59 100 10/18/16 04:00 63 10/18/16 02:00 78 10/18/16 00:00 99.8 79 16 125/46 97 10/18/16 00:00 79 10/17/16 22:00 79 10/17/16 20:00 99.5 81 16 125/52 100 10/17/16 20:00 77 10/17/16 18:00 83 10/17/16 16:00 88 10/17/16 16:00 99.5 93 25 143/60 99 10/17/16 15:48 94 Nasal Cannula 2.00 10/17/16 14:00 82 10/18/16 07:00 Intake Total 2893 ml Output Total 5030 ml Balance -2137 ml (Destini Otero) Review of Systems/Exam Exam Mr. Hazel is extubated. Awake, smiling. Oriented to name and place. Followed only 1-2 commands. Wound is healing well. FRANKIE drains x [address] CN: pupils equal Motor: raised left upper extremity off the bed, minimal movement in LE's, 0/5 in right arm (Destini Otero) Medications Current Medications Current Medications Medications (Trade) Dose Ordered Sig/Hussein Route PRN Reason Start Time Stop Time Status Last Admin Dose Admin Dexamethasone Sodium Phosphate (Decadron Inj) 4 mg Q6HR IV PUSH 10/10/16 18:45 10/18/16 11:59 Lorazepam (Ativan Inj) 1 mg Q4H PRN IV PUSH SEIZURES 10/10/16 19:15 Naloxone HCl (Narcan Inj) 0.4 mg UNSCH PRN IV SEE LABEL COMMENTS 10/10/16 20:30 Magnesium Hydroxide (Milk Of Magnesia Liq) 30 ml Q12H PRN PO MILD - MODERATE CONSTIPATION 10/10/16 20:30 Sennosides (Senokot) 17.2 mg Q12H PRN PO MODERATE - SEVERE CONSTIPATION 10/10/16 20:30 10/11/16 04:44 Bisacodyl (Dulcolax Supp) 10 mg DAILY PRN RECTAL SEVERE CONSITIPATION 10/10/16 20:30 Lactulose (Lactulose Liq) 30 ml DAILY PRN PO SEVERE CONSITIPATION 10/10/16 20:30 Alprazolam (Xanax) 0.5 mg Q6H PRN PO ANXIETY 10/10/16 20:30 10/15/16 21:13 Fentanyl (Duragesic 50 Mcg Patch.72 Hr) 1 patch Q3D T-DERMAL 10/10/16 22:00 Hold 10/12/16 04:17 Finasteride (Proscar) 5 mg HS PO 10/10/16 21:00 10/13/16 21:33 Folic Acid (Folate) 0.4 mg DAILY PO 10/11/16 09:00 10/18/16 08:59 Mirtazapine (Remeron) 15 mg HS PO 10/10/16 21:00 Hold 10/13/16 21:33 Terazosin HCl (Hytrin) 5 mg HS PO 10/10/16 21:00 10/15/16 21:13 Trazodone HCl (Desyrel) 200 mg HS PO 10/10/16 21:00 Hold 10/13/16 21:33 Zolpidem Tartrate (Ambien) 5 mg HS PRN PO INSOMNIA 10/10/16 20:30 Al Hydrox/Mg Hydrox/Simethicone (Mag-Al Plus Susp Liq) 30 ml Q6HR PRN PO HEARTBURN 10/10/16 20:30 Acetaminophen/ Butalbital/ Caffeine 1 tab 1 tab Q4H PRN PO HEADACHE 10/10/16 20:30 10/15/16 21:13 Fosphenytoin Sodium 100 mgpe/ Sodium Chloride 52 ml @ 208 mls/hr Q6H IV 10/10/16 22:00 10/18/16 08:11 Levetriacetam (Keppra 1000 Mg Inj) 100 ml @ 400 mls/hr Q8H IV 10/10/16 23:00 10/18/16 06:17 Pregabalin 150 mg 150 mg Q12HR PO 10/11/16 21:00 10/18/16 08:59 Potassium Chloride/Sodium Chloride (NS + KCl 20 Meq Inj) 1,000 ml @ 100 mls/hr Q10H IV 10/14/16 15:53 10/18/16 08:07 IV Flush (NS Flush) 2 ml UNSCH PRN IVF FLUSH AFTER USING IV ACCESS 10/14/16 16:00 IV Flush (NS Flush) 2 ml BID IVF 10/14/16 21:00 10/18/16 08:06 Docusate Sodium (Colace) 100 mg BID PO 10/14/16 21:00 10/18/16 08:59 Pantoprazole Sodium (Protonix) 40 mg DAILY PO 10/15/16 09:00 10/18/16 08:58 Pantoprazole Sodium (Protonix Inj) 40 mg DAILY IVP 10/15/16 09:00 10/18/16 08:07 Ondansetron HCl (Zofran Inj) 4 mg Q6H PRN IV NAUSEA OR VOMITING 10/14/16 16:00 Calcium Gluconate 1 gm 1 gm UNSCH PRN IV SEE LABEL COMMENTS 10/14/16 16:00 Magnesium Sulfate/ Sodium Chloride (Magnesium Sulfate Inj/NS Inj) 108 ml @ 108 mls/hr UNSCH PRN IV MAGNESIUM LESS THAN 2 10/14/16 16:00 Acetaminophen/ Hydrocodone Bitart ([place] 10-325 Mg) 1 tab Q4H PRN PO PAIN SCALE 1 TO 5 10/14/16 16:00 Acetaminophen/ Hydrocodone Bitart ([place] 10-325 Mg) 2 tab Q4H PRN PO PAIN SCALE 6 TO 10 10/14/16 16:00 Morphine Sulfate (Morphine Inj) 2 mg Q2H PRN IV PUSH PAIN SCALE 1 TO 6 10/14/16 16:00 Morphine Sulfate (Morphine Inj) 4 mg Q2H PRN IV PUSH PAIN SCALE 7 TO 10 10/14/16 16:00 Acetaminophen (Tylenol) 650 mg Q4H PRN PO TEMPERATURE > 101.5 F 10/14/16 16:00 Chlorhexidine Gluconate 15 ml 15 ml BID@08,20 MT 10/14/16 20:00 10/17/16 08:00 Propofol 100 ml @ 0 mls/hr TITRATE IV 10/14/16 16:45 10/15/16 00:51 Potassium Chloride 100 ml @ 50 mls/hr Q2H PRN IV For Potassium 2.8 - 3.2 mEq/L 10/14/16 16:45 Potassium Chloride (KCl 20 Meq Premix Inj) 100 ml @ 50 mls/hr Q2H PRN IV For Potassium 2.8 - 3.2 mEq/L 10/14/16 16:45 Potassium Bicarb/ Potassium Chloride 50 meq 50 meq UNSCH PRN PO For Potassium 3.3 - 3.5 mEq/L 10/14/16 16:45 Potassium Chloride 100 ml @ 25 mls/hr UNSCH PRN IV For Potassium 3.3 - 3.5 mEq/L 10/14/16 16:45 Potassium Chloride 100 ml @ 50 mls/hr Q2H PRN IV For Potassium 3.3 - 3.5 mEq/L 10/14/16 16:45 Magnesium Sulfate/ Sodium Chloride (Magnesium Sulfate Inj/NS Inj) 100 ml @ 50 mls/hr UNSCH PRN IV For Magnesium 0.9 - 1.1 mg/dL 10/14/16 16:45 Magnesium Oxide 800 mg 800 mg UNSCH PRN PO For Magnesium 1.2 - 1.6 mg/dL 10/14/16 16:45 Magnesium Sulfate/ Sodium Chloride (Magnesium Sulfate Inj/NS Inj) 100 ml @ 50 mls/hr UNSCH PRN IV For Magnesium 1.2 - 1.6 mg/dL 10/14/16 16:45 Potassium Phosphate 2000 mg 2,000 mg Q4H PRN PO For Phosphorus < 2.5 mg/dL 10/14/16 16:45 Sodium Phosphate/ Sodium Chloride (Sodium Phosphate Inj/NS 250 ml Inj) 250 ml @ 42 mls/hr UNSCH PRN IV For Phosphorus < 2.5 mg/dL 10/14/16 16:45 Potassium Phosphate 2000 mg 2,000 mg UNSCH PRN PO/TUBE SEE LABEL COMMENTS 10/14/16 16:45 Potassium Phosphate 30 mmol/ Sodium Chloride 260 ml @ 42 mls/hr UNSCH PRN IV SEE LABEL COMMENTS 10/14/16 16:45 Fentanyl Citrate 250 ml @ 0 mls/hr TITRATE IV 10/14/16 17:15 10/14/16 18:14 Norepinephrine Bitartrate (Levophed-Dextrose Drip) 250 ml @ 0 mls/hr TITRATE IV 10/14/16 17:45 10/15/16 23:30 Terbutaline Sulfate 1 mg 1 mg UNSCH PRN SQ For Extravasation 10/14/16 17:45 Phenylephrine HCl/ Dextrose (Neosynephrine Inj/D5W 500 ml Inj) 500 ml @ 0 mls/hr TITRATE IV 10/14/16 18:00 10/15/16 23:16 Terbutaline Sulfate (Brethine Inj) 1 mg UNSCH PRN SQ FOR EXTRAVASATION PROTOCOL 10/14/16 18:00 Mannitol (Mannitol Inj) 25 gm Q6H IV 10/15/16 21:00 10/18/16 09:50 (Destini Otero) Medical Decision Making MDM Remarks 71 y/o male with enlarging left frontal parietal meningioma causing significant mass effect with right hemiparesis and recurrent seizures s/p left craniotomy for resection of meningioma 10/14/16, history of previous resection of right meningioma (Destini Otero) Plan Plan Remarks dc FRANKIE drains today, cont medical mgt, serial neuro checks in [facility], PT, OT, ST (Destini Otero) Attending Statement The exam, history, and the medical decision-making described in the above note were completed with the assistance of the mid-level provider. I reviewed and agree with the findings presented. I attest that I had a [id number] encounter with the patient on the same day, and personally performed and documented my assessment and findings in the medical record. (En Damico MD) Destini Otero Oct 18, 2016 13:06 En Damico MD Oct 23, 2016 18:24
--- NOTE | 2016-10-18 14:16 | PD.CARD.PN ---
Subjective Subjective Remarks Current Medications Medications (Trade) Dose Ordered Sig/Hussein Route Start Time Stop Time Status Last Admin (Decadron Inj) 4 mg Q6HR IV PUSH 10/10/16 18:45 10/18/16 11:59 (Ativan Inj) 1 mg Q4H PRN IV PUSH 10/10/16 19:15 (Narcan Inj) 0.4 mg UNSCH PRN IV 10/10/16 20:30 (Milk Of Magnesia Liq) 30 ml Q12H PRN PO 10/10/16 20:30 (Senokot) 17.2 mg Q12H PRN PO 10/10/16 20:30 10/11/16 04:44 (Dulcolax Supp) 10 mg DAILY PRN RECTAL 10/10/16 20:30 (Lactulose Liq) 30 ml DAILY PRN PO 10/10/16 20:30 (Xanax) 0.5 mg Q6H PRN PO 10/10/16 20:30 10/15/16 21:13 (Duragesic 50 Mcg Patch.72 Hr) 1 patch Q3D T-DERMAL 10/10/16 22:00 Hold 10/12/16 04:17 (Proscar) 5 mg HS PO 10/10/16 21:00 10/13/16 21:33 (Folate) 0.4 mg DAILY PO 10/11/16 09:00 10/18/16 08:59 (Remeron) 15 mg HS PO 10/10/16 21:00 Hold 10/13/16 21:33 (Hytrin) 5 mg HS PO 10/10/16 21:00 10/15/16 21:13 (Desyrel) 200 mg HS PO 10/10/16 21:00 Hold 10/13/16 21:33 (Ambien) 5 mg HS PRN PO 10/10/16 20:30 (Mag-Al Plus Susp Liq) 30 ml Q6HR PRN PO 10/10/16 20:30 Acetaminophen/ Butalbital/ Caffeine 1 tab 1 tab Q4H PRN PO 10/10/16 20:30 10/15/16 21:13 Fosphenytoin Sodium 100 mgpe/ Sodium Chloride 52 ml @ 208 mls/hr Q6H IV 10/10/16 22:00 10/18/16 08:11 (Keppra 1000 Mg Inj) 100 ml @ 400 mls/hr Q8H IV 10/10/16 23:00 10/18/16 06:17 Pregabalin 150 mg 150 mg Q12HR PO 10/11/16 21:00 10/18/16 08:59 (NS + KCl 20 Meq Inj) 1,000 ml @ 100 mls/hr Q10H IV 10/14/16 15:53 10/18/16 08:07 (NS Flush) 2 ml UNSCH PRN IVF 10/14/16 16:00 (NS Flush) 2 ml BID IVF 10/14/16 21:00 10/18/16 08:06 (Colace) 100 mg BID PO 10/14/16 21:00 10/18/16 08:59 (Protonix) 40 mg DAILY PO 10/15/16 09:00 10/18/16 08:58 (Protonix Inj) 40 mg DAILY IVP 10/15/16 09:00 10/18/16 08:07 (Zofran Inj) 4 mg Q6H PRN IV 10/14/16 16:00 Calcium Gluconate 1 gm 1 gm UNSCH PRN IV 10/14/16 16:00 (Magnesium Sulfate Inj/NS Inj) 108 ml @ 108 mls/hr UNSCH PRN IV 10/14/16 16:00 ([place] 10-325 Mg) 1 tab Q4H PRN PO 10/14/16 16:00 ([place] 10-325 Mg) 2 tab Q4H PRN PO 10/14/16 16:00 (Morphine Inj) 2 mg Q2H PRN IV PUSH 10/14/16 16:00 (Morphine Inj) 4 mg Q2H PRN IV PUSH 10/14/16 16:00 (Tylenol) 650 mg Q4H PRN PO 10/14/16 16:00 Chlorhexidine Gluconate 15 ml 15 ml BID@08,20 MT 10/14/16 20:00 10/17/16 08:00 Propofol 100 ml @ 0 mls/hr TITRATE IV 10/14/16 16:45 10/15/16 00:51 Potassium Chloride 100 ml @ 50 mls/hr Q2H PRN IV 10/14/16 16:45 (KCl 20 Meq Premix Inj) 100 ml @ 50 mls/hr Q2H PRN IV 10/14/16 16:45 Potassium Bicarb/ Potassium Chloride 50 meq 50 meq UNSCH PRN PO 10/14/16 16:45 Potassium Chloride 100 ml @ 25 mls/hr UNSCH PRN IV 10/14/16 16:45 Potassium Chloride 100 ml @ 50 mls/hr Q2H PRN IV 10/14/16 16:45 (Magnesium Sulfate Inj/NS Inj) 100 ml @ 50 mls/hr UNSCH PRN IV 10/14/16 16:45 Magnesium Oxide 800 mg 800 mg UNSCH PRN PO 10/14/16 16:45 (Magnesium Sulfate Inj/NS Inj) 100 ml @ 50 mls/hr UNSCH PRN IV 10/14/16 16:45 Potassium Phosphate 2000 mg 2,000 mg Q4H PRN PO 10/14/16 16:45 (Sodium Phosphate Inj/NS 250 ml Inj) 250 ml @ 42 mls/hr UNSCH PRN IV 10/14/16 16:45 Potassium Phosphate 2000 mg 2,000 mg UNSCH PRN PO/TUBE 10/14/16 16:45 Potassium Phosphate 30 mmol/ Sodium Chloride 260 ml @ 42 mls/hr UNSCH PRN IV 10/14/16 16:45 Fentanyl Citrate 250 ml @ 0 mls/hr TITRATE IV 10/14/16 17:15 10/14/16 18:14 (Levophed-Dextrose Drip) 250 ml @ 0 mls/hr TITRATE IV 10/14/16 17:45 10/15/16 23:30 Terbutaline Sulfate 1 mg 1 mg UNSCH PRN SQ 10/14/16 17:45 (Neosynephrine Inj/D5W 500 ml Inj) 500 ml @ 0 mls/hr TITRATE IV 10/14/16 18:00 10/15/16 23:16 (Brethine Inj) 1 mg UNSCH PRN SQ 10/14/16 18:00 (Mannitol Inj) 25 gm Q6H IV 10/15/16 21:00 10/18/16 09:50 Objective Medications Current Medications Medications (Trade) Dose Ordered Sig/Hussein Route Start Time Stop Time Status Last Admin (Decadron Inj) 4 mg Q6HR IV PUSH 10/10/16 18:45 10/18/16 11:59 (Ativan Inj) 1 mg Q4H PRN IV PUSH 10/10/16 19:15 (Narcan Inj) 0.4 mg UNSCH PRN IV 10/10/16 20:30 (Milk Of Magnesia Liq) 30 ml Q12H PRN PO 10/10/16 20:30 (Senokot) 17.2 mg Q12H PRN PO 10/10/16 20:30 10/11/16 04:44 (Dulcolax Supp) 10 mg DAILY PRN RECTAL 10/10/16 20:30 (Lactulose Liq) 30 ml DAILY PRN PO 10/10/16 20:30 (Xanax) 0.5 mg Q6H PRN PO 10/10/16 20:30 10/15/16 21:13 (Duragesic 50 Mcg Patch.72 Hr) 1 patch Q3D T-DERMAL 10/10/16 22:00 Hold 10/12/16 04:17 (Proscar) 5 mg HS PO 10/10/16 21:00 10/13/16 21:33 (Folate) 0.4 mg DAILY PO 10/11/16 09:00 10/18/16 08:59 (Remeron) 15 mg HS PO 10/10/16 21:00 Hold 10/13/16 21:33 (Hytrin) 5 mg HS PO 10/10/16 21:00 10/15/16 21:13 (Desyrel) 200 mg HS PO 10/10/16 21:00 Hold 10/13/16 21:33 (Ambien) 5 mg HS PRN PO 10/10/16 20:30 (Mag-Al Plus Susp Liq) 30 ml Q6HR PRN PO 10/10/16 20:30 Acetaminophen/ Butalbital/ Caffeine 1 tab 1 tab Q4H PRN PO 10/10/16 20:30 10/15/16 21:13 Fosphenytoin Sodium 100 mgpe/ Sodium Chloride 52 ml @ 208 mls/hr Q6H IV 10/10/16 22:00 10/18/16 08:11 (Keppra 1000 Mg Inj) 100 ml @ 400 mls/hr Q8H IV 10/10/16 23:00 10/18/16 06:17 Pregabalin 150 mg 150 mg Q12HR PO 10/11/16 21:00 10/18/16 08:59 (NS + KCl 20 Meq Inj) 1,000 ml @ 100 mls/hr Q10H IV 10/14/16 15:53 10/18/16 08:07 (NS Flush) 2 ml UNSCH PRN IVF 10/14/16 16:00 (NS Flush) 2 ml BID IVF 10/14/16 21:00 10/18/16 08:06 (Colace) 100 mg BID PO 10/14/16 21:00 10/18/16 08:59 (Protonix) 40 mg DAILY PO 10/15/16 09:00 10/18/16 08:58 (Protonix Inj) 40 mg DAILY IVP 10/15/16 09:00 10/18/16 08:07 (Zofran Inj) 4 mg Q6H PRN IV 10/14/16 16:00 Calcium Gluconate 1 gm 1 gm UNSCH PRN IV 10/14/16 16:00 (Magnesium Sulfate Inj/NS Inj) 108 ml @ 108 mls/hr UNSCH PRN IV 10/14/16 16:00 ([place] 10-325 Mg) 1 tab Q4H PRN PO 10/14/16 16:00 ([place] 10-325 Mg) 2 tab Q4H PRN PO 10/14/16 16:00 (Morphine Inj) 2 mg Q2H PRN IV PUSH 10/14/16 16:00 (Morphine Inj) 4 mg Q2H PRN IV PUSH 10/14/16 16:00 (Tylenol) 650 mg Q4H PRN PO 10/14/16 16:00 Chlorhexidine Gluconate 15 ml 15 ml BID@08,20 MT 10/14/16 20:00 10/17/16 08:00 Propofol 100 ml @ 0 mls/hr TITRATE IV 10/14/16 16:45 10/15/16 00:51 Potassium Chloride 100 ml @ 50 mls/hr Q2H PRN IV 10/14/16 16:45 (KCl 20 Meq Premix Inj) 100 ml @ 50 mls/hr Q2H PRN IV 10/14/16 16:45 Potassium Bicarb/ Potassium Chloride 50 meq 50 meq UNSCH PRN PO 10/14/16 16:45 Potassium Chloride 100 ml @ 25 mls/hr UNSCH PRN IV 10/14/16 16:45 Potassium Chloride 100 ml @ 50 mls/hr Q2H PRN IV 10/14/16 16:45 (Magnesium Sulfate Inj/NS Inj) 100 ml @ 50 mls/hr UNSCH PRN IV 10/14/16 16:45 Magnesium Oxide 800 mg 800 mg UNSCH PRN PO 10/14/16 16:45 (Magnesium Sulfate Inj/NS Inj) 100 ml @ 50 mls/hr UNSCH PRN IV 10/14/16 16:45 Potassium Phosphate 2000 mg 2,000 mg Q4H PRN PO 10/14/16 16:45 (Sodium Phosphate Inj/NS 250 ml Inj) 250 ml @ 42 mls/hr UNSCH PRN IV 10/14/16 16:45 Potassium Phosphate 2000 mg 2,000 mg UNSCH PRN PO/TUBE 10/14/16 16:45 Potassium Phosphate 30 mmol/ Sodium Chloride 260 ml @ 42 mls/hr UNSCH PRN IV 10/14/16 16:45 Fentanyl Citrate 250 ml @ 0 mls/hr TITRATE IV 10/14/16 17:15 10/14/16 18:14 (Levophed-Dextrose Drip) 250 ml @ 0 mls/hr TITRATE IV 10/14/16 17:45 10/15/16 23:30 Terbutaline Sulfate 1 mg 1 mg UNSCH PRN SQ 10/14/16 17:45 (Neosynephrine Inj/D5W 500 ml Inj) 500 ml @ 0 mls/hr TITRATE IV 10/14/16 18:00 10/15/16 23:16 (Brethine Inj) 1 mg UNSCH PRN SQ 10/14/16 18:00 (Mannitol Inj) 25 gm Q6H IV 10/15/16 21:00 10/18/16 09:50 Vital Signs / I&O Vital Signs Date Time Temp Pulse Resp B/P Pulse Ox O2 Delivery O2 Flow Rate FiO2 10/18/16 14:00 63 10/18/16 12:00 80 10/18/16 12:00 99.5 80 16 141/52 99 10/18/16 10:00 74 10/18/16 08:25 94 Nasal Cannula 2.00 10/18/16 08:00 74 10/18/16 08:00 98.5 70 19 130/46 98 10/18/16 06:00 62 10/18/16 04:00 98.8 68 16 150/59 100 10/18/16 04:00 63 10/18/16 02:00 78 10/18/16 00:00 99.8 79 16 125/46 97 10/18/16 00:00 79 10/17/16 22:00 79 10/17/16 20:00 99.5 81 16 125/52 100 10/17/16 20:00 77 10/17/16 18:00 83 10/17/16 16:00 88 10/17/16 16:00 99.5 93 25 143/60 99 10/17/16 15:48 94 Nasal Cannula 2.00 I/O 10/17/16 10/17/16 10/17/16 10/18/16 10/18/16 10/18/16 07:00 15:00 23:00 07:00 15:00 23:00 Intake Total 1460 ml 1393 ml 1000 ml 500 ml 790 ml Output Total 1250 ml 2120 ml 1705 ml 1205 ml 425 ml Balance 210 ml -727 ml -705 ml -705 ml 365 ml Intake Oral 0 ml 0 ml IV Total 1000 ml 1008 ml 1000 ml 500 ml 790 ml Tube Feeding 400 ml 285 ml Other 60 ml 100 ml Output Urine Total 1250 ml 2100 ml 1700 ml 1200 ml 425 ml Drainage Total 20 ml 5 ml 5 ml # Voids 1 # Bowel Movements 1 1 0 0 0 Physical Exam GENERAL: In NAD SKIN: Warm and dry. HEAD: Normocephalic. EYES: No scleral icterus. No injection or drainage. NECK: Supple, trachea midline. No JVD or lymphadenopathy. CARDIOVASCULAR: Regular rate and rhythm without murmurs, gallops, or rubs. RESPIRATORY: Breath sounds equal bilaterally. No accessory muscle use. GASTROINTESTINAL: Abdomen soft, non-tender, nondistended. MUSCULOSKELETAL: No cyanosis, or edema. Laboratory Laboratory Tests Test 10/17/16 10/17/16 10/18/16 10/18/16 14:57 20:00 02:00 04:30 Serum Osmolality 297 MOSM/KG 295 MOSM/KG 294 MOSM/KG White Blood Count 12.0 TH/MM3 Red Blood Count 2.61 MIL/MM3 Hemoglobin 7.9 GM/DL Hematocrit 23.3 % Mean Corpuscular Volume 89.1 FL Mean Corpuscular Hemoglobin 30.1 PG Mean Corpuscular Hemoglobin 33.8 % Concent Red Cell Distribution Width 14.0 % Platelet Count 234 TH/MM3 Mean Platelet Volume 7.5 FL Neutrophils (%) (Auto) 83.0 % Lymphocytes (%) (Auto) 10.4 % Monocytes (%) (Auto) 5.6 % Eosinophils (%) (Auto) 0.8 % Basophils (%) (Auto) 0.2 % Neutrophils # (Auto) 10.0 TH/MM3 Lymphocytes # (Auto) 1.3 TH/MM3 Monocytes # (Auto) 0.7 TH/MM3 Eosinophils # (Auto) 0.1 TH/MM3 Basophils # (Auto) 0.0 TH/MM3 CBC Comment DIFF FINAL Differential Comment Sodium Level 140 MEQ/L Potassium Level 4.3 MEQ/L Chloride Level 105 MEQ/L Carbon Dioxide Level 24.9 MEQ/L Anion Gap 10 MEQ/L Blood Urea Nitrogen 11 MG/DL Creatinine 0.46 MG/DL Estimat Glomerular Filtration 180 ML/MIN Rate Random Glucose 99 MG/DL Calcium Level 8.3 MG/DL Test 10/18/16 07:50 Serum Osmolality 292 MOSM/KG Imaging Last Impressions Chest X-Ray 10/16/16 0600 Signed Impressions: Service Date/Time: Sunday, October 16, 2016 04:09 - CONCLUSION: Tubes and catheters in good position. Mild bibasilar atelectasis. Bonifacio Mata MD Head CT 10/14/16 0000 Signed Impressions: Service Date/Time: Friday, October 14, 2016 17:14 - CONCLUSION: 1. Post surgical features of frontoparietal craniotomy with surgical drain in place. Left subdural collection of air and blood products measuring up to 1 cm with slight subfalcine shift to the right without significant transtentorial herniation. 2. Lateral ventricles are stable in size. Juan M Samson MD Lower Extremity Ultrasound 10/11/16 0000 Signed Impressions: Service Date/Time: Tuesday, October 11, 2016 14:13 - CONCLUSION: Negative exam. No sonographic or Doppler findings of deep venous thrombosis bilaterally. Pola Jones MD Brain MRI 10/10/16 1839 Signed Impressions: Service Date/Time: Monday, October 10, 2016 20:45 - CONCLUSION: 1. Large extra-axial mass along the high left parietal convexity in the extra-axial space measuring 5.7 x 3.6 x 4.4 cm possibly representing a meningioma versus less likely metastatic disease. No old studies for comparison. There is some minimal vasogenic edema in left parietal lobe. There is slight left to right midline shift of 8 mm. 2. 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 Austen Yates MD Assessment and Plan Problem List: (1) Meningioma (2) CAD (coronary artery disease) (3) Preoperative cardiovascular examination Assessment and Plan No new cardiac issues. Stable from cardiac standpoint. Continue current program. Increase activity, PT. Jaqui Stanton MD Oct 18, 2016 14:16
--- NOTE | 2016-10-18 18:26 | HHI.CCPN ---
Subjective Remarks/Hospital Course Mr. Hazel is a 71-year-old male with history of meningioma, chronic pain, recent cervical fusion, IBS, GERD, anxiety, and depression who presented to the ER with reported seizure activity while being transported by EMS. He has a history of known left hemisphere meningioma, and seizure disorder. On Keppra and Dilantin (neurology Dr. Escalona). MRI of the brain showed large left parietal extra-axial mass which is most likely meningioma. Patient has a history of meningioma resection 20 years ago, an MRI in August had revealed a large left sided meningioma. Patient was admitted to Dr. Maldonado and neurosurgery was consulted. Patient was placed on Dilantin, Keppra and also Decadron by Dr. Escalona. He had underwent left frontal parietal craniotomy with resection of meningioma today by Dr. Damico. EBL was 200 ML. Post surgery patient was left intubated and critical care consult was requested for medical management and vent management. I evaluated the patient in PACU he sedated with propofol. Postop labs had been ordered and ABG ordered. He does move all extremities on lightening sedation. A postop CT is pending at this time SUBJ: 10/15: Remains intubated sedated with propofol and fentanyl. Christiano- Synephrine to maintain blood pressure. CT of the head yesterday postop showed expected postoperative changes with left craniotomy and some subdural blood and air 10/16: Remains intubated off sedation. But he remains lethargic and airway protection is questionable. I will leave him intubated because of this reason 10/17: More awake today. Follows commands on left upper extremity. Will proceed with CPAP trial for possible extubation. Discussed with Dr. Damico Subjective: 10/18 Tolerated extubation yesterday. On NC. Follows commands LUE. FRANKIE drains discontinued per neurosurgery. Ate 97% of meal when nurses fed him . Objective Vital Signs Date Time Temp Pulse Resp B/P Pulse Ox O2 Delivery O2 Flow Rate FiO2 10/18/16 18:00 82 10/18/16 16:00 100.2 18 142/52 100 10/18/16 08:25 Nasal Cannula 2.00 10/17/16 09:58 40 Intake and Output 10/17/16 10/17/16 10/18/16 08:00 16:00 00:00 Intake Total 1460 ml 1393 ml 1000 ml Output Total 1250 ml 2120 ml 1705 ml Balance 210 ml -727 ml -705 ml Result Diagram: 10/18/16 0430 10/18/16 0430 Other Results Microbiology Date/Time Procedure Status Source Growth 10/16/16 09:37 Gram Stain - Final Complete Sputum Endotracheal 10/16/16 09:37 Sputum Culture - Final Complete Sputum Endotracheal HEAVY GROWTH NORMAL RESPIRATORY [facility] Imaging MRI of the brain 10/10/16 showed large left parietal extra-axial meningioma Objective Remarks GENERAL: 71-year-old male laying in ISC bed. SKIN: Warm and dry. HEAD: Circumferential craniectomy dressing in place. EYES: Pupils equal and round. No scleral icterus. No injection or drainage. ENT: MMM NECK: Trachea midline. No JVD. Well-healed scar from cervical fusion CARDIOVASCULAR: Regular rate and rhythm. RESPIRATORY: Clear to auscultation. Breath sounds equal bilaterally. GASTROINTESTINAL: Abdomen soft, non-tender, nondistended. Hepatic and splenic margins not palpable. MUSCULOSKELETAL: Extremities with 1+ edema. NEUROLOGICAL: Pupils equal, reactive. Follows commands on LUE. Moves left foot in dorsiflexion when I tried to get him to plantar flex. R hemiparesis. Oriented to self and hospital, not to year. A/P Assessment and Plan NEURO: Status post left frontal parietal craniotomy for meningioma resection Seizure disorder Chronic neck pain status post cervical fusion -Lortab as needed for pain.. Morphine prn breakthrough. - +R hemiparesis. - Continue IV Keppra 1 g every 8 and IV Cerebyx 100 mg /PE q6 Hours. Check Dilantin and albumin level in am. - On Lyrica 150 every 12. - Continue Decadron 4 mg IV every 6. - EEG negative for seizure - Neurosurgery Dr. Damico, neurology Dr. Escalona - Postop CT of the head -short expected postop changes, left subdural air and blood 1 cm in size RESP: Acute respiratory failure, resolved -Extubated 10/17 - DuoNeb every 6 hours when necessary CV: Hypotension, resolved - Off Christiano-Synephrine. KVO IV fluids. GI: - Heart healthy diet. Being fed by nursing staff. Having bowel movements. : - Monitor renal function closely. Abdullahi catheter. ID: - Perioperative antibiotics per Dr. Damico. Temp max 100.2. HEME: - Monitor CBC, ENDO: -Euglycemic. PROPH: - Bilateral lower extremity SCDs. Avoid chemical DVT prophylaxis until cleared by neurosurgery, continue Protonix ACCESS: Right IJ central venous line in place. Discontinue right radial art line. PT and OT consulted. Patient and brother updated at bedside. Level 2 followup Shameka Gonzalez MD Oct 18, 2016 18:26
[2016-10-18] MEDS: FINASTERIDE 5 MG TAB PO SCH (21:26)
[2016-10-18] MEDS: TERAZOSIN HCL 5 MG CAP PO SCH (21:26)
[2016-10-19] VITALS (12 sets, daily range): BP systolic 99–126; BP diastolic 52–59; PULSE 73–97; RESP 14–22; TEMP 98–99.2; O2SAT 95–100
[2016-10-19 03:33] LABS: AUTOMATED NEUTROPHIL # 10.4 TH/MM3 (1.8-7.7); BASOPHIL % 0.2 % (0.0-2.0); EOSINOPHIL # 0.1 TH/MM3 (0-0.4); EOSINOPHIL % 0.9 % (0.0-4.0); HEMATOCRIT 24.8 % (39.0-51.0); HEMO FLAGS DIFF FINAL; LYMPH % 8.3 % (9.0-44.0); MEAN CELL VOLUME 89.4 FL (80.0-100.0); MEAN CORPUSCULAR HEMOGLOBIN 30.1 PG (27.0-34.0); MEAN CORPUSCULAR HGB CONC 33.6 % (32.0-36.0); MONO % 7.7 % (0.0-8.0); NEUT % 82.9 % (16.0-70.0); PLATELET COUNT 268 TH/MM3 (150-450); RED BLOOD COUNT 2.78 MIL/MM3 (4.50-5.90); RED CELL DISTRIBUTION WIDTH 14.1 % (11.6-17.2); WHITE BLOOD COUNT 12.6 TH/MM3 (4.0-11.0)
[2016-10-19 04:04] LABS: BICARBONATE 30.1 MEQ/L (21.0-32.0); POTASSIUM 4.1 MEQ/L (3.5-5.1)
[2016-10-19] MEDS: FOSPHENYTOIN INJ 100 MGPE in SODIUM CHLORIDE 0.9% INJ 50 ML IV SCH ×4 (04:43→21:35)
[2016-10-19] MEDS: DEXAMETHASONE SOD PHOS 4 MG/ML VIAL IV PUSH SCH ×3 (05:23→17:17)
[2016-10-19] MEDS: MANNITOL 12.5 GM/50 ML VIAL IV SCH ×4 (05:23→22:11)
[2016-10-19] MEDS: levETIRAcetam 1000 MG INJ 100 ML IV SCH ×3 (06:40→22:12)
[2016-10-19] MEDS: SODIUM CHLORIDE 0.9% FLUSH 5 ML FLUSH IVF SCH ×2 (07:42→21:00)
[2016-10-19] MEDS: CHLORHEXIDINE 0.12% (ORAL KIT) 15 ML CUP MT SCH ×2 (07:42→20:00)
[2016-10-19] MEDS: FOLIC ACID 1 MG TAB PO SCH (07:43)
[2016-10-19] MEDS: PANTOPRAZOLE SOD 40 MG DELAYED RELEASE TAB PO SCH (07:43)
[2016-10-19] MEDS: PREGABALIN 75 MG CAP PO SCH ×2 (07:43→21:39)
[2016-10-19] MEDS: PANTOPRAZOLE SODIUM 40 MG VIAL IVP SCH (07:43)
[2016-10-19] MEDS: DOCUSATE SODIUM 100 MG CAP PO SCH ×2 (07:44→21:36)
--- NOTE | 2016-10-19 08:31 | RADRPT ---
EXAM DATE/TIME: 10/19/2016 07:57 [facility] COMPARISON: No previous studies available for comparison. INDICATIONS : Right arm swelling. MEDICAL HISTORY : Epilepsy. 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 Numbness, bilateral hands. GERD. Basal cell carcinoma. Chornic back pain . Depression. Anxiety. SURGICAL HISTORY : Right eyelid tumor removal. Brain surgery, benign tumor removal. Cardiac stent. Right testicle decen ding surgery. Left carpel tunnel release. Right hip fracturerepair. Meningioma removed with piece of skull removed. Cervical and lumbar surgeries. ENCOUNTER: Initial ACUITY: 1 day PAIN SCORE: 0/10 LOCATION: Right arm. FINDINGS: Right internal jugular vein is not evaluated due to dressing from central line. There is spontaneous flow documented in the brachial, basilic, cephalic, axillary, and subclavian veins. The vessels are compressible and augmentation response is documented. No filling defects are seen. The flow is phas ic with respiration. CONCLUSION: 1. Right internal jugular vein not evaluated due to Central line. 2. Otherwise, no sonographic evidence for right upper extremity DVT. Juan M Samson MD on October 19, 2016 at 8:27 Board Certified Radiologist. This report was verified electronically.
--- NOTE | 2016-10-19 09:38 | HHI.PR ---
Subjective Remarks Patient more alert. Denies CP or SOB noted. On room air Objective Vital Signs Date Time Temp Pulse Resp B/P Pulse Ox O2 Delivery O2 Flow Rate FiO2 10/19/16 08:00 77 10/19/16 08:00 99.2 77 17 106/52 95 Arterial Line 10/19/16 06:00 94 10/19/16 04:00 98.0 74 17 99/52 100 10/19/16 04:00 74 10/19/16 02:00 82 10/19/16 00:00 98.2 82 14 126/59 97 10/19/16 00:00 82 10/18/16 22:00 90 10/18/16 20:13 96 Nasal Cannula 2.00 10/18/16 20:00 99.2 74 20 100 130/62 10/18/16 20:00 74 10/18/16 18:00 82 10/18/16 16:00 100.2 78 18 142/52 100 10/18/16 16:00 78 10/18/16 14:00 63 10/18/16 12:00 80 10/18/16 12:00 99.5 80 16 141/52 99 10/18/16 10:00 74 I/O 10/18/16 10/18/16 10/18/16 10/19/16 10/19/16 10/19/16 07:00 15:00 23:00 07:00 15:00 23:00 Intake Total 500 ml 1272 ml 725 ml 200 ml Output Total 1205 ml 2165 ml 2700 ml 1700 ml Balance -705 ml -893 ml -1975 ml -1500 ml Intake Oral 0 ml 260 ml IV Total 500 ml 1012 ml 725 ml 200 ml Output Urine Total 1200 ml 2150 ml 2700 ml 1700 ml Drainage Total 5 ml 15 ml # Bowel Movements 0 0 0 0 Result Diagram: 10/19/16 0303 10/19/16 0303 Imaging Last 72 hours Impressions Upper Extremity Ultrasound 10/19/16 0000 Signed Impressions: Service Date/Time: Wednesday, October 19, 2016 07:57 - CONCLUSION: 1. Right internal jugular vein not evaluated due to Central line. 2. Otherwise, no sonographic evidence for right upper extremity DVT. Juan M Samson MD Procedures recent crainotomy Objective Remarks GENERAL: Alert and coopertive SKIN: Warm and dry. Staple incision on head HEAD: Normocephalic. EYES: No scleral icterus. No injection or drainage. NECK: Supple, trachea midline. No JVD or lymphadenopathy. CARDIOVASCULAR: Regular rate and rhythm without murmurs, gallops, or rubs. Right lower leg edema RESPIRATORY: Breath sounds equal bilaterally. No accessory muscle use. GASTROINTESTINAL: Abdomen soft, non-tender, nondistended. MUSCULOSKELETAL: No cyanosis, or edema. BACK: Nontender without obvious deformity. No CVA tenderness. Medications and IVs Current Medications Medications (Trade) Dose Ordered Sig/Hussein Route Start Time Stop Time Status Last Admin (Decadron Inj) 4 mg Q6HR IV PUSH 10/10/16 18:45 10/19/16 05:23 (Ativan Inj) 1 mg Q4H PRN IV PUSH 10/10/16 19:15 (Narcan Inj) 0.4 mg UNSCH PRN IV 10/10/16 20:30 (Milk Of Magnesia Liq) 30 ml Q12H PRN PO 10/10/16 20:30 (Senokot) 17.2 mg Q12H PRN PO 10/10/16 20:30 10/11/16 04:44 (Dulcolax Supp) 10 mg DAILY PRN RECTAL 10/10/16 20:30 (Lactulose Liq) 30 ml DAILY PRN PO 10/10/16 20:30 (Xanax) 0.5 mg Q6H PRN PO 10/10/16 20:30 10/15/16 21:13 (Duragesic 50 Mcg Patch.72 Hr) 1 patch Q3D T-DERMAL 10/10/16 22:00 Hold 10/12/16 04:17 (Proscar) 5 mg HS PO 10/10/16 21:00 10/18/16 21:26 (Folate) 0.4 mg DAILY PO 10/11/16 09:00 10/19/16 07:43 (Remeron) 15 mg HS PO 10/10/16 21:00 Hold 10/13/16 21:33 (Hytrin) 5 mg HS PO 10/10/16 21:00 10/18/16 21:26 (Desyrel) 200 mg HS PO 10/10/16 21:00 Hold 10/13/16 21:33 (Ambien) 5 mg HS PRN PO 10/10/16 20:30 (Mag-Al Plus Susp Liq) 30 ml Q6HR PRN PO 10/10/16 20:30 Acetaminophen/ Butalbital/ Caffeine 1 tab 1 tab Q4H PRN PO 10/10/16 20:30 10/15/16 21:13 Fosphenytoin Sodium 100 mgpe/ Sodium Chloride 52 ml @ 208 mls/hr Q6H IV 10/10/16 22:00 10/19/16 09:07 (Keppra 1000 Mg Inj) 100 ml @ 400 mls/hr Q8H IV 10/10/16 23:00 10/19/16 06:40 (Lyrica) 150 mg Q12HR PO 10/11/16 21:00 10/19/16 07:43 (NS Flush) 2 ml UNSCH PRN IVF 10/14/16 16:00 (NS Flush) 2 ml BID IVF 10/14/16 21:00 10/19/16 07:42 (Colace) 100 mg BID PO 10/14/16 21:00 10/19/16 07:44 (Protonix) 40 mg DAILY PO 10/15/16 09:00 10/19/16 07:43 (Protonix Inj) 40 mg DAILY IVP 10/15/16 09:00 10/19/16 07:43 (Zofran Inj) 4 mg Q6H PRN IV 10/14/16 16:00 Calcium Gluconate 1 gm 1 gm UNSCH PRN IV 10/14/16 16:00 (Magnesium Sulfate Inj/NS Inj) 108 ml @ 108 mls/hr UNSCH PRN IV 10/14/16 16:00 ([place] 10-325 Mg) 1 tab Q4H PRN PO 10/14/16 16:00 ([place] 10-325 Mg) 2 tab Q4H PRN PO 10/14/16 16:00 (Morphine Inj) 2 mg Q2H PRN IV PUSH 10/14/16 16:00 (Morphine Inj) 4 mg Q2H PRN IV PUSH 10/14/16 16:00 (Tylenol) 650 mg Q4H PRN PO 10/14/16 16:00 Chlorhexidine Gluconate 15 ml 15 ml BID@08,20 MT 10/14/16 20:00 10/17/16 08:00 Propofol 100 ml @ 0 mls/hr TITRATE IV 10/14/16 16:45 10/15/16 00:51 Potassium Chloride 100 ml @ 50 mls/hr Q2H PRN IV 10/14/16 16:45 (KCl 20 Meq Premix Inj) 100 ml @ 50 mls/hr Q2H PRN IV 10/14/16 16:45 Potassium Bicarb/ Potassium Chloride 50 meq 50 meq UNSCH PRN PO 10/14/16 16:45 Potassium Chloride 100 ml @ 25 mls/hr UNSCH PRN IV 10/14/16 16:45 Potassium Chloride 100 ml @ 50 mls/hr Q2H PRN IV 10/14/16 16:45 (Magnesium Sulfate Inj/NS Inj) 100 ml @ 50 mls/hr UNSCH PRN IV 10/14/16 16:45 Magnesium Oxide 800 mg 800 mg UNSCH PRN PO 10/14/16 16:45 (Magnesium Sulfate Inj/NS Inj) 100 ml @ 50 mls/hr UNSCH PRN IV 10/14/16 16:45 Potassium Phosphate 2000 mg 2,000 mg Q4H PRN PO 10/14/16 16:45 (Sodium Phosphate Inj/NS 250 ml Inj) 250 ml @ 42 mls/hr UNSCH PRN IV 10/14/16 16:45 Potassium Phosphate 2000 mg 2,000 mg UNSCH PRN PO/TUBE 10/14/16 16:45 (Potassium Phosphate Inj/NS 250 ml Inj) 260 ml @ 42 mls/hr UNSCH PRN IV 10/14/16 16:45 (Mannitol Inj) 25 gm Q6H IV 10/18/16 18:00 10/19/16 05:23 Assessment and Plan Problem List: (1) Seizure disorder Status: Acute Plan: Neurology consulted and managing. On fosphenytoin and Keppra. (2) Brain tumor Status: Acute Plan: Neurosurgeon consulted and managing. On Decadron. PT and OT Craniotomy done on the . Drains removed. Bryant intact (3) GERD (gastroesophageal reflux disease) Status: Acute Plan: Continue PPI patient is asymptomatic (4) Chronic pain Status: Chronic Plan: Continue current regimen pain well controlled (5) Leg edema, right Status: Acute Plan: US ordered negative for DVT. History of non occlusive DVT in 2015. (6) Anemia Status: Acute Plan: HGB improved at 8.4. No active signs of bleeding (7) Swelling of right upper extremity Status: Acute Plan: US obtained and negative for DVT Assessment and Plan Assessment and plan discussed with Dr. Erica BUCKNER Discussed Condition With Nursing Discharge Planning To acute rehab Physician Attestation I and the OPERATIONAL INTELLIGENCE OFFICER have both examined this patient and reviewed this note and I agree with these findings and plan of care. Estelle Rincon. [facility] Oct 19, 2016 09:37
--- NOTE | 2016-10-19 10:20 | HHI.NSPN ---
(Destini Otero) Note Status Status: Progress Note (Destini Otero) Interval History Interval History Mr. Hazel is a 71-year-old male who has a history of a left hemisphere meningioma. Apparently the mass was small and asymotimatic but he now presents with frequent seizures and right side hemiplegia. He states he has had several episodes where he loses consciousness. Her has jerking on the right side as well. He denies tongue bitting. He denies incontinence of stool or urine. He has a history of known left hemisphere meningioma. He was complaining of increasing right-sided weakness. He had an MRI of the brain done in August which revealed increased size of the left hemisphere meningioma with surrounding edema. He has a history about 20 years ago of a right hemisphere meningioma at that was resected. He had severe cervical spinal stenosis and he underwent a cervical laminectomy with Dr Brasher. Neurosurgical consultation was requested. 10/12: doing well, no new complaints, neuro sx unchanged. 10/13: stable overnight, to OR tomorrow for mass resection 10/17: s/p left craniotomy for resection of meningioma 10/14/16. remains intubated, minimal eye opening. 10/18: extubated, smiling. oriented to name and place. 10/19: neuro checks stable overnight, no acute events (Destini Otero) Labs, Micro, & Vital Signs Results Date Time Temp Pulse Resp B/P Pulse Ox O2 Delivery O2 Flow Rate FiO2 10/19/16 10:00 97 10/19/16 08:00 77 10/19/16 08:00 99.2 77 17 106/52 95 Arterial Line 10/19/16 06:00 94 10/19/16 04:00 98.0 74 17 99/52 100 10/19/16 04:00 74 10/19/16 02:00 82 10/19/16 00:00 98.2 82 14 126/59 97 10/19/16 00:00 82 10/18/16 22:00 90 10/18/16 20:13 96 Nasal Cannula 2.00 10/18/16 20:00 99.2 74 20 100 130/62 10/18/16 20:00 74 10/18/16 18:00 82 10/18/16 16:00 100.2 78 18 142/52 100 10/18/16 16:00 78 10/18/16 14:00 63 10/18/16 12:00 80 10/18/16 12:00 99.5 80 16 141/52 99 10/19/16 07:00 Intake Total 2197 ml Output Total 6565 ml Balance -4368 ml Constitutional Vital Signs Date Time Temp Pulse Resp B/P Pulse Ox O2 Delivery O2 Flow Rate FiO2 10/19/16 10:00 97 10/19/16 08:00 77 10/19/16 08:00 99.2 77 17 106/52 95 Arterial Line 10/19/16 06:00 94 10/19/16 04:00 98.0 74 17 99/52 100 10/19/16 04:00 74 10/19/16 02:00 82 10/19/16 00:00 98.2 82 14 126/59 97 10/19/16 00:00 82 10/18/16 22:00 90 10/18/16 20:13 96 Nasal Cannula 2.00 10/18/16 20:00 99.2 74 20 100 130/62 10/18/16 20:00 74 10/18/16 18:00 82 10/18/16 16:00 100.2 78 18 142/52 100 10/18/16 16:00 78 10/18/16 14:00 63 10/18/16 12:00 80 10/18/16 12:00 99.5 80 16 141/52 99 10/19/16 07:00 Intake Total 2197 ml Output Total 6565 ml Balance -4368 ml (Destini Otero) Review of Systems/Exam Exam Mr. Hazel is awake, smiling. Oriented to name and place. Followed only few simple commands. Wound is healing well. FRANKIE drain sites dry with steri-strips CN: pupils equal Motor: raised left upper extremity off the bed, minimal movement in LE's, 0/5 in right arm (Destini Otero) Medications Current Medications Current Medications Medications (Trade) Dose Ordered Sig/Hussein Route PRN Reason Start Time Stop Time Status Last Admin Dose Admin Dexamethasone Sodium Phosphate (Decadron Inj) 4 mg Q6HR IV PUSH 10/10/16 18:45 10/19/16 05:23 Lorazepam (Ativan Inj) 1 mg Q4H PRN IV PUSH SEIZURES 10/10/16 19:15 Naloxone HCl (Narcan Inj) 0.4 mg UNSCH PRN IV SEE LABEL COMMENTS 10/10/16 20:30 Magnesium Hydroxide (Milk Of Magnesia Liq) 30 ml Q12H PRN PO MILD - MODERATE CONSTIPATION 10/10/16 20:30 Sennosides (Senokot) 17.2 mg Q12H PRN PO MODERATE - SEVERE CONSTIPATION 10/10/16 20:30 10/11/16 04:44 Bisacodyl (Dulcolax Supp) 10 mg DAILY PRN RECTAL SEVERE CONSITIPATION 10/10/16 20:30 Lactulose (Lactulose Liq) 30 ml DAILY PRN PO SEVERE CONSITIPATION 10/10/16 20:30 Alprazolam (Xanax) 0.5 mg Q6H PRN PO ANXIETY 10/10/16 20:30 10/15/16 21:13 Fentanyl (Duragesic 50 Mcg Patch.72 Hr) 1 patch Q3D T-DERMAL 10/10/16 22:00 Hold 10/12/16 04:17 Finasteride (Proscar) 5 mg HS PO 10/10/16 21:00 10/18/16 21:26 Folic Acid (Folate) 0.4 mg DAILY PO 10/11/16 09:00 10/19/16 07:43 Mirtazapine (Remeron) 15 mg HS PO 10/10/16 21:00 Hold 10/13/16 21:33 Terazosin HCl (Hytrin) 5 mg HS PO 10/10/16 21:00 10/18/16 21:26 Trazodone HCl (Desyrel) 200 mg HS PO 10/10/16 21:00 Hold 10/13/16 21:33 Zolpidem Tartrate (Ambien) 5 mg HS PRN PO INSOMNIA 10/10/16 20:30 Al Hydrox/Mg Hydrox/Simethicone (Mag-Al Plus Susp Liq) 30 ml Q6HR PRN PO HEARTBURN 10/10/16 20:30 Acetaminophen/ Butalbital/ Caffeine 1 tab 1 tab Q4H PRN PO HEADACHE 10/10/16 20:30 10/15/16 21:13 Fosphenytoin Sodium 100 mgpe/ Sodium Chloride 52 ml @ 208 mls/hr Q6H IV 10/10/16 22:00 10/19/16 09:07 Levetriacetam (Keppra 1000 Mg Inj) 100 ml @ 400 mls/hr Q8H IV 10/10/16 23:00 10/19/16 06:40 Pregabalin (Lyrica) 150 mg Q12HR PO 10/11/16 21:00 10/19/16 07:43 IV Flush (NS Flush) 2 ml UNSCH PRN IVF FLUSH AFTER USING IV ACCESS 10/14/16 16:00 IV Flush (NS Flush) 2 ml BID IVF 10/14/16 21:00 10/19/16 07:42 Docusate Sodium (Colace) 100 mg BID PO 10/14/16 21:00 10/19/16 07:44 Pantoprazole Sodium (Protonix) 40 mg DAILY PO 10/15/16 09:00 10/19/16 07:43 Pantoprazole Sodium (Protonix Inj) 40 mg DAILY IVP 10/15/16 09:00 10/19/16 07:43 Ondansetron HCl (Zofran Inj) 4 mg Q6H PRN IV NAUSEA OR VOMITING 10/14/16 16:00 Calcium Gluconate 1 gm 1 gm UNSCH PRN IV SEE LABEL COMMENTS 10/14/16 16:00 Magnesium Sulfate/ Sodium Chloride (Magnesium Sulfate Inj/NS Inj) 108 ml @ 108 mls/hr UNSCH PRN IV MAGNESIUM LESS THAN 2 10/14/16 16:00 Acetaminophen/ Hydrocodone Bitart (Ravenel 10-325 Mg) 1 tab Q4H PRN PO PAIN SCALE 1 TO 5 10/14/16 16:00 Acetaminophen/ Hydrocodone Bitart (Ravenel 10-325 Mg) 2 tab Q4H PRN PO PAIN SCALE 6 TO 10 10/14/16 16:00 Morphine Sulfate (Morphine Inj) 2 mg Q2H PRN IV PUSH PAIN SCALE 1 TO 6 10/14/16 16:00 Morphine Sulfate (Morphine Inj) 4 mg Q2H PRN IV PUSH PAIN SCALE 7 TO 10 10/14/16 16:00 Acetaminophen (Tylenol) 650 mg Q4H PRN PO TEMPERATURE > 101.5 F 10/14/16 16:00 Chlorhexidine Gluconate 15 ml 15 ml BID@08,20 MT 10/14/16 20:00 10/17/16 08:00 Propofol 100 ml @ 0 mls/hr TITRATE IV 10/14/16 16:45 10/15/16 00:51 Potassium Chloride 100 ml @ 50 mls/hr Q2H PRN IV For Potassium 2.8 - 3.2 mEq/L 10/14/16 16:45 Potassium Chloride (KCl 20 Meq Premix Inj) 100 ml @ 50 mls/hr Q2H PRN IV For Potassium 2.8 - 3.2 mEq/L 10/14/16 16:45 Potassium Bicarb/ Potassium Chloride 50 meq 50 meq UNSCH PRN PO For Potassium 3.3 - 3.5 mEq/L 10/14/16 16:45 Potassium Chloride 100 ml @ 25 mls/hr UNSCH PRN IV For Potassium 3.3 - 3.5 mEq/L 10/14/16 16:45 Potassium Chloride 100 ml @ 50 mls/hr Q2H PRN IV For Potassium 3.3 - 3.5 mEq/L 10/14/16 16:45 Magnesium Sulfate/ Sodium Chloride (Magnesium Sulfate Inj/NS Inj) 100 ml @ 50 mls/hr UNSCH PRN IV For Magnesium 0.9 - 1.1 mg/dL 10/14/16 16:45 Magnesium Oxide 800 mg 800 mg UNSCH PRN PO For Magnesium 1.2 - 1.6 mg/dL 10/14/16 16:45 Magnesium Sulfate/ Sodium Chloride (Magnesium Sulfate Inj/NS Inj) 100 ml @ 50 mls/hr UNSCH PRN IV For Magnesium 1.2 - 1.6 mg/dL 10/14/16 16:45 Potassium Phosphate 2000 mg 2,000 mg Q4H PRN PO For Phosphorus < 2.5 mg/dL 10/14/16 16:45 Sodium Phosphate/ Sodium Chloride (Sodium Phosphate Inj/NS 250 ml Inj) 250 ml @ 42 mls/hr UNSCH PRN IV For Phosphorus < 2.5 mg/dL 10/14/16 16:45 Potassium Phosphate 2000 mg 2,000 mg UNSCH PRN PO/TUBE SEE LABEL COMMENTS 10/14/16 16:45 Potassium Phosphate/Sodium Chloride (Potassium Phosphate Inj/NS 250 ml Inj) 260 ml @ 42 mls/hr UNSCH PRN IV SEE LABEL COMMENTS 10/14/16 16:45 Mannitol (Mannitol Inj) 25 gm Q6H IV 10/18/16 18:00 10/19/16 05:23 (Destini Otero) Medical Decision Making MDM Remarks 71 y/o male with enlarging left frontal parietal meningioma causing significant mass effect with right hemiparesis and recurrent seizures s/p left craniotomy for resection of meningioma 10/14/16, history of previous resection of right meningioma (Destini Otero) Plan Plan Remarks cont medical mgt, serial neuro checks in ISC today, cont therapy with PT, OT, ST dw PT, up in stretcher chair today rehab efforts (Destini Otero) Attending Statement The exam, history, and the medical decision-making described in the above note were completed with the assistance of the mid-level provider. I reviewed and agree with the findings presented. I attest that I had a [id number] encounter with the patient on the same day, and personally performed and documented my assessment and findings in the medical record. (En Damico MD) Destini Otero Oct 19, 2016 10:20 En Damico MD Oct 23, 2016 18:36
--- NOTE | 2016-10-19 16:32 | HHI.CCPN ---
Subjective Remarks/Hospital Course Mr. Hazel is a 71-year-old male with history of meningioma, chronic pain, recent cervical fusion, IBS, GERD, anxiety, and depression who presented to the ER with reported seizure activity while being transported by EMS. He has a history of known left hemisphere meningioma, and seizure disorder. On Keppra and Dilantin (neurology Dr. Escalona). MRI of the brain showed large left parietal extra-axial mass which is most likely meningioma. Patient has a history of meningioma resection 20 years ago, an MRI in August had revealed a large left sided meningioma. Patient was admitted to Dr. Maldonado and neurosurgery was consulted. Patient was placed on Dilantin, Keppra and also Decadron by Dr. Escalona. He had underwent left frontal parietal craniotomy with resection of meningioma today by Dr. Damico. EBL was 200 ML. Post surgery patient was left intubated and critical care consult was requested for medical management and vent management. I evaluated the patient in PACU he sedated with propofol. Postop labs had been ordered and ABG ordered. He does move all extremities on lightening sedation. A postop CT is pending at this time SUBJ: 10/15: Remains intubated sedated with propofol and fentanyl. Christiano- Synephrine to maintain blood pressure. CT of the head yesterday postop showed expected postoperative changes with left craniotomy and some subdural blood and air 10/16: Remains intubated off sedation. But he remains lethargic and airway protection is questionable. I will leave him intubated because of this reason 10/17: More awake today. Follows commands on left upper extremity. Will proceed with CPAP trial for possible extubation. Discussed with Dr. Damico 10/18 Tolerated extubation yesterday. On NC. Follows commands LUE. FRANKIE drains discontinued per neurosurgery. Ate 97% of meal when nurse fed him . Subjective: 10/19 Speech therapy recommending pured and thin liquids. Nurse states he was out of bed to chair today and is eating 100% of meals. On RA. Follows commands but R hemiparesis persists. Objective Vital Signs Date Time Temp Pulse Resp B/P Pulse Ox O2 Delivery O2 Flow Rate FiO2 10/19/16 16:00 99.1 86 22 113/56 98 10/18/16 20:13 Nasal Cannula 2.00 10/17/16 09:58 40 Intake and Output 10/18/16 10/18/16 10/19/16 08:00 16:00 00:00 Intake Total 500 ml 1272 ml 725 ml Output Total 1205 ml 2165 ml 2700 ml Balance -705 ml -893 ml -1975 ml Result Diagram: 10/19/16 0303 10/19/16 0303 Imaging MRI of the brain 10/10/16 showed large left parietal extra-axial meningioma Objective Remarks GENERAL: 71-year-old male laying in ISC bed. SKIN: Warm and dry. EYES: Pupils equal and round, 2mm reactive . No scleral icterus. No injection or drainage. ENT: MMM NECK: Trachea midline. No JVD. Well-healed scar from cervical fusion CARDIOVASCULAR: Regular rate and rhythm. No murmurs rubs or gallops. RESPIRATORY: Clear to auscultation. Breath sounds equal bilaterally. On room air GASTROINTESTINAL: Abdomen soft, non-tender, nondistended.. MUSCULOSKELETAL: Extremities with trace edema. NEUROLOGICAL: Pupils equal, reactive. Follows commands on LUE with hand squeeze and released.. Moves left foot in dorsiflexion when I tried to get him to plantar flex. R hemiparesis - weak withdraw 2/6 RLE, 1/6 R UE biceps. Oriented to self and hospital, not to year. A/P Assessment and Plan NEURO: Status post left frontal parietal craniotomy for meningioma resection Seizure disorder Chronic neck pain status post cervical fusion -Lortab as needed for pain.. Morphine prn breakthrough. - +R hemiparesis. - Continue IV Keppra 1 g every 8 and IV Cerebyx 100 mg /PE q6 Hours. Albumin corrected Dilantin level 19. - On Lyrica 150 every 12. - Continue Decadron 4 mg IV every 6. - EEG negative for seizure - Neurosurgery Dr. Damico, neurology Dr. Escalona - Postop CT of the head -short expected postop changes, left subdural air and blood 1 cm in size RESP: Acute respiratory failure, resolved -Extubated 10/17 - DuoNeb every 6 hours when necessary CV: Hypotension, resolved - Off Christiano-Synephrine. KVO IV fluids. GI: - Heart healthy diet. Being fed by nursing staff. Pured diet with thin liquids per speech therapy recommendations. Having bowel movements. : - Monitor renal function closely. D/c moya catheter. Bladder scan prn. ID: - Perioperative antibiotics per Dr. Damico. Temp max 99.2 HEME: - Monitor CBC, - RUE u/s negative for DVT 10/19. ENDO: -Euglycemic. PROPH: - Bilateral lower extremity SCDs. Start lovenox 40 mg subcut daily per d/w Dr. Damico, continue Protonix ACCESS: Right IJ central venous line in place. Place PIV and d/c cVL. Discontinued right radial art line 10/18. D/c Moya 10/19. PT and OT consulted. Dr. Maldonado following. Critical care medicine will signoff. Level 2 followup Shameka Gonzalez MD Oct 19, 2016 16:32
--- NOTE | 2016-10-19 17:52 | PD.CARD.PN ---
Subjective Subjective Remarks No CP or SOB, feels better Objective Medications Current Medications Medications (Trade) Dose Ordered Sig/Hussein Route Start Time Stop Time Status Last Admin (Decadron Inj) 4 mg Q6HR IV PUSH 10/10/16 18:45 10/19/16 17:17 (Ativan Inj) 1 mg Q4H PRN IV PUSH 10/10/16 19:15 (Narcan Inj) 0.4 mg UNSCH PRN IV 10/10/16 20:30 (Milk Of Magnesia Liq) 30 ml Q12H PRN PO 10/10/16 20:30 (Senokot) 17.2 mg Q12H PRN PO 10/10/16 20:30 10/11/16 04:44 (Dulcolax Supp) 10 mg DAILY PRN RECTAL 10/10/16 20:30 (Lactulose Liq) 30 ml DAILY PRN PO 10/10/16 20:30 (Xanax) 0.5 mg Q6H PRN PO 10/10/16 20:30 10/15/16 21:13 (Duragesic 50 Mcg Patch.72 Hr) 1 patch Q3D T-DERMAL 10/10/16 22:00 Hold 10/12/16 04:17 (Proscar) 5 mg HS PO 10/10/16 21:00 10/18/16 21:26 (Folate) 0.4 mg DAILY PO 10/11/16 09:00 10/19/16 07:43 (Remeron) 15 mg HS PO 10/10/16 21:00 Hold 10/13/16 21:33 (Hytrin) 5 mg HS PO 10/10/16 21:00 10/18/16 21:26 (Desyrel) 200 mg HS PO 10/10/16 21:00 Hold 10/13/16 21:33 (Ambien) 5 mg HS PRN PO 10/10/16 20:30 (Mag-Al Plus Susp Liq) 30 ml Q6HR PRN PO 10/10/16 20:30 Acetaminophen/ Butalbital/ Caffeine 1 tab 1 tab Q4H PRN PO 10/10/16 20:30 10/15/16 21:13 Fosphenytoin Sodium 100 mgpe/ Sodium Chloride 52 ml @ 208 mls/hr Q6H IV 10/10/16 22:00 10/19/16 15:11 (Keppra 1000 Mg Inj) 100 ml @ 400 mls/hr Q8H IV 10/10/16 23:00 10/19/16 14:25 (Lyrica) 150 mg Q12HR PO 10/11/16 21:00 10/19/16 07:43 (NS Flush) 2 ml UNSCH PRN IVF 10/14/16 16:00 (NS Flush) 2 ml BID IVF 10/14/16 21:00 10/19/16 07:42 (Colace) 100 mg BID PO 10/14/16 21:00 10/19/16 07:44 (Protonix) 40 mg DAILY PO 10/15/16 09:00 10/19/16 07:43 (Protonix Inj) 40 mg DAILY IVP 10/15/16 09:00 10/19/16 07:43 (Zofran Inj) 4 mg Q6H PRN IV 10/14/16 16:00 Calcium Gluconate 1 gm 1 gm UNSCH PRN IV 10/14/16 16:00 (Magnesium Sulfate Inj/NS Inj) 108 ml @ 108 mls/hr UNSCH PRN IV 10/14/16 16:00 (Anderson 10-325 Mg) 1 tab Q4H PRN PO 10/14/16 16:00 (Anderson 10-325 Mg) 2 tab Q4H PRN PO 10/14/16 16:00 (Morphine Inj) 2 mg Q2H PRN IV PUSH 10/14/16 16:00 (Morphine Inj) 4 mg Q2H PRN IV PUSH 10/14/16 16:00 (Tylenol) 650 mg Q4H PRN PO 10/14/16 16:00 Chlorhexidine Gluconate 15 ml 15 ml BID@08,20 MT 10/14/16 20:00 10/17/16 08:00 Propofol 100 ml @ 0 mls/hr TITRATE IV 10/14/16 16:45 10/15/16 00:51 Potassium Chloride 100 ml @ 50 mls/hr Q2H PRN IV 10/14/16 16:45 (KCl 20 Meq Premix Inj) 100 ml @ 50 mls/hr Q2H PRN IV 10/14/16 16:45 Potassium Bicarb/ Potassium Chloride 50 meq 50 meq UNSCH PRN PO 10/14/16 16:45 Potassium Chloride 100 ml @ 25 mls/hr UNSCH PRN IV 10/14/16 16:45 Potassium Chloride 100 ml @ 50 mls/hr Q2H PRN IV 10/14/16 16:45 (Magnesium Sulfate Inj/NS Inj) 100 ml @ 50 mls/hr UNSCH PRN IV 10/14/16 16:45 Magnesium Oxide 800 mg 800 mg UNSCH PRN PO 10/14/16 16:45 (Magnesium Sulfate Inj/NS Inj) 100 ml @ 50 mls/hr UNSCH PRN IV 10/14/16 16:45 Potassium Phosphate 2000 mg 2,000 mg Q4H PRN PO 10/14/16 16:45 (Sodium Phosphate Inj/NS 250 ml Inj) 250 ml @ 42 mls/hr UNSCH PRN IV 10/14/16 16:45 Potassium Phosphate 2000 mg 2,000 mg UNSCH PRN PO/TUBE 10/14/16 16:45 (Potassium Phosphate Inj/NS 250 ml Inj) 260 ml @ 42 mls/hr UNSCH PRN IV 10/14/16 16:45 (Mannitol Inj) 25 gm Q6H IV 10/18/16 18:00 10/19/16 17:17 Vital Signs / I&O Vital Signs Date Time Temp Pulse Resp B/P Pulse Ox O2 Delivery O2 Flow Rate FiO2 10/19/16 16:00 99.1 86 22 113/56 98 10/19/16 16:00 86 10/19/16 14:00 94 10/19/16 12:00 99.2 95 22 100/54 95 10/19/16 12:00 95 10/19/16 10:00 97 10/19/16 08:00 77 10/19/16 08:00 99.2 77 17 106/52 95 Arterial Line 10/19/16 06:00 94 10/19/16 04:00 98.0 74 17 99/52 100 10/19/16 04:00 74 10/19/16 02:00 82 10/19/16 00:00 98.2 82 14 126/59 97 10/19/16 00:00 82 10/18/16 22:00 90 10/18/16 20:13 96 Nasal Cannula 2.00 10/18/16 20:00 99.2 74 20 100 130/62 10/18/16 20:00 74 10/18/16 18:00 82 I/O 10/18/16 10/18/16 10/18/16 10/19/16 10/19/16 10/19/16 07:00 15:00 23:00 07:00 15:00 23:00 Intake Total 500 ml 1272 ml 725 ml 200 ml 1177 ml Output Total 1205 ml 2165 ml 2700 ml 1700 ml 1075 ml Balance -705 ml -893 ml -1975 ml -1500 ml 102 ml Intake Oral 0 ml 260 ml 900 ml IV Total 500 ml 1012 ml 725 ml 200 ml 277 ml Output Urine Total 1200 ml 2150 ml 2700 ml 1700 ml 1075 ml Drainage Total 5 ml 15 ml # Bowel Movements 0 0 0 0 1 Physical Exam GENERAL: In NAD SKIN: Warm and dry. HEAD: Normocephalic. EYES: No scleral icterus. No injection or drainage. NECK: Supple, trachea midline. No JVD or lymphadenopathy. CARDIOVASCULAR: Regular rate and rhythm without murmurs, gallops, or rubs. RESPIRATORY: Breath sounds equal bilaterally. No accessory muscle use. GASTROINTESTINAL: Abdomen soft, non-tender, nondistended. MUSCULOSKELETAL: No cyanosis, or edema. Laboratory Laboratory Tests Test 10/18/16 10/19/16 10/19/16 10/19/16 21:11 03:03 08:55 14:28 Serum Osmolality 292 MOSM/KG 295 MOSM/KG 294 MOSM/KG 297 MOSM/KG White Blood Count 12.6 TH/MM3 Red Blood Count 2.78 MIL/MM3 Hemoglobin 8.4 GM/DL Hematocrit 24.8 % Mean Corpuscular Volume 89.4 FL Mean Corpuscular Hemoglobin 30.1 PG Mean Corpuscular Hemoglobin 33.6 % Concent Red Cell Distribution Width 14.1 % Platelet Count 268 TH/MM3 Mean Platelet Volume 7.3 FL Neutrophils (%) (Auto) 82.9 % Lymphocytes (%) (Auto) 8.3 % Monocytes (%) (Auto) 7.7 % Eosinophils (%) (Auto) 0.9 % Basophils (%) (Auto) 0.2 % Neutrophils # (Auto) 10.4 TH/MM3 Lymphocytes # (Auto) 1.0 TH/MM3 Monocytes # (Auto) 1.0 TH/MM3 Eosinophils # (Auto) 0.1 TH/MM3 Basophils # (Auto) 0.0 TH/MM3 CBC Comment DIFF FINAL Differential Comment Sodium Level 140 MEQ/L Potassium Level 4.1 MEQ/L Chloride Level 102 MEQ/L Carbon Dioxide Level 30.1 MEQ/L Anion Gap 8 MEQ/L Blood Urea Nitrogen 12 MG/DL Creatinine 0.59 MG/DL Estimat Glomerular Filtration 135 ML/MIN Rate Random Glucose 96 MG/DL Calcium Level 8.4 MG/DL Albumin 2.8 GM/DL Phenytoin (Dilantin) Level 12.7 MCG/ML Imaging Last Impressions Upper Extremity Ultrasound 10/19/16 0000 Signed Impressions: Service Date/Time: Wednesday, October 19, 2016 07:57 - CONCLUSION: 1. Right internal jugular vein not evaluated due to Central line. 2. Otherwise, no sonographic evidence for right upper extremity DVT. Juan M Samson MD Chest X-Ray 10/16/16 0600 Signed Impressions: Service Date/Time: Sunday, October 16, 2016 04:09 - CONCLUSION: Tubes and catheters in good position. Mild bibasilar atelectasis. Bonifacio Mata MD Head CT 10/14/16 0000 Signed Impressions: Service Date/Time: Friday, October 14, 2016 17:14 - CONCLUSION: 1. Post surgical features of frontoparietal craniotomy with surgical drain in place. Left subdural collection of air and blood products measuring up to 1 cm with slight subfalcine shift to the right without significant transtentorial herniation. 2. Lateral ventricles are stable in size. Juan M Samson MD Lower Extremity Ultrasound 10/11/16 0000 Signed Impressions: Service Date/Time: Tuesday, October 11, 2016 14:13 - CONCLUSION: Negative exam. No sonographic or Doppler findings of deep venous thrombosis bilaterally. Pola Jones MD Brain MRI 10/10/16 1839 Signed Impressions: Service Date/Time: Monday, October 10, 2016 20:45 - CONCLUSION: 1. Large extra-axial mass along the high left parietal convexity in the extra-axial space measuring 5.7 x 3.6 x 4.4 cm possibly representing a meningioma versus less likely metastatic disease. No old studies for comparison. There is some minimal vasogenic edema in left parietal lobe. There is slight left to right midline shift of 8 mm. 2. 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 Austen Yates MD Assessment and Plan Problem List: (1) Meningioma (2) CAD (coronary artery disease) (3) Preoperative cardiovascular examination Assessment and Plan Remains stable, no new cardiac issues. Continue current program. Increase activity, PT. OK to transfer out of ICU. Jaqui Stanton MD Oct 19, 2016 17:52
[2016-10-19] MEDS: FINASTERIDE 5 MG TAB PO SCH (21:35)
[2016-10-19] MEDS: TERAZOSIN HCL 5 MG CAP PO SCH (21:35)
[2016-10-20] VITALS (12 sets, daily range): BP systolic 102–125; BP diastolic 54–61; PULSE 76–92; RESP 19–23; TEMP 97.4–99.7; O2SAT 95–98
[2016-10-20] MEDS: DEXAMETHASONE SOD PHOS 4 MG/ML VIAL IV PUSH SCH ×5 (01:05→23:19)
[2016-10-20 03:45] LABS: BASOPHIL % 0.4 % (0.0-2.0); EOSINOPHIL # 0.1 TH/MM3 (0-0.4); EOSINOPHIL % 0.6 % (0.0-4.0); HEMATOCRIT 25.5 % (39.0-51.0); HEMO FLAGS DIFF FINAL; LYMPH % 10.2 % (9.0-44.0); LYMPHOCYTE # 1.1 TH/MM3 (1.0-4.8); MEAN CELL VOLUME 88.6 FL (80.0-100.0); MEAN CORPUSCULAR HEMOGLOBIN 31.7 PG (27.0-34.0); MEAN CORPUSCULAR HGB CONC 35.8 % (32.0-36.0); MONO % 7.9 % (0.0-8.0); NEUT % 80.9 % (16.0-70.0); PLATELET COUNT 294 TH/MM3 (150-450); RED BLOOD COUNT 2.88 MIL/MM3 (4.50-5.90); RED CELL DISTRIBUTION WIDTH 14.3 % (11.6-17.2); WHITE BLOOD COUNT 11.2 TH/MM3 (4.0-11.0)
[2016-10-20 04:06] LABS: BICARBONATE 25.5 MEQ/L (21.0-32.0); POTASSIUM 4.1 MEQ/L (3.5-5.1)
[2016-10-20] MEDS: FOSPHENYTOIN INJ 100 MGPE in SODIUM CHLORIDE 0.9% INJ 50 ML IV SCH ×4 (04:30→21:00)
[2016-10-20] MEDS: MANNITOL 12.5 GM/50 ML VIAL IV SCH ×3 (05:41→17:33)
[2016-10-20] MEDS: levETIRAcetam 1000 MG INJ 100 ML IV SCH ×3 (06:16→23:19)
[2016-10-20] MEDS: DOCUSATE SODIUM 100 MG CAP PO SCH ×2 (07:55→21:00)
[2016-10-20] MEDS: CHLORHEXIDINE 0.12% (ORAL KIT) 15 ML CUP MT SCH ×2 (07:55→20:00)
[2016-10-20] MEDS: PANTOPRAZOLE SOD 40 MG DELAYED RELEASE TAB PO SCH ×2 (07:55→08:12)
--- NOTE | 2016-10-20 08:04 | HHI.PR ---
Subjective Remarks Patient is alert and oriented. Right sided hemipareses. Denies any SOB or CP Objective Vital Signs Date Time Temp Pulse Resp B/P Pulse Ox O2 Delivery O2 Flow Rate FiO2 10/20/16 06:00 80 10/20/16 04:00 99.1 76 19 111/57 96 10/20/16 04:00 80 10/20/16 02:00 91 10/20/16 00:00 99.0 86 22 125/61 97 10/20/16 00:00 77 10/19/16 22:00 86 10/19/16 20:00 73 10/19/16 20:00 98.8 87 22 115/56 98 10/19/16 18:00 85 10/19/16 16:00 99.1 86 22 113/56 98 10/19/16 16:00 86 10/19/16 14:00 94 10/19/16 12:00 99.2 95 22 100/54 95 10/19/16 12:00 95 10/19/16 10:00 97 10/19/16 08:00 77 10/19/16 08:00 99.2 77 17 106/52 95 Arterial Line I/O 10/19/16 10/19/16 10/19/16 10/20/16 10/20/16 10/20/16 06:59 14:59 22:59 06:59 14:59 22:59 Intake Total 200 ml 1177 ml 593 ml 610 ml Output Total 1700 ml 1075 ml 500 ml 1500 ml Balance -1500 ml 102 ml 93 ml -890 ml Intake Oral 900 ml 360 ml 400 ml IV Total 200 ml 277 ml 233 ml 210 ml Output Urine Total 1700 ml 1075 ml 500 ml 1500 ml # Bowel Movements 0 1 0 1 Result Diagram: 10/20/16 0331 10/20/16 0331 Imaging Last 72 hours Impressions Upper Extremity Ultrasound 10/19/16 0000 Signed Impressions: Service Date/Time: Wednesday, October 19, 2016 07:57 - CONCLUSION: 1. Right internal jugular vein not evaluated due to Central line. 2. Otherwise, no sonographic evidence for right upper extremity DVT. Juan M Samson MD Procedures craniotomy Objective Remarks GENERAL: Alert, oriented and cooperative SKIN: Warm and dry. Staple incision on head intact without redness HEAD: Normocephalic. EYES: No scleral icterus. No injection or drainage. NECK: Supple, trachea midline. No JVD or lymphadenopathy. CARDIOVASCULAR: Regular rate and rhythm without murmurs, gallops, or rubs. Right lower leg edema RESPIRATORY: Breath sounds equal bilaterally. No accessory muscle use. GASTROINTESTINAL: Abdomen soft, non-tender, nondistended. MUSCULOSKELETAL: No cyanosis, or edema. right sided hemiparesis BACK: Nontender without obvious deformity. No CVA tenderness. Medications and IVs Current Medications Medications (Trade) Dose Ordered Sig/Hussein Route Start Time Stop Time Status Last Admin (Decadron Inj) 4 mg Q6HR IV PUSH 10/10/16 18:45 10/20/16 05:42 (Ativan Inj) 1 mg Q4H PRN IV PUSH 10/10/16 19:15 (Narcan Inj) 0.4 mg UNSCH PRN IV 10/10/16 20:30 (Milk Of Magnesia Liq) 30 ml Q12H PRN PO 10/10/16 20:30 (Senokot) 17.2 mg Q12H PRN PO 10/10/16 20:30 10/11/16 04:44 (Dulcolax Supp) 10 mg DAILY PRN RECTAL 10/10/16 20:30 (Lactulose Liq) 30 ml DAILY PRN PO 10/10/16 20:30 (Xanax) 0.5 mg Q6H PRN PO 10/10/16 20:30 10/15/16 21:13 (Duragesic 50 Mcg Patch.72 Hr) 1 patch Q3D T-DERMAL 10/10/16 22:00 Hold 10/12/16 04:17 (Proscar) 5 mg HS PO 10/10/16 21:00 10/19/16 21:35 (Folate) 0.4 mg DAILY PO 10/11/16 09:00 10/19/16 07:43 (Remeron) 15 mg HS PO 10/10/16 21:00 Hold 10/13/16 21:33 (Hytrin) 5 mg HS PO 10/10/16 21:00 10/19/16 21:35 (Desyrel) 200 mg HS PO 10/10/16 21:00 Hold 10/13/16 21:33 (Ambien) 5 mg HS PRN PO 10/10/16 20:30 (Mag-Al Plus Susp Liq) 30 ml Q6HR PRN PO 10/10/16 20:30 Acetaminophen/ Butalbital/ Caffeine 1 tab 1 tab Q4H PRN PO 10/10/16 20:30 10/15/16 21:13 Fosphenytoin Sodium 100 mgpe/ Sodium Chloride 52 ml @ 208 mls/hr Q6H IV 10/10/16 22:00 10/20/16 04:30 (Keppra 1000 Mg Inj) 100 ml @ 400 mls/hr Q8H IV 10/10/16 23:00 10/20/16 06:16 (Lyrica) 150 mg Q12HR PO 10/11/16 21:00 10/19/16 21:39 (NS Flush) 2 ml UNSCH PRN IVF 10/14/16 16:00 (NS Flush) 2 ml BID IVF 10/14/16 21:00 10/19/16 21:00 (Colace) 100 mg BID PO 10/14/16 21:00 10/19/16 21:36 (Protonix) 40 mg DAILY PO 10/15/16 09:00 10/19/16 07:43 (Protonix Inj) 40 mg DAILY IVP 10/15/16 09:00 10/19/16 07:43 (Zofran Inj) 4 mg Q6H PRN IV 10/14/16 16:00 Calcium Gluconate 1 gm 1 gm UNSCH PRN IV 10/14/16 16:00 (Magnesium Sulfate Inj/NS Inj) 108 ml @ 108 mls/hr UNSCH PRN IV 10/14/16 16:00 ([place] 10-325 Mg) 1 tab Q4H PRN PO 10/14/16 16:00 ([place] 10-325 Mg) 2 tab Q4H PRN PO 10/14/16 16:00 (Morphine Inj) 2 mg Q2H PRN IV PUSH 10/14/16 16:00 (Morphine Inj) 4 mg Q2H PRN IV PUSH 10/14/16 16:00 (Tylenol) 650 mg Q4H PRN PO 10/14/16 16:00 Chlorhexidine Gluconate 15 ml 15 ml BID@08,20 MT 10/14/16 20:00 10/17/16 08:00 Propofol 100 ml @ 0 mls/hr TITRATE IV 10/14/16 16:45 10/15/16 00:51 Potassium Chloride 100 ml @ 50 mls/hr Q2H PRN IV 10/14/16 16:45 (KCl 20 Meq Premix Inj) 100 ml @ 50 mls/hr Q2H PRN IV 10/14/16 16:45 Potassium Bicarb/ Potassium Chloride 50 meq 50 meq UNSCH PRN PO 10/14/16 16:45 Potassium Chloride 100 ml @ 25 mls/hr UNSCH PRN IV 10/14/16 16:45 Potassium Chloride 100 ml @ 50 mls/hr Q2H PRN IV 10/14/16 16:45 (Magnesium Sulfate Inj/NS Inj) 100 ml @ 50 mls/hr UNSCH PRN IV 10/14/16 16:45 Magnesium Oxide 800 mg 800 mg UNSCH PRN PO 10/14/16 16:45 (Magnesium Sulfate Inj/NS Inj) 100 ml @ 50 mls/hr UNSCH PRN IV 10/14/16 16:45 Potassium Phosphate 2000 mg 2,000 mg Q4H PRN PO 10/14/16 16:45 (Sodium Phosphate Inj/NS 250 ml Inj) 250 ml @ 42 mls/hr UNSCH PRN IV 10/14/16 16:45 Potassium Phosphate 2000 mg 2,000 mg UNSCH PRN PO/TUBE 10/14/16 16:45 (Potassium Phosphate Inj/NS 250 ml Inj) 260 ml @ 42 mls/hr UNSCH PRN IV 10/14/16 16:45 (Mannitol Inj) 25 gm Q6H IV 10/18/16 18:00 10/20/16 05:41 Assessment and Plan Problem List: (1) Seizure disorder Status: Acute Plan: Neurology consulted and managing. On fosphenytoin and Keppra. Dilantin level yesterday at 12.7- WNL (2) Brain tumor Status: Acute Plan: Neurosurgeon consulted and managing. On Decadron. PT and OT Craniotomy done on the . Drains removed. Rogers intact no redness noted (3) GERD (gastroesophageal reflux disease) Status: Acute Plan: Continue PPI patient is asymptomatic (4) Chronic pain Status: Chronic Plan: Continue current regimen pain well controlled (5) Leg edema, right Status: Acute Plan: US ordered negative for DVT. History of non occlusive DVT in 2015. (6) Anemia Status: Acute Plan: HGB improved at 9.1 No active signs of bleeding (7) Swelling of right upper extremity Status: Acute Plan: US obtained and negative for DVT Assessment and Plan Assessment and plan discussed with Dr. Erica BUCKNER Discussed Condition With Nursing Discharge Planning Acute rehab Physician Attestation I and the SURVEY AND MAPPING TECHNICIAN have both examined this patient and reviewed this note and I agree with these findings and plan of care. Estelle Rincon [facility] Oct 20, 2016 08:04
[2016-10-20] MEDS: SODIUM CHLORIDE 0.9% FLUSH 5 ML FLUSH IVF SCH ×2 (08:11→21:00)
[2016-10-20] MEDS: FOLIC ACID 1 MG TAB PO SCH (08:11)
[2016-10-20] MEDS: PREGABALIN 75 MG CAP PO SCH ×2 (08:12→21:00)
[2016-10-20] MEDS: ENOXAPARIN SODIUM 40 MG/0.4 ML SYRINGE SQ SCH (09:35)
--- NOTE | 2016-10-20 11:23 | HHI.NSPN ---
(Destini Otero) Note Status Status: Progress Note (Destini Otero) Interval History Interval History Mr. Hazel is a 71-year-old male who has a history of a left hemisphere meningioma. Apparently the mass was small and asymotimatic but he now presents with frequent seizures and right side hemiplegia. He states he has had several episodes where he loses consciousness. Her has jerking on the right side as well. He denies tongue bitting. He denies incontinence of stool or urine. He has a history of known left hemisphere meningioma. He was complaining of increasing right-sided weakness. He had an MRI of the brain done in August which revealed increased size of the left hemisphere meningioma with surrounding edema. He has a history about 20 years ago of a right hemisphere meningioma at that was resected. He had severe cervical spinal stenosis and he underwent a cervical laminectomy with Dr Brasher. Neurosurgical consultation was requested. 10/12: doing well, no new complaints, neuro sx unchanged. 10/13: stable overnight, to OR tomorrow for mass resection 10/17: s/p left craniotomy for resection of meningioma 10/14/16. remains intubated, minimal eye opening. 10/18: extubated, smiling. oriented to name and place. 10/19: neuro checks stable overnight, no acute events 10/20: doing well, trying to converse more today. (Destini Otero) Labs, Micro, & Vital Signs Results Date Time Temp Pulse Resp B/P Pulse Ox O2 Delivery O2 Flow Rate FiO2 10/20/16 10:00 87 10/20/16 08:00 98.8 80 21 115/59 95 10/20/16 08:00 86 10/20/16 06:00 80 10/20/16 04:00 99.1 76 19 111/57 96 10/20/16 04:00 80 10/20/16 02:00 91 10/20/16 00:00 99.0 86 22 125/61 97 10/20/16 00:00 77 10/19/16 22:00 86 10/19/16 20:00 73 10/19/16 20:00 98.8 87 22 115/56 98 10/19/16 18:00 85 10/19/16 16:00 99.1 86 22 113/56 98 10/19/16 16:00 86 10/19/16 14:00 94 10/19/16 12:00 99.2 95 22 100/54 95 10/19/16 12:00 95 10/20/16 07:00 Intake Total 2380 ml Output Total 3075 ml Balance -695 ml Constitutional Vital Signs Date Time Temp Pulse Resp B/P Pulse Ox O2 Delivery O2 Flow Rate FiO2 10/20/16 10:00 87 10/20/16 08:00 98.8 80 21 115/59 95 10/20/16 08:00 86 10/20/16 06:00 80 10/20/16 04:00 99.1 76 19 111/57 96 10/20/16 04:00 80 10/20/16 02:00 91 10/20/16 00:00 99.0 86 22 125/61 97 10/20/16 00:00 77 10/19/16 22:00 86 10/19/16 20:00 73 10/19/16 20:00 98.8 87 22 115/56 98 10/19/16 18:00 85 10/19/16 16:00 99.1 86 22 113/56 98 10/19/16 16:00 86 10/19/16 14:00 94 10/19/16 12:00 99.2 95 22 100/54 95 10/19/16 12:00 95 10/20/16 07:00 Intake Total 2380 ml Output Total 3075 ml Balance -695 ml (Destini Otero) Review of Systems/Exam Exam Mr. Hazel is awake, smiling. Oriented to name and place. Follows simple commands. Gave left thumbs up. Wound is healing well. FRANKIE drain sites dry with steri-strips CN: pupils 4 mm equal Motor: raised left upper extremity off the bed, minimal movement in LE's, 0/5 in right arm (Destini Otero) Medications Current Medications Current Medications Medications (Trade) Dose Ordered Sig/Hussein Route PRN Reason Start Time Stop Time Status Last Admin Dose Admin Dexamethasone Sodium Phosphate (Decadron Inj) 4 mg Q6HR IV PUSH 7/24/17 18:45 10/20/16 05:42 Lorazepam (Ativan Inj) 1 mg Q4H PRN IV PUSH SEIZURES 10/10/16 19:15 Naloxone HCl (Narcan Inj) 0.4 mg UNSCH PRN IV SEE LABEL COMMENTS 10/10/16 20:30 Magnesium Hydroxide (Milk Of Magnesia Liq) 30 ml Q12H PRN PO MILD - MODERATE CONSTIPATION 10/10/16 20:30 Sennosides (Senokot) 17.2 mg Q12H PRN PO MODERATE - SEVERE CONSTIPATION 10/10/16 20:30 10/11/16 04:44 Bisacodyl (Dulcolax Supp) 10 mg DAILY PRN RECTAL SEVERE CONSITIPATION 10/10/16 20:30 Lactulose (Lactulose Liq) 30 ml DAILY PRN PO SEVERE CONSITIPATION 10/10/16 20:30 Alprazolam (Xanax) 0.5 mg Q6H PRN PO ANXIETY 10/10/16 20:30 10/15/16 21:13 Fentanyl (Duragesic 50 Mcg Patch.72 Hr) 1 patch Q3D T-DERMAL 10/10/16 22:00 Hold 10/12/16 04:17 Finasteride (Proscar) 5 mg HS PO 10/10/16 21:00 10/19/16 21:35 Folic Acid (Folate) 0.4 mg DAILY PO 10/11/16 09:00 10/20/16 08:11 Mirtazapine (Remeron) 15 mg HS PO 10/10/16 21:00 Hold 10/13/16 21:33 Terazosin HCl (Hytrin) 5 mg HS PO 10/10/16 21:00 10/19/16 21:35 Trazodone HCl (Desyrel) 200 mg HS PO 10/10/16 21:00 Hold 10/13/16 21:33 Zolpidem Tartrate (Ambien) 5 mg HS PRN PO INSOMNIA 10/10/16 20:30 Al Hydrox/Mg Hydrox/Simethicone (Mag-Al Plus Susp Liq) 30 ml Q6HR PRN PO HEARTBURN 10/10/16 20:30 Acetaminophen/ Butalbital/ Caffeine 1 tab 1 tab Q4H PRN PO HEADACHE 10/10/16 20:30 10/15/16 21:13 Fosphenytoin Sodium 100 mgpe/ Sodium Chloride 52 ml @ 208 mls/hr Q6H IV 10/10/16 22:00 10/20/16 09:34 Levetriacetam (Keppra 1000 Mg Inj) 100 ml @ 400 mls/hr Q8H IV 10/10/16 23:00 10/20/16 06:16 Pregabalin (Lyrica) 150 mg Q12HR PO 10/11/16 21:00 10/20/16 08:12 IV Flush (NS Flush) 2 ml UNSCH PRN IVF FLUSH AFTER USING IV ACCESS 10/14/16 16:00 IV Flush (NS Flush) 2 ml BID IVF 10/14/16 21:00 10/20/16 08:11 Docusate Sodium (Colace) 100 mg BID PO 10/14/16 21:00 10/19/16 21:36 Pantoprazole Sodium (Protonix) 40 mg DAILY PO 10/15/16 09:00 10/20/16 08:12 Ondansetron HCl (Zofran Inj) 4 mg Q6H PRN IV NAUSEA OR VOMITING 10/14/16 16:00 Calcium Gluconate 1 gm 1 gm UNSCH PRN IV SEE LABEL COMMENTS 10/14/16 16:00 Magnesium Sulfate/ Sodium Chloride (Magnesium Sulfate Inj/NS Inj) 108 ml @ 108 mls/hr UNSCH PRN IV MAGNESIUM LESS THAN 2 10/14/16 16:00 Acetaminophen/ Hydrocodone Bitart ([place] 10-325 Mg) 1 tab Q4H PRN PO PAIN SCALE 1 TO 5 10/14/16 16:00 Acetaminophen/ Hydrocodone Bitart ([place] 10-325 Mg) 2 tab Q4H PRN PO PAIN SCALE 6 TO 10 10/14/16 16:00 Morphine Sulfate (Morphine Inj) 2 mg Q2H PRN IV PUSH PAIN SCALE 1 TO 6 10/14/16 16:00 Morphine Sulfate (Morphine Inj) 4 mg Q2H PRN IV PUSH PAIN SCALE 7 TO 10 10/14/16 16:00 Acetaminophen (Tylenol) 650 mg Q4H PRN PO TEMPERATURE > 101.5 F 10/14/16 16:00 Chlorhexidine Gluconate 15 ml 15 ml BID@08,20 MT 10/14/16 20:00 10/17/16 08:00 Potassium Chloride 100 ml @ 50 mls/hr Q2H PRN IV For Potassium 2.8 - 3.2 mEq/L 10/14/16 16:45 Potassium Chloride (KCl 20 Meq Premix Inj) 100 ml @ 50 mls/hr Q2H PRN IV For Potassium 2.8 - 3.2 mEq/L 10/14/16 16:45 Potassium Bicarb/ Potassium Chloride 50 meq 50 meq UNSCH PRN PO For Potassium 3.3 - 3.5 mEq/L 10/14/16 16:45 Potassium Chloride 100 ml @ 25 mls/hr UNSCH PRN IV For Potassium 3.3 - 3.5 mEq/L 10/14/16 16:45 Potassium Chloride 100 ml @ 50 mls/hr Q2H PRN IV For Potassium 3.3 - 3.5 mEq/L 10/14/16 16:45 Magnesium Sulfate/ Sodium Chloride (Magnesium Sulfate Inj/NS Inj) 100 ml @ 50 mls/hr UNSCH PRN IV For Magnesium 0.9 - 1.1 mg/dL 10/14/16 16:45 Magnesium Oxide 800 mg 800 mg UNSCH PRN PO For Magnesium 1.2 - 1.6 mg/dL 10/14/16 16:45 Magnesium Sulfate/ Sodium Chloride (Magnesium Sulfate Inj/NS Inj) 100 ml @ 50 mls/hr UNSCH PRN IV For Magnesium 1.2 - 1.6 mg/dL 10/14/16 16:45 Potassium Phosphate 2000 mg 2,000 mg Q4H PRN PO For Phosphorus < 2.5 mg/dL 10/14/16 16:45 Sodium Phosphate/ Sodium Chloride (Sodium Phosphate Inj/NS 250 ml Inj) 250 ml @ 42 mls/hr UNSCH PRN IV For Phosphorus < 2.5 mg/dL 10/14/16 16:45 Potassium Phosphate 2000 mg 2,000 mg UNSCH PRN PO/TUBE SEE LABEL COMMENTS 10/14/16 16:45 Potassium Phosphate/Sodium Chloride (Potassium Phosphate Inj/NS 250 ml Inj) 260 ml @ 42 mls/hr UNSCH PRN IV SEE LABEL COMMENTS 10/14/16 16:45 Mannitol (Mannitol Inj) 25 gm Q6H IV 10/18/16 18:00 10/20/16 05:41 Enoxaparin Sodium (Lovenox Inj) 40 mg Q24H SQ 10/20/16 10:00 10/20/16 09:35 (Destini Otero) Medical Decision Making MDM Remarks 71 y/o male with enlarging left frontal parietal meningioma causing significant mass effect with right hemiparesis and recurrent seizures s/p left craniotomy for resection of meningioma 10/14/16, history of previous resection of right meningioma (Destini Otero) Plan Plan Remarks cont medical mgt, serial neuro checks cont therapy with PT, OT, ST cont therapy and rehab efforts ok to start sq lovenox for dvt prophylaxis (Destini Otero) Attending Statement The exam, history, and the medical decision-making described in the above note were completed with the assistance of the mid-level provider. I reviewed and agree with the findings presented. I attest that I had a [id number] encounter with the patient on the same day, and personally performed and documented my assessment and findings in the medical record. (En Damico MD) Destini Otero Oct 20, 2016 11:23 En Damico MD Oct 23, 2016 21:49
--- NOTE | 2016-10-20 14:09 | PD.CARD.PN ---
Subjective Subjective Remarks No CP or SOB, feels better Objective Medications Current Medications Medications (Trade) Dose Ordered Sig/Hussein Route Start Time Stop Time Status Last Admin (Decadron Inj) 4 mg Q6HR IV PUSH 10/10/16 18:45 10/20/16 11:34 (Ativan Inj) 1 mg Q4H PRN IV PUSH 10/10/16 19:15 (Narcan Inj) 0.4 mg UNSCH PRN IV 10/10/16 20:30 (Milk Of Magnesia Liq) 30 ml Q12H PRN PO 10/10/16 20:30 (Senokot) 17.2 mg Q12H PRN PO 10/10/16 20:30 10/11/16 04:44 (Dulcolax Supp) 10 mg DAILY PRN RECTAL 10/10/16 20:30 (Lactulose Liq) 30 ml DAILY PRN PO 10/10/16 20:30 (Xanax) 0.5 mg Q6H PRN PO 10/10/16 20:30 10/15/16 21:13 (Duragesic 50 Mcg Patch.72 Hr) 1 patch Q3D T-DERMAL 10/10/16 22:00 Hold 10/12/16 04:17 (Proscar) 5 mg HS PO 10/10/16 21:00 10/19/16 21:35 (Folate) 0.4 mg DAILY PO 10/11/16 09:00 10/20/16 08:11 (Remeron) 15 mg HS PO 10/10/16 21:00 Hold 10/13/16 21:33 (Hytrin) 5 mg HS PO 10/10/16 21:00 10/19/16 21:35 (Desyrel) 200 mg HS PO 10/10/16 21:00 Hold 10/13/16 21:33 (Ambien) 5 mg HS PRN PO 10/10/16 20:30 (Mag-Al Plus Susp Liq) 30 ml Q6HR PRN PO 10/10/16 20:30 Acetaminophen/ Butalbital/ Caffeine 1 tab 1 tab Q4H PRN PO 10/10/16 20:30 10/15/16 21:13 Fosphenytoin Sodium 100 mgpe/ Sodium Chloride 52 ml @ 208 mls/hr Q6H IV 10/10/16 22:00 10/20/16 09:34 (Keppra 1000 Mg Inj) 100 ml @ 400 mls/hr Q8H IV 10/10/16 23:00 10/20/16 06:16 (Lyrica) 150 mg Q12HR PO 10/11/16 21:00 10/20/16 08:12 (NS Flush) 2 ml UNSCH PRN IVF 10/14/16 16:00 (NS Flush) 2 ml BID IVF 10/14/16 21:00 10/20/16 08:11 (Colace) 100 mg BID PO 10/14/16 21:00 10/19/16 21:36 (Protonix) 40 mg DAILY PO 10/15/16 09:00 10/20/16 08:12 (Zofran Inj) 4 mg Q6H PRN IV 10/14/16 16:00 Calcium Gluconate 1 gm 1 gm UNSCH PRN IV 10/14/16 16:00 (Magnesium Sulfate Inj/NS Inj) 108 ml @ 108 mls/hr UNSCH PRN IV 10/14/16 16:00 ([place] 10-325 Mg) 1 tab Q4H PRN PO 10/14/16 16:00 ([place] 10-325 Mg) 2 tab Q4H PRN PO 10/14/16 16:00 (Morphine Inj) 2 mg Q2H PRN IV PUSH 10/14/16 16:00 (Morphine Inj) 4 mg Q2H PRN IV PUSH 10/14/16 16:00 (Tylenol) 650 mg Q4H PRN PO 10/14/16 16:00 Chlorhexidine Gluconate 15 ml 15 ml BID@08,20 MT 10/14/16 20:00 10/17/16 08:00 Potassium Chloride 100 ml @ 50 mls/hr Q2H PRN IV 10/14/16 16:45 (KCl 20 Meq Premix Inj) 100 ml @ 50 mls/hr Q2H PRN IV 10/14/16 16:45 Potassium Bicarb/ Potassium Chloride 50 meq 50 meq UNSCH PRN PO 10/14/16 16:45 Potassium Chloride 100 ml @ 25 mls/hr UNSCH PRN IV 10/14/16 16:45 Potassium Chloride 100 ml @ 50 mls/hr Q2H PRN IV 10/14/16 16:45 (Magnesium Sulfate Inj/NS Inj) 100 ml @ 50 mls/hr UNSCH PRN IV 10/14/16 16:45 Magnesium Oxide 800 mg 800 mg UNSCH PRN PO 10/14/16 16:45 (Magnesium Sulfate Inj/NS Inj) 100 ml @ 50 mls/hr UNSCH PRN IV 10/14/16 16:45 Potassium Phosphate 2000 mg 2,000 mg Q4H PRN PO 10/14/16 16:45 (Sodium Phosphate Inj/NS 250 ml Inj) 250 ml @ 42 mls/hr UNSCH PRN IV 10/14/16 16:45 Potassium Phosphate 2000 mg 2,000 mg UNSCH PRN PO/TUBE 10/14/16 16:45 (Potassium Phosphate Inj/NS 250 ml Inj) 260 ml @ 42 mls/hr UNSCH PRN IV 10/14/16 16:45 (Mannitol Inj) 25 gm Q6H IV 10/18/16 18:00 10/20/16 12:53 (Lovenox Inj) 40 mg Q24H SQ 10/20/16 10:00 10/20/16 09:35 Vital Signs / I&O Vital Signs Date Time Temp Pulse Resp B/P Pulse Ox O2 Delivery O2 Flow Rate FiO2 10/20/16 12:00 92 10/20/16 12:00 97.4 92 23 102/56 98 10/20/16 10:00 87 10/20/16 08:00 98.8 80 21 115/59 95 10/20/16 08:00 86 10/20/16 06:00 80 10/20/16 04:00 99.1 76 19 111/57 96 10/20/16 04:00 80 10/20/16 02:00 91 10/20/16 00:00 99.0 86 22 125/61 97 10/20/16 00:00 77 10/19/16 22:00 86 10/19/16 20:00 73 10/19/16 20:00 98.8 87 22 115/56 98 10/19/16 18:00 85 10/19/16 16:00 99.1 86 22 113/56 98 10/19/16 16:00 86 I/O 10/19/16 10/19/16 10/19/16 10/20/16 10/20/16 10/20/16 07:00 15:00 23:00 07:00 15:00 23:00 Intake Total 200 ml 1177 ml 593 ml 610 ml Output Total 1700 ml 1075 ml 500 ml 1500 ml Balance -1500 ml 102 ml 93 ml -890 ml Intake Oral 900 ml 360 ml 400 ml IV Total 200 ml 277 ml 233 ml 210 ml Output Urine Total 1700 ml 1075 ml 500 ml 1500 ml # Bowel Movements 0 1 0 1 Physical Exam GENERAL: In NAD SKIN: Warm and dry. HEAD: Normocephalic. EYES: No scleral icterus. No injection or drainage. NECK: Supple, trachea midline. No JVD or lymphadenopathy. CARDIOVASCULAR: Regular rate and rhythm without murmurs, gallops, or rubs. RESPIRATORY: Breath sounds equal bilaterally. No accessory muscle use. GASTROINTESTINAL: Abdomen soft, non-tender, nondistended. MUSCULOSKELETAL: No cyanosis, or edema. Focal deficits. Laboratory Laboratory Tests Test 10/19/16 10/19/16 10/20/16 10/20/16 14:28 21:19 03:31 11:19 Serum Osmolality 297 MOSM/KG 291 MOSM/KG 290 MOSM/KG 289 MOSM/KG White Blood Count 11.2 TH/MM3 Red Blood Count 2.88 MIL/MM3 Hemoglobin 9.1 GM/DL Hematocrit 25.5 % Mean Corpuscular Volume 88.6 FL Mean Corpuscular Hemoglobin 31.7 PG Mean Corpuscular Hemoglobin 35.8 % Concent Red Cell Distribution Width 14.3 % Platelet Count 294 TH/MM3 Mean Platelet Volume 7.3 FL Neutrophils (%) (Auto) 80.9 % Lymphocytes (%) (Auto) 10.2 % Monocytes (%) (Auto) 7.9 % Eosinophils (%) (Auto) 0.6 % Basophils (%) (Auto) 0.4 % Neutrophils # (Auto) 9.0 TH/MM3 Lymphocytes # (Auto) 1.1 TH/MM3 Monocytes # (Auto) 0.9 TH/MM3 Eosinophils # (Auto) 0.1 TH/MM3 Basophils # (Auto) 0.0 TH/MM3 CBC Comment DIFF FINAL Differential Comment Sodium Level 137 MEQ/L Potassium Level 4.1 MEQ/L Chloride Level 103 MEQ/L Carbon Dioxide Level 25.5 MEQ/L Anion Gap 9 MEQ/L Blood Urea Nitrogen 14 MG/DL Creatinine 0.59 MG/DL Estimat Glomerular Filtration 135 ML/MIN Rate Random Glucose 125 MG/DL Calcium Level 8.7 MG/DL Imaging Last Impressions Upper Extremity Ultrasound 10/19/16 0000 Signed Impressions: Service Date/Time: Wednesday, October 19, 2016 07:57 - CONCLUSION: 1. Right internal jugular vein not evaluated due to Central line. 2. Otherwise, no sonographic evidence for right upper extremity DVT. Juan M Samson MD Chest X-Ray 10/16/16 0600 Signed Impressions: Service Date/Time: Sunday, October 16, 2016 04:09 - CONCLUSION: Tubes and catheters in good position. Mild bibasilar atelectasis. Bonifacio Mata MD Head CT 10/14/16 0000 Signed Impressions: Service Date/Time: Friday, October 14, 2016 17:14 - CONCLUSION: 1. Post surgical features of frontoparietal craniotomy with surgical drain in place. Left subdural collection of air and blood products measuring up to 1 cm with slight subfalcine shift to the right without significant transtentorial herniation. 2. Lateral ventricles are stable in size. Juan M Samson MD Lower Extremity Ultrasound 10/11/16 0000 Signed Impressions: Service Date/Time: Tuesday, October 11, 2016 14:13 - CONCLUSION: Negative exam. No sonographic or Doppler findings of deep venous thrombosis bilaterally. Pola Jones MD Brain MRI 10/10/16 1839 Signed Impressions: Service Date/Time: Monday, October 10, 2016 20:45 - CONCLUSION: 1. Large extra-axial mass along the high left parietal convexity in the extra-axial space measuring 5.7 x 3.6 x 4.4 cm possibly representing a meningioma versus less likely metastatic disease. No old studies for comparison. There is some minimal vasogenic edema in left parietal lobe. There is slight left to right midline shift of 8 mm. 2. 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 Austen Yates MD Assessment and Plan Problem List: (1) Meningioma (2) CAD (coronary artery disease) (3) Preoperative cardiovascular examination Assessment and Plan No angina or CHF symptoms. Continue current program. Increase activity, PT. Remains stable from cardiac standpoint. Jaqui Stanton MD Oct 20, 2016 14:09
--- NOTE | 2016-10-20 16:47 | HHI.PR ---
Subjective Subjective Comments Patient awake and alert. Up to stretcher chair for proximally 5 hours per nursing. Patient denies any pain complaints. Allergies: Coded Allergies: Ancef (Verified Allergy, Intermediate, Rash, 10/10/16) Review of Systems All other ROS: ROS reviewed as documented in chart Exam I&O / VS 10/19/16 10/19/16 10/20/16 15:00 23:00 07:00 Intake Total 1177 ml 593 ml 610 ml Output Total 1075 ml 500 ml 1500 ml Balance 102 ml 93 ml -890 ml Intake Oral 900 ml 360 ml 400 ml IV Total 277 ml 233 ml 210 ml Output Urine Total 1075 ml 500 ml 1500 ml # Bowel Movements 1 0 1 Vital Signs Date Time Temp Pulse Resp B/P Pulse Ox O2 Delivery O2 Flow Rate FiO2 10/20/16 14:00 90 10/20/16 12:00 92 10/20/16 12:00 97.4 92 23 102/56 98 10/20/16 10:00 87 10/20/16 08:00 98.8 80 21 115/59 95 10/20/16 08:00 86 10/20/16 06:00 80 10/20/16 04:00 99.1 76 19 111/57 96 10/20/16 04:00 80 10/20/16 02:00 91 10/20/16 00:00 99.0 86 22 125/61 97 10/20/16 00:00 77 10/19/16 22:00 86 10/19/16 20:00 73 10/19/16 20:00 98.8 87 22 115/56 98 10/19/16 18:00 85 General: No acute distress Skin: Incision (Intact) Musculoskeletal: ROM (Grossly within normal limits) Psychiatric: Cooperative Orientation: oriented to Self, oriented to Place, oriented to Situation, disoriented to Time Neurologic: Pupils (PERRLA), EOM (intact) Motor: Right Upper Extremity (0/5), Left Upper Extremity (5/5), Right Lower Extremity (proximally 2/5), Left Lower Extremity (4+/5) Clonus: Negative Objective Micro and Labs Laboratory Tests Test 10/19/16 10/20/16 10/20/16 10/20/16 21:19 03:31 11:19 15:09 Serum Osmolality 291 290 289 296 White Blood Count 11.2 Red Blood Count 2.88 Hemoglobin 9.1 Hematocrit 25.5 Mean Corpuscular Volume 88.6 Mean Corpuscular Hemoglobin 31.7 Mean Corpuscular Hemoglobin 35.8 Concent Red Cell Distribution Width 14.3 Platelet Count 294 Mean Platelet Volume 7.3 Neutrophils (%) (Auto) 80.9 Lymphocytes (%) (Auto) 10.2 Monocytes (%) (Auto) 7.9 Eosinophils (%) (Auto) 0.6 Basophils (%) (Auto) 0.4 Neutrophils # (Auto) 9.0 Lymphocytes # (Auto) 1.1 Monocytes # (Auto) 0.9 Eosinophils # (Auto) 0.1 Basophils # (Auto) 0.0 CBC Comment DIFF FINAL Differential Comment Sodium Level 137 Potassium Level 4.1 Chloride Level 103 Carbon Dioxide Level 25.5 Anion Gap 9 Blood Urea Nitrogen 14 Creatinine 0.59 Estimat Glomerular Filtration 135 Rate Random Glucose 125 Calcium Level 8.7 Date/Time Procedure Status Source Growth 10/16/16 09:37 Gram Stain - Final Complete Sputum Endotracheal 10/16/16 09:37 Sputum Culture - Final Complete Sputum Endotracheal HEAVY GROWTH NORMAL RESPIRATORY YIFAN Assessment and Plan Diagnosis: (1) Meningioma Assessment 1. Left hemisphere meningioma status post left frontal parietal craniectomy with resection now [place] level 5-6 2. Seizure disorder 3. Cervical spondylosis status post surgery 4. Coronary artery disease 5. GERD 6. Chronic pain Plan 1. Physical therapy is mobilizing and now max assist of 2 to transfer to stretcher chair. Currently tolerating out of bed for 5 hours 2. Occupational therapy is addressing ADLs and now max assist for upper body dressing 3. Speech therapy has evaluated swallow and tolerating pured diet with thin liquids 4. Anticipate the patient will need ongoing rehabilitation at discharge. Case management has referred for ongoing care. 5. SCDs are in place for DVT prophylaxis 6. Continue to reposition every 2 hours to protect skin 7. Will follow hospitalized and at discharge Flor Tirado MD Oct 20, 2016 16:47
[2016-10-20] MEDS: FINASTERIDE 5 MG TAB PO SCH (21:00)
[2016-10-20] MEDS: TERAZOSIN HCL 5 MG CAP PO SCH (21:00)
[2016-10-20 21:07] LABS: MEAN CORPUSCULAR HGB CONC 36.4 % (32.0-36.0)
[2016-10-21] VITALS (11 sets, daily range): BP systolic 105–130; BP diastolic 55–65; PULSE 76–93; RESP 18–22; TEMP 98.2–99.1; O2SAT 93–99
[2016-10-21 01:55] LABS: BICARBONATE 24.6 MEQ/L (21.0-32.0)
[2016-10-21 01:56] LABS: AUTOMATED NEUTROPHIL # 7.9 TH/MM3 (1.8-7.7); BASOPHIL % 0.3 % (0.0-2.0); EOSINOPHIL # 0.2 TH/MM3 (0-0.4); EOSINOPHIL % 1.8 % (0.0-4.0); HEMATOCRIT 25.7 % (39.0-51.0); LYMPHOCYTE # 1.1 TH/MM3 (1.0-4.8); MEAN CELL VOLUME 89.1 FL (80.0-100.0); MEAN CORPUSCULAR HEMOGLOBIN 32.4 PG (27.0-34.0); MONO % 9.2 % (0.0-8.0); NEUT % 77.7 % (16.0-70.0); PLATELET COUNT 354 TH/MM3 (150-450); RED BLOOD COUNT 2.88 MIL/MM3 (4.50-5.90); RED CELL DISTRIBUTION WIDTH 14.6 % (11.6-17.2); WHITE BLOOD COUNT 10.1 TH/MM3 (4.0-11.0)
[2016-10-21 01:58] LABS: HEMO FLAGS AUTO DIFF
[2016-10-21] MEDS: MANNITOL 12.5 GM/50 ML VIAL IV SCH ×2 (02:04→07:39)
[2016-10-21 04:04] LABS: BANDS 3 % (0-6); MYELOCYTES 1 % (0-0); NEUTROPHIL # MANUAL DIFF 8.6 TH/MM3 (1.8-7.7); PLATELET ESTIMATE SMEAR NORMAL (NORMAL); PLATELET MORPHOLOGY NORMAL (NORMAL); POLYS (SEG NEUTROPHILS) 81 % (16-70); SCAN/DIFF FINAL DIFF MANUAL; WBC DIFF SAMPLE 100
[2016-10-21 04:06] LABS: ACANTHOCYTES OCC (NORMAL)
[2016-10-21] MEDS: FOSPHENYTOIN INJ 100 MGPE in SODIUM CHLORIDE 0.9% INJ 50 ML IV SCH ×5 (04:30→23:09)
[2016-10-21] MEDS: DEXAMETHASONE SOD PHOS 4 MG/ML VIAL IV PUSH SCH ×3 (06:00→17:41)
--- NOTE | 2016-10-21 06:59 | HHI.PR ---
Subjective Remarks Patient following commands. Denies any SOB or CP. Right hand squeezed lightly to command Objective Vital Signs Date Time Temp Pulse Resp B/P Pulse Ox O2 Delivery O2 Flow Rate FiO2 10/21/16 04:00 76 10/21/16 04:00 98.2 76 19 120/58 93 10/21/16 02:00 86 10/21/16 00:00 99.1 92 19 114/65 95 10/21/16 00:00 92 10/20/16 22:00 89 10/20/16 20:00 98.9 80 21 108/54 97 10/20/16 20:00 80 10/20/16 18:00 77 10/20/16 16:00 88 10/20/16 16:00 99.7 88 19 115/56 97 10/20/16 14:00 90 10/20/16 12:00 92 10/20/16 12:00 97.4 92 23 102/56 98 10/20/16 10:00 87 10/20/16 08:00 98.8 80 21 115/59 95 10/20/16 08:00 86 I/O 10/20/16 10/20/16 10/20/16 10/21/16 10/21/16 10/21/16 07:00 15:00 23:00 07:00 15:00 23:00 Intake Total 610 ml 843 ml 220 ml Output Total 1500 ml 1200 ml 300 ml Balance -890 ml -357 ml -80 ml Intake Oral 400 ml 580 ml IV Total 210 ml 263 ml 220 ml Output Urine Total 1500 ml 1200 ml 300 ml Stool Total 0 ml # Voids 1 # Bowel Movements 1 1 0 Result Diagram: 10/21/16 0100 10/21/16 0607 Procedures craniotomy Objective Remarks GENERAL: Alert and cooperative SKIN: Warm and dry. Staple incision on head intact without redness HEAD: Normocephalic. EYES: No scleral icterus. No injection or drainage. NECK: Supple, trachea midline. No JVD or lymphadenopathy. CARDIOVASCULAR: Regular rate and rhythm without murmurs, gallops, or rubs. Right lower leg edema RESPIRATORY: Breath sounds equal bilaterally. No accessory muscle use. GASTROINTESTINAL: Abdomen soft, non-tender, nondistended. MUSCULOSKELETAL: No cyanosis, or edema. right sided hemiparesis BACK: Nontender without obvious deformity. No CVA tenderness. Medications and IVs Current Medications Medications (Trade) Dose Ordered Sig/Hussein Route Start Time Stop Time Status Last Admin (Decadron Inj) 4 mg Q6HR IV PUSH 10/10/16 18:45 10/21/16 06:00 (Ativan Inj) 1 mg Q4H PRN IV PUSH 10/10/16 19:15 (Narcan Inj) 0.4 mg UNSCH PRN IV 10/10/16 20:30 (Milk Of Magnesia Liq) 30 ml Q12H PRN PO 10/10/16 20:30 (Senokot) 17.2 mg Q12H PRN PO 10/10/16 20:30 10/11/16 04:44 (Dulcolax Supp) 10 mg DAILY PRN RECTAL 10/10/16 20:30 (Lactulose Liq) 30 ml DAILY PRN PO 10/10/16 20:30 (Xanax) 0.5 mg Q6H PRN PO 10/10/16 20:30 10/15/16 21:13 (Duragesic 50 Mcg Patch.72 Hr) 1 patch Q3D T-DERMAL 10/10/16 22:00 Hold 10/12/16 04:17 (Proscar) 5 mg HS PO 10/10/16 21:00 10/20/16 21:00 (Folate) 0.4 mg DAILY PO 10/11/16 09:00 10/20/16 08:11 (Remeron) 15 mg HS PO 10/10/16 21:00 Hold 10/13/16 21:33 (Hytrin) 5 mg HS PO 10/10/16 21:00 10/20/16 21:00 (Desyrel) 200 mg HS PO 10/10/16 21:00 Hold 10/13/16 21:33 (Ambien) 5 mg HS PRN PO 10/10/16 20:30 (Mag-Al Plus Susp Liq) 30 ml Q6HR PRN PO 10/10/16 20:30 Acetaminophen/ Butalbital/ Caffeine 1 tab 1 tab Q4H PRN PO 10/10/16 20:30 10/15/16 21:13 Fosphenytoin Sodium 100 mgpe/ Sodium Chloride 52 ml @ 208 mls/hr Q6H IV 10/10/16 22:00 10/21/16 04:30 (Keppra 1000 Mg Inj) 100 ml @ 400 mls/hr Q8H IV 10/10/16 23:00 10/20/16 23:19 (Lyrica) 150 mg Q12HR PO 10/11/16 21:00 10/20/16 21:00 (NS Flush) 2 ml UNSCH PRN IVF 10/14/16 16:00 (NS Flush) 2 ml BID IVF 10/14/16 21:00 10/20/16 21:00 (Colace) 100 mg BID PO 10/14/16 21:00 10/19/16 21:36 (Protonix) 40 mg DAILY PO 10/15/16 09:00 10/20/16 08:12 (Zofran Inj) 4 mg Q6H PRN IV 10/14/16 16:00 Calcium Gluconate 1 gm 1 gm UNSCH PRN IV 10/14/16 16:00 (Magnesium Sulfate Inj/NS Inj) 108 ml @ 108 mls/hr UNSCH PRN IV 10/14/16 16:00 ([place] 10-325 Mg) 1 tab Q4H PRN PO 10/14/16 16:00 ([place] 10-325 Mg) 2 tab Q4H PRN PO 10/14/16 16:00 (Morphine Inj) 2 mg Q2H PRN IV PUSH 10/14/16 16:00 (Morphine Inj) 4 mg Q2H PRN IV PUSH 10/14/16 16:00 (Tylenol) 650 mg Q4H PRN PO 10/14/16 16:00 Chlorhexidine Gluconate 15 ml 15 ml BID@08,20 MT 10/14/16 20:00 10/17/16 08:00 Potassium Chloride 100 ml @ 50 mls/hr Q2H PRN IV 10/14/16 16:45 (KCl 20 Meq Premix Inj) 100 ml @ 50 mls/hr Q2H PRN IV 10/14/16 16:45 Potassium Bicarb/ Potassium Chloride 50 meq 50 meq UNSCH PRN PO 10/14/16 16:45 Potassium Chloride 100 ml @ 25 mls/hr UNSCH PRN IV 10/14/16 16:45 Potassium Chloride 100 ml @ 50 mls/hr Q2H PRN IV 10/14/16 16:45 (Magnesium Sulfate Inj/NS Inj) 100 ml @ 50 mls/hr UNSCH PRN IV 10/14/16 16:45 Magnesium Oxide 800 mg 800 mg UNSCH PRN PO 10/14/16 16:45 (Magnesium Sulfate Inj/NS Inj) 100 ml @ 50 mls/hr UNSCH PRN IV 10/14/16 16:45 Potassium Phosphate 2000 mg 2,000 mg Q4H PRN PO 10/14/16 16:45 (Sodium Phosphate Inj/NS 250 ml Inj) 250 ml @ 42 mls/hr UNSCH PRN IV 10/14/16 16:45 Potassium Phosphate 2000 mg 2,000 mg UNSCH PRN PO/TUBE 10/14/16 16:45 (Potassium Phosphate Inj/NS 250 ml Inj) 260 ml @ 42 mls/hr UNSCH PRN IV 10/14/16 16:45 (Mannitol Inj) 25 gm Q6H IV 10/18/16 18:00 10/21/16 02:04 (Lovenox Inj) 40 mg Q24H SQ 10/20/16 10:00 10/20/16 09:35 Assessment and Plan Problem List: (1) Seizure disorder Status: Acute Plan: Neurology consulted and managing. On fosphenytoin and Keppra. (2) Brain tumor Status: Acute Plan: Neurosurgeon consulted and managing. On Decadron. PT and OT Craniotomy done on the . Drains removed. [place] intact no redness noted (3) GERD (gastroesophageal reflux disease) Status: Acute Plan: Continue PPI patient is asymptomatic (4) Chronic pain Status: Chronic Plan: Continue current regimen pain well controlled (5) Leg edema, right Status: Resolved Plan: US ordered negative for DVT. History of non occlusive DVT in 2014. (6) Anemia Status: Acute Plan: HGB improved at 9.3 No active signs of bleeding (7) Swelling of right upper extremity Status: Acute Plan: US obtained and negative for DVT Assessment and Plan Assessment and plan discussed with Dr. Erica BUCKNER Discussed Condition With Nursing Discharge Planning Acute rehab Physician Attestation I and the [facility] have both examined this patient and reviewed this note and I agree with these findings and plan of care. Estelle Rincon [facility] Oct 21, 2016 06:59
[2016-10-21] MEDS: levETIRAcetam 1000 MG INJ 100 ML IV SCH ×3 (07:40→22:32)
[2016-10-21] MEDS: CHLORHEXIDINE 0.12% (ORAL KIT) 15 ML CUP MT SCH ×2 (08:00→22:32)
[2016-10-21] MEDS: SODIUM CHLORIDE 0.9% FLUSH 5 ML FLUSH IVF SCH ×2 (09:00→22:32)
--- NOTE | 2016-10-21 10:09 | HHI.NSPN ---
(Destini Otero) Note Status Status: Progress Note (Destini Otero) Interval History Interval History Mr. Hazel is a 71-year-old male who has a history of a left hemisphere meningioma. Apparently the mass was small and asymotimatic but he now presents with frequent seizures and right side hemiplegia. He states he has had several episodes where he loses consciousness. Her has jerking on the right side as well. He denies tongue bitting. He denies incontinence of stool or urine. He has a history of known left hemisphere meningioma. He was complaining of increasing right-sided weakness. He had an MRI of the brain done in August which revealed increased size of the left hemisphere meningioma with surrounding edema. He has a history about 20 years ago of a right hemisphere meningioma at that was resected. He had severe cervical spinal stenosis and he underwent a cervical laminectomy with Dr Brasher. Neurosurgical consultation was requested. 10/12: doing well, no new complaints, neuro sx unchanged. 10/13: stable overnight, to OR tomorrow for mass resection 10/17: s/p left craniotomy for resection of meningioma 10/14/16. remains intubated, minimal eye opening. 10/18: extubated, smiling. oriented to name and place. 10/19: neuro checks stable overnight, no acute events 8: doing well, trying to converse more today. 10/21: nods when asked if he is doing well, smiling, being fed breakfast. (Destini Otero) Labs, Micro, & Vital Signs Results Date Time Temp Pulse Resp B/P Pulse Ox O2 Delivery O2 Flow Rate FiO2 10/21/16 06:00 82 10/21/16 04:00 76 10/21/16 04:00 98.2 76 19 120/58 93 10/21/16 02:00 86 10/21/16 00:00 99.1 92 19 114/65 95 10/21/16 00:00 92 10/20/16 22:00 89 10/20/16 20:00 98.9 80 21 108/54 97 10/20/16 20:00 80 10/20/16 18:00 77 10/20/16 16:00 88 10/20/16 16:00 99.7 88 19 115/56 97 10/20/16 14:00 90 10/20/16 12:00 92 10/20/16 12:00 97.4 92 23 102/56 98 10/21/16 07:00 Intake Total 1483 ml Output Total 2200 ml Balance -717 ml Constitutional Vital Signs Date Time Temp Pulse Resp B/P Pulse Ox O2 Delivery O2 Flow Rate FiO2 10/21/16 06:00 82 10/21/16 04:00 76 10/21/16 04:00 98.2 76 19 120/58 93 10/21/16 02:00 86 10/21/16 00:00 99.1 92 19 114/65 95 10/21/16 00:00 92 10/20/16 22:00 89 10/20/16 20:00 98.9 80 21 108/54 97 10/20/16 20:00 80 10/20/16 18:00 77 10/20/16 16:00 88 10/20/16 16:00 99.7 88 19 115/56 97 10/20/16 14:00 90 10/20/16 12:00 92 10/20/16 12:00 97.4 92 23 102/56 98 10/21/16 07:00 Intake Total 1483 ml Output Total 2200 ml Balance -717 ml (Destini Otero) Review of Systems/Exam Exam Mr. Hazel is alert, resting comfortably, and eating his breakfast. Converses slightly. Follows simple commands. Wound is healing well, no redness, drainage or signs of infection. CN: pupils 4 mm equal Motor: moves left side well, right lower extremity 3/5, right upper extremity 0/ 5 (Destini Otero) Medical Decision Making MDM Remarks 71 y/o male with enlarging left frontal parietal meningioma causing significant mass effect with right hemiparesis and recurrent seizures s/p left craniotomy for resection of meningioma 10/14/16, final pathology reports meningioma history of previous resection of right meningioma (Destini Otero) Plan Plan Remarks cont medical mgt, serial neuro checks cont therapy with PT, OT, ST cont therapy and rehab efforts mobilize OOB with assistance clear to dc to rehab from N[facility] standpoint (Destini Otero) Attending Statement The exam, history, and the medical decision-making described in the above note were completed with the assistance of the mid-level provider. I reviewed and agree with the findings presented. I attest that I had a [id number] encounter with the patient on the same day, and personally performed and documented my assessment and findings in the medical record. (En Damico MD) Destini Otero Oct 21, 2016 10:09 En Damico MD Oct 23, 2016 21:57
[2016-10-21] MEDS: PREGABALIN 75 MG CAP PO SCH ×2 (10:58→22:31)
[2016-10-21] MEDS: FOLIC ACID 1 MG TAB PO SCH (10:58)
[2016-10-21] MEDS: PANTOPRAZOLE SOD 40 MG DELAYED RELEASE TAB PO SCH (10:58)
[2016-10-21] MEDS: DOCUSATE SODIUM 100 MG CAP PO SCH ×2 (10:58→22:31)
[2016-10-21] MEDS: ENOXAPARIN SODIUM 40 MG/0.4 ML SYRINGE SQ SCH (10:59)
--- NOTE | 2016-10-21 16:57 | PD.CARD.PN ---
Subjective Subjective Remarks No CP or SOB, feels better, off IV anticonvulsants anticipating transfer to rehab Objective Medications Current Medications Medications (Trade) Dose Ordered Sig/Hussein Route Start Time Stop Time Status Last Admin (Decadron Inj) 4 mg Q6HR IV PUSH 10/10/16 18:45 10/21/16 14:21 (Ativan Inj) 1 mg Q4H PRN IV PUSH 10/10/16 19:15 (Narcan Inj) 0.4 mg UNSCH PRN IV 10/10/16 20:30 (Milk Of Magnesia Liq) 30 ml Q12H PRN PO 10/10/16 20:30 (Senokot) 17.2 mg Q12H PRN PO 10/10/16 20:30 10/11/16 04:44 (Dulcolax Supp) 10 mg DAILY PRN RECTAL 10/10/16 20:30 (Lactulose Liq) 30 ml DAILY PRN PO 10/10/16 20:30 (Xanax) 0.5 mg Q6H PRN PO 10/10/16 20:30 10/15/16 21:13 (Duragesic 50 Mcg Patch.72 Hr) 1 patch Q3D T-DERMAL 10/10/16 22:00 Hold 10/12/16 04:17 (Proscar) 5 mg HS PO 10/10/16 21:00 10/20/16 21:00 (Folate) 0.4 mg DAILY PO 10/11/16 09:00 10/21/16 10:58 (Remeron) 15 mg HS PO 10/10/16 21:00 Hold 10/13/16 21:33 (Hytrin) 5 mg HS PO 10/10/16 21:00 10/20/16 21:00 (Desyrel) 200 mg HS PO 10/10/16 21:00 Hold 10/13/16 21:33 (Ambien) 5 mg HS PRN PO 10/10/16 20:30 (Mag-Al Plus Susp Liq) 30 ml Q6HR PRN PO 10/10/16 20:30 Acetaminophen/ Butalbital/ Caffeine 1 tab 1 tab Q4H PRN PO 10/10/16 20:30 10/15/16 21:13 Fosphenytoin Sodium 100 mgpe/ Sodium Chloride 52 ml @ 208 mls/hr Q6H IV 10/10/16 22:00 10/21/16 14:22 (Keppra 1000 Mg Inj) 100 ml @ 400 mls/hr Q8H IV 10/10/16 23:00 10/21/16 14:21 (Lyrica) 150 mg Q12HR PO 10/11/16 21:00 10/21/16 10:58 (NS Flush) 2 ml UNSCH PRN IVF 10/14/16 16:00 (NS Flush) 2 ml BID IVF 10/14/16 21:00 10/20/16 21:00 (Colace) 100 mg BID PO 10/14/16 21:00 10/21/16 10:58 (Protonix) 40 mg DAILY PO 10/15/16 09:00 10/21/16 10:58 (Zofran Inj) 4 mg Q6H PRN IV 10/14/16 16:00 Calcium Gluconate 1 gm 1 gm UNSCH PRN IV 10/14/16 16:00 (Magnesium Sulfate Inj/NS Inj) 108 ml @ 108 mls/hr UNSCH PRN IV 10/14/16 16:00 ([place] 10-325 Mg) 1 tab Q4H PRN PO 10/14/16 16:00 ([place] 10-325 Mg) 2 tab Q4H PRN PO 10/14/16 16:00 (Morphine Inj) 2 mg Q2H PRN IV PUSH 10/14/16 16:00 (Morphine Inj) 4 mg Q2H PRN IV PUSH 10/14/16 16:00 (Tylenol) 650 mg Q4H PRN PO 10/14/16 16:00 Chlorhexidine Gluconate 15 ml 15 ml BID@08,20 MT 10/14/16 20:00 10/17/16 08:00 Potassium Chloride 100 ml @ 50 mls/hr Q2H PRN IV 10/14/16 16:45 (KCl 20 Meq Premix Inj) 100 ml @ 50 mls/hr Q2H PRN IV 10/14/16 16:45 Potassium Bicarb/ Potassium Chloride 50 meq 50 meq UNSCH PRN PO 10/14/16 16:45 Potassium Chloride 100 ml @ 25 mls/hr UNSCH PRN IV 10/14/16 16:45 Potassium Chloride 100 ml @ 50 mls/hr Q2H PRN IV 10/14/16 16:45 (Magnesium Sulfate Inj/NS Inj) 100 ml @ 50 mls/hr UNSCH PRN IV 10/14/16 16:45 Magnesium Oxide 800 mg 800 mg UNSCH PRN PO 10/14/16 16:45 (Magnesium Sulfate Inj/NS Inj) 100 ml @ 50 mls/hr UNSCH PRN IV 10/14/16 16:45 Potassium Phosphate 2000 mg 2,000 mg Q4H PRN PO 10/14/16 16:45 (Sodium Phosphate Inj/NS 250 ml Inj) 250 ml @ 42 mls/hr UNSCH PRN IV 10/14/16 16:45 Potassium Phosphate 2000 mg 2,000 mg UNSCH PRN PO/TUBE 10/14/16 16:45 (Potassium Phosphate Inj/NS 250 ml Inj) 260 ml @ 42 mls/hr UNSCH PRN IV 10/14/16 16:45 (Lovenox Inj) 40 mg Q24H SQ 10/20/16 10:00 10/21/16 10:59 Vital Signs / I&O Vital Signs Date Time Temp Pulse Resp B/P Pulse Ox O2 Delivery O2 Flow Rate FiO2 10/21/16 14:00 83 10/21/16 12:00 98.8 83 21 105/56 99 10/21/16 12:00 84 10/21/16 11:58 21 10/21/16 10:00 93 10/21/16 08:00 98.8 90 22 130/62 94 10/21/16 08:00 90 10/21/16 06:00 82 10/21/16 04:00 76 10/21/16 04:00 98.2 76 19 120/58 93 10/21/16 02:00 86 10/21/16 00:00 99.1 92 19 114/65 95 10/21/16 00:00 92 10/20/16 22:00 89 10/20/16 20:00 98.9 80 21 108/54 97 10/20/16 20:00 80 10/20/16 18:00 77 I/O 10/20/16 10/20/16 10/20/16 10/21/16 10/21/16 10/21/16 07:00 15:00 23:00 07:00 15:00 23:00 Intake Total 610 ml 843 ml 220 ml 420 ml 420 ml Output Total 1500 ml 1200 ml 300 ml 700 ml 1000 ml Balance -890 ml -357 ml -80 ml -280 ml -580 ml Intake Oral 400 ml 580 ml 240 ml 420 ml IV Total 210 ml 263 ml 220 ml 180 ml 0 ml Output Urine Total 1500 ml 1200 ml 300 ml 700 ml 1000 ml Stool Total 0 ml 0 ml 0 ml # Voids 1 # Bowel Movements 1 1 0 0 Physical Exam GENERAL: In NAD SKIN: Warm and dry. HEAD: Normocephalic. EYES: No scleral icterus. No injection or drainage. NECK: Supple, trachea midline. No JVD or lymphadenopathy. CARDIOVASCULAR: Regular rate and rhythm without murmurs, gallops, or rubs. RESPIRATORY: Breath sounds equal bilaterally. No accessory muscle use. GASTROINTESTINAL: Abdomen soft, non-tender, nondistended. MUSCULOSKELETAL: No cyanosis, or edema. Focal deficits. Laboratory Laboratory Tests Test 10/20/16 10/21/16 10/21/16 19:40 01:00 06:07 Serum Osmolality 295 MOSM/KG 294 MOSM/KG 294 MOSM/KG White Blood Count 10.1 TH/MM3 Red Blood Count 2.88 MIL/MM3 Hemoglobin 9.3 GM/DL Hematocrit 25.7 % Mean Corpuscular Volume 89.1 FL Mean Corpuscular Hemoglobin 32.4 PG Mean Corpuscular Hemoglobin 36.4 % Concent Red Cell Distribution Width 14.6 % Platelet Count 354 TH/MM3 Mean Platelet Volume 7.6 FL Neutrophils (%) (Auto) 77.7 % Lymphocytes (%) (Auto) 11.0 % Monocytes (%) (Auto) 9.2 % Eosinophils (%) (Auto) 1.8 % Basophils (%) (Auto) 0.3 % Neutrophils # (Auto) 7.9 TH/MM3 Lymphocytes # (Auto) 1.1 TH/MM3 Monocytes # (Auto) 0.9 TH/MM3 Eosinophils # (Auto) 0.2 TH/MM3 Basophils # (Auto) 0.0 TH/MM3 CBC Comment AUTO DIFF Differential Total Cells 100 Counted Neutrophils % (Manual) 81 % Band Neutrophils % 3 % Lymphocytes % 10 % Monocytes % 5 % Neutrophils # (Manual) 8.6 TH/MM3 Myelocytes 1 % Differential Comment FINAL DIFF MANUAL Platelet Estimate NORMAL Platelet Morphology Comment NORMAL Acanthocytes OCC Sodium Level 138 MEQ/L 136 MEQ/L Potassium Level 4.0 MEQ/L Chloride Level 102 MEQ/L Carbon Dioxide Level 24.6 MEQ/L Anion Gap 11 MEQ/L Blood Urea Nitrogen 15 MG/DL Creatinine 0.61 MG/DL Estimat Glomerular Filtration 130 ML/MIN Rate Random Glucose 117 MG/DL Calcium Level 8.5 MG/DL Imaging Last Impressions Upper Extremity Ultrasound 10/19/16 0000 Signed Impressions: Service Date/Time: Wednesday, October 19, 2016 07:57 - CONCLUSION: 1. Right internal jugular vein not evaluated due to Central line. 2. Otherwise, no sonographic evidence for right upper extremity DVT. Juan M Samson MD Chest X-Ray 10/16/16 0600 Signed Impressions: Service Date/Time: Sunday, October 16, 2016 04:09 - CONCLUSION: Tubes and catheters in good position. Mild bibasilar atelectasis. Bonifacio Mata MD Head CT 10/14/16 0000 Signed Impressions: Service Date/Time: Friday, October 14, 2016 17:14 - CONCLUSION: 1. Post surgical features of frontoparietal craniotomy with surgical drain in place. Left subdural collection of air and blood products measuring up to 1 cm with slight subfalcine shift to the right without significant transtentorial herniation. 2. Lateral ventricles are stable in size. Juan M Samson MD Lower Extremity Ultrasound 10/11/16 0000 Signed Impressions: Service Date/Time: Tuesday, October 11, 2016 14:13 - CONCLUSION: Negative exam. No sonographic or Doppler findings of deep venous thrombosis bilaterally. Pola Jones MD Brain MRI 10/10/16 1839 Signed Impressions: Service Date/Time: Monday, October 10, 2016 20:45 - CONCLUSION: 1. Large extra-axial mass along the high left parietal convexity in the extra-axial space measuring 5.7 x 3.6 x 4.4 cm possibly representing a meningioma versus less likely metastatic disease. No old studies for comparison. There is some minimal vasogenic edema in left parietal lobe. There is slight left to right midline shift of 8 mm. 2. 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 Austen Yates MD Assessment and Plan Problem List: (1) Meningioma (2) CAD (coronary artery disease) (3) Preoperative cardiovascular examination Assessment and Plan No new cardiac issues. No angina or CHF symptoms. Continue current program. Increase activity, PT. Remains stable from cardiac standpoint. Anticipate transfer to [facility] as planned. Jaqui Stanton MD Oct 21, 2016 16:57
[2016-10-21] MEDS: TERAZOSIN HCL 5 MG CAP PO SCH (22:31)
[2016-10-21] MEDS: FINASTERIDE 5 MG TAB PO SCH (22:31)
[2016-10-22 00:21] VITALS: BP 100/52; PULSE 90; RESP 22; TEMP 98.4; O2SAT 94
[2016-10-22 04:20] VITALS: BP 100/95; PULSE 85; RESP 20; TEMP 98.2; O2SAT 94
[2016-10-22] MEDS: DEXAMETHASONE SOD PHOS 4 MG/ML VIAL IV PUSH SCH ×2 (04:58)
[2016-10-22] MEDS: FOSPHENYTOIN INJ 100 MGPE in SODIUM CHLORIDE 0.9% INJ 50 ML IV SCH ×4 (04:58→21:12)
[2016-10-22] MEDS: levETIRAcetam 1000 MG INJ 100 ML IV SCH ×3 (06:44→23:43)
[2016-10-22] MEDS: CHLORHEXIDINE 0.12% (ORAL KIT) 15 ML CUP MT SCH ×2 (08:00→21:12)
[2016-10-22 08:23] VITALS: BP 101/57; PULSE 89; RESP 18; TEMP 97.5; O2SAT 95
[2016-10-22] MEDS: DOCUSATE SODIUM 100 MG CAP PO SCH ×2 (08:55→21:11)
[2016-10-22] MEDS: FOLIC ACID 1 MG TAB PO SCH (08:55)
[2016-10-22] MEDS: PREGABALIN 75 MG CAP PO SCH ×2 (08:55→21:11)
[2016-10-22] MEDS: PANTOPRAZOLE SOD 40 MG DELAYED RELEASE TAB PO SCH (08:55)
[2016-10-22] MEDS: SODIUM CHLORIDE 0.9% FLUSH 5 ML FLUSH IVF SCH ×2 (08:56→21:12)
[2016-10-22] MEDS: ENOXAPARIN SODIUM 40 MG/0.4 ML SYRINGE SQ SCH (10:41)
[2016-10-22 12:29] VITALS: BP 117/58; PULSE 90; RESP 20; TEMP 98.5; O2SAT 95
--- NOTE | 2016-10-22 14:30 | HHI.PR ---
Subjective Remarks pt out of ICU currently has sitter will ck lab in am to [place] when stable Objective Vital Signs Date Time Temp Pulse Resp B/P Pulse Ox O2 Delivery O2 Flow Rate FiO2 10/22/16 12:29 98.5 90 20 117/58 95 10/22/16 08:23 97.5 89 18 101/57 95 10/22/16 04:20 98.2 85 20 100/95 94 10/22/16 00:21 98.4 90 22 100/52 94 10/21/16 21:52 98.5 79 18 108/55 97 10/21/16 18:00 89 10/21/16 16:00 85 10/21/16 16:00 98.4 90 22 106/56 98 I/O 10/21/16 10/21/16 10/21/16 10/22/16 10/22/16 10/22/16 06:59 14:59 22:59 06:59 14:59 22:59 Intake Total 420 ml 420 ml 300 ml Output Total 700 ml 1000 ml 600 ml Balance -280 ml -580 ml -300 ml Intake Oral 240 ml 420 ml IV Total 180 ml 0 ml 300 ml Output Urine Total 700 ml 1000 ml 600 ml Stool Total 0 ml 0 ml # Bowel Movements 0 Result Diagram: 10/21/16 0100 10/21/16 0607 Procedures craniotomy Objective Remarks GENERAL: Well-nourished, well-developed patient.intubated minimally responsive SKIN: Warm and dry. HEAD: Normocephalic.recent well healing crainotomy present EYES: No scleral icterus. No injection or drainage. NECK: Supple, trachea midline. No JVD or lymphadenopathy. CARDIOVASCULAR: Regular rate and rhythm without murmurs, gallops, or rubs. RESPIRATORY: Breath sounds equal bilaterally. No accessory muscle use. GASTROINTESTINAL: Abdomen soft, non-tender, nondistended. EXTREMITIES: No cyanosis, or edema. NEUROLOGICAL right side is flacid Assessment and Plan Problem List: (1) Meningioma, multiple Status: Acute Plan: sp crainotomy (2) COPD (chronic obstructive pulmonary disease) Status: Chronic Plan: wean vent Assessment and Plan has had dark sputum culture pending Discharge Planning to [place] 24 48 hours Evangelista Maldonado DO Oct 22, 2016 14:30
[2016-10-22 15:31] VITALS: BP 111/57; PULSE 86; RESP 20; TEMP 100; O2SAT 95
[2016-10-22] MEDS: DEXAMETHASONE 1.5 MG TAB PO SCH ×2 (17:28→23:43)
[2016-10-22] MEDS: TERAZOSIN HCL 5 MG CAP PO SCH (21:11)
[2016-10-22] MEDS: FINASTERIDE 5 MG TAB PO SCH (21:11)
[2016-10-22 21:24] VITALS: BP 126/59; PULSE 79; RESP 19; TEMP 98.8; O2SAT 98
[2016-10-23] VITALS: BP 119/62; PULSE 88; RESP 18; TEMP 98.5; O2SAT 100
[2016-10-23 03:49] VITALS: BP 138/53; PULSE 96; RESP 18; TEMP 96.7; O2SAT 100
[2016-10-23] MEDS: FOSPHENYTOIN INJ 100 MGPE in SODIUM CHLORIDE 0.9% INJ 50 ML IV SCH ×3 (03:58→15:45)
[2016-10-23] MEDS: DEXAMETHASONE 1.5 MG TAB PO SCH ×4 (06:15→23:24)
[2016-10-23] MEDS: levETIRAcetam 1000 MG INJ 100 ML IV SCH ×2 (06:16→15:00)
[2016-10-23] MEDS: CHLORHEXIDINE 0.12% (ORAL KIT) 15 ML CUP MT SCH ×2 (08:00→20:05)
[2016-10-23] MEDS: DOCUSATE SODIUM 100 MG CAP PO SCH ×2 (08:38→21:07)
[2016-10-23] MEDS: FOLIC ACID 1 MG TAB PO SCH (08:38)
[2016-10-23] MEDS: PREGABALIN 75 MG CAP PO SCH ×2 (08:38→21:06)
[2016-10-23] MEDS: PANTOPRAZOLE SOD 40 MG DELAYED RELEASE TAB PO SCH (08:38)
[2016-10-23] MEDS: SODIUM CHLORIDE 0.9% FLUSH 5 ML FLUSH IVF SCH ×2 (08:39→21:06)
[2016-10-23 08:40] VITALS: BP 130/61; PULSE 78; RESP 20; TEMP 98.3; O2SAT 96
[2016-10-23] MEDS: ENOXAPARIN SODIUM 40 MG/0.4 ML SYRINGE SQ SCH (10:25)
[2016-10-23 13:07] VITALS: BP 102/54; PULSE 93; RESP 20; TEMP 98.2; O2SAT 98
--- NOTE | 2016-10-23 14:30 | HHI.PR ---
Subjective Remarks pt out of ICU doing well will dc sitter i have requested pharmacy to change iv antiseizure meds to po so that he may transfer to rehab Objective Vital Signs Date Time Temp Pulse Resp B/P Pulse Ox O2 Delivery O2 Flow Rate FiO2 10/23/16 13:07 98.2 93 20 102/54 98 10/23/16 08:40 98.3 78 20 130/61 96 10/23/16 03:49 96.7 96 18 138/53 100 10/23/16 00:00 98.5 88 18 119/62 100 10/22/16 21:24 98.8 79 19 126/59 98 10/22/16 15:31 100.0 86 20 111/57 95 I/O 10/22/16 10/22/16 10/22/16 10/23/16 10/23/16 10/23/16 07:00 15:00 23:00 07:00 15:00 23:00 Intake Total 300 ml 482 ml 228 ml 1040 ml Output Total 600 ml 550 ml Balance -300 ml 482 ml 228 ml 490 ml Intake Oral 1040 ml IV Total 300 ml 482 ml 228 ml Output Urine Total 600 ml 550 ml # Voids 1 # Bowel Movements 1 Result Diagram: 10/21/16 0100 10/21/16 0607 Procedures craniotomy Objective Remarks GENERAL: Well-nourished, well-developed patient.intubated minimally responsive SKIN: Warm and dry. HEAD: Normocephalic.recent well healing crainotomy present EYES: No scleral icterus. No injection or drainage. NECK: Supple, trachea midline. No JVD or lymphadenopathy. CARDIOVASCULAR: Regular rate and rhythm without murmurs, gallops, or rubs. RESPIRATORY: Breath sounds equal bilaterally. No accessory muscle use. GASTROINTESTINAL: Abdomen soft, non-tender, nondistended. EXTREMITIES: No cyanosis, or edema. NEUROLOGICAL right side is flacid Medications and IVs Inpatient Medications Acetaminophen (Tylenol) 650 mg Q4H PRN PO TEMPERATURE > 101.5 F; Start at 16:00 Acetaminophen/ Butalbital/ Caffeine 1 tab 1 tab Q4H PRN PO HEADACHE Last administered on 10/15/16t 21:13; Start 10/10/16 at 20:30 Acetaminophen/ Hydrocodone Bitart (Ebony 10-325 Mg) 2 tab Q4H PRN PO PAIN SCALE 6 TO 10; Start 10/14/16 at 16:00 Al Hydrox/Mg Hydrox/Simethicone (Mag-Al Plus Susp Liq) 30 ml Q6HR PRN PO HEARTBURN; Start 10/10/16 at 20:30 Albuterol/ Ipratropium 1 ampule 1 ampule Q6HR NEB PRN NEB SHORTNESS OF BREATH; Start 10/14/16 at 17:45 Alprazolam (Xanax) 0.5 mg Q6H PRN PO ANXIETY Last administered on 10/15/16 21: 13; Start 10/10/16 at 20:30 Bisacodyl (Dulcolax Supp) 10 mg DAILY PRN RECTAL CONSTIPATION; Start 10/14/16 at 16:00; Stop 10/14/16 at 17:31; Status DC Calcium Gluconate (Calcium Gluconate Inj) 1 gm UNSCH PRN IV SEE LABEL COMMENTS ; Start 10/14/16 at 16:00 Cefazolin Sodium/ Dextrose 50 ml @ 150 mls/hr ONCE ONCE IV ; Start 10/13/16 at 17:15; Stop 10/13/16 at 18:24; Status DC Chlorhexidine Gluconate 1 applic 1 applic HS TOP Last administered on 00:19; Start 10/13/16 at 21:00; Stop 10/14/16 at 21:01; Status DC Chlorhexidine Gluconate 15 ml 15 ml BID@08,20 MT Last administered on 08:00; Start 10/14/16 at 20:00 Dexamethasone (Decadron) 3 mg Q6HR PO Last administered on 10/23/16 12:15; Start 10/22/16 at 18:00 Dexamethasone Sodium Phosphate (Decadron Inj) 4 mg Q6HR IV PUSH Last administered on 10/22/16 04:58; Start 10/10/16 at 18:45; Stop 10/22/16 at 12:14; Status DC Docusate Sodium (Colace) 100 mg BID PO Last administered on 10/22/16 21:11; Start 10/14/16 at 21:00 Enoxaparin Sodium (Lovenox Inj) 40 mg Q24H SQ Last administered on 10/23/16 10: 25; Start 10/20/16 at 10:00 Fentanyl (Duragesic 50 Mcg Patch.72 Hr) 1 patch Q3D T-DERMAL Last administered on 10/12/16 04:17; Start 10/10/16 at 22:00; Status Hold Fentanyl Citrate 250 ml @ 0 mls/hr TITRATE IV Last administered on 10/14/16 18 :14; Start 10/14/16 at 17:15; Stop 10/18/16 at 18:48; Status DC Finasteride (Proscar) 5 mg HS PO Last administered on 10/22/16 21:11; Start at 21:00 Folic Acid (Folate) 0.4 mg DAILY PO Last administered on 10/23/16 08:38; Start 10/11/16 at 09:00 Fosphenytoin Sodium (Cerebyx Inj) 100 mgpe Q6H IV ; Start 10/10/16 at 20:00; Stop 10/10/16 at 21:08; Status DC Fosphenytoin Sodium 100 mgpe/ Sodium Chloride 52 ml @ 208 mls/hr Q6H IV Last administered on 10/23/16 10:25; Start 10/10/16 at 22:00 Fosphenytoin Sodium 400 mgpe/ Sodium Chloride 58 ml @ 232 mls/hr STAT STAT IV ; Start 10/14/16 at 15:22; Stop 10/14/16 at 15:36; Status DC IV Flush (NS Flush) 2 ml UNSCH PRN IVF FLUSH AFTER USING IV ACCESS; Start 10/14 at 16:00 IV Flush 2 ml 2 ml BID IVF Last administered on 10/23/16 08:39; Start 10/14/16 at 21:00 Lactulose (Lactulose Liq) 30 ml DAILY PRN PO SEVERE CONSITIPATION; Start at 20:30 Levetriacetam (Keppra 1000 Mg Inj) 100 ml @ 400 mls/hr Q8H IV Last administered on 10/23/16 06:16; Start 10/10/16 at 23:00 Levetriacetam (Keppra) 1,500 mg BID PO ; Start 10/10/16 at 21:00; Stop 10/10/16 at 21:41; Status DC Levetriacetam/ Sodium Chloride (Keppra Inj/NS Inj) 105 ml @ 400 mls/hr Q12H IV ; Start 10/14/16 at 16:00; Stop 10/14/16 at 17:32; Status DC Lorazepam (Ativan Inj) 1 mg Q4H PRN IV PUSH SEIZURES; Start 10/10/16 at 19:15 Magnesium Hydroxide (Milk Of Magnesia Liq) 30 ml Q12H PRN PO MILD - MODERATE CONSTIPATION; Start 10/10/16 at 20:30 Magnesium Oxide 800 mg 800 mg UNSCH PRN PO For Magnesium 1.2 - 1.6 mg/dL; Start 10/14/16 at 16:45; Stop 10/21/16 at 21:06; Status DC Magnesium Sulfate 2 gm/Sodium Chloride 100 ml @ 50 mls/hr UNSCH PRN IV For Magnesium 1.2 - 1.6 mg/dL; Start 10/14/16 at 16:45; Stop 10/21/16 at 21:06; Status DC Magnesium Sulfate/ Sodium Chloride (Magnesium Sulfate Inj/NS Inj) 100 ml @ 50 mls/hr UNSCH PRN IV For Magnesium 0.9 - 1.1 mg/dL; Start 10/14/16 at 16:45; Stop 10/21/16 at 21:06; Status DC Mannitol (Mannitol Inj) 25 gm Q6H IV Last administered on 10/21/16 07:39; Start 10/18/16 at 18:00; Stop 10/21/16 at 11:46; Status DC Mirtazapine (Remeron) 15 mg HS PO Last administered on 10/13/16 21:33; Start 10/10/16 at 21:00; Status Hold Miscellaneous Information ALL NURSING DEPARTME... UNSCH PRN .XX SEE LABEL COMMENTS; Start 10/14/16 at 18:00; Stop 10/15/16 at 17:59; Status DC Morphine Sulfate (Morphine Inj) 4 mg Q2H PRN IV PUSH PAIN SCALE 7 TO 10; Start 10/14/16 at 16:00 Naloxone HCl (Narcan Inj) 0.4 mg UNSCH PRN IV SEE LABEL COMMENTS; Start at 20:30 Norepinephrine Bitartrate (Levophed-Dextrose Drip) 250 ml @ 0 mls/hr TITRATE IV Last administered on 10/15/16 23:30; Start 10/14/16 at 17:45; Stop 10/18/16 at 18:48; Status DC Ondansetron HCl (Zofran Inj) 4 mg Q6H PRN IV NAUSEA OR VOMITING; Start at 16:00 Oxycodone HCl (Roxicodone) 20 mg Q6H PRN PO PAIN SCALE 7 TO 10; Start 10/10/16 at 20:30; Stop 10/14/16 at 17:31; Status DC Pantoprazole Sodium (Protonix Inj) 40 mg DAILY IVP Last administered on 07:43; Start 10/15/16 at 09:00; Stop 10/20/16 at 07:58; Status DC Pantoprazole Sodium (Protonix) 40 mg DAILY PO Last administered on 10/23/16 08: 38; Start 10/15/16 at 09:00 Phenylephrine HCl/ Dextrose (Neosynephrine Inj/D5W 500 ml Inj) 500 ml @ 0 mls/ hr TITRATE IV Last administered on 10/15/16 23:16; Start 10/14/16 at 18:00; Stop 10/18/16 at 18:48; Status DC Phenytoin (Dilantin) 200 mg BID PO ; Start 10/10/16 at 21:00; Stop 10/10/16 at 21:41; Status DC Potassium Chloride/Sodium Chloride (NS + KCl 20 Meq Inj) 1,000 ml @ 100 mls/hr Q10H IV Last administered on 10/18/16 08:07; Start 10/14/16 at 15:53; Stop 10/18 at 18:54; Status DC Potassium Phosphate 2000 mg 2,000 mg UNSCH PRN PO/TUBE SEE LABEL COMMENTS; Start 10/14/16 at 16:45; Stop 10/21/16 at 21:06; Status DC Potassium Phosphate 30 mmol/ Sodium Chloride 260 ml @ 42 mls/hr UNSCH PRN IV SEE LABEL COMMENTS; Start 10/14/16 at 16:45; Stop 10/21/16 at 21:06; Status DC Potassium Bicarb/ Potassium Chloride 50 meq 50 meq UNSCH PRN PO For Potassium 3.3 - 3.5 mEq/L; Start 10/14/16 at 16:45; Stop 10/21/16 at 21:06; Status DC Potassium Chloride 100 ml @ 50 mls/hr Q2H PRN IV For Potassium 3.3 - 3.5 mEq/L ; Start 10/14/16 at 16:45; Stop 10/21/16 at 21:06; Status DC Potassium Chloride (KCl 20 Meq Premix Inj) 100 ml @ 50 mls/hr Q2H PRN IV For Potassium 2.8 - 3.2 mEq/L; Start 10/14/16 at 16:45; Stop 10/21/16 at 21:06; Status DC Pregabalin (Lyrica) 150 mg Q12HR PO Last administered on 10/11/16 11:40; Start 10/10/16 at 21:00; Stop 10/11/16 at 12:22; Status DC Pregabalin 150 mg 150 mg Q12HR PO Last administered on 10/23/16 08:38; Start at 21:00 Propofol 100 ml @ 0 mls/hr TITRATE IV Last administered on 10/15/16 00:51; Start 10/14/16 at 16:45; Stop 10/20/16 at 09:23; Status DC Senna/Docusate Sodium (Janie-Colace) 1 tab BID PO Last administered on 21:34; Start 10/10/16 at 21:00; Stop 10/14/16 at 17:31; Status DC Sennosides (Senokot) 17.2 mg Q12H PRN PO MODERATE - SEVERE CONSTIPATION Last administered on 10/11/16 04:44; Start 10/10/16 at 20:30 Sodium Chloride 1,000 ml @ 999 mls/hr BOLUS ONCE IV Last administered on 10/15 03:56; Start 10/14/16 at 18:00; Stop 10/14/16 at 19:00; Status DC Sodium Chloride (NS Flush) 2 ml BID IV FLUSH Last administered on 10/13/16 21: 34; Start 10/10/16 at 21:00; Stop 10/14/16 at 17:31; Status DC Sodium Phosphate/ Sodium Chloride (Sodium Phosphate Inj/NS 250 ml Inj) 250 ml @ 42 mls/hr UNSCH PRN IV For Phosphorus < 2.5 mg/dL; Start 10/14/16 at 16:45; Stop 10/21/16 at 21:06; Status DC Terazosin HCl (Hytrin) 5 mg HS PO Last administered on 10/22/16 21:11; Start at 21:00 Terbutaline Sulfate (Brethine Inj) 1 mg UNSCH PRN SQ FOR EXTRAVASATION PROTOCOL ; Start 10/14/16 at 18:00; Stop 10/18/16 at 18:49; Status DC Trazodone HCl (Desyrel) 200 mg HS PO Last administered on 10/13/16 21:33; Start 10/10/16 at 21:00; Status Hold Vancomycin HCl 1000 mg/Sodium Chloride 250 ml @ 250 mls/hr ONCE ONCE IV Last administered on 10/14/16 08:30; Start 10/14/16 at 08:30; Stop 10/14/16 at 09:29 ; Status DC Vancomycin HCl/ Sodium Chloride (Vancomycin Inj/ NS 250 ml Inj) 250 ml @ 250 mls/hr ONCE ONCE IV Last administered on 10/13/16 09:03; Start 10/13/16 at 17 :15; Stop 10/13/16 at 18:23; Status DC Zolpidem Tartrate (Ambien) 5 mg HS PRN PO INSOMNIA; Start 10/10/16 at 20:30 Assessment and Plan Problem List: (1) Meningioma, multiple Status: Acute Plan: sp crainotomy (2) COPD (chronic obstructive pulmonary disease) Status: Chronic Plan: wean vent Assessment and Plan has had dark sputum culture pending Discussed Condition With nursing Discharge Planning to [facility] if no trouble on po meds recomend continue seizure precautions Evangelista Maldonado DO Oct 23, 2016 14:30
[2016-10-23 16:17] VITALS: BP 121/56; PULSE 88; RESP 20; TEMP 97.8; O2SAT 96
[2016-10-23 20:49] VITALS: BP 119/78; PULSE 84; RESP 19; TEMP 98.8; O2SAT 96
[2016-10-23] MEDS: PHENYTOIN SODIUM 100 MG CAP PO SCH (21:07)
[2016-10-23] MEDS: FINASTERIDE 5 MG TAB PO SCH (21:07)
[2016-10-23] MEDS: TERAZOSIN HCL 5 MG CAP PO SCH (21:07)
[2016-10-23] MEDS: levETIRAcetam 500 MG TAB PO SCH (23:24)
[2016-10-24 00:43] VITALS: BP 130/66; PULSE 89; RESP 18; TEMP 98.1; O2SAT 98
[2016-10-24 02:02] LABS: BASOPHIL # 0.1 TH/MM3 (0-0.2); BASOPHIL % 0.7 % (0.0-2.0); EOSINOPHIL # 0.2 TH/MM3 (0-0.4); EOSINOPHIL % 1.9 % (0.0-4.0); HEMATOCRIT 30.1 % (39.0-51.0); HEMO FLAGS DIFF FINAL; LYMPHOCYTE # 1.1 TH/MM3 (1.0-4.8); MEAN CELL VOLUME 90.3 FL (80.0-100.0); MEAN CORPUSCULAR HGB CONC 34.3 % (32.0-36.0); MONO % 7.7 % (0.0-8.0); NEUT % 79.7 % (16.0-70.0); PLATELET COUNT 494 TH/MM3 (150-450); RED BLOOD COUNT 3.33 MIL/MM3 (4.50-5.90); RED CELL DISTRIBUTION WIDTH 15.2 % (11.6-17.2); WHITE BLOOD COUNT 11.2 TH/MM3 (4.0-11.0)
[2016-10-24 02:17] LABS: BICARBONATE 25.5 MEQ/L (21.0-32.0); POTASSIUM 4.4 MEQ/L (3.5-5.1)
[2016-10-24 04:30] VITALS: BP 143/71; PULSE 74; RESP 16; TEMP 97.7; O2SAT 97
[2016-10-24] MEDS: levETIRAcetam 500 MG TAB PO SCH ×2 (06:29→15:40)
[2016-10-24] MEDS: PHENYTOIN SODIUM 100 MG CAP PO SCH ×2 (06:29→15:39)
[2016-10-24] MEDS: DEXAMETHASONE 1.5 MG TAB PO SCH ×2 (06:29→12:42)
[2016-10-24] MEDS: CHLORHEXIDINE 0.12% (ORAL KIT) 15 ML CUP MT SCH (08:00)
[2016-10-24] MEDS: DOCUSATE SODIUM 100 MG CAP PO SCH (08:42)
[2016-10-24] MEDS: FOLIC ACID 1 MG TAB PO SCH (08:42)
[2016-10-24] MEDS: SODIUM CHLORIDE 0.9% FLUSH 5 ML FLUSH IVF SCH (08:42)
[2016-10-24] MEDS: PANTOPRAZOLE SOD 40 MG DELAYED RELEASE TAB PO SCH (08:42)
[2016-10-24] MEDS: PREGABALIN 75 MG CAP PO SCH (08:42)
[2016-10-24 08:49] VITALS: BP 96/55; PULSE 82; RESP 16; TEMP 98.6; O2SAT 95
[2016-10-24] MEDS: ENOXAPARIN SODIUM 40 MG/0.4 ML SYRINGE SQ SCH (11:19)
[2016-10-24 12:41] VITALS: BP 110/64; PULSE 98; RESP 16; TEMP 97.9; O2SAT 94
[2016-10-24] MEDS ORDERED: ENOX40P SQ (12:51)
[2016-10-24] MEDS ORDERED: PANT40TA3 PO (12:51)
[2016-10-24] MEDS ORDERED: DILA100C PO (12:51)
[2016-10-24] MEDS ORDERED: LEVE500 PO (12:51)
[2016-10-24] MEDS ORDERED: DEXA1.5T PO (12:51)
--- NOTE | 2016-10-24 13:01 | HHI.DS ---
Discharge Summary Admission Date Oct 10, 2016 at 19:46 Discharge Date: Oct 24, 2016 Admitting Diagnosis Brain Tumor/Seizure/MCBRIDE (1) S/P craniotomy Diagnosis: Principal Procedures craniotomy Brief History Mr. Hazel is a 71-year-old male who presented to the Emergency room with reported seizure activity while being transported by [employer]. Patient neurologist is Dr. Escalona. [facility] He has a history of known left hemisphere meningioma. Per notes MRI of brain done in August which revealed increased size with surrounding edema. He is also found to have right weakness with edema present in right lower extremity. US ordered with results pending. He has been patient of [facility]. Patient has history of chronic pain with recent cervical fusion, IBS, GERD, anxiety, and depression. CBC/BMP: 10/24/16 0152 10/24/16 0152 Significant Findings Laboratory Tests Test 10/21/16 10/24/16 18:22 01:52 Serum Osmolality 297 MOSM/KG 296 MOSM/KG (275-295) (275-295) White Blood Count 11.2 TH/MM3 (4.0-11.0) Red Blood Count 3.33 MIL/MM3 (4.50-5.90) Hemoglobin 10.3 GM/DL (13.0-17.0) Hematocrit 30.1 % (39.0-51.0) Platelet Count 494 TH/MM3 (150-450) Mean Platelet Volume 6.4 FL (7.0-11.0) Neutrophils (%) (Auto) 79.7 % (16.0-70.0) Neutrophils # (Auto) 9.0 TH/MM3 (1.8-7.7) Random Glucose 115 MG/DL (74-106) PE at Discharge GENERAL: Alert and cooperative SKIN: Warm and dry. Staple incision on head intact without redness HEAD: Normocephalic. EYES: No scleral icterus. No injection or drainage. NECK: Supple, trachea midline. No JVD or lymphadenopathy. CARDIOVASCULAR: Regular rate and rhythm without murmurs, gallops, or rubs. Right lower leg edema RESPIRATORY: Breath sounds equal bilaterally. No accessory muscle use. GASTROINTESTINAL: Abdomen soft, non-tender, nondistended. MUSCULOSKELETAL: No cyanosis, or edema. right sided hemiparesis BACK: Nontender without obvious deformity. No CVA tenderness. Hospital Course Mr. Hazel is a 71-year-old male who presented to the Emergency room with reported seizure activity while being transported by [employer]. Patient neurologist is Dr. Escalona. On Keppra and Dilantin. He has a history of known left hemisphere meningioma. Per notes MRI of brain done in August which revealed increased size with surrounding edema. He is also found to have right weakness with edema present in right lower extremity. Patient has history of chronic pain with recent cervical fusion, IBS, GERD, anxiety, and depression. Patient is s/p craniotomy for tumor resection on the . He tolerated the procedure well sravanthi are intact and drains removed. He is on Decadron and seizure medication which should be continued. Patient has significant right sided weakness and is just starting to move right hand. He will need aggressive rehab. Discharged to [facility] Discharge Disposition: Rehab Inpatient Discharge Instructions DIET: Follow Instructions for: As Tolerated, No Restrictions Speech Therapy-Diet Recommenda: Regular Activities you can perform: Regular-No Restrictions Follow up Referrals: PCP Follow-up with patricia New Orders: BASIC METABOLIC PROF - 2 Days CBC NO DIFF - 2 Days New Medications: Dexamethasone (Dexamethasone) 1.5 Mg Tab 3 MG PO Q6HR Stroke Prevention #90 TAB Enoxaparin Inj (Lovenox Inj) 40 Mg/0.4 Ml Syr 40 MG SQ Q24H Blood Clot Prevention #30 INJECTION Levetiracetam (Keppra) 500 Mg Tab 1000 MG PO Q8H Seizure Control #60 TAB Pantoprazole (Pantoprazole) 40 Mg Tab 40 MG PO DAILY Heartburn Management #30 TAB Phenytoin Extended (Dilantin) 100 Mg Cap 100 MG PO Q8HR Stroke Prevention #60 CAP Continued Medications: Alprazolam (Alprazolam) 0.5 Mg Tab 0.5 MG PO Q6H PRN ANXIETY Ref 0 TAB Aluminum Hydroxide-Mag Carb Liq (Gaviscon Liq) 95-358 Mg/15 Ml Susp 30 ML PO Q6HR Maximum 120 mL/24 hrs. PRN HEARTBURN Ref 0 ML Snziyqrqtc-Dtejyobksuuqk-Erupvcgh (Fioricet) 50-300-40 Mg Cap 1 CAP PO Q4H PRN HEADACHE Ref 0 CAP Finasteride (Finasteride) 5 Mg Tab 5 MG PO HS Do not crush. Manage Prostate Problems #30 Ref 0 TAB Folic Acid (Folic Acid) 400 Mcg Tab 400 MCG PO DAILY Nutritional Supplement Ref 0 TAB Oxycodone (Oxycodone) 10 Mg Tab 10 MG PO Q6H PRN Pain 1-6 #30 TAB Pantoprazole (Pantoprazole) 40 Mg Tab 40 MG PO DAILY Reflux #30 Ref 0 TAB Pregabalin (Lyrica) 100 Mg Cap 150 MG PO Q12HR Days 30 CAP Terazosin (Terazosin) 5 Mg Cap 5 MG PO HS #30 CAP Zolpidem (Zolpidem) 5 Mg Tab 5 MG PO HS PRN INSOMNIA #30 Ref 0 TAB Discontinued Medications: Fentanyl Patch 72 HR (Duragesic Patch 72 HR) 50 Mcg/Hr Patch 1 PATCH T-DERMAL Q3D #10 Levetiracetam (Keppra) 500 Mg Tab 1500 MG PO BID Control Seizures Days 30 Ref 0 TAB Mirtazapine (Mirtazapine) 15 Mg Tab 15 MG PO HS Depression Control #30 Ref 0 TAB Oxycodone (Oxycodone) 10 Mg Tab 20 MG PO Q6H PRN PAIN SCALE 7 TO 10 #30 TAB Phenytoin Extended (Dilantin) 100 Mg Cap 200 MG PO BID Control Seizures Days 30 Ref 0 CAP Phenytoin Extended (Phenytoin Extended) 100 Mg Cap 100 MG PO BID Control Seizures #90 Ref 0 CAP Trazodone (Trazodone) 50 Mg Tab 200 MG PO HS Days 30 TAB Estelle Hernandez Oct 24, 2016 13:01
--- NOTE | 2016-10-24 16:03 | PD.CARD.PN ---
Subjective Subjective Remarks No CP or SOB, feels fine Objective Medications Current Medications Medications (Trade) Dose Ordered Sig/Hussein Route Start Time Stop Time Status Last Admin (Ativan Inj) 1 mg Q4H PRN IV PUSH 10/10/16 19:15 (Narcan Inj) 0.4 mg UNSCH PRN IV 10/10/16 20:30 (Milk Of Magnesia Liq) 30 ml Q12H PRN PO 10/10/16 20:30 (Senokot) 17.2 mg Q12H PRN PO 10/10/16 20:30 10/11/16 04:44 (Dulcolax Supp) 10 mg DAILY PRN RECTAL 10/10/16 20:30 (Lactulose Liq) 30 ml DAILY PRN PO 10/10/16 20:30 (Xanax) 0.5 mg Q6H PRN PO 10/10/16 20:30 10/15/16 21:13 (Duragesic 50 Mcg Patch.72 Hr) 1 patch Q3D T-DERMAL 10/10/16 22:00 Hold 10/12/16 04:17 (Proscar) 5 mg HS PO 10/10/16 21:00 10/23/16 21:07 (Folate) 0.4 mg DAILY PO 10/11/16 09:00 10/24/16 08:42 (Remeron) 15 mg HS PO 10/10/16 21:00 Hold 10/13/16 21:33 (Hytrin) 5 mg HS PO 10/10/16 21:00 10/23/16 21:07 (Desyrel) 200 mg HS PO 10/10/16 21:00 Hold 10/13/16 21:33 (Ambien) 5 mg HS PRN PO 10/10/16 20:30 (Mag-Al Plus Susp Liq) 30 ml Q6HR PRN PO 10/10/16 20:30 (Fioricet 325-50-40) 1 tab Q4H PRN PO 10/10/16 20:30 10/15/16 21:13 (Lyrica) 150 mg Q12HR PO 10/11/16 21:00 10/24/16 08:42 (NS Flush) 2 ml UNSCH PRN IVF 10/14/16 16:00 (NS Flush) 2 ml BID IVF 10/14/16 21:00 10/24/16 08:42 (Colace) 100 mg BID PO 10/14/16 21:00 10/24/16 08:42 (Protonix) 40 mg DAILY PO 10/15/16 09:00 10/24/16 08:42 (Zofran Inj) 4 mg Q6H PRN IV 10/14/16 16:00 Calcium Gluconate 1 gm 1 gm UNSCH PRN IV 10/14/16 16:00 (Magnesium Sulfate Inj/NS Inj) 108 ml @ 108 mls/hr UNSCH PRN IV 10/14/16 16:00 ([place]ol 10-325 Mg) 1 tab Q4H PRN PO 10/14/16 16:00 ([place] 10-325 Mg) 2 tab Q4H PRN PO 10/14/16 16:00 (Morphine Inj) 2 mg Q2H PRN IV PUSH 10/14/16 16:00 (Morphine Inj) 4 mg Q2H PRN IV PUSH 10/14/16 16:00 (Tylenol) 650 mg Q4H PRN PO 10/14/16 16:00 (Peridex 0.12% Liq) 15 ml BID@08,20 MT 10/14/16 20:00 10/17/16 08:00 (Lovenox Inj) 40 mg Q24H SQ 10/20/16 10:00 10/24/16 11:19 (Decadron) 3 mg Q6HR PO 10/22/16 18:00 10/24/16 12:42 (Keppra) 1,000 mg Q8H PO 10/23/16 23:00 10/24/16 15:40 (Dilantin) 100 mg Q8HR PO 10/23/16 22:00 10/24/16 15:39 Vital Signs / I&O Vital Signs Date Time Temp Pulse Resp B/P Pulse Ox O2 Delivery O2 Flow Rate FiO2 10/24/16 12:41 97.9 98 16 110/64 94 10/24/16 08:49 98.6 82 16 96/55 95 10/24/16 04:30 97.7 74 16 143/71 97 10/24/16 00:43 98.1 89 18 130/66 98 10/23/16 20:49 98.8 84 19 119/78 96 10/23/16 16:17 97.8 88 20 121/56 96 I/O 10/23/16 10/23/16 10/23/16 10/24/16 10/24/16 10/24/16 06:59 14:59 22:59 06:59 14:59 22:59 Intake Total 228 ml 1040 ml Output Total 550 ml 1450 ml Balance 228 ml 490 ml -1450 ml Intake Oral 1040 ml IV Total 228 ml Output Urine Total 550 ml 1450 ml # Bowel Movements 1 Physical Exam GENERAL: In NAD SKIN: Warm and dry. HEAD: Normocephalic. EYES: No scleral icterus. No injection or drainage. NECK: Supple, trachea midline. No JVD or lymphadenopathy. CARDIOVASCULAR: Regular rate and rhythm without murmurs, gallops, or rubs. RESPIRATORY: Breath sounds equal bilaterally. No accessory muscle use. GASTROINTESTINAL: Abdomen soft, non-tender, nondistended. MUSCULOSKELETAL: No cyanosis, or edema. Focal deficits. Laboratory Laboratory Tests Test 10/23/16 10/24/16 10/24/16 20:05 01:52 12:11 Serum Osmolality 293 MOSM/KG 296 MOSM/KG 293 MOSM/KG White Blood Count 11.2 TH/MM3 Red Blood Count 3.33 MIL/MM3 Hemoglobin 10.3 GM/DL Hematocrit 30.1 % Mean Corpuscular Volume 90.3 FL Mean Corpuscular Hemoglobin 31.0 PG Mean Corpuscular Hemoglobin 34.3 % Concent Red Cell Distribution Width 15.2 % Platelet Count 494 TH/MM3 Mean Platelet Volume 6.4 FL Neutrophils (%) (Auto) 79.7 % Lymphocytes (%) (Auto) 10.0 % Monocytes (%) (Auto) 7.7 % Eosinophils (%) (Auto) 1.9 % Basophils (%) (Auto) 0.7 % Neutrophils # (Auto) 9.0 TH/MM3 Lymphocytes # (Auto) 1.1 TH/MM3 Monocytes # (Auto) 0.9 TH/MM3 Eosinophils # (Auto) 0.2 TH/MM3 Basophils # (Auto) 0.1 TH/MM3 CBC Comment DIFF FINAL Differential Comment Sodium Level 140 MEQ/L Potassium Level 4.4 MEQ/L Chloride Level 106 MEQ/L Carbon Dioxide Level 25.5 MEQ/L Anion Gap 9 MEQ/L Blood Urea Nitrogen 15 MG/DL Creatinine 0.61 MG/DL Estimat Glomerular Filtration 130 ML/MIN Rate Random Glucose 115 MG/DL Calcium Level 8.5 MG/DL Imaging Last Impressions Upper Extremity Ultrasound 10/19/16 0000 Signed Impressions: Service Date/Time: Wednesday, October 19, 2016 07:57 - CONCLUSION: 1. Right internal jugular vein not evaluated due to Central line. 2. Otherwise, no sonographic evidence for right upper extremity DVT. Juan M Samson MD Chest X-Ray 10/16/16 0600 Signed Impressions: Service Date/Time: Sunday, October 16, 2016 04:09 - CONCLUSION: Tubes and catheters in good position. Mild bibasilar atelectasis. Bonifacio Mata MD Head CT 10/14/16 0000 Signed Impressions: Service Date/Time: Friday, October 14, 2016 17:14 - CONCLUSION: 1. Post surgical features of frontoparietal craniotomy with surgical drain in place. Left subdural collection of air and blood products measuring up to 1 cm with slight subfalcine shift to the right without significant transtentorial herniation. 2. Lateral ventricles are stable in size. Juan M Samson MD Lower Extremity Ultrasound 10/11/16 0000 Signed Impressions: Service Date/Time: Tuesday, October 11, 2016 14:13 - CONCLUSION: Negative exam. No sonographic or Doppler findings of deep venous thrombosis bilaterally. Pola Jones MD Brain MRI 10/10/16 1839 Signed Impressions: Service Date/Time: Monday, October 10, 2016 20:45 - CONCLUSION: 1. Large extra-axial mass along the high left parietal convexity in the extra-axial space measuring 5.7 x 3.6 x 4.4 cm possibly representing a meningioma versus less likely metastatic disease. No old studies for comparison. There is some minimal vasogenic edema in left parietal lobe. There is slight left to right midline shift of 8 mm. 2. 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 Austen Yates MD Assessment and Plan Problem List: (1) Meningioma (2) CAD (coronary artery disease) (3) Preoperative cardiovascular examination Assessment and Plan The patient remains stable from cardiac standpoint. He has not had any cardiac issues. No angina or CHF symptoms. Continue current program. Increase activity, PT. Anticipate transfer to rehab as planned. Jaqui Stanton MD Oct 24, 2016 16:03
== END 2016-10-24 16:06 | DRG 25 ==
LOC: NEPC 17:48 → NEDA 19:46 → NEDH 23:46 → N03B 10-11 04:13 → N05A 10-21 20:56
PROVIDERS: ADMIT Family Medicine; ATTEND Family Medicine
PROC: 5A1945Z Respiratory Ventilation, 24-96 Consecutive Hours (ICD-10-PCS; 2016-10-14)
PROC: 2W30XYZ Immobilization of Head using Other Device (ICD-10-PCS; 2016-10-14)
PROC: 00B10ZZ Excision of Cerebral Meninges, Open Approach (ICD-10-PCS; principal; 2016-10-14 11:35)
DX: D32.0 Benign neoplasm of cerebral meninges (principal); G93.6 Cerebral edema; J96.00 Acute respiratory failure, unspecified whether with hypoxia or hypercapnia; J44.9 Chronic obstructive pulmonary disease, unspecified; I95.9 Hypotension, unspecified; G40.909 Epilepsy, unspecified, not intractable, without status epilepticus; D64.9 Anemia, unspecified; G81.01 Flaccid hemiplegia affecting right dominant side; I25.10 Atherosclerotic heart disease of native coronary artery without angina pectoris; G89.29 Other chronic pain; K21.9 Gastro-esophageal reflux disease without esophagitis; F32.9 Major depressive disorder, single episode, unspecified; F41.9 Anxiety disorder, unspecified; K58.9 Irritable bowel syndrome, unspecified; R60.0 Localized edema; Z95.5 Presence of coronary angioplasty implant and graft; Z98.1 Arthrodesis status; Z85.828 Personal history of other malignant neoplasm of skin; Z88.1 Allergy status to other antibiotic agents; Z86.718 Personal history of other venous thrombosis and embolism
CPT/HCPCS: 36430; 70450; 70553; 71010; 71020; 76937; 80048; 80053; 80185; 82040; 82805; 83735; 83930; 84100; 84155; 84295; 85007; 85025; 85027; 85610; 86850; 86900; 86901; 86920; 86921; 86922; 87070; 87205; 87641; 88307; 93005; 93308; 93970; 93971; 94002; 94003; 94060; 94150; 95819; 96374; 96375; A9579; C1713; C9113; J0131; J1100; J1580; J1650; J1940; J1953; J2060; J2150; J2250; J2370; J2405; J3010; J3370; J3480; J7030; J7040; J7050; J7060; J7120; J8540; P9016; Q2009

== ENCOUNTER 2016-11-22 18:12 | Emergency (ER) | payer MEDICARE ==
[~2016-11-22] VITALS: Ht 180.3 cm; Wt 73.0 kg
[~2016-11-22 18:12] MED LIST changes: -ACET325T PO; -FENT50T T-DERMAL; +FOLI400T PO; -OXYC-395 PO; +TERA1CAP3 PO; -TERA5CAP3 PO; -TRAZ50TA12 PO; -ZOLP5TAB3 PO
[2016-11-22 18:31] VITALS: BP 133/66; PULSE 88; RESP 16; TEMP 97.8; O2SAT 100
--- NOTE | 2016-11-22 18:52 | PD ---
HPI Chief Complaint: Psychiatric Symptoms Time Seen by Provider: 18:28 Travel History International Travel<30 days: No Contact w/Intl Traveler<30days: No Traveled to known affect area: No History of Present Illness HPI This is a 71-year-old man with a history of a brain tumor that was removed, who is currently at [facility], who presents via [employer] for psychiatric evaluation. The patient apparently 3 days ago used a fork to cut his right forearm. He states he did this because he was depressed about being in a rehabilitation facility. The patient states that he feels fine now. He denies any suicidal ideation at this time. He states he wishes to go back to the facility. There are no other complaints at the time of my examination. PFSH Past Medical History Arthritis: No Asthma: No Autoimmune Disease: No Anxiety: Yes Depression: Yes (Currently on medication ) Heart Rhythm Problems: No Cancer: Yes (basal skin on right eyelid removal, BRAIN TUMOR) Cardiovascular Problems: Yes (stent) High Cholesterol: No Chemotherapy: No Chest Pain: No Congestive Heart Failure: No COPD: No Cerebrovascular Accident: No Diabetes: No Endocrine: No Gastrointestinal Disorders: Yes (Irritable bowel syndrome, INCONTINENCE) GERD: Yes Genitourinary: Yes (Urgency ) Hepatitis: No Hiatal Hernia: No Immune Disorder: No Implanted Vascular Access Dvce: Yes Kidney Stones: No Musculoskeletal: Yes (neck pain and previous surgery) Neurologic: Yes (epilepsy, 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, NECK PAIN, SEIZURES, HEAD PAIN) Psychiatric: Yes (DEPRESSION) Reproductive: No Respiratory: No Immunizations Current: Yes Migraines: No Radiation Therapy: No Renal Failure: No Seizures: Yes (R/T BRAIN SURGERY) Sickle Cell Disease: No Sleep Apnea: No Thyroid Disease: No Ulcer: No Past Surgical History Abdominal Surgery: Yes (RIGHT TESTICLE DECENDING SURGERY) AICD: No Arteriovenous Shunt: No Body Medical Devices: CARDIAC STENT Cardiac Surgery: Yes (STENT) Ear Surgery: No Endocrine Surgery: No Eye Surgery: Yes (tumor removed from R eyelid) Genitourinary Surgery: No Gynecologic Surgery: No Insulin Pump: No Joint Replacement: No Neurologic Surgery: Yes (cervical and lumbar surgeries, brain surgery benign tumor removal) Oral Surgery: Yes (for dentures) Pacemaker: No Thoracic Surgery: No Other Surgery: Yes (MENINGIOMA REMOVED WITH PIECE OF SKULL REMOVED) Social History Alcohol Use: Yes (WITH DINNER) Tobacco Use: No Substance Use: No Allergies-Medications (Allergen,Severity, Reaction): Coded Allergies: cefazolin (Verified Allergy, Intermediate, Rash, 11/22/16) Reported Meds & Prescriptions Reported Meds & Active Scripts Active Terazosin (Terazosin HCl) 1 Mg Cap 1 Mg PO HS Dilantin (Phenytoin Extended) 100 Mg Cap 200 Mg PO BID 30 Days Folic Acid 400 Mcg Tab 400 Mcg PO DAILY Pantoprazole (Pantoprazole Sodium) 40 Mg Tab 40 Mg PO DAILY Finasteride 5 Mg Tab 5 Mg PO HS Do not crush. Gaviscon Liq (Aluminum Hydroxide-Mag Carb Liq) 95-358 Mg/15 Ml Susp 30 Ml PO Q6HR PRN 30 Days Maximum 120 mL/24 hrs. Reported Imodium A-D (Loperamide HCl) 2 Mg Capsule 2 Mg PO Q4HR Enema Disposable (Sodium Phosphates) 19 Gram-7 Gram/118 Ml Sole 1 Applic RECTAL DAILY PRN Citroma Liq (Magnesium Citrate) 300 Ml Liq 300 Ml PO DAILY PRN Zofran Odt (Ondansetron Odt) 4 Mg Tab 4 Mg SL Q8HR PRN Milk of Magnesia Liq (Magnesium Hydroxide) 400 Mg/5 Ml Susp 30 Ml PO DAILY PRN Dulcolax Supp (Bisacodyl) 10 Mg Supp 10 Mg RECTAL DAILY PRN Tylenol (Acetaminophen) 325 Mg Tab 325-650 Mg PO Q4H PRN Lyrica (Pregabalin) 150 Mg Cap 150 Mg PO BID Keppra (Levetiracetam) 1,000 Mg Tab 1,000 Mg PO BID Review of Systems Except as stated in HPI: all other systems reviewed are Neg General / Constitutional: No: Fever, Chills HENT: No: Headaches, Neck Pain Cardiovascular: No: Chest Pain or Discomfort, Palpitations Respiratory: No: Cough, Shortness of Breath Gastrointestinal: No: Nausea, Vomiting, Abdominal Pain Musculoskeletal: Positive: Weakness (right sided weakness from his tumor), No: Pain Neurologic: Positive: Weakness (right sided weakness from his tumor.), No: Headache Physical Exam Narrative GENERAL: Well-developed well-nourished male in no acute respiratory distress. SKIN: Focused skin assessment warm/dry. HEAD: Atraumatic. Normocephalic. EYES: Pupils equal and round. No scleral icterus. No injection or drainage. ENT: No nasal bleeding or discharge. Mucous membranes pink and moist. NECK: Trachea midline. Supple. CARDIOVASCULAR: Regular rate and rhythm. No murmur appreciated. RESPIRATORY: No accessory muscle use. Clear to auscultation. Breath sounds equal bilaterally. GASTROINTESTINAL: Abdomen soft, non-tender, nondistended. Hepatic and splenic margins not palpable. MUSCULOSKELETAL: No obvious deformities. No clubbing. No cyanosis. No edema. She has some old excoriated areas on his right forearm from where he punctured himself with a knife. There is no evidence of cellulitis or infection. No draining wounds. NEUROLOGICAL: Awake and alert. No obvious cranial nerve deficits. Patient has right sided residual weakness from his previous craniotomy. PSYCHIATRIC: Appropriate mood and affect; insight and judgment normal. Data Data Last Documented VS Vital Signs Date Time Temp Pulse Resp B/P (MAP) Pulse Ox O2 Delivery O2 Flow Rate FiO2 11/22/16 18:40 17 11/22/16 18:31 97.8 88 133/66 (88) 100 Orders Orders Psych Screen (11/22/16 18:34) MDM Medical Decision Making Medical Screen Exam Complete: Yes Emergency Medical Condition: Yes Differential Diagnosis Depression versus suicidal ideation versus mood disorder Narrative Course 71-year-old male sent from [facility] for psychiatric evaluation. The patient punctured himself in the right forearm with a 43 days ago. It got time he states he was depressed because he was in a rehabilitation facility. He states he is not suicidal or homicidal at this point. He is agreeable to a psychiatric evaluation. There is a psych eval placed. The patient was signed out to Dr. Chaim Bourgeois, physician replacing me at change of shift. Disposition will be per him after psychiatric evaluation. I anticipate patient will likely be sent back to [facility]. Diagnosis Primary Impression: depression Williams Lorenzo MD Nov 22, 2016 18:52
[2016-11-22] MEDS ORDERED: TYLE325T PO (19:06)
[2016-11-22] MEDS ORDERED: CITRSOL4 PO (19:06)
[2016-11-22] MEDS ORDERED: KEPP10002 PO (19:06)
[2016-11-22] MEDS ORDERED: MILKSUS PO (19:06)
[2016-11-22] MEDS ORDERED: LYRI150C PO (19:06)
[2016-11-22] MEDS ORDERED: ENEMENE5 RECTAL (19:06)
[2016-11-22] MEDS ORDERED: ZOFR4TAB3 SL (19:06)
[2016-11-22] MEDS ORDERED: DULC10SU3 RECTAL (19:06)
[2016-11-22] MEDS ORDERED: LOPE-1 PO (19:06)
--- NOTE | 2016-11-22 19:53 | PD ---
Physical Exam Narrative Patient was seen by ED physician and signed out to me. Data Data Last Documented VS Vital Signs Date Time Temp Pulse Resp B/P (MAP) Pulse Ox O2 Delivery O2 Flow Rate FiO2 11/22/16 18:40 17 11/22/16 18:31 97.8 88 133/66 (88) 100 Orders Orders Psych Screen (11/22/16 18:34) MDM Supervised Visit with JULIA: No Narrative Course Patient was seen by ED physician and signed out to me. I had a long conversation with the patient. Patient stabbed himself in the arm out of anger a few days ago. Patient is not homicidal or suicidal now. Patient awake and alert oriented 3. Patient is happy. Patient promised me that he will not do that again. I will let patient go back to the [facility]. Diagnosis Primary Impression: depression Additional Impression: Adjustment disorder Qualified Codes: F43.20 - Adjustment disorder, unspecified Patient Instructions: General Instructions Additional Instruction: Advised patient to follow-up local physician. Return as needed. Med/Other Pt SpecificInfo: No Change to Meds Disposition: 03 DISCHARGE TO SNF Condition: Stable Chaim Bourgeois MD Nov 22, 2016 19:53
== END 2016-11-22 20:53 ==
LOC: NEPC 18:12
DX: F43.20 Adjustment disorder, unspecified (principal); F32.9 Major depressive disorder, single episode, unspecified; F41.9 Anxiety disorder, unspecified; K58.9 Irritable bowel syndrome, unspecified; K21.9 Gastro-esophageal reflux disease without esophagitis; G40.909 Epilepsy, unspecified, not intractable, without status epilepticus; G62.9 Polyneuropathy, unspecified; Z79.899 Other long term (current) drug therapy; Z88.8 Allergy status to other drugs, medicaments and biological substances
CPT/HCPCS: 99283

== ENCOUNTER 2016-11-30 11:40 | Emergency (ER) | payer MEDICARE ==
[~2016-11-30] VITALS: Ht 177.8 cm; Wt 70.0 kg
[~2016-11-30 11:40] MED LIST changes: +CITRSOL4 PO; +DULC10SU3 RECTAL; +ENEMENE5 RECTAL; +KEPP10002 PO; -LEVE500 PO; +LOPE-1 PO; -LYRI100C PO; +LYRI150C PO; +MILKSUS PO; +TYLE325T PO; +ZOFR4TAB3 SL
[2016-11-30 11:42] VITALS: BP 122/73; PULSE 75; RESP 20; TEMP 98.5; O2SAT 98
[2016-11-30 12:15] VITALS: BP 129/71; PULSE 68; RESP 18; O2SAT 96
[2016-11-30 12:17] VITALS: RESP 18; O2SAT 96
[2016-11-30 12:51] LABS: AUTOMATED NEUTROPHIL # 6.6 TH/MM3 (1.8-7.7); BASOPHIL # 0.1 TH/MM3 (0-0.2); EOSINOPHIL # 0.2 TH/MM3 (0-0.4); EOSINOPHIL % 1.7 % (0.0-4.0); HEMATOCRIT 36.6 % (39.0-51.0); HEMO FLAGS DIFF FINAL; LYMPH % 17.8 % (9.0-44.0); LYMPHOCYTE # 1.6 TH/MM3 (1.0-4.8); MEAN CELL VOLUME 87.1 FL (80.0-100.0); MEAN CORPUSCULAR HEMOGLOBIN 29.4 PG (27.0-34.0); MEAN CORPUSCULAR HGB CONC 33.7 % (32.0-36.0); MONO % 7.7 % (0.0-8.0); NEUT % 71.8 % (16.0-70.0); PLATELET COUNT 344 TH/MM3 (150-450); RED BLOOD COUNT 4.21 MIL/MM3 (4.50-5.90); RED CELL DISTRIBUTION WIDTH 15.7 % (11.6-17.2); WHITE BLOOD COUNT 9.2 TH/MM3 (4.0-11.0)
[2016-11-30 13:06] LABS: APTT (PATIENT) 27.3 SEC (24.3-30.1); INTERNATIONAL NORMALIZED RATIO 0.9 RATIO; PROTHROMBIN TIME - PATIENT 9.9 SEC (9.8-11.6)
[2016-11-30 13:08] LABS: BICARBONATE 26.8 MEQ/L (21.0-32.0); MAGNESIUM 2.1 MG/DL (1.5-2.5); POTASSIUM 4.3 MEQ/L (3.5-5.1)
--- NOTE | 2016-11-30 13:22 | RADRPT ---
EXAM DATE/TIME: 11/30/2016 12:33 [facility] COMPARISON: US ARM RIGHT VENOUS DOPPLER, October 19, 2016, 7:57. INDICATIONS : Right arm swelling. MEDICAL HISTORY : Irritable bowel syndrome. Gastroesophageal reflux disease. Meningioma. Epilepsy. 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 Chronic back pain. Anxiety. SURGICAL HISTORY : Basal skin removed from right eyelid. Brain surgery benign tumor removed. Cervical and lumbar surgeri es. Cardiac stent. Right testicle descending surgery. Right hip fracture repair. Left carpel tunnel r elease. ENCOUNTER: Subsequent ACUITY: 1 month PAIN SCORE: 5/10 LOCATION: Right arm. FINDINGS: There is spontaneous flow documented in the brachial, basilic, cephalic, axillary, and subclavian vei ns. The vessels are compressible and augmentation response is documented. No filling defects are se en. The flow is phasic with respiration. Direction of flow in the jugular vein is caudal. CONCLUSION: No evidence of deep venous thrombosis within the right upper extremity or right-sided central veins. Brandon Strickland MD on November 30, 2016 at 13:19 Board Certified Radiologist. This report was verified electronically.
--- NOTE | 2016-11-30 13:24 | RADRPT ---
EXAM DATE/TIME: 11/30/2016 12:48 [facility] COMPARISON: US LEG RIGHT VENOUS DOPPLER, April 27, 2014, 19:12. INDICATIONS : Right leg edema. MEDICAL HISTORY : Irritable bowel syndrome. Gastroesophageal reflux disease. Meningioma. Epilepsy. Neuropathy to BL E. Chronic back pain. Anxiety. SURGICAL HISTORY : Basal skin removed from right eyelid. Brain surgery benign tumor removed. Cervical and lumbar surgeri es. Cardiac stent. Right testicle decending surgery. Right hip fracture repair. Left carpel tunnel re lease. ENCOUNTER: Subsequent ACUITY: 1 month PAIN SCORE: 5/10 LOCATION: Right leg. TECHNIQUE: Venous ultrasound of the leg was performed from the inguinal ligament to the proximal calf. Real-arthur e, color Doppler and spectral tracing, compression and augmentation techniques were used. FINDINGS: There is normal compressibility of the deep venous system from the inguinal region to the proximal ca lf. No echogenic clot is seen in the lumen of the common femoral, femoral, popliteal, and posterior tibial veins. There is a normal response of the venous system to proximal and distal augmentation an d respiration. CONCLUSION: No evidence of deep venous thrombosis within the right lower extremity. Brandon Strickland MD on November 30, 2016 at 13:21 Board Certified Radiologist. This report was verified electronically.
--- NOTE | 2016-11-30 13:30 | PD ---
HPI Chief Complaint: Edema Time Seen by Provider: 12:25 Travel History International Travel<30 days: No Contact w/Intl Traveler<30days: No Traveled to known affect area: No History of Present Illness HPI 71-year-old male presents from Dr. Damico's office with note of right arm and leg swelling and headache since he had surgery about a month ago. Patient is a poor historian and cannot give me significant other details and keeps stating since his surgery he's had the symptoms and his surgeon sent him here. History is very limited. [facility] Past Medical History Narrative Medical By records Arthritis: No Asthma: No Autoimmune Disease: No Anxiety: Yes Depression: Yes (Currently on medication ) Heart Rhythm Problems: No Cancer: Yes (basal skin on right eyelid removal, BRAIN TUMOR) Cardiovascular Problems: Yes (stent) High Cholesterol: No Chemotherapy: No Chest Pain: No Congestive Heart Failure: No COPD: No Cerebrovascular Accident: No Diabetes: No Diminished Hearing: No Endocrine: No Gastrointestinal Disorders: Yes (Irritable bowel syndrome, INCONTINENCE) GERD: Yes Genitourinary: Yes (Urgency ) Hepatitis: No Hiatal Hernia: No Immune Disorder: No Implanted Vascular Access Dvce: Yes Kidney Stones: No Musculoskeletal: Yes (neck pain and previous surgery) Neurologic: Yes (epilepsy, 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, NECK PAIN, SEIZURES, HEAD PAIN) Psychiatric: Yes (ANXIETY) Reproductive: No Respiratory: No Immunizations Current: Yes Migraines: No Radiation Therapy: No Renal Failure: No Seizures: Yes (R/T BRAIN SURGERY) Sickle Cell Disease: No Sleep Apnea: No Thyroid Disease: No Ulcer: No Past Surgical History Narrative Surgical By records Abdominal Surgery: Yes (RIGHT TESTICLE DECENDING SURGERY) AICD: No Arteriovenous Shunt: No Body Medical Devices: CARDIAC STENT Cardiac Surgery: Yes (STENT) Ear Surgery: No Endocrine Surgery: No Eye Surgery: Yes (tumor removed from R eyelid) Genitourinary Surgery: No Gynecologic Surgery: No Insulin Pump: No Joint Replacement: No Neurologic Surgery: Yes (cervical and lumbar surgeries, brain surgery benign tumor removal) Oral Surgery: Yes (for dentures) Pacemaker: No Thoracic Surgery: No Other Surgery: Yes (MENINGIOMA REMOVED WITH PIECE OF SKULL REMOVED) Social History Narrative Social History By records Alcohol Use: Yes (WITH DINNER) Tobacco Use: No Substance Use: No Allergies-Medications (Allergen,Severity, Reaction): Coded Allergies: cefazolin (Verified Allergy, Intermediate, Rash, 11/30/16) Reported Meds & Prescriptions Reported Meds & Active Scripts Active Terazosin (Terazosin HCl) 1 Mg Cap 1 Mg PO HS Dilantin (Phenytoin Extended) 100 Mg Cap 200 Mg PO BID 30 Days Folic Acid 400 Mcg Tab 400 Mcg PO DAILY Pantoprazole (Pantoprazole Sodium) 40 Mg Tab 40 Mg PO DAILY Finasteride 5 Mg Tab 5 Mg PO HS Do not crush. Gaviscon Liq (Aluminum Hydroxide-Mag Carb Liq) 95-358 Mg/15 Ml Susp 30 Ml PO Q6HR PRN 30 Days Maximum 120 mL/24 hrs. Reported Imodium A-D (Loperamide HCl) 2 Mg Capsule 2 Mg PO Q4HR Enema Disposable (Sodium Phosphates) 19 Gram-7 Gram/118 Ml Sole 1 Applic RECTAL DAILY PRN Citroma Liq (Magnesium Citrate) 300 Ml Liq 300 Ml PO DAILY PRN Zofran Odt (Ondansetron Odt) 4 Mg Tab 4 Mg SL Q8HR PRN Milk of Magnesia Liq (Magnesium Hydroxide) 400 Mg/5 Ml Susp 30 Ml PO DAILY PRN Dulcolax Supp (Bisacodyl) 10 Mg Supp 10 Mg RECTAL DAILY PRN Tylenol (Acetaminophen) 325 Mg Tab 325-650 Mg PO Q4H PRN Lyrica (Pregabalin) 150 Mg Cap 150 Mg PO BID Keppra (Levetiracetam) 1,000 Mg Tab 1,000 Mg PO BID Review of Systems ROS Limitations: Poor Historian Physical Exam Exam Limitations: Poor Historian Narrative GENERAL: Well-nourished, well-developed patient. SKIN: Warm and dry. HEAD: atraumatic. EYES: No injection or drainage. ENT: No nasal drainage noted. NECK: Supple, trachea midline. CARDIOVASCULAR: Regular rate and rhythm RESPIRATORY: Breath sounds equal bilaterally at apices. No accessory muscle use. GASTROINTESTINAL: Abdomen soft, non-tender, nondistended. EXTREMITIES: 2+ pitting edema noted to right lower extremity, edema also noted throughout right arm, both neurovascularly intact, compartments soft, no specific joint pain NEUROLOGICAL: Awake. Moves extremities. Normal speech. Data Data Last Documented VS Vital Signs Date Time Temp Pulse Resp B/P (MAP) Pulse Ox O2 Delivery O2 Flow Rate FiO2 11/30/16 14:00 63 18 141/65 (90) 96 Room Air 11/30/16 11:42 98.5 Orders Orders Us Leg Venous Doppler (11/30/16 12:09) Us Arm Venous Doppler (11/30/16 12:09) Ct Brain W/O Iv Contrast(Rout) (11/30/16 ) Magnesium (Mg) (11/30/16 12:09) Phosphorus (Po4) (11/30/16 12:09) Complete Blood Count With Diff (11/30/16 12:09) Basic Metabolic Panel (Bmp) (11/30/16 12:09) Act Partial Throm Time (Ptt) (11/30/16 12:09) Prothrombin Time / Inr (Pt) (11/30/16 12:09) Iv Access Insert/Monitor (11/30/16 12:09) Ecg Monitoring (11/30/16 12:09) Oximetry (11/30/16 12:09) Labs Laboratory Tests Test 11/30/16 12:39 White Blood Count 9.2 TH/MM3 Red Blood Count 4.21 MIL/MM3 Hemoglobin 12.3 GM/DL Hematocrit 36.6 % Mean Corpuscular Volume 87.1 FL Mean Corpuscular Hemoglobin 29.4 PG Mean Corpuscular Hemoglobin Concent 33.7 % Red Cell Distribution Width 15.7 % Platelet Count 344 TH/MM3 Mean Platelet Volume 7.1 FL Neutrophils (%) (Auto) 71.8 % Lymphocytes (%) (Auto) 17.8 % Monocytes (%) (Auto) 7.7 % Eosinophils (%) (Auto) 1.7 % Basophils (%) (Auto) 1.0 % Neutrophils # (Auto) 6.6 TH/MM3 Lymphocytes # (Auto) 1.6 TH/MM3 Monocytes # (Auto) 0.7 TH/MM3 Eosinophils # (Auto) 0.2 TH/MM3 Basophils # (Auto) 0.1 TH/MM3 CBC Comment DIFF FINAL Differential Comment Prothrombin Time 9.9 SEC Prothromb Time International Ratio 0.9 RATIO Activated Partial Thromboplast Time 27.3 SEC Blood Urea Nitrogen 11 MG/DL Creatinine 0.53 MG/DL Random Glucose 88 MG/DL Calcium Level 9.5 MG/DL Phosphorus Level 3.6 MG/DL Magnesium Level 2.1 MG/DL Sodium Level 138 MEQ/L Potassium Level 4.3 MEQ/L Chloride Level 105 MEQ/L Carbon Dioxide Level 26.8 MEQ/L Anion Gap 6 MEQ/L Estimat Glomerular Filtration Rate 153 ML/MIN MDM Medical Decision Making Medical Screen Exam Complete: Yes Emergency Medical Condition: Yes Medical Record Reviewed: Yes (past history confirmed) Interpretation(s) CBC & BMP Diagram 11/30/16 12:39 Calcium Level 9.5, Phosphorus Level 3.6, Magnesium Level 2.1 Last 24 hours Impressions Upper Extremity Ultrasound 11/30/16 1209 Signed Impressions: Service Date/Time: Wednesday, November 30, 2016 12:33 - CONCLUSION: No evidence of deep venous thrombosis within the right upper extremity or right-sided central veins. Brandon Strickland MD Lower Extremity Ultrasound 11/30/16 1209 Signed Impressions: Service Date/Time: Wednesday, November 30, 2016 12:48 - CONCLUSION: No evidence of deep venous thrombosis within the right lower extremity. Brandon Strickland MD ct brain no acute change, post op changes noted Differential Diagnosis DVT, lymphedema, postop bleed.... Narrative Course Will check labs, Doppler ultrasound of arm and leg and CT brain as staff from Dr. Damico's office passed on and then discuss with them further care ed workup no emergent process, discussed with primary and neurosurgeon and patient will be sent out, questions answered Physician Communication Physician Communication dr rg persaud can go home from his standpoint dr patricia persaud sees daily in rehab and will follow, patient can go back Diagnosis Primary Impression: Edema Qualified Codes: R60.0 - Localized edema Additional Impression: Cephalalgia Qualified Codes: R51 - Headache Patient Instructions: General Instructions Additional Instructions: return as needed, follow with primary as scheduled, tylenol as needed, elevate leg and arm at rest Med/Other Pt SpecificInfo: No Change to Meds Disposition: 03 DISCHARGE TO SNF (ERASED) Condition: Stable Aury Tilley MD Nov 30, 2016 13:30
[2016-11-30 14:00] VITALS: BP 141/65; PULSE 63; RESP 18; O2SAT 96
--- NOTE | 2016-11-30 15:07 | RADRPT ---
EXAM DATE/TIME: 11/30/2016 14:11 [facility] COMPARISON: MRI BRAIN W & W/O CONTRAST, October 10, 2016, 20:45. CT BRAIN W/O CONTRAST, 2016, 17:14. INDICATIONS : Dizziness with pain. RADIATION DOSE: 56.35 CTDIvol (mGy) MEDICAL HISTORY : Brain tumor SURGICAL HISTORY : Craniotomy. Carotid stent. ENCOUNTER: Initial ACUITY: 1 day PAIN SCALE: 10/10 LOCATION: Right upper and lower extremities. TECHNIQUE: Multiple contiguous axial images were obtained of the head. Using automated exposure control and adjustment of the mA and/or kV according to patient size, radiation dose was kept as low as reasonably achievable to obtain optimal diagnostic quality images. DICOM format image data is av ailable electronically for review and comparison. FINDINGS: Stable postsurgical features of right frontoparietal craniectomy. Large encephalomalacic defect in th e right frontal mid to high convexities. Interval evolution of left subdural hematoma with small resi dual 5 mm subdural hygroma. Extensive white matter hypodensities throughout the left frontoparietal h igh convexities. Exvacuodilatation of the right lateral ventricle. Ventricles are otherwise symmetric al in size without evidence of hydrocephalus. No intercurrent intra-or extra-axial fluid collections or hemorrhage. No significant subfalcine or downward herniation. Basilar cisterns are intact. Brainst em and cerebellum are grossly intact. Remainder of the exam is unchanged. CONCLUSION: 1. Stable postsurgical features of frontoparietal craniectomy and interval evolution of left subdural hematoma with small residual 5 mm subdural hygroma. 2. Extensive confluent white matter hypodensities throughout the left frontoparietal high convexities consistent with post treatment change. 3. No acute abnormality. No intercurrent hemorrhage, herniation, or hydrocephalus. Board Certified Radiologist. This report was verified electronically.
== END 2016-11-30 16:21 ==
LOC: NEPC 11:40
DX: R60.0 Localized edema (principal); R51 Headache; G40.909 Epilepsy, unspecified, not intractable, without status epilepticus; Z79.899 Other long term (current) drug therapy
CPT/HCPCS: 70450; 80048; 83735; 84100; 85025; 85610; 85730; 93971; 99285